=== PATIENT | female | born 1980 | race Caucasian/White ===

== ENCOUNTER 2020-11-12 08:07 | Outpatient (REF) | payer OTHER, SELFPAY | END 2020-11-12 08:08 | disposition home or self-care (01) | LOC: HO.LAB 08:07 | PROVIDERS: Visit Provider Internal Medicine | DX: Z20.822 Contact with and (suspected) exposure to COVID-19 (principal) | CPT/HCPCS: 36415; C9803; U0003; U0005 ==

== ENCOUNTER 2021-03-28 16:58 | Emergency (ER) | payer OTHER, SELFPAY ==
[2021-03-28 17:39] VITALS: BP 103/64; PULSE 74; RESP 18; TEMP 36.6; O2SAT 96; BMI 36.0
[2021-03-28 18:22] LABS: MANUAL DIFF FLAG NO
[2021-03-28 18:25] LABS: Eosinophils Percent Auto 0.5 % (0-4); Hematocrit 32.4 % (37-47); Hemoglobin 10.8 g/dl (12.0-16.0); Imm Gran Abs Auto 0.01 X10*3/uL (0.00-0.03); Imm Gran Pct Auto 0.2 % (0.0-0.4); Lymphocytes Absolute Auto 1.5 X10*3/uL (1.2-4.9); Lymphocytes Percent Auto 35.9 % (20-40); Mean Corpuscular HGB Conc 33.3 g/dl (31.0-35.0); Mean Corpuscular Hemoglobin 29.5 pg (27.0-33.0); Mean Corpuscular Volume 88.5 fL (80-98); Mean Platelet Volume 9.1 fL (9.4-12.3); Monocytes Absolute Auto 0.2 X10*3/uL (0.1-1.2); Monocytes Percent Auto 4.6 % (2-11); Neutrophils Absolute Auto 2.4 X10*3/uL (2.0-8.3); Neutrophils Percent Auto 58.8 % (45-73); Platelet Count 267 X10*3/uL (160-400); Red Blood Count 3.66 X10*6/uL (4.20-5.50); Red Cell Distribution Width 11.9 % (11.0-16.0); White Blood Count 4.1 X10*3/uL (4.8-10.8)
[2021-03-28 18:47] LABS: Alanine Aminotransferase 14 U/L (0-31); Albumin Level 3.6 g/dL (3.5-5.0); Alkaline Phosphatase 68 U/L (39-117); Anion Gap 13 (12-20); Aspartate Amino Transferase 16 U/L (5-31); Bilirubin Total < 0.2 mg/dL (0.0-1.0); Blood Urea Nitrogen 6 mg/dL (9-16); Calcium 8.6 mg/dL (8.4-10.2); Carbon Dioxide 26 mmol/L (22-29); Chloride 111 mmol/L (96-108); Creatinine Clr Calc Pharmacy 98.3; Estimated Glomerular Filt Rate > 60; Glucose Random 77 mg/dL (60-115); Potassium 3.7 mmol/L (3.3-5.1); Sodium 146 mmol/L (135-145); Total Protein 7.2 g/dL (6.5-8.0)
== END 2021-03-28 21:17 | disposition left against medical advice (07) ==
LOC: HO.ED 21:14
PROVIDERS: Emergency Provider Emergency Medicine; PCP Internal Medicine
DX: L02.419 Cutaneous abscess of limb, unspecified (principal); L02.512 Cutaneous abscess of left hand; L02.511 Cutaneous abscess of right hand
CPT/HCPCS: 36415; 80053; 85025; 99282; 99283

== ENCOUNTER 2021-04-03 06:27 | Emergency (ER) | payer OTHER, SELFPAY ==
[2021-04-03 06:29] VITALS: BP 128/79; PULSE 93; RESP 16; TEMP 36.6; O2SAT 94; BMI 5905.2
[2021-04-03 06:48] LABS: Glucose Urine UA NEG (NEG); Leukocyte Esterase Urine NEG (NEG); Nitrite Urine NEG (NEG); Specific Gravity - Urine >= 1.030 (1.005-1.025); Urine Blood NEG (NEG); Urine Ketones NEG (NEG); Urine Protein TRACE MG/DL (NEG-TRACE)
[2021-04-03 06:51] LABS: Appearance Urine CLEAR; Color Urine DARK YELLOW; UPreg QC Valid YES; Urine Pregnancy NEGATIVE (NEGATIVE)
--- NOTE | 2021-04-03 07:03 | ED_ITS ---
HPI - Abdominal Pain General Chief Complaint: Abdominal Pain Stated Complaint: abd pain Time Seen by Provider: 04/03/21 06:51 Source: patient History of Present Illness HPI narrative: 41-year-old female presents emergency department with left lower quadrant pain. Patient was recently in detox came out with draining cellulitis and abscess to left hand she is on Bactrim and Keflex. Patient states that she has been on detox for approximately 1 week she denies fevers chills cough nausea vomiting or diarrhea her appetite has been normal. She denies any previous surgeries. MD elicited complaint: abdominal pain Pertinent past history: none Migration to: no migration Related Data Home Medications Medication Instructions Recorded Confirmed ferrous sulfate 325 mg (65 mg 325 mg PO DAILY 03/29/21 iron) tablet (Feosol) methadone 40 mg soluble tablet 10 mg PO Q4H 03/29/21 Previous Rx's Medication Instructions Recorded cephalexin 500 mg capsule 500 mg PO QID 7 Days #28 cap 03/29/21 metronidazole 0.75 % vaginal gel 1 appful VAGINAL DAILY 5 Days #70 g 03/29/21 sulfamethoxazole 800 1 tab PO BID 10 Days #20 tab 03/29/21 mg-trimethoprim 160 mg tablet Allergies Allergy/AdvReac Type Severity Reaction Status Date / Time Fish Containing Products Allergy Severe ANAPHYLAXIS Verified 04/03/21 06:29 Review of Systems Review of Systems Review of systems: General: Patient denies any fever chills recent illness or falls Musculoskeletal: Denies back pain or body aches or other injuries HEENT: denies headache, runny nose, ear pain Respiratory: denies shortness of breath, cough Cardiovascular: no chest pain or palpitations : denies dysuria, frequency Abdomen: no nausea vomiting or diarrhea she does have llq abdominal pain Extremities: no swelling, no pain Skin: no diaphoresis Yes all other systems are reviewed and are negative Physical Exam Vital Signs: Vital Signs: Last Vital Signs Temp 98.4 F 04/03/21 07:53 Pulse 75 04/03/21 07:53 Resp 18 04/03/21 07:53 BP 111/60 04/03/21 07:53 Pulse Ox 100 04/03/21 07:53 Body Mass Index 5905.2 General: Well-appearing well-nourished in no signs of distress HEENT: Normocephalic atraumatic Neck: No signs of JVD, no masses no tenderness or lymphadenopathy Cardiovascular: Regular rate and rhythm Respiratory: Clear to auscultation bilaterally Abdomen: Soft patient tender to left lower quadrant no masses Extremities: Normal pedal pulses no signs of edema Skin: Dry warm no rashes Back: No tenderness full ROM MDM - Abdominal Pain MDM Narrative Medical decision making narrative: Patient concerns for diverticulitis versus abscess versus ovarian torsion versus talk present seen. The patient for CT scan and check CBC BMP serum test. Nursing attempted to get an IV patient has scars and healing wounds to both arms due to heavy drug use. They were unable to get the IV they tried with ultrasound or unsuccessful then attempted to draw labs and the patient still refused would not sit still and abscond from the ER. Differential Diagnosis Differential diagnosis: Likely abdominal pain, calculus of kidney and gastroenteritis Lab Data Labs: Lab Results 04/03/21 04/03/21 Range/Units 06:39 06:39 Urine Color DARK YELLOW Urine Appearance CLEAR Urine pH 6.0 (5.0-8.0) Ur Specific [place] >= 1.030 H (1.005-1.025) Urine Protein TRACE (NEG-TRACE) MG/DL Urine Glucose (UA) NEG (NEG) MG/DL Urine Ketones NEG (NEG) MG/DL Urine Blood NEG (NEG) Urine Nitrite NEG (NEG) Ur Leukocyte Esterase NEG (NEG) Urine Test NEGATIVE (NEGATIVE) Discharge Plan Discharge Clinical Impression: Abdominal pain Patient Disposition: Elopement Prescriptions: No Action ferrous sulfate [Feosol] 325 mg (65 mg iron) tablet 325 mg PO DAILY RF: 0 methadone 40 mg tablet,soluble 10 mg PO Q4H RF: 0 cephalexin 500 mg capsule 500 mg PO QID 7 Days Qty: 28 RF: 0 sulfamethoxazole-trimethoprim 800-160 mg tablet 1 tab PO BID 10 Days Qty: 20 RF: 0 metronidazole 0.75 % gel 1 appful vaginal DAILY 5 Days Qty: 70 RF: 0 PMFSH Past Medical History Surgical History (Updated 06/18/20 @ 11:43 by NATE Draper) History of section Family History Family History (Updated 06/21/20 @ 13:02 by NATE Howe) Father No problems noted. Mother HTN (hypertension) Social History Social History Advance Directives: No Advance Directives Information Provided: No
[2021-04-03 07:53] VITALS: BP 111/60; PULSE 75; RESP 18; TEMP 36.9; O2SAT 100
--- NOTE | 2021-04-03 07:53 | PC.NURSE ---
Pt alert and oriented x3, pt states she has been having localized L quadrant pain over the past 2 days. no n/v, no diarrhea, no fever/chills. no c/o sob/difficulty breathing. LMP 2 years ago. Pt is a difficult stick. multiple attempts made to establish IV. Pt declines to have IV established.She states it is too painful. She declines Iv pain med and fluids. Dr. Burger made aware by the specifications writer. no apparent distress noted. pt resting quietly.
--- NOTE | 2021-04-03 08:20 | PC.NURSE ---
Pt got upset stating the tourniquet was too tight when staff attempted to establish iv and labs. Pt eloped. Dr. Burger made aware by this specification writer.
== END 2021-04-03 08:25 | disposition left against medical advice (07) ==
PROVIDERS: Emergency Provider Student in an Organized Health Care Education/Training Program; PCP Internal Medicine
DX: R10.32 Left lower quadrant pain (principal); Z79.899 Other long term (current) drug therapy
CPT/HCPCS: 81003; 81025; 96374; 99283

== ENCOUNTER 2021-04-18 11:32 | Emergency (ER) | payer OTHER, SELFPAY | END 2021-04-18 13:22 | disposition left against medical advice (07) | PROVIDERS: Emergency Provider Internal Medicine; PCP Internal Medicine | DX: L02.91 Cutaneous abscess, unspecified (principal) ==

== ENCOUNTER 2021-04-21 13:03 | Emergency (ER) | payer OTHER, SELFPAY ==
--- NOTE | 2021-04-21 13:24 | PC.NURSE ---
2nd call to [facility] [place] 1321 no response in wr
--- NOTE | 2021-04-21 13:30 | PC.NURSE ---
3rd call to c at 1328 no response
== END 2021-04-21 13:28 | disposition left against medical advice (07) ==
PROVIDERS: Emergency Provider Internal Medicine; PCP Internal Medicine
DX: R21 Rash and other nonspecific skin eruption (principal)

== ENCOUNTER 2021-06-02 05:25 | Emergency (ER) | payer OTHER, SELFPAY ==
--- NOTE | 2021-06-02 05:33 | ED.AMS ---
HPI - Altered Mental Status General Chief Complaint: General Medical Stated Complaint: 3 BAGS OF HEROIN TONIGHT PER EMS Time Seen by Provider: 06/02/21 05:33 Source: patient Mode of arrival: EMS Limitations: no limitations History of Present Illness HPI narrative: patient found on the side of the road after using heroine. Patient did not receive kacie WYATT complaint: altered mental status Onset (ago): hour(s) Severity: mild Context: drug abuse Related Data Home Medications Medication Instructions Recorded Confirmed ferrous sulfate 325 mg (65 mg 325 mg PO DAILY 03/29/21 iron) tablet (Feosol) methadone 40 mg soluble tablet 10 mg PO Q4H 03/29/21 Previous Rx's Medication Instructions Recorded cephalexin 500 mg capsule 500 mg PO QID 7 Days #28 cap 03/29/21 metronidazole 0.75 % vaginal gel 1 appful VAGINAL DAILY 5 Days #70 g 03/29/21 sulfamethoxazole 800 1 tab PO BID 10 Days #20 tab 03/29/21 mg-trimethoprim 160 mg tablet Allergies Allergy/AdvReac Type Severity Reaction Status Date / Time Fish Containing Products Allergy Severe ANAPHYLAXIS Verified 06/02/21 05:37 Review of Systems Constitutional: Constitutional: Reports no additional constitutional complaints Eyes: Eyes: Reports no additional eye complaints ENT: Denies dizziness Cardiovascular: Cardiovascular: Reports no additional cardiovascular complaints Respiratory: Respiratory: Reports as per HPI Gastrointestinal: Gastrointestinal: Reports no additional gastrointestinal complaints Genitourinary: Genitourinary: Reports no additional female genitourinary complaints Musculoskeletal: Musculoskeletal: Reports no additional musculoskeletal complaints Integumentary/Breasts: Skin/Breast: Denies rash Neurologic: Reports system reviewed and no additional complaints, except as documented, Denies dizziness and Denies Sensory deficit (Neuro) Psychiatric: Psychiatric: Denies anxiety PMF Past Medical History Surgical History History of section Family History Family History Father No problems noted. Mother HTN (hypertension) Social History Social History Advance Directives: No Advance Directives Information Provided: Yes Physical Exam Vital Signs: Vital Signs: Last Vital Signs Temp 98.1 F 06/02/21 05:40 Pulse 87 06/02/21 05:40 Resp 14 06/02/21 05:40 BP 105/48 L 06/02/21 05:40 Pulse Ox 94 06/02/21 05:40 Body Mass Index 28.3 Const: Other: Pat[place] looking older than stated age Nutritional Appearance: average body habitus Orientation/consciousness: oriented to person Limitations: no limitations HENMT: Head: Yes normal to inspection Ears: external ears normal General nose exam: Normal external nose present Mouth: Normal oral and palatal mucosa present and oropharynx normal Throat: Yes posterior oropharynx normal Eyes: General: appearance normal, both eyes and all related structures Neck: Other: supple Neck: Yes normal visual inspection Chest: Chest palpation & inspection: normal inspection of the chest Resp: Auscultation: clear to auscultation bilaterally Cardio: Jugular venous distension: no JVD Rate: regular rate Rhythm: regular rhythm Heart sounds: S1 normal heart sound present and S2 normal heart sound present GI: Inspection: Yes normal to inspection Palpation (GI): Soft to palpation, nontender and No hepatosplenomegaly present Auscultation: normal bowel sounds : General: Yes no CVA tenderness Back/Spine/Pelvis: Back: no CVA tenderness Skin: Other: old track maxwell and healing wounds, no acute infection Neuro: General: oriented to person Cranial nerves: Yes CN's II-XII intact bilaterally Motor exam (neuro): 5/5 motor strength present throughout Sensory Exam: No Sensory deficit (Neuro) Extrem: General: Yes normal to inspection Psych: Appearance: grossly normal Course Reevaluation(s) Reevaluation #1: patient ate and is alert will dc home Time: 05:52 Discharge Plan Discharge Clinical Impression: Opiate addiction Qualifiers: Substance use status: with unspecified opioid-induced disorder Qualified Code(s): F11.29 - Opioid dependence with unspecified opioid-induced disorder Patient Disposition: Home, Self-Care Instructions: Opioid Use Disorder (ED) Prescriptions: No Action ferrous sulfate [Feosol] 325 mg (65 mg iron) tablet 325 mg PO DAILY RF: 0 methadone 40 mg tablet,soluble 10 mg PO Q4H RF: 0 cephalexin 500 mg capsule 500 mg PO QID 7 Days Qty: 28 RF: 0 sulfamethoxazole-trimethoprim 800-160 mg tablet 1 tab PO BID 10 Days Qty: 20 RF: 0 metronidazole 0.75 % gel 1 appful vaginal DAILY 5 Days Qty: 70 RF: 0 Referrals: Po,Favian Chapman MD [Primary Care Provider] - 3 days
[2021-06-02 05:40] VITALS: BP 105/48; PULSE 87; RESP 14; TEMP 36.7; O2SAT 94; BMI 28.3
== END 2021-06-02 07:16 | disposition home or self-care (01) ==
PROVIDERS: Emergency Provider Emergency Medicine Emergency Medical Services; PCP Internal Medicine
DX: F11.29 Opioid dependence with unspecified opioid-induced disorder (principal); Z79.899 Other long term (current) drug therapy; Z71.51 Drug abuse counseling and surveillance of drug abuser
CPT/HCPCS: 99283

== ENCOUNTER 2021-07-14 08:09 | Emergency (ER) | payer OTHER, SELFPAY ==
[2021-07-14 08:15] VITALS: BP 110/79; BP 146/89; PULSE 63; PULSE 74; RESP 16; TEMP 36.6; O2SAT 97; BMI 27.4
--- NOTE | 2021-07-14 08:35 | PC.NURSE ---
pt found passed out in hallway of an apartment building, pt homeless she admits to using 2 bags of heroin around 3-4 a.m. this morning. pt sleeping since arriving to ed, she does wake up and responds easily when spoken to. pt alert and oriented x3. vss. no apparent distress noted.
--- NOTE | 2021-07-14 09:43 | ED.OVERDOSE ---
HPI - Overdose General Chief Complaint: Overdose Stated Complaint: EVAL D/T USING DRUGS TODAY Time Seen by Provider: 07/14/21 09:38 Source: patient and EMS Mode of arrival: EMS Limitations: no limitations History of Present Illness HPI Narrative: Patient is brought to emergency room by EMS. Patient was found by bystanders in a hallway, sleeping. Patient did not receive any Narcan, woke up, states that she is homeless, admits to using 2 bags of heroin. Patient is somnolent but easily arousable. It was noted that patient has cellulitis and open wounds in both hands on the dorsum from needle injections. Patient states that her hands look much better, she was in [facility] 1 week ago, she is currently on antibiotics, states she does not know the name. Patient denies any pain. Patient states that she does not want any intervention for her hands at this time. Patient denies fever chills. Patient denies suicidal or homicidal ideation, this was an accidental overdose. Related Data Home Medications Medication Instructions Recorded Confirmed ferrous sulfate 325 mg (65 mg 325 mg PO DAILY 03/29/21 iron) tablet (Feosol) methadone 40 mg soluble tablet 10 mg PO Q4H 03/29/21 Previous Rx's Medication Instructions Recorded cephalexin 500 mg capsule 500 mg PO QID 7 Days #28 cap 03/29/21 metronidazole 0.75 % vaginal gel 1 appful VAGINAL DAILY 5 Days #70 g 03/29/21 sulfamethoxazole 800 1 tab PO BID 10 Days #20 tab 03/29/21 mg-trimethoprim 160 mg tablet amoxicillin 875 mg-potassium 1 tab PO Q12H 7 Days #14 tab 06/02/21 clavulanate 125 mg tablet (Augmentin) doxycycline hyclate 100 mg tablet 100 mg PO Q12H 7 Days #14 tab 06/02/21 Allergies Allergy/AdvReac Type Severity Reaction Status Date / Time Fish Containing Products Allergy Severe ANAPHYLAXIS Verified 06/02/21 05:37 Review of Systems Review of Systems: Constitutional : No Weight loss, No Fever, No Chills, No Night Sweats, No Fatigue, No Malaise ENT/Mouth : No Hearing loss, No Ear Pain, No Nasal Congestion, No Sinus Pain, No Hoarseness, No sore throat, No Rhinorrhea, No Swallowing Difficulty Eyes: No Eye Pain, No Swelling, No Redness, No Foreign Body, No Discharge, No Vision Changes Cardiovascular : No Chest Pain, No SOB, No Dyspnea on Exertion, No Orthopnea, No Edema, No Palpitations Respiratory : No Cough, No Sputum, No Wheezing, No Smoke Exposure, No Dyspnea Gastrointestinal : No Nausea, No Vomiting, No Diarrhea, No Constipation, No abdominal Pain, No Hematochezia, No Melena Genitourinary : no irregular bleeding, No Dysuria, No Urinary Frequency, No Hematuria, No Urinary Incontinence, No Urgency, No Flank Pain, No Urinary Flow Changes, No Hesitancy Musculoskeletal : No joint pain, No Myalgias, No Joint Swelling Skin : For patient lesions in her aunt/cellulitis much improved Neuro : No Weakness, No Numbness, No Paresthesias, No Loss of Consciousness, No Dizziness, No Headache Psych : No Anxiety/Panic, No Depression, No SI/HI/AH/VH, admits to drug use Heme/Lymph: No Bruising, No Bleeding,No Lymphadenopathy Endocrine : No Polyuria, No Polydipsia, No Temperature Intolerance [facility] Past Medical History Medical History (Updated 07/14/21 @ 09:48 by Preethi Milan MD) Substance abuse Surgical History History of section Family History Family History Father No problems noted. Mother HTN (hypertension) Social History Social History Advance Directives: No Advance Directives Information Provided: No Physical Exam Vital Signs: Vital Signs: Last Vital Signs Temp 97.0 F 07/14/21 15:50 Pulse 90 07/14/21 15:50 Resp 16 07/14/21 15:50 BP 151/77 H 07/14/21 15:50 Pulse Ox 99 07/14/21 15:50 Body Mass Index 27.4 Const: Other: Appearance: Alert. Oriented X3. No acute distress. Somnolent but easily arousable Eyes: Pupils equal, round and reactive to light. ENT: Pharynx normal. Neck: Normal inspection. Neck supple. No lymph nodes noted. No crepitus CVS: Normal heart rate and rhythm. Pulses normal. Normal S1 and S2 Respiratory: No respiratory distress. Breath sounds normal. No Wheezing. No rales Abdomen: Soft and nontender. No rigidity. No distention. Skin: Skin warm and dry. See below Extremities: No lower extremity edema. Cellulitis and open wounds in the dorsum of both hands, not tender to touch Neuro: Oriented X 3. No motor deficit. No sensory deficit. Moving all extermities. No slurred speech. Cranial nerves 2-12 grossly intact Course Course Course Narrative: At this time, patient declined any blood work or any intubation for the cellulitis in her hand, states she is on antibiotics. Patient is calm, cooperative, very somnolent but easily arousable. Has no complaints. Not suicidal or homicidal. At this time, patient will stay in the ED until she is more awake. Respiratory rate and oxygen saturation within normal limits. Physician of sedation started at 09:45 Patient is awake and alert, denies suicidal homicidal ideation, once again declined treatment for cellulitis. Patient will eat dinner and initially discharged. MDM - Overdose Lab Data Labs: Lab Results 07/14/21 07/14/21 07/14/21 Range/Units 10:04 10:22 10:22 POC Glucose 77 (60-115) mg/dL Urine Color YELLOW Urine Appearance HAZY Urine pH 6.0 (5.0-8.0) Ur Specific [place] >= 1.030 H (1.005-1.025) Urine Protein NEG (NEG-TRACE) MG/DL Urine Glucose (UA) NEG (NEG) MG/DL Urine Ketones NEG (NEG) MG/DL Urine Blood NEG (NEG) Urine Nitrite NEG (NEG) Ur Leukocyte Esterase NEG (NEG) Urine Test NEGATIVE (NEGATIVE) Urine Opiates Screen (Not Detect) Urine Fentanyl Screen (Not Detect) Ur Barbiturates Screen (Not Detect) Ur Phencyclidine Scrn (Not Detect) Ur Amphetamines Screen (Not Detect) U Benzodiazepines Scrn (Not Detect) Urine Cocaine Screen (Not Detect) U Marijuana (THC) Screen (Not Detect) 07/14/21 Range/Units 10:22 POC Glucose (60-115) mg/dL Urine Color Urine Appearance Urine pH (5.0-8.0) Ur Specific [place] (1.005-1.025) Urine Protein (NEG-TRACE) MG/DL Urine Glucose (UA) (NEG) MG/DL Urine Ketones (NEG) MG/DL Urine Blood (NEG) Urine Nitrite (NEG) Ur Leukocyte Esterase (NEG) Urine Test (NEGATIVE) Urine Opiates Screen POSITIVE H (Not Detect) Urine Fentanyl Screen POSITIVE H (Not Detect) Ur Barbiturates Screen Not Detected (Not Detect) Ur Phencyclidine Scrn Not Detected (Not Detect) Ur Amphetamines Screen Not Detected (Not Detect) U Benzodiazepines Scrn Not Detected (Not Detect) Urine Cocaine Screen POSITIVE H (Not Detect) U Marijuana (THC) Screen Not Detected (Not Detect) Discharge Plan Discharge Clinical Impression: Drug overdose Patient Disposition: Home, Self-Care Instructions: Adult Overdose (ED) Additional Instructions: Please follow-up with your primary care physician tomorrow. If you have any worsening or new symptoms, please return to the emergency room or call 911 Prescriptions: No Action amoxicillin-pot clavulanate [Augmentin] 875-125 mg tablet 1 tab PO Q12H 7 Days Qty: 14 RF: 0 doxycycline hyclate 100 mg tablet 100 mg PO Q12H 7 Days Qty: 14 RF: 0 ferrous sulfate [Feosol] 325 mg (65 mg iron) tablet 325 mg PO DAILY RF: 0 methadone 40 mg tablet,soluble 10 mg PO Q4H RF: 0 cephalexin 500 mg capsule 500 mg PO QID 7 Days Qty: 28 RF: 0 sulfamethoxazole-trimethoprim 800-160 mg tablet 1 tab PO BID 10 Days Qty: 20 RF: 0 metronidazole 0.75 % gel 1 appful vaginal DAILY 5 Days Qty: 70 RF: 0
[2021-07-14 10:07] LABS: Glucose, Whole Blood 77 mg/dL (60-115)
[2021-07-14 10:32] LABS: Appearance Urine HAZY; Color Urine YELLOW; Glucose Urine UA NEG (NEG); Leukocyte Esterase Urine NEG (NEG); Nitrite Urine NEG (NEG); Specific Gravity - Urine >= 1.030 (1.005-1.025); Urine Blood NEG (NEG); Urine Ketones NEG (NEG); Urine Protein NEG (NEG-TRACE)
[2021-07-14 10:34] LABS: UPreg QC Valid YES; Urine Pregnancy NEGATIVE (NEGATIVE)
[2021-07-14 11:03] LABS: Amphetamine Screen Urine Not Detected (Not Detect); Barbiturates, Urine Not Detected (Not Detect); Benzodiazepines Screen Urine Not Detected (Not Detect); Cannabinoid Screen Urine Not Detected (Not Detect); Cocaine Screen Urine POSITIVE (Not Detect); Fentanyl, urine POSITIVE (Not Detect); Opiate Screen Urine POSITIVE (Not Detect); Phencyclidine Screen Urine Not Detected (Not Detect)
--- NOTE | 2021-07-14 13:07 | MHC.RECOVRN ---
Attempted to meet with pt x2 to assess and complete SUDE, pt unable to engage in conversation due to somnolence. T/w did leave recovery resources with pt. Discussed with pts RN, RN will notify t/w when pt is able to complete assessment.
[2021-07-14 15:50] VITALS: BP 151/77; PULSE 90; RESP 16; TEMP 36.1; O2SAT 99
--- NOTE | 2021-07-14 15:50 | HO.SUDE ---
Addendum entered by Alisson Sanders [facility] 07/14/21 16:40: CARE Team met with pt and offered her a SUDE. Pt declined. Original Note: CARE Team attempted to meet with pt to offer SUDE, pt was not arousable at this time. Please consult the CARE Team when pt is more awake.
--- NOTE | 2021-07-14 17:12 | MHC.RECOVSUP ---
? Reason for consult Recovery support o Current location: ED6H o Identified substance use concern: Heroin - Overdose - Seeking ATS (detox) - Support ? Intervention: o ATS bed search started/completed/in process o MAT started or to be started o Community resources provided o Harm reduction discussion ? Plan: o Referral to [facility] o Bed search in progress to [facility] o Follow up tomorrow o Patient to follow up with [facility] after discharge ? Additional information: Patient is pending an intake at [facility] at 7PM. and a bed in the morning.
[2021-07-14 18:59] VITALS: BP 125/70; PULSE 92; RESP 16; TEMP 37; O2SAT 96
[2021-07-14 22:58] VITALS: BP 125/70; PULSE 73; RESP 16; TEMP 36.8; O2SAT 92
[2021-07-15] VITALS (7 sets, daily range): BP systolic 115–130; BP diastolic 63–93; PULSE 77–83; RESP 16–18; TEMP 36.9; O2SAT 96–99
--- NOTE | 2021-07-15 07:30 | PC.NURSE ---
pt called her sister for a ride home, the sister requested to speak with this rn, i got verbal permission from the pt to speak with the sister. according to the pt is very unsafe to go home, the sister states that she is 100% that the pt will attempt to kill herself and that the pt has previous attempts in the future and the whole reason the pt was sent here is to evaluated by crisis. aslo the family is supposable going to court this morning to section 35 the pt when this rn spoke to the pt what is the reason that she wants to go home pt did not really answer, was looking down and not having any eye contact, this rn asked the pt if she was suicidal, pt would not answer, yes or no, just keeps looking down on the ground.
[2021-07-15] MEDS: LORazepam 1 MG TABLET PO ×2 (07:52→19:47)
--- NOTE | 2021-07-15 10:39 | PC.NURSE ---
pt is currently asleep,respirations even and unlabored sitter in place
--- NOTE | 2021-07-15 13:46 | PC.NURSE ---
Transferred over to [facility] Bed 1. Report given to this RN by Angelica (embedded systems engineer). Pt ambulates with steady gait. Per Angelica, [facility] referral sent. Awaiting N/Crisis evaluation. Ativan given just prior to 8am today. Patient's belongings are in decontamination room. Arrived for overdose on heroin, also reports SI. Changeover completed. Clara is calm/cooperative at this time, watching TV.
--- NOTE | 2021-07-15 18:57 | PC.NURSE ---
Spoke with MD about COWS. Pt states that suboxone gives her adverse effects and does not want to take. Ativan worked well for pt earlier. MD to place PRN marshall.
--- NOTE | 2021-07-15 21:00 | MHC.CARE ---
CARE Team faxed pt's intake packet to [facility] last night (07/14) because pt was interested in going to detox and planned to follow up this morning. Today pt reported that her overdose was an intentional suicide attempt so she was referred for assessment. CARE Team meet with pt to determine appropriate treatment recommendations. Pt reports that her overdose was a suicide attempt because she has been feeling so helpless and hopeless to overcome her addiction. Pt explains that her suicidality is rooted in her inability to regain sobriety. Pt denies current SI or self harm urges. Pt denies HI/. Pt denies any prior psychiatric history/treatment/diagnoses. Pt is not currently a risk to herself or others so CARE Team recommends that pt be admitted to detox for treatment in the morning.
--- NOTE | 2021-07-16 05:56 | PC.NURSE ---
pt awake oob to bathroom. steady gait. back to bed.
[2021-07-16 08:15] VITALS: BP 131/77; PULSE 83; RESP 18; TEMP 36.9; O2SAT 98
[2021-07-16] MEDS: Buprenorphine/Naloxone 4/1 mg FILM 1 FILM SUBLINGUAL ×2 (08:46→11:27)
--- NOTE | 2021-07-16 09:30 | MHC.RECOVSUP ---
Recovery Support note: This process description writer met with patient to discuss withdrawal and treatment options. Patient continues to express interest in going to detox. Patient reports significant withdrawal symptoms. Patient states that she was previously on methadone several months ago and that she last used heroin prior to arriving at the hospital. Patient expresses interest in receiving Suboxone to treat her withdrawal. Discussed case with patient's ED provider. Plan for patient to receive Suboxone while she awaits an inpatient detox bed.
[2021-07-16 11:23] VITALS: PULSE 88
== END 2021-07-16 13:06 ==
PROVIDERS: Emergency Provider Emergency Medicine; PCP Internal Medicine
DX: T40.1X1A Poisoning by heroin, accidental (unintentional), initial encounter (principal); Y92.89 Other specified places as the place of occurrence of the external cause; L03.114 Cellulitis of left upper limb; L03.113 Cellulitis of right upper limb; Z59.02 Unsheltered homelessness
CPT/HCPCS: 80307; 81003; 81025; 82947; 99285

== ENCOUNTER 2021-07-16 13:52 | Emergency (ER) | payer OTHER, SELFPAY ==
[2021-07-16 14:34] VITALS: BP 125/67; PULSE 102; RESP 20; TEMP 36.9; O2SAT 98; BMI 29.9
--- NOTE | 2021-07-16 15:06 | MHC.RECOVSUP ---
Recovery Support note: Patient was initially accepted to [facility] for ATS. Per [facility] staff, patient became frustrated with staff not immediately admitting her and patient returned to [facility] [place]. Staff would not admit her without [facility] discharge summary. This senior underwriter sent discharge summary for review. Per Nahomi at [facility], patient is accepted and can come in for treatment. Discussed case with lost charge card clerk and ED provider. This senior underwriter contacted patient's sister to coordinate transportation.
--- NOTE | 2021-07-16 15:14 | ED.GENADULT ---
HPI - General Adult General Chief complaint: General Medical Stated complaint: ANTIBO FOR DETOX Time Seen by Provider: 07/16/21 14:22 Source: patient Mode of arrival: ambulatory History of Present Illness HPI narrative: 41-year-old female with a past medical history of substance abuse discharged from our facility this morning to [facility] presenting back to our facility for medical clearance/miscommunication. [facility] believed patient needed labs/antibiotics for cellulitis to hands and sent her back to ED as she refused blood work. Patient was admitted to [facility] on 06/21 and discharged on 06/27 for bilateral hand cellulitis/ulceration treated with IV Vancomycin and Rocephin, does not currently have active cellulitis. Reports using heroin & cocaine, last used prior to previous [facility] arrival on 07/14. Reports feeling nauseous now. Denies fever, chills, abdominal pain, V/D, SI/HI Onset (ago): hour(s) Related Data Previous Rx's Medication Instructions Recorded bacitracin 500 unit/gram topical 1 appl TOPICAL BID #30 g 07/16/21 ointment Allergies Allergy/AdvReac Type Severity Reaction Status Date / Time Fish Containing Products Allergy Severe ANAPHYLAXIS Verified 06/02/21 05:37 Review of Systems Review of Systems: Constitutional: No Fever, No Chills,No Fatigue, No Malaise ENT/Mouth: No Ear Pain, No Nasal Congestion,No Hoarseness, No sore throat Eyes: No Eye Pain, No Swelling, No Redness Cardiovascular: No Chest Pain, No SOB, No Edema, No Palpitations Respiratory: No Cough, No Sputum, No Wheezing, No Smoke Exposure, No Dyspnea Gastrointestinal: + Nausea, No Vomiting, No Diarrhea, No Constipation, No Abdominal pain Genitourinary: No Dysuria, No Urinary Frequency, No Hematuria Musculoskeletal: No joint pain, No Myalgias, No Joint Swelling Skin: No Skin Lesions, No rash Neuro: No Weakness, No Headache Psych: No Anxiety/Panic, No Depression, No SI/HI/AH/VH, No Social Issues Yes all other systems are reviewed and are negative [facility] Past Medical History Attestation statement: The following information was validated with the patient. Medical History (Updated 07/16/21 @ 15:17 by MORRIS Day) Substance abuse Surgical History History of section Family History Family History Father No problems noted. Mother HTN (hypertension) Social History Social History Patient Tobacco Use Status: Current everyday Tobacco user Substance Use Type: Crack/Cocaine and Heroin Advance Directives: No Advance Directives Information Provided: No Physical Exam Vital Signs: Vital Signs: Last Vital Signs Temp 98.5 F 07/16/21 14:34 Pulse 102 H 07/16/21 14:34 Resp 20 07/16/21 14:34 BP 125/67 07/16/21 14:34 Pulse Ox 98 07/16/21 14:34 Body Mass Index 29.9 Const: General: cooperative Orientation/consciousness: patient oriented x3 Limitations: no limitations HENMT: Head: Yes normal to inspection and Yes atraumatic Ears: hearing grossly normal bilaterally General nose exam: Normal external nose present Face and sinus: Yes normal facial exam Eyes: General: appearance normal, both eyes and all related structures EOM: EOMs intact bilaterally Neck: Neck: Yes normal visual inspection and Yes no meningeal signs Resp: Effort & Inspection: normal respiratory effort and no respiratory distress Auscultation: clear to auscultation bilaterally Cardio: Rate: regular rate Heart sounds: S1 normal heart sound present and S2 normal heart sound present GI: Inspection: Yes normal to inspection Palpation (GI): Soft to palpation, nontender, no guarding and not rigid Skin: Other: Bilateral ulcerations/wounds to dorsum of hands without warmth/erythema or active cellulitis. No fluctuance/induration or streaking. Neurovascularly intact Rashes: no rashes Neuro: General: patient oriented x3, tone normal, moves all extremities and no meningeal signs Cranial nerves: Yes CN's II-XII intact bilaterally Extrem: General: Yes normal to inspection Medical Decision Making MDM Narrative Medical decision making narrative: 41-year-old female with a past medical history of substance abuse discharged from our facility this morning to [facility] presenting back to our facility for medical clearance/miscommunication. On exam mildly tachycardic, NAD/nontoxic, denies SI/HI. Patient was just discharged from our ED a few hours ago, plan still for patient to go to [facility], discharge paperwork from [facility] was sent to [facility], they will not accept patient. Patient's sister will be picking her up from ED for transport Discharge Plan Discharge Clinical Impression: Substance abuse Patient Disposition: Xfer Other Transfer Details: [facility] Instructions: Polysubstance Abuse (ED) Additional Instructions: Please do not use drugs or drink alcohol a can kill you Your accepted to [facility], please go as set up for you If you have any thoughts of hurting herself or hurting others please return to the ED Prescriptions: No Action bacitracin 500 unit/gram ointment 1 appl topical BID Qty: 30 RF: 1 Referrals: [facility] [Physician] - 2 days
[2021-07-16] MEDS: LORazepam 1 MG TABLET PO (15:29)
== END 2021-07-16 16:18 | disposition other institution (70) ==
PROVIDERS: Emergency Provider Emergency Medicine Emergency Medical Services; PCP Internal Medicine
DX: F11.10 Opioid abuse, uncomplicated (principal); F14.10 Cocaine abuse, uncomplicated; Z79.899 Other long term (current) drug therapy
CPT/HCPCS: 99282; 99283

== ENCOUNTER 2022-03-11 15:52 | Emergency (ER) | payer OTHER, SELFPAY ==
[2022-03-11 15:57] VITALS: BP 151/96; PULSE 90; RESP 18; TEMP 36.6; O2SAT 97; BMI 29.1
[2022-03-11 16:30] LABS: Appearance Urine HAZY; Color Urine YELLOW; Glucose Urine UA NEG (NEG); Leukocyte Esterase Urine NEG (NEG); Nitrite Urine NEG (NEG); Specific Gravity - Urine >= 1.030 (1.005-1.025); Urine Blood NEG (NEG); Urine Ketones NEG (NEG); Urine Protein NEG (NEG-TRACE)
== END 2022-03-11 18:29 | disposition left against medical advice (07) ==
PROVIDERS: Emergency Provider Emergency Medicine
DX: N89.8 Other specified noninflammatory disorders of vagina (principal); F17.200 Nicotine dependence, unspecified, uncomplicated; F19.10 Other psychoactive substance abuse, uncomplicated
CPT/HCPCS: 81003; 99282

== ENCOUNTER 2022-09-12 12:02 | Inpatient (IN) | payer OTHER, SELFPAY ==
--- NOTE | ~2022-09-12 | XR_ITS ---
EXAMINATION: XR HAND, LEFT CLINICAL INFORMATION: Swelling, pain left hand. COMPARISON: None TECHNIQUE: PA, lateral, and oblique views of the left hand. FINDINGS: There is diffuse soft tissue swelling dorsum hand. There is a bony structures appear intact. There is normal bony mineralization. No destructive process, fracture, dislocation, or periostitis. No focal joint narrowing or erosive change. XR/XR hand LT 2V IMPRESSION: -Dorsal soft tissue swelling. -No fracture, dislocation, destructive process, or arthropathy.
--- NOTE | ~2022-09-12 | CT_ITS ---
EXAMINATION: CT SCAN OF THE LEFT HAND WITH CONTRAST. CLINICAL INFORMATION: Abscess pain swelling. IVDU COMPARISON: X-ray the left hand performed earlier same day. TECHNIQUE: CT scan of the left hand is performed with contrast. 85 cc of Omnipaque 350 given intravenously. Reconstruction imaging performed at the acquisition workstation. FINDINGS: There is increased density noted throughout the dorsal aspect of the wrist and hand from the radiocarpal joint to the level of the metatarsophalangeal joints. No localized fluid collection. Muscles and tendons are unremarkable. The bone and joints are unremarkable. CT/CT hand LT w IV con IMPRESSION: Increased density noted throughout the dorsal aspect of the wrist and hand. This could reflect edema or cellulitis. No localized fluid collection.
[2022-09-12 12:35] VITALS: BP 122/69; PULSE 95; RESP 19; TEMP 36.6; O2SAT 99; BMI 29.9
--- NOTE | 2022-09-12 12:36 | ED_ITS ---
HPI - Skin/Abscess/Foreign Bdy General Chief complaint: Wound/Laceration <MORRIS Perez - Last Filed: 09/12/22 12:39> Stated complaint: L hand redness/swelling/medical clearance <MORRIS Perez - Last Filed: 09/12/22 12:39> Time Seen by Provider: 09/12/22 13:34 <MORRIS Perez - Last Filed: 09/12/22 12:39> Source: patient <MORRIS Barkley Last Filed: 09/12/22 16:46> Mode of arrival: ambulatory <MORRIS Barkley Last Filed: 09/12/22 16:46> Limitations: no limitations <MORRIS Barkley Last Filed: 09/12/22 16:46> History of Present Illness HPI narrative: Patient is a 42 year old assigned female at with a history of IV drug use presenting to the emergency department today with left hand swelling and pain. Patient states that 2 days ago she injected heroin and cocaine into her left hand and ever since she has had swelling, redness, and warmth. Patient states that this has happened before in her right arm and she had to be admitted to have it opened. Patient denies any dizziness, lightheadedness, abdominal ada n, nausea, vomiting, fever, chills, blurry vision, double vision, loss of vision, chest pain, difficulty breathing, shortness of breath, back pain, night sweats, pain with urination, increased urinary frequency, increased urinary urgency, blood in her urine or stool, syncope or a near syncopal episode, bowel incontinence, bladder incontinence, bowel retention, bladder retention, or any other complaints at this time. <MORRIS Barkley - Last Filed: 09/12/22 16:46> Onset (ago): day(s) (2) <MORRIS Barkley Last Filed: 09/12/22 16:46> Location: R hand <MORRIS Barkley Last Filed: 09/12/22 16:46> Severity: moderate <MORRIS Barkley Last Filed: 09/12/22 16:46> Severity scale (1-10): 5 <MORRIS Barkley Last Filed: 09/12/22 16:46> Quality: aching and constant <MORRIS Barkley - Last Filed: 09/12/22 16:46> Pain Consistency: constant <MORRIS Barkley Last Filed: 09/12/22 16:46> Relieving factors: none <MORRIS Barkley Last Filed: 09/12/22 16:46> Exacerbating factors: none <MORRIS Barkley Last Filed: 09/12/22 16:46> Context: IVDA <MORRIS Barkley - Last Filed: 09/12/22 16:46> Associated symptoms: denies other symptoms <MORRIS Barkley Last Filed: 09/12/22 16:46> Treatments prior to arrival: none <MORRIS Barkley Last Filed: 09/12/22 16:46> Related Data Home medications: Previous Rx's Medication Instructions Recorded bacitracin 500 unit/gram topical 1 appl topical BID #30 grams 07/16/21 ointment <MORRIS Perez - Last Filed: 09/12/22 12:39> Allergies/Adverse reactions: Allergies Allergy/AdvReac Type Severity Reaction Status Date / Time Fish Containing Products Allergy Severe ANAPHYLAXIS Verified 06/02/21 05:37 <MORRIS Perez - Last Filed: 09/12/22 12:39> Review of Systems Constitutional: Constitutional: Reports no additional constitutional complaints, Denies chills, Denies fever(s) and Denies night sweats <MORRIS Barkley Last Filed: 09/12/22 16:46> Eyes: Eyes: Reports no additional eye complaints, Denies blurry vision, Denies change in vision, Denies diplopia, Denies eye discharge, Denies loss of vision and Denies eye pain <MORRIS Barkley - Last Filed: 09/12/22 16:46> ENT: Denies dizziness <MORRIS Barkley - Last Filed: 09/12/22 16:46> Cardiovascular: Cardiovascular: Reports no additional cardiovascular complaints, Denies chest pain, Denies lightheadedness, Denies Loss of Consciousness and Denies dyspnea <MORRIS Barkley Last Filed: 09/12/22 16:46> Respiratory: Respiratory: Reports no additional respiratory complaints and Denies dyspnea <MORRIS Barkley - Last Filed: 09/12/22 16:46> Gastrointestinal: Gastrointestinal: Reports no additional gastrointestinal complaints, Denies abdominal pain, Denies melena, Denies hematochezia, Denies change in bowel habits and Denies change in stool character <MORRIS Barkley - Last Filed: 09/12/22 16:46> Genitourinary: Genitourinary: Denies hematuria, Denies urinary frequency, Denies dysuria, Denies urinary incontinence, Denies urinary hesitancy and Denies urinary urgency <MORRIS Barkley - Last Filed: 09/12/22 16:46> Musculoskeletal: Musculoskeletal: Reports no additional musculoskeletal complaints, Denies numbness and Denies tingling <MORRIS Barkley - Last Filed: 09/12/22 16:46> Comments: left hand pain, swelling, and redness <MORRIS Barkley - Last Filed: 09/12/22 16:46> Neurologic: Denies dizziness, Denies loss of vision, Denies numbness and Denies tingling <MORRIS Barkley - Last Filed: 09/12/22 16:46> Psychiatric: Psychiatric: Reports no additional psychiatric complaints <MORRIS Barkley Last Filed: 09/12/22 16:46> Endocrine: Endocrine: Reports no additional endocrine complaints <MORRIS Barkley Last Filed: 09/12/22 16:46> Hematologic/Lymphatic: Hematologic/Lymphatic: Reports no additional hematologic/lymphatic complaints <MORRIS Barkley Last Filed: 09/12/22 16:46> Allergic/Immunologic: Allergic/Immunologic: Reports no additional allergic/immunologic complaints <MORRIS Barkley - Last Filed: 09/12/22 16:46> PMFSH Past Medical History Attestation statement: The following information was validated with the patient. <MORRIS Barkley Last Filed: 09/12/22 16:46> Source: old records reviewed and nursing notes reviewed <MORRIS Barkley Last Filed: 09/12/22 16:46> Medical History: Medical History Substance abuse <MORRIS Perez Last Filed: 09/12/22 12:39> Surgical History: Surgical History History of section <MORRIS Perez - Last Filed: 09/12/22 12:39> Family History Family History: Family History Father No problems noted. Mother HTN (hypertension) <MORRIS Perez - Last Filed: 09/12/22 12:39> Social History Social History: Social History Patient Tobacco Use Status: Current everyday Tobacco user Substance Use Type: Crack/Cocaine and Heroin Advance Directives: No Advance Directives Information Provided: Yes <MORRIS Perez - Last Filed: 09/12/22 12:39> Physical Exam Vital Signs: Vital Signs: Last Vital Signs Temp 98 F 09/12/22 12:35 Pulse 91 09/12/22 13:47 Resp 16 09/12/22 13:47 BP 116/74 09/12/22 13:47 Pulse Ox 96 09/12/22 13:47 O2 Del Method 09/12/22 13:47 BMI result Body Mass Index 29.9 <MORRIS Perez - Last Filed: 09/12/22 12:39> Vital Signs: Last Vital Signs Temp 98 F 09/12/22 12:35 Pulse 91 09/12/22 13:47 Resp 16 09/12/22 13:47 BP 116/74 09/12/22 13:47 Pulse Ox 96 09/12/22 13:47 O2 Del Method 09/12/22 13:47 BMI result Body Mass Index 29.9 <MORRIS Barkley - Last Filed: 09/12/22 16:46> Const: General: cooperative, no acute distress, alert and awake <MORRIS Barkley - Last Filed: 09/12/22 16:46> Nutritional Appearance: well nourished <MORRIS Barkley - Last Filed: 09/12/22 16:46> Orientation/consciousness: patient oriented x3 <MORRIS Barkley - Last Filed: 09/12/22 16:46> Limitations: no limitations <Claudette Pickardmarielle [facility] Last Filed: 09/12/22 16:46> HEENT: Head: Yes normal to inspection and Yes atraumatic <Claudette Pickardmarielle AR - Last Filed: 09/12/22 16:46> Ears: hearing grossly normal bilaterally and external ears normal <Claudette Pickardmarielle AR - Last Filed: 09/12/22 16:46> General nose exam: Normal external nose present, no nasal discharge noted and no epistaxis <Claudette Pickardmarielle AR - Last Filed: 09/12/22 16:46> Face and sinus: Yes normal facial exam, No abrasion and No laceration <Claudettekelly Pickardmarielle AR - Last Filed: 09/12/22 16:46> Mouth: Normal oral and palatal mucosa present, no drooling and no muffled voice <Claudette Pickardmarielle AR - Last Filed: 09/12/22 16:46> Eyes: General: appearance normal, both eyes and all related structures <Claudette Durán AR - Last Filed: 09/12/22 16:46> Periorbital: periorbital findings normal <Claudette Pickardmarielle AR - Last Filed: 09/12/22 16:46> Eyelids: Yes eyelids normal <Claudettekelly Pickardmarielle AR - Last Filed: 09/12/22 16:46> Conjunctivae: conjunctivae normal <Claudette Pickardmarielle AR - Last Filed: 09/12/22 16:46> Pupils: Equal, round and reactive pupils present <Claudette Durán AR - Last Filed: 09/12/22 16:46> EOM: EOMs intact bilaterally <Claudette Pickardmarielle AR - Last Filed: 09/12/22 16:46> Neck: Neck: Yes normal visual inspection, Yes full ROM and Yes no lymphadenopathy <Claudette Durán AR - Last Filed: 09/12/22 16:46> Chest: Chest palpation & inspection: normal inspection of the chest <MORRIS Barkley - Last Filed: 09/12/22 16:46> Resp: Effort & Inspection: normal respiratory effort and able to speak in complete sentences <MORRIS Barkley - Last Filed: 09/12/22 16:46> Auscultation: clear to auscultation bilaterally <Claudette DuránMORRIS - Last Filed: 09/12/22 16:46> Cardio: Rate: regular rate <Claudette DuránMORRIS - Last Filed: 09/12/22 16:46> Rhythm: regular rhythm <Claudette Durán PA - Last Filed: 09/12/22 16:46> GI: Inspection: Yes normal to inspection <Claudette DuránMORRIS - Last Filed: 09/12/22 16:46> Neuro: General: patient oriented x3 and moves all extremities <Claudette Durán PA - Last Filed: 09/12/22 16:46> Cranial nerves: Yes Equal, round and reactive pupils present <Claudette DuránMORRIS - Last Filed: 09/12/22 16:46> Cognition (Neuro): normal cognition <Claudette Durán PA - Last Filed: 09/12/22 16:46> Motor exam (neuro): 5/5 motor strength present throughout <Claudette PickardMORRIS palomares - Last Filed: 09/12/22 16:46> Sensory Exam: Normal double simultaneous stimulation for sensation <Claudette Durán PA - Last Filed: 09/12/22 16:46> Coordination: [id number] test normal <Claudette PickardMORRIS palomares - Last Filed: 09/12/22 16:46> Extrem: Other: <Claudette DuránMORRIS - Last Filed: 09/12/22 16:46> General: Yes full ROM and Yes capillary refill normal <Claudette PickardMORRIS palomares - Last Filed: 09/12/22 16:46> Psych: Appearance: grossly normal <Claudette PickardMORRIS palomares - Last Filed: 09/12/22 16:46> Mental Status: mental status grossly normal <Claudette DuránMORRIS - Last Filed: 09/12/22 16:46> Affect: normal affect <Claudette PickardMORRIS palomares - Last Filed: 09/12/22 16:46> Attitude: cooperative <Claudette PickardMORRIS palomares - Last Filed: 09/12/22 16:46> Thought process: Normal thought process present <Claudette MORRIS Durán - Last Filed: 09/12/22 16:46> Thought content: Normal thought content present <Claudette MORRIS Durán - Last Filed: 09/12/22 16:46> Insight: Good insight present (Psych) <MORRIS Barkley - Last Filed: 09/12/22 16:46> Course Course Course Narrative: RME - 42 yo female with history of IVDA, last used heroin & cocaine last night presenting for evaluation of left hand pain, redness, swelling after injecting in this area. Needs medical clearance to go to detox, has a bed in [place]. Will get labs, lactic and cultures given the appearance of her hand <MORRIS Perez - Last Filed: 09/12/22 12:39> Medications Administered Generic Name Dose Route Start Last Admin Trade Name Freq PRN Reason Stop Dose Admin Vancomycin HCl 2,000 mg/ 540 mls @ 270 mls/hr 09/12/22 15:00 09/12/22 15:41 Sodium Chloride IV 09/12/22 16:59 270 mls/hr ONCE ONE Administration Discontinued Medications Generic Name Dose Route Start Last Admin Trade Name Freq PRN Reason Stop Dose Admin Acetaminophen 650 mg 09/12/22 15:54 09/12/22 16:36 Acetaminophen 325 Mg Tablet PO 09/12/22 15:55 650 mg ONCE ONE Administration Hydromorphone HCl 1 mg 09/12/22 15:54 09/12/22 16:36 Hydromorphone Hcl 1 Mg/Ml Syringe IVPUSH 09/12/22 15:55 1 mg ONCE ONE Administration Protocol Piperacillin Sod/Tazobactam 50 mls @ 100 mls/hr 09/12/22 13:39 09/12/22 15:41 Sod 3.375 gm/ Sodium Chloride IV 09/12/22 14:08 Infused ONCE ONE Infusion Sodium Chloride 2,449.41 mls @ 2,449.41 mls/hr 09/12/22 13:44 09/12/22 16:42 Ns 30 ml/kg infuse over 1 hr (2449.41 ml) 09/12/22 14:43 Infused IV Infusion .Q1H STA Iohexol 100 ml 09/12/22 14:58 09/12/22 14:58 Iohexol 350 Mg/Ml 100 Ml Infus..Btl IV 09/12/22 14:59 85 ml ONCE ONE Administration <MORRIS Perez - Last Filed: 09/12/22 12:39> Medications Administered Generic Name Dose Route Start Last Admin Trade Name Rico PRN Reason Stop Dose Admin Vancomycin HCl 2,000 mg/ 540 mls @ 270 mls/hr 09/12/22 15:00 09/12/22 15:41 Sodium Chloride IV 09/12/22 16:59 270 mls/hr ONCE ONE Administration Discontinued Medications Generic Name Dose Route Start Last Admin Trade Name Rico PRN Reason Stop Dose Admin Acetaminophen 650 mg 09/12/22 15:54 09/12/22 16:36 Acetaminophen 325 Mg Tablet PO 09/12/22 15:55 650 mg ONCE ONE Administration Hydromorphone HCl 1 mg 09/12/22 15:54 09/12/22 16:36 Hydromorphone Hcl 1 Mg/Ml Syringe IVPUSH 09/12/22 15:55 1 mg ONCE ONE Administration Protocol Piperacillin Sod/Tazobactam 50 mls @ 100 mls/hr 09/12/22 13:39 09/12/22 15:41 Sod 3.375 gm/ Sodium Chloride IV 09/12/22 14:08 Infused ONCE ONE Infusion Sodium Chloride 2,449.41 mls @ 2,449.41 mls/hr 09/12/22 13:44 09/12/22 16:42 Ns 30 ml/kg infuse over 1 hr (2449.41 ml) 09/12/22 14:43 Infused IV Infusion .Q1H STA Iohexol 100 ml 09/12/22 14:58 09/12/22 14:58 Iohexol 350 Mg/Ml 100 Ml Infus..Btl IV 09/12/22 14:59 85 ml ONCE ONE Administration <MORRIS Barkley - Last Filed: 09/12/22 16:46> Medical Decision Making Medical Decision Making MDM Narrative: Patient is a 42 year old assigned female at with a history of IVDU presenting to the emergency department today with left hand swelling and pain. Patient's physical exam showed an erythematous and swollen left dorsal hand involving the 2nd MCP joint. ROM of the left hand was in tact but painful. Patient's blood work showed an elevated WBC count of 11.4, elevated ESR of 39, elevated lactic acid of 2.5, and an elevated CRP of 3.02. Patient's left hand x- ray showed dorsal soft tissue swelling. Patient's left hand CT showed increased density throughout the dorsal aspect of the wrist and hand but no localized fluid collection. Patient was given IV Zosyn and Vancomyin. Patient was given IV fluids. Patient not considered septic at 1642. I spoke to the hospitalist team w valerie agreed to admission. I explained my physical exam findings as well as all test results to the patient. I answered all questions asked by the patient. Patient verbalized agreement and understanding with this treatment plan and admission. <MORRIS Barkley - Last Filed: 09/12/22 16:46> Differential Diagnosis Differential Diagnoses: The differential diagnosis associated with the presentation includes <MORRIS Barkley - Last Filed: 09/12/22 16:46> cellulitis, IVDU <MORRIS Barkley - Last Filed: 09/12/22 16:46> Consult Healthcare Provider Management of the patient was discussed with: Hospitalist (agreed to admission) <MORRIS Barkley - Last Filed: 09/12/22 16:46> Lab Data MDM Lab Attestation statement: I reviewed the patient's lab results. <MORRIS Barkley - Last Filed: 09/12/22 16:46> Result Diagrams: 09/12/22 12:53 09/12/22 12:53 <MORRIS Perez - Last Filed: 09/12/22 12:39> Labs: Lab Results 09/12/22 09/12/22 09/12/22 Range/Units 12:53 12:53 12:53 WBC 11.4 H (4.8-10.8) X10*3/uL RBC 4.40 (4.20-5.50) X10*6/uL Hgb 12.5 (12.0-16.0) g/dl Hct 37.0 (37.0-47.0) % MCV 84.1 (80.0-98.0) fL MCH 28.4 (27.0-33.0) pg MCHC 33.8 (31.0-35.0) g/dl RDW 12.8 (11.0-16.0) % Plt Count 228 (160-400) X10*3/uL MPV 10.2 (9.4-12.3) fL Immature Gran % (Auto) 0.4 (0.0-0.4) % Neut % (Auto) 89.2 H (45-73) % Lymph % (Auto) 5.9 L (20-40) % [place] % (Auto) 3.8 (2-11) % Eos % (Auto) 0.5 (0-4) % Baso % (Auto) 0.2 (0-2) % Lymph # (Auto) 0.7 L (1.2-4.9) X10*3/uL [place] # (Auto) 0.4 (0.1-1.2) X10*3/uL Eos # (Auto) 0.1 (0.0-0.4) X10*3/uL Baso # (Auto) 0.0 (0.0-0.2) X10*3/uL Abs Immat Gran (auto) 0.04 H (0.00-0.03) X10*3/uL Absolute Neuts (auto) 10.2 H (2.0-8.3) x10*3/uL Absolute Nucleated RBC 0.000 (0.0-0.012) X10*3/uL Nucleated RBC % (auto) 0.0 (0.0-0.2) /100WBC ESR (0-20) MM/HR Sodium 137 (135-145) mmol/L Potassium 3.8 (3.3-5.1) mmol/L Chloride 104 (96-108) mmol/L Carbon Dioxide 24 (22-29) mmol/L Anion Gap 13 (12-20) BUN 11 (9-16) mg/dL Creatinine 0.83 (0.5-1.4) mg/dL Estim Creat Clear Calc 95.0 Estimated GFR > 60 Random Glucose 184 H (60-115) mg/dL Lactic Acid 2.5 H* (0.5-2.0) mmol/L Calcium 8.7 (8.4-10.2) mg/dL Magnesium 1.9 (1.6-2.6) mg/dL Total Bilirubin 0.7 (0.0-1.0) mg/dL Direct Bilirubin 0.2 (0.0-0.5) mg/dL AST 17 (5-31) U/L ALT 14 (0-31) U/L Alkaline Phosphatase 86 (39-117) U/L C-Reactive Protein (< or = 0.50) mg/dL Total Protein 7.8 (6.5-8.0) g/dL Albumin 4.1 (3.5-5.0) g/dL Urine Color Urine Appearance Urine pH (5.0-9.0) Ur Specific [place] (1.005-1.025) Urine Protein (Neg-Trace) mg/dL Urine Glucose (UA) (Negative) mg/dL Urine Ketones (Negative) mg/dL Urine Blood (Negative) Urine Nitrite (Negative) Ur Leukocyte Esterase (Negative) Urine Test (NEGATIVE) Urine Opiates Screen (Not Detect) Urine Fentanyl Screen (Not Detect) Ur Barbiturates Screen (Not Detect) Ur Phencyclidine Scrn (Not Detect) Ur Amphetamines Screen (Not Detect) U Benzodiazepines Scrn (Not Detect) Urine Cocaine Screen (Not Detect) U Marijuana (THC) Screen (Not Detect) Ethyl Alcohol < 10 mg/dL COVID-19 (ROHAN) (Negative) COVID-19 Clin Com 09/12/22 09/12/22 09/12/22 Range/Units 12:53 14:34 14:34 WBC (4.8-10.8) X10*3/uL RBC (4.20-5.50) X10*6/uL Hgb (12.0-16.0) g/dl Hct (37.0-47.0) % MCV (80.0-98.0) fL MCH (27.0-33.0) pg MCHC (31.0-35.0) g/dl RDW (11.0-16.0) % Plt Count (160-400) X10*3/uL MPV (9.4-12.3) fL Immature Gran % (Auto) (0.0-0.4) % Neut % (Auto) (45-73) % Lymph % (Auto) (20-40) % [place] % (Auto) (2-11) % Eos % (Auto) (0-4) % Baso % (Auto) (0-2) % Lymph # (Auto) (1.2-4.9) X10*3/uL [place] # (Auto) (0.1-1.2) X10*3/uL Eos # (Auto) (0.0-0.4) X10*3/uL Baso # (Auto) (0.0-0.2) X10*3/uL Abs Immat Gran (auto) (0.00-0.03) X10*3/uL Absolute Neuts (auto) (2.0-8.3) x10*3/uL Absolute Nucleated RBC (0.0-0.012) X10*3/uL Nucleated RBC % (auto) (0.0-0.2) /100WBC ESR (0-20) MM/HR Sodium (135-145) mmol/L Potassium (3.3-5.1) mmol/L Chloride (96-108) mmol/L Carbon Dioxide (22-29) mmol/L Anion Gap (12-20) BUN (9-16) mg/dL Creatinine (0.5-1.4) mg/dL Estim Creat Clear Calc Estimated GFR Random Glucose (60-115) mg/dL Lactic Acid (0.5-2.0) mmol/L Calcium (8.4-10.2) mg/dL Magnesium (1.6-2.6) mg/dL Total Bilirubin (0.0-1.0) mg/dL Direct Bilirubin (0.0-0.5) mg/dL AST (5-31) U/L ALT (0-31) U/L Alkaline Phosphatase (39-117) U/L C-Reactive Protein (< or = 0.50) mg/dL Total Protein (6.5-8.0) g/dL Albumin (3.5-5.0) g/dL Urine Color Dark Yellow Urine Appearance Cloudy Urine pH 6.5 (5.0-9.0) Ur Specific [place] >= 1.030 H (1.005-1.025) Urine Protein Trace (Neg-Trace) mg/dL Urine Glucose (UA) Negative (Negative) mg/dL Urine Ketones Trace (Negative) mg/dL Urine Blood Negative (Negative) Urine Nitrite Negative (Negative) Ur Leukocyte Esterase Negative (Negative) Urine Test NEGATIVE (NEGATIVE) Urine Opiates Screen (Not Detect) Urine Fentanyl Screen (Not Detect) Ur Barbiturates Screen (Not Detect) Ur Phencyclidine Scrn (Not Detect) Ur Amphetamines Screen (Not Detect) U Benzodiazepines Scrn (Not Detect) Urine Cocaine Screen (Not Detect) U Marijuana (THC) Screen (Not Detect) Ethyl Alcohol mg/dL COVID-19 ([facility]OHAN) Negative (Negative) COVID-19 Clin Com See Note 09/12/22 09/12/22 09/12/22 Range/Units 14:34 14:49 14:49 WBC (4.8-10.8) X10*3/uL RBC (4.20-5.50) X10*6/uL Hgb (12.0-16.0) g/dl Hct (37.0-47.0) % MCV (80.0-98.0) fL MCH (27.0-33.0) pg MCHC (31.0-35.0) g/dl RDW (11.0-16.0) % Plt Count (160-400) X10*3/uL MPV (9.4-12.3) fL Immature Gran % (Auto) (0.0-0.4) % Neut % (Auto) (45-73) % Lymph % (Auto) (20-40) % [place] % (Auto) (2-11) % Eos % (Auto) (0-4) % Baso % (Auto) (0-2) % Lymph # (Auto) (1.2-4.9) X10*3/uL [place] # (Auto) (0.1-1.2) X10*3/uL Eos # (Auto) (0.0-0.4) X10*3/uL Baso # (Auto) (0.0-0.2) X10*3/uL Abs Immat Gran (auto) (0.00-0.03) X10*3/uL Absolute Neuts (auto) (2.0-8.3) x10*3/uL Absolute Nucleated RBC (0.0-0.012) X10*3/uL Nucleated RBC % (auto) (0.0-0.2) /100WBC ESR 39 H (0-20) MM/HR Sodium (135-145) mmol/L Potassium (3.3-5.1) mmol/L Chloride (96-108) mmol/L Carbon Dioxide (22-29) mmol/L Anion Gap (12-20) BUN (9-16) mg/dL Creatinine (0.5-1.4) mg/dL Estim Creat Clear Calc Estimated GFR Random Glucose (60-115) mg/dL Lactic Acid (0.5-2.0) mmol/L Calcium (8.4-10.2) mg/dL Magnesium (1.6-2.6) mg/dL Total Bilirubin (0.0-1.0) mg/dL Direct Bilirubin (0.0-0.5) mg/dL AST (5-31) U/L ALT (0-31) U/L Alkaline Phosphatase (39-117) U/L C-Reactive Protein 3.02 H (< or = 0.50) mg/dL Total Protein (6.5-8.0) g/dL Albumin (3.5-5.0) g/dL Urine Color Urine Appearance Urine pH (5.0-9.0) Ur Specific [place] (1.005-1.025) Urine Protein (Neg-Trace) mg/dL Urine Glucose (UA) (Negative) mg/dL Urine Ketones (Negative) mg/dL Urine Blood (Negative) Urine Nitrite (Negative) Ur Leukocyte Esterase (Negative) Urine Test (NEGATIVE) Urine Opiates Screen POSITIVE H (Not Detect) Urine Fentanyl Screen POSITIVE H (Not Detect) Ur Barbiturates Screen Not Detected (Not Detect) Ur Phencyclidine Scrn Not Detected (Not Detect) Ur Amphetamines Screen Not Detected (Not Detect) U Benzodiazepines Scrn Not Detected (Not Detect) Urine Cocaine Screen POSITIVE H (Not Detect) U Marijuana (THC) Screen Not Detected (Not Detect) Ethyl Alcohol mg/dL COVID-19 ([facility]OHAN) (Negative) COVID-19 Clin Com <MORRIS Perez - Last Filed: 09/12/22 12:39> Lab Results 09/12/22 09/12/22 09/12/22 Range/Units 12:53 12:53 12:53 WBC 11.4 H (4.8-10.8) X10*3/uL RBC 4.40 (4.20-5.50) X10*6/uL Hgb 12.5 (12.0-16.0) g/dl Hct 37.0 (37.0-47.0) % MCV 84.1 (80.0-98.0) fL MCH 28.4 (27.0-33.0) pg MCHC 33.8 (31.0-35.0) g/dl RDW 12.8 (11.0-16.0) % Plt Count 228 (160-400) X10*3/uL MPV 10.2 (9.4-12.3) fL Immature Gran % (Auto) 0.4 (0.0-0.4) % Neut % (Auto) 89.2 H (45-73) % Lymph % (Auto) 5.9 L (20-40) % [place] % (Auto) 3.8 (2-11) % Eos % (Auto) 0.5 (0-4) % Baso % (Auto) 0.2 (0-2) % Lymph # (Auto) 0.7 L (1.2-4.9) X10*3/uL [place] # (Auto) 0.4 (0.1-1.2) X10*3/uL Eos # (Auto) 0.1 (0.0-0.4) X10*3/uL Baso # (Auto) 0.0 (0.0-0.2) X10*3/uL Abs Immat Gran (auto) 0.04 H (0.00-0.03) X10*3/uL Absolute Neuts (auto) 10.2 H (2.0-8.3) x10*3/uL Absolute Nucleated RBC 0.000 (0.0-0.012) X10*3/uL Nucleated RBC % (auto) 0.0 (0.0-0.2) /100WBC ESR (0-20) MM/HR Sodium 137 (135-145) mmol/L Potassium 3.8 (3.3-5.1) mmol/L Chloride 104 (96-108) mmol/L Carbon Dioxide 24 (22-29) mmol/L Anion Gap 13 (12-20) BUN 11 (9-16) mg/dL Creatinine 0.83 (0.5-1.4) mg/dL Estim Creat Clear Calc 95.0 Estimated GFR > 60 Random Glucose 184 H (60-115) mg/dL Lactic Acid 2.5 H* (0.5-2.0) mmol/L Calcium 8.7 (8.4-10.2) mg/dL Magnesium 1.9 (1.6-2.6) mg/dL Total Bilirubin 0.7 (0.0-1.0) mg/dL Direct Bilirubin 0.2 (0.0-0.5) mg/dL AST 17 (5-31) U/L ALT 14 (0-31) U/L Alkaline Phosphatase 86 (39-117) U/L C-Reactive Protein (< or = 0.50) mg/dL Total Protein 7.8 (6.5-8.0) g/dL Albumin 4.1 (3.5-5.0) g/dL Urine Color Urine Appearance Urine pH (5.0-9.0) Ur Specific [place] (1.005-1.025) Urine Protein (Neg-Trace) mg/dL Urine Glucose (UA) (Negative) mg/dL Urine Ketones (Negative) mg/dL Urine Blood (Negative) Urine Nitrite (Negative) Ur Leukocyte Esterase (Negative) Urine Test (NEGATIVE) Urine Opiates Screen (Not Detect) Urine Fentanyl Screen (Not Detect) Ur Barbiturates Screen (Not Detect) Ur Phencyclidine Scrn (Not Detect) Ur Amphetamines Screen (Not Detect) U Benzodiazepines Scrn (Not Detect) Urine Cocaine Screen (Not Detect) U Marijuana (THC) Screen (Not Detect) Ethyl Alcohol < 10 mg/dL COVID-19 (ROHAN) (Negative) COVID-19 Clin Com 09/12/22 09/12/22 09/12/22 Range/Units 12:53 14:34 14:34 WBC (4.8-10.8) X10*3/uL RBC (4.20-5.50) X10*6/uL Hgb (12.0-16.0) g/dl Hct (37.0-47.0) % MCV (80.0-98.0) fL MCH (27.0-33.0) pg MCHC (31.0-35.0) g/dl RDW (11.0-16.0) % Plt Count (160-400) X10*3/uL MPV (9.4-12.3) fL Immature Gran % (Auto) (0.0-0.4) % Neut % (Auto) (45-73) % Lymph % (Auto) (20-40) % [place] % (Auto) (2-11) % Eos % (Auto) (0-4) % Baso % (Auto) (0-2) % Lymph # (Auto) (1.2-4.9) X10*3/uL [place] # (Auto) (0.1-1.2) X10*3/uL Eos # (Auto) (0.0-0.4) X10*3/uL Baso # (Auto) (0.0-0.2) X10*3/uL Abs Immat Gran (auto) (0.00-0.03) X10*3/uL Absolute Neuts (auto) (2.0-8.3) x10*3/uL Absolute Nucleated RBC (0.0-0.012) X10*3/uL Nucleated RBC % (auto) (0.0-0.2) /100WBC ESR (0-20) MM/HR Sodium (135-145) mmol/L Potassium (3.3-5.1) mmol/L Chloride (96-108) mmol/L Carbon Dioxide (22-29) mmol/L Anion Gap (12-20) BUN (9-16) mg/dL Creatinine (0.5-1.4) mg/dL Estim Creat Clear Calc Estimated GFR Random Glucose (60-115) mg/dL Lactic Acid (0.5-2.0) mmol/L Calcium (8.4-10.2) mg/dL Magnesium (1.6-2.6) mg/dL Total Bilirubin (0.0-1.0) mg/dL Direct Bilirubin (0.0-0.5) mg/dL AST (5-31) U/L ALT (0-31) U/L Alkaline Phosphatase (39-117) U/L C-Reactive Protein (< or = 0.50) mg/dL Total Protein (6.5-8.0) g/dL Albumin (3.5-5.0) g/dL Urine Color Dark Yellow Urine Appearance Cloudy Urine pH 6.5 (5.0-9.0) Ur Specific [place] >= 1.030 H (1.005-1.025) Urine Protein Trace (Neg-Trace) mg/dL Urine Glucose (UA) Negative (Negative) mg/dL Urine Ketones Trace (Negative) mg/dL Urine Blood Negative (Negative) Urine Nitrite Negative (Negative) Ur Leukocyte Esterase Negative (Negative) Urine Test NEGATIVE (NEGATIVE) Urine Opiates Screen (Not Detect) Urine Fentanyl Screen (Not Detect) Ur Barbiturates Screen (Not Detect) Ur Phencyclidine Scrn (Not Detect) Ur Amphetamines Screen (Not Detect) U Benzodiazepines Scrn (Not Detect) Urine Cocaine Screen (Not Detect) U Marijuana (THC) Screen (Not Detect) Ethyl Alcohol mg/dL COVID-19 (ROHAN) Negative (Negative) COVID-19 Clin Com See Note 09/12/22 09/12/22 09/12/22 Range/Units 14:34 14:49 14:49 WBC (4.8-10.8) X10*3/uL RBC (4.20-5.50) X10*6/uL Hgb (12.0-16.0) g/dl Hct (37.0-47.0) % MCV (80.0-98.0) fL MCH (27.0-33.0) pg MCHC (31.0-35.0) g/dl RDW (11.0-16.0) % Plt Count (160-400) X10*3/uL MPV (9.4-12.3) fL Immature Gran % (Auto) (0.0-0.4) % Neut % (Auto) (45-73) % Lymph % (Auto) (20-40) % [place] % (Auto) (2-11) % Eos % (Auto) (0-4) % Baso % (Auto) (0-2) % Lymph # (Auto) (1.2-4.9) X10*3/uL [place] # (Auto) (0.1-1.2) X10*3/uL Eos # (Auto) (0.0-0.4) X10*3/uL Baso # (Auto) (0.0-0.2) X10*3/uL Abs Immat Gran (auto) (0.00-0.03) X10*3/uL Absolute Neuts (auto) (2.0-8.3) x10*3/uL Absolute Nucleated RBC (0.0-0.012) X10*3/uL Nucleated RBC % (auto) (0.0-0.2) /100WBC ESR 39 H (0-20) MM/HR Sodium (135-145) mmol/L Potassium (3.3-5.1) mmol/L Chloride (96-108) mmol/L Carbon Dioxide (22-29) mmol/L Anion Gap (12-20) BUN (9-16) mg/dL Creatinine (0.5-1.4) mg/dL Estim Creat Clear Calc Estimated GFR Random Glucose (60-115) mg/dL Lactic Acid (0.5-2.0) mmol/L Calcium (8.4-10.2) mg/dL Magnesium (1.6-2.6) mg/dL Total Bilirubin (0.0-1.0) mg/dL Direct Bilirubin (0.0-0.5) mg/dL AST (5-31) U/L ALT (0-31) U/L Alkaline Phosphatase (39-117) U/L C-Reactive Protein 3.02 H (< or = 0.50) mg/dL Total Protein (6.5-8.0) g/dL Albumin (3.5-5.0) g/dL Urine Color Urine Appearance Urine pH (5.0-9.0) Ur Specific [place] (1.005-1.025) Urine Protein (Neg-Trace) mg/dL Urine Glucose (UA) (Negative) mg/dL Urine Ketones (Negative) mg/dL Urine Blood (Negative) Urine Nitrite (Negative) Ur Leukocyte Esterase (Negative) Urine Test (NEGATIVE) Urine Opiates Screen POSITIVE H (Not Detect) Urine Fentanyl Screen POSITIVE H (Not Detect) Ur Barbiturates Screen Not Detected (Not Detect) Ur Phencyclidine Scrn Not Detected (Not Detect) Ur Amphetamines Screen Not Detected (Not Detect) U Benzodiazepines Scrn Not Detected (Not Detect) Urine Cocaine Screen POSITIVE H (Not Detect) U Marijuana (THC) Screen Not Detected (Not Detect) Ethyl Alcohol mg/dL COVID-19 (ROHAN) (Negative) COVID-19 Clin Com <MORRIS Barkley - Last Filed: 09/12/22 16:46> Radiology Impression Discussion of test interpretation with radiology: I have reviewed the radiologist's reading. <MORRIS Barkley - Last Filed: 09/12/22 16:46> Radiologist Impression: My interpretation is in agreement with the radiologist's impression of these imaging studies. EXAMINATION: CT SCAN OF THE LEFT HAND WITH CONTRAST. CLINICAL INFORMATION: Abscess pain swelling. IVDU COMPARISON: X-ray the left hand performed earlier same day. TECHNIQUE: CT scan of the left hand is performed with contrast. 85 cc of Omnipaque 350 given intravenously. Reconstruction imaging performed at the acquisition workstation. FINDINGS: There is increased density noted throughout the dorsal aspect of the wrist and hand from the radiocarpal joint to the level of the metatarsophalangeal joints. No localized fluid collection. Muscles and tendons are unremarkable. The bone and joints are unremarkable.? CT/CT hand LT w IV con IMPRESSION: Increased density noted throughout the dorsal aspect of the wrist and hand. This could reflect edema or cellulitis. No localized fluid collection.? Dictated By: Saqib Brody MD Signed By: Electronically signed by Saqib Brody MD 09/12/22 1540 -- EXAMINATION: XR HAND, LEFT CLINICAL INFORMATION: Swelling, pain left hand.? COMPARISON: None? TECHNIQUE: PA, lateral, and oblique views of the left hand. FINDINGS: There is diffuse soft tissue swelling dorsum hand. There is a bony structures appear intact. There is normal bony mineralization. No destructive process, fracture, dislocation, or periostitis. No focal joint narrowing or erosive change.? XR/XR hand LT 2V IMPRESSION: -Dorsal soft tissue swelling. -No fracture, dislocation, destructive process, or arthropathy. Dictated By: Gagan Cutler MD Signed By: Electronically signed by Gagan Cutler MD 09/12/22 1520 <MORRIS Barkley - Last Filed: 09/12/22 16:46> Chronic Conditions Patient?s care impacted by: Other (IVDU) <MORRIS Barkley - Last Filed: 09/12/22 16:46> Critical Care Time Critical Care Time Critical Care Time: Yes <MORRIS Barkley - Last Filed: 09/12/22 16:46> Total Critical Care Time: 30 <MORRIS Barkley - Last Filed: 09/12/22 16:46> Attestation: I spent 30 minutes of Critical Care Time with this patient. This does not include time spent on separately reported billable procedures. <MORRIS Barkley - Last Filed: 09/12/22 16:46> Discharge Plan Discharge Clinical Impression: Cellulitis <MORRIS Perez - Last Filed: 09/12/22 12:39> Patient Disposition: Admitted As Inpatient <MORRIS Perez - Last Filed: 09/12/22 12:39> Prescriptions: No Action bacitracin 500 unit/gram ointment 1 appl topical BID Qty: 30 1RF <MORRIS Perez - Last Filed: 09/12/22 12:39>
[2022-09-12 12:59] LABS: MANUAL DIFF FLAG NO
[2022-09-12 13:01] LABS: Basophils Percent Auto 0.2 % (0-2); Eosinophils Absolute Auto 0.1 X10*3/uL (0.0-0.4); Eosinophils Percent Auto 0.5 % (0-4); Hemoglobin 12.5 g/dl (12.0-16.0); Imm Gran Abs Auto 0.04 X10*3/uL (0.00-0.03); Imm Gran Pct Auto 0.4 % (0.0-0.4); Lymphocytes Absolute Auto 0.7 X10*3/uL (1.2-4.9); Lymphocytes Percent Auto 5.9 % (20-40); Mean Corpuscular HGB Conc 33.8 g/dl (31.0-35.0); Mean Corpuscular Hemoglobin 28.4 pg (27.0-33.0); Mean Corpuscular Volume 84.1 fL (80.0-98.0); Mean Platelet Volume 10.2 fL (9.4-12.3); Monocytes Absolute Auto 0.4 X10*3/uL (0.1-1.2); Monocytes Percent Auto 3.8 % (2-11); Neutrophils Absolute Auto 10.2 x10*3/uL (2.0-8.3); Neutrophils Percent Auto 89.2 % (45-73); Platelet Count 228 X10*3/uL (160-400); Red Cell Distribution Width 12.8 % (11.0-16.0); White Blood Count 11.4 X10*3/uL (4.8-10.8)
[2022-09-12 13:14] LABS: IDNOW Serial# 55D5AD1C
[2022-09-12 13:15] LABS: COVID-19 Test Negative (Negative)
[2022-09-12 13:23] LABS: Alanine Aminotransferase 14 U/L (0-31); Albumin Level 4.1 g/dL (3.5-5.0); Aspartate Amino Transferase 17 U/L (5-31); Blood Urea Nitrogen 11 mg/dL (9-16); Calcium 8.7 mg/dL (8.4-10.2); Carbon Dioxide 24 mmol/L (22-29); Chloride 104 mmol/L (96-108); Ethanol < 10 mg/dL; Glucose Random 184 mg/dL (60-115); Potassium 3.8 mmol/L (3.3-5.1); Sodium 137 mmol/L (135-145); Total Protein 7.8 g/dL (6.5-8.0)
[2022-09-12 13:24] LABS: Lactic Acid 2.5 mmol/L (0.5-2.0)
[2022-09-12 13:33] LABS: Alkaline Phosphatase 86 U/L (39-117); Anion Gap 13 (12-20); Bilirubin Direct 0.2 mg/dL (0.0-0.5); Bilirubin Total 0.7 mg/dL (0.0-1.0); Estimated Glomerular Filt Rate > 60; Magnesium 1.9 mg/dL (1.6-2.6)
[2022-09-12 13:47] VITALS: BP 116/74; PULSE 91; RESP 16; O2SAT 96
[2022-09-12 14:42] LABS: Appearance Urine Cloudy; Color Urine Dark Yellow; Glucose Urine UA Negative (Negative); Leukocyte Esterase Urine Negative (Negative); Nitrite Urine Negative (Negative); PH 6.5 (5.0-9.0); Specific Gravity - Urine >= 1.030 (1.005-1.025); Urine Blood Negative (Negative); Urine Ketones Trace mg/dL (Negative); Urine Protein Trace mg/dL (Neg-Trace)
[2022-09-12 14:46] LABS: UPreg QC Valid YES; Urine Pregnancy NEGATIVE (NEGATIVE)
[2022-09-12 14:51] LABS: Amphetamine Screen Urine Not Detected (Not Detect); Barbiturates, Urine Not Detected (Not Detect); Benzodiazepines Screen Urine Not Detected (Not Detect); Cannabinoid Screen Urine Not Detected (Not Detect); Cocaine Screen Urine POSITIVE (Not Detect); Fentanyl, urine POSITIVE (Not Detect); Opiate Screen Urine POSITIVE (Not Detect); Phencyclidine Screen Urine Not Detected (Not Detect)
[2022-09-12 14:56] LABS: Reflex Lactate? Lactic Acid Added
[2022-09-12] MEDS: iohexoL 350 MG/ML 100 ML INFUS..BTL IV (14:58)
[2022-09-12] MEDS: 0.9 % Sodium Chloride 2,449.41 ML 2449.41 ML IV (14:59)
[2022-09-12] MEDS: Piperacillin Sodium/Tazobactam 3.375 GM in 0.9 % Sodium Chloride 50 ML IV (15:00)
--- NOTE | 2022-09-12 15:00 | PC.NURSE ---
patient a/ox4 . ameliarla . heart rate regular at 95 beats per minuet . breathing even and unlabored . lungs clear throughout . bilaterally hands red , swollen and warm to touch . patient reports IV drug use of heroin/crack /cocaine .abdomen soft , positive bowel sounds in all four quadrants . Iv placed in left foot . patient aware of plan of care .
[2022-09-12 15:22] LABS: C Reactive Protein 3.02 mg/dL (< or = 0.50)
[2022-09-12 15:43] LABS: Erythrocyte Sedimentation Rate 39 MM/HR (0-20)
[2022-09-12] MEDS: Acetaminophen 325 MG TABLET 650 MG PO (16:36)
[2022-09-12] MEDS: HYDROmorphone HCl 1 MG/ML SYRINGE IVPUSH (16:36)
--- NOTE | 2022-09-12 17:05 | PM.IMHP ---
History of Present Illness Date of Service: 09/12/22 Attending physician on admission: Hilario Gimenez Chief Complaint: pain, swelling left hand 42-year-old female with history of polysubstance abuse, opiate dependence on methadone, 5 cigarette per day smoker, and depression/anxiety presents to ED for evaluation of pain, swelling, and redness in the left hand. She states she injected heroin into the left hand yesterday prior to onset of symptoms. She denies any fevers though is endorsing chills and sweats. On arrival, vital signs stable. Mild leukocytosis 11.4. Renal function and electrolyte levels normal. Glucose 184, no history of type 2 diabetes. Initial lactic acid 2.5, repeat pending. CRP 3.02, ESR 39. U tox positive for opiates and cocaine. X-ray of the hand unremarkable except for dorsal soft tissue swelling. CT of the hand showing increased density along the dorsal aspect of the wrist and hand reflecting edema or cellulitis. No localized fluid collection. Treated empirically with IV Zosyn and vancomycin. Given 1 mg hydromorphone for pain management. Patient to be admitted for IV antibiotics for acute cellulitis of the left hand in IV drug abuser. Review of Systems Review of Systems: General: No fevers, malaise, unintentional weight loss HEENT: No blurred vision, diplopia. No sore throat, nasal congestion, rhinorrhea, sinus pain, ear pain Cardiovascular: No chest pain, palpitations, or leg edema Respiratory: No shortness of breath, wheezing, cough GI: No abdominal pain, nausea, vomiting, diarrhea, constipation, melena, hematochezia : No dysuria, hematuria, increased urinary frequency, decreased urinary output MSK: No myalgia, back pain Neuro: No headaches, weakness, paresthesias Skin: No rashes or lesions. +pain, swelling, erythema left hand PMFSH Medical History (Updated 09/12/22 @ 17:13 by MORRIS Norman) Abscess Bacterial vaginosis Screening for cervical cancer Screening for diabetes mellitus (DM) Screening for hypercholesterolemia Substance abuse Family History Father No problems noted. Mother HTN (hypertension) Surgical History History of section Social History (Updated 09/12/22 @ 17:13 by MORRIS Norman) Household Members: Family Household Members Other:: 1 Housing: Apartment Do you presently have visiting nurse or other home services: No Alcohol intake: former Patient Tobacco Use Status: Current everyday Tobacco user Tobacco use type: Cigarette Cigarettes Per Day: 5 Smoked in Last 30 Days: Yes Patient Interested in Nicotine Replacement: Yes Use of substances other than those prescribed or required for medical reasons: Yes Substance Use Type: Crack/Cocaine, Heroin and IV Drugs Substance Use Frequency: Daily Last Used Substance: Days (ago) Last Used Substance Other:: heroin and Cocaine Currently Displaying Signs/Symptoms of Drug Intoxication Withdrawal: No Any prior treatment program specific to substance use: Yes Have you been hit, kicked, punched, or otherwise hurt by someone within the past year? If so, by whom?: No Do you feel safe in your current relationship?: Yes Is there a partner from a previous relationship who is making you feel unsafe now?: No Are you made to feel afraid or neglected: No Advance Directives: No Advance Directives Information Provided: Yes Do you have thoughts of harming others: None Do you have a plan to hurt others: No Plan Recently lost weight without trying: No How much weight loss: Not applicable Eating poorly because of decreased appetite: No Nutrition screen score: 0 Nutrition Risks: No Nutritional Risk Patient : No : No Poor oral hygiene: No Meds Allergies Allergy/AdvReac Type Severity Reaction Status Date / Time Fish Containing Products Allergy Severe ANAPHYLAXIS Verified 06/02/21 05:37 Active Medications: Current Medications Acetaminophen (Acetaminophen 325 Mg Tablet) 650 mg PO Q6H PRN PRN Reason: Pain, Mild (Pain Scale 1-3) Enoxaparin Sodium (Enoxaparin Sodium 40 Mg/0.4 Ml Syringe) 40 mg SUBCUT Q24H ABIMAEL Morphine Sulfate (Morphine Sulfate 4 Mg/Ml Cartridge) 4 mg IVPUSH Q4H PRN; Protocol PRN Reason: Pain, Severe (Pain Scale 7-10) Ondansetron HCl (Ondansetron Hcl 4 Mg/2 Ml Vial) 4 mg IVPUSH Q8H PRN PRN Reason: Nausea and Vomiting Oxycodone HCl (Oxycodone Hcl Immed Release 5 Mg Tablet) 5 mg PO Q6H PRN PRN Reason: Pain, Moderate (Pain Scale 4-6 Pharmacy Consult (Consult Rx Perform Med Rec) 1 each MISCELLANE ONCE PRN PRN Reason: Consult order Pharmacy Consult (Consult Rx Vancomycin Dosing) 1 each MISCELLANE DAILY PRN PRN Reason: Consult order Sodium Chloride (0.9 % Sodium Chloride Flush 3 Ml Syringe) 3 ml IVFLUSH [facility] Medications Medication Instructions Recorded Confirmed Last Taken Type buspirone 10 mg tablet 10 mg PO BID 09/12/22 09/12/22 09/11/22 History docusate sodium 100 mg tablet 100 mg PO BID PRN Constipation 09/12/22 09/12/22 09/11/22 History duloxetine 20 mg capsule,delayed 20 mg PO DAILY 09/12/22 09/12/22 09/11/22 History release ferrous sulfate 325 mg (65 mg 325 mg PO DAILY 09/12/22 09/12/22 09/11/22 History iron) tablet fluoxetine 40 mg capsule 40 mg PO DAILY 09/12/22 09/12/22 09/11/22 History gabapentin 300 mg capsule 300 mg PO DAILY@1200 09/12/22 09/12/22 09/11/22 History gabapentin 600 mg tablet 600 mg PO BID 09/12/22 09/12/22 09/11/22 History hydroxyzine HCl 25 mg tablet 25 - 50 mg PO Q6H PRN Anxiety 09/12/22 09/12/22 09/11/22 History ibuprofen 600 mg tablet 600 mg PO TID PRN Pain 09/12/22 09/12/22 09/11/22 History methadone 10 mg/mL oral 65 mg PO DAILY 09/12/22 09/12/22 History concentrate (Methadose) nicotine (polacrilex) 4 mg buccal 4 mg buccal Q2-4H PRN Nicotine 09/12/22 09/12/22 09/11/22 History lozenge Cravings nicotine 21 mg/24 hr daily 1 patch transdermal DAILY PRN 09/12/22 09/12/22 09/11/22 History transdermal patch Nicotine Cravings polyethylene glycol 3350 17 gram 17 g PO BID PRN Constipation 09/12/22 09/12/22 09/11/22 History oral powder packet trazodone 100 mg tablet 100 mg PO BEDTIME 09/12/22 09/12/22 09/11/22 History Physical Exam Vital Signs and Narrative: Vital Signs: Last Vital Signs Temp 98 F 09/12/22 12:35 Pulse 91 09/12/22 13:47 Resp 16 09/12/22 13:47 BP 116/74 09/12/22 13:47 Pulse Ox 96 09/12/22 13:47 O2 Del Method 09/12/22 13:47 BMI result Body Mass Index 29.9 Constitutional - Awake and Alert, No apparent distress Eyes - PERRLA, EOMI Cardiovascular - S1S2, RRR, No edema Respiratory - Normal lung expansion, Normal respiratory effort, No respiratory distress, CTA bilaterally Gastrointestinal - NT / ND; +BS; No rebound or guarding Extremities - no calf tenderness bilaterally, no calf swelling. No track maxwell BLE. Left hand: significant swelling, wamrth, erythema dorsal aspect hand/wrist with inability to clench fist. Right hand also warm with mild erythema and 3cm x 2cm scabbed abrasion overlying 1st metacarpal with significant scarring of the right forearm Skin - Warm/Dry Neurological - Alert & oriented x3, CN II-XII in tact Psychological - Appropriate affect Results Labs 09/12/22 12:53 09/12/22 12:53 Labs: Laboratory Results - last 24 hr 09/12/22 09/12/22 09/12/22 12:53 12:53 12:53 MCV 84.1 MCH 28.4 MCHC 33.8 RDW 12.8 Plt Count 228 MPV 10.2 Immature Gran % (Auto) 0.4 Neut % (Auto) 89.2 H Lymph % (Auto) 5.9 L [place] % (Auto) 3.8 Eos % (Auto) 0.5 Baso % (Auto) 0.2 Lymph # (Auto) 0.7 L [place] # (Auto) 0.4 Eos # (Auto) 0.1 Baso # (Auto) 0.0 Abs Immat Gran (auto) 0.04 H Absolute Neuts (auto) 10.2 H Absolute Nucleated RBC 0.000 Nucleated RBC % (auto) 0.0 ESR Anion Gap 13 Estim Creat Clear Calc 95.0 Estimated GFR > 60 Random Glucose 184 H Lactic Acid 2.5 H* Calcium 8.7 Magnesium 1.9 Total Bilirubin 0.7 Direct Bilirubin 0.2 AST 17 ALT 14 Alkaline Phosphatase 86 C-Reactive Protein Total Protein 7.8 Albumin 4.1 Urine Color Urine Appearance Urine pH Ur Specific [place] Urine Protein Urine Glucose (UA) Urine Ketones Urine Blood Urine Nitrite Ur Leukocyte Esterase Urine Test Urine Opiates Screen Urine Fentanyl Screen Ur Barbiturates Screen Ur Phencyclidine Scrn Ur Amphetamines Screen U Benzodiazepines Scrn Urine Cocaine Screen U Marijuana (THC) Screen Ethyl Alcohol < 10 COVID-19 (ROHAN) COVID-19 Clin Com 09/12/22 09/12/22 09/12/22 12:53 14:34 14:34 MCV MCH MCHC RDW Plt Count MPV Immature Gran % (Auto) Neut % (Auto) Lymph % (Auto) [place] % (Auto) Eos % (Auto) Baso % (Auto) Lymph # (Auto) [place] # (Auto) Eos # (Auto) Baso # (Auto) Abs Immat Gran (auto) Absolute Neuts (auto) Absolute Nucleated RBC Nucleated RBC % (auto) ESR Anion Gap Estim Creat Clear Calc Estimated GFR Random Glucose Lactic Acid Calcium Magnesium Total Bilirubin Direct Bilirubin AST ALT Alkaline Phosphatase C-Reactive Protein Total Protein Albumin Urine Color Dark Yellow Urine Appearance Cloudy Urine pH 6.5 Ur Specific [place] >= 1.030 H Urine Protein Trace Urine Glucose (UA) Negative Urine Ketones Trace Urine Blood Negative Urine Nitrite Negative Ur Leukocyte Esterase Negative Urine Test NEGATIVE Urine Opiates Screen Urine Fentanyl Screen Ur Barbiturates Screen Ur Phencyclidine Scrn Ur Amphetamines Screen U Benzodiazepines Scrn Urine Cocaine Screen U Marijuana (THC) Screen Ethyl Alcohol COVID-19 (ROHAN) Negative COVID-19 Clin Com See Note 09/12/22 09/12/22 09/12/22 14:34 14:49 14:49 MCV MCH MCHC RDW Plt Count MPV Immature Gran % (Auto) Neut % (Auto) Lymph % (Auto) [place] % (Auto) Eos % (Auto) Baso % (Auto) Lymph # (Auto) [place] # (Auto) Eos # (Auto) Baso # (Auto) Abs Immat Gran (auto) Absolute Neuts (auto) Absolute Nucleated RBC Nucleated RBC % (auto) ESR 39 H Anion Gap Estim Creat Clear Calc Estimated GFR Random Glucose Lactic Acid Calcium Magnesium Total Bilirubin Direct Bilirubin AST ALT Alkaline Phosphatase C-Reactive Protein 3.02 H Total Protein Albumin Urine Color Urine Appearance Urine pH Ur Specific [place] Urine Protein Urine Glucose (UA) Urine Ketones Urine Blood Urine Nitrite Ur Leukocyte Esterase Urine Test Urine Opiates Screen POSITIVE H Urine Fentanyl Screen POSITIVE H Ur Barbiturates Screen Not Detected Ur Phencyclidine Scrn Not Detected Ur Amphetamines Screen Not Detected U Benzodiazepines Scrn Not Detected Urine Cocaine Screen POSITIVE H U Marijuana (THC) Screen Not Detected Ethyl Alcohol COVID-19 (ROHAN) COVID-19 Clin Com Imaging Radiologist's Impressions: Impressions Hand X-Ray 09/12/22 14:01 IMPRESSION: -Dorsal soft tissue swelling. -No fracture, dislocation, destructive process, or arthropathy. Hand CT 09/12/22 14:56 IMPRESSION: Increased density noted throughout the dorsal aspect of the wrist and hand. This could reflect edema or cellulitis. No localized fluid collection. Assessment and Plan (1) Substance abuse: Status: Acute (2) Cellulitis: Status: Acute Plan 42-year-old female with history of polysubstance abuse, opiate dependence on methadone, 5 cigarette per day smoker, and depression/anxiety admitted for cellulitis left hand in IVDA. # acute cellulitis left hand/wrist -at risk for MRSA given IV drug abuse -significant swelling of the left hand/wrist significantly impairing use of the left hand -CT hand negative for abscess, confirms cellulitis -IV vanco -Mild leukocytosis 11.4. No sepsis -Follow CBC #IVDA -Relapsed 2 weeks ago on heroin and cocaine -Desires detox -Addiction Med consult #Chronic pain syndrome/opiate use disorder -Continue methadone and gabapentin #Depression/anxiety -Continue home meds DVT prophylaxis-Lovenox Full code Patient requires inpatient stay of at least 2 midnights for management of significant cellulitis of the left hand/wrist impairing use of the left hand requiring IV antibiotics and patient at high risk for MRSA due to IVDA. Time Spent With Patient Time: Total time managing care of this patient today ____ minutes. Quality Stroke Does the patient have a stroke diagnosis?: No VTE Prior VTE?: No VTE Risk Level:: Medical - moderate - high VTE Device Contraindication: Treatment Not Indicated VTE Drug Contraindication: N/A - Med Ordered
--- NOTE | 2022-09-12 17:07 | PM.EVENT ---
Event Note Date of Service: 09/13/22 Event Note: This patient is seen and examined with APC. drug use with cellulitus-swelling of hand in setting of ivdu. Lab imaging reviewed . mild elevate desr and crp, hand ct: Increased density noted throughout the dorsal aspect of the wrist and hand. This could reflect edema or cellulitis. No localized fluid collection.? Physical exam and assessment and plan coordinated in APCs note, Agree with the plan in addition: cellulitus-continue iv antibiotics, blood cultures pendin addiction consult for drug use Time Spent With Patient Time: Total time managing care of this patient today ____ minutes.
[2022-09-12 17:21] LABS: ~Lactic Acid-LAB USE ONLY 1.1 mmol/L (0.5-2.0)
[2022-09-12 17:32] LABS: Estimated Average Glucose 108 mg/dL; Hemoglobin A1C 210.5125 umol/L; Hemoglobin A1c % 5.4 %
[2022-09-12] MEDS: Enoxaparin Sodium 40 MG/0.4 ML SYRINGE SUBCUT (17:38)
--- NOTE | 2022-09-12 17:49 | PHA.MEDREC ---
Pharmacy Consult ? Medication Reconciliation Pharmacy has completed the medication reconciliation. Patient confirmed medications based on list of active medications at [facility]. Patient reported methadone 65 mg last given today. RN must call to confirm dose in the morning. Socorro Watts, GaudencioD
[2022-09-12 17:52] VITALS: BP 117/70; PULSE 92; RESP 17; TEMP 38.2; O2SAT 97
--- NOTE | 2022-09-12 18:59 | PHA.PROG ---
Admission Date/Time: September 12, 2022 16:57 Indication: Cellulitis, IVDU Weight in k.647 kg Adjusted body weight in K.8 kg [place] body weight in K kg Obesity Dosing Indication % IBW: 142% Serum Creatinine - Last 168 Hours 09/12/22 12:53 Creatinine 0.83 Estimated CrCl and GFR - Last 168 Hours 09/12/22 12:53 Estim Creat Clear Calc 95.0 Estimated GFR > 60 Vancomycin Loading Dose: 2000 mg Current Vancomycin Dosing Regimen: 1000 mg Q12H Date and Time for next Vancomycin Level to be drawn: 09/13 @ 1400 Pharmacist Comments on Vancomycin Plan: Patient is consider obese with %IBW > 130%, therefore careful monitor is required due to high volume of distribution Patient received an adequate loading dose in the ER on 09/12 @ 1541 Maintenance dose vanco 1000 mg Q12H is scheduled to start 09/13 @ 0400. Expected AUC 557 with a trough of 16.7 Level to be drawn prior to 3rd dose to access for efficacy and safety while pharmacy is in house Pharmacy will monitor renal function daily. Socorro Watts PharmD Vancomycin dosing will take advantage of [employer] as a clinical decision support tool that uses Bayesian modeling to calculate individual patient's pharmacokinetic parameters and forecast the patient's drug concentration time course with the target goal AUC 24 range of 400 - 600 mg/L/hr.
--- NOTE | 2022-09-12 19:34 | PC.NURSE ---
PT sleeping, easily awakens with verbal stimuli. Denies any pain. Nurse to nurse report given. PT being transported to room 384. PT aware of plan.
[2022-09-12 20:00] VITALS: BP 118/71; PULSE 80; RESP 17; TEMP 37.5; O2SAT 96
[2022-09-12] MEDS: 0.9 % Sodium Chloride Flush 3 ML SYRINGE IVFLUSH (20:48)
[2022-09-13 03:13] VITALS: BP 125/69; PULSE 83; RESP 17; TEMP 37.2; O2SAT 96
[2022-09-13] MEDS: vancomycin HCL 1,000 MG in 0.9 % Sodium Chloride 250 ML 270 MG IV (03:48)
[2022-09-13] MEDS: oxyCODONE HCl Immed Release 5 MG TABLET PO (03:59)
[2022-09-13 06:12] LABS: MANUAL DIFF FLAG NO
[2022-09-13 06:27] LABS: Basophils Percent Auto 0.1 % (0-2); Eosinophils Percent Auto 0.4 % (0-4); Hematocrit 29.6 % (37.0-47.0); Hemoglobin 10.1 g/dl (12.0-16.0); Imm Gran Abs Auto 0.07 X10*3/uL (0.00-0.03); Imm Gran Pct Auto 0.9 % (0.0-0.4); Lymphocytes Absolute Auto 1.5 X10*3/uL (1.2-4.9); Lymphocytes Percent Auto 18.6 % (20-40); Mean Corpuscular HGB Conc 34.1 g/dl (31.0-35.0); Mean Corpuscular Hemoglobin 28.6 pg (27.0-33.0); Mean Corpuscular Volume 83.9 fL (80.0-98.0); Mean Platelet Volume 10.9 fL (9.4-12.3); Monocytes Absolute Auto 0.5 X10*3/uL (0.1-1.2); Monocytes Percent Auto 5.5 % (2-11); Neutrophils Percent Auto 74.5 % (45-73); Platelet Count 183 X10*3/uL (160-400); Red Blood Count 3.53 X10*6/uL (4.20-5.50); Red Cell Distribution Width 13.1 % (11.0-16.0); White Blood Count 8.1 X10*3/uL (4.8-10.8)
[2022-09-13 06:32] LABS: Creatinine Clr Calc Pharmacy 121.4; Estimated Glomerular Filt Rate > 60
[2022-09-13 07:40] VITALS: BP 111/60; PULSE 74; RESP 17; TEMP 37.4; O2SAT 98
--- NOTE | 2022-09-13 09:45 | MHC.CM.PN ---
Addendum entered by Clara Mckeon RN 09/13/22 10:23: PATIENT'S METHADONE IS THROUGH [facility]. SHE ALSO SEES A HEALTHCARE PROVIDER NAMED MAMIE AT [facility] PATIENT IS UNABLE TO RECALL PROVIDER LAST NAME Original Note: PATIENT PLANS TO DC TO A [facility] IN [place] AT DISCHARGE PLANS WERE REPORTEFLY MADE WITH THE HELP OF HER SISTER. NO HCP ON FILE. PATIENT AGREES TO CONSIDER PRIOR TO DC. CASE MANAGEMENT AVAILABLE
[2022-09-13] MEDS: 0.9 % Sodium Chloride Flush 3 ML SYRINGE IVFLUSH ×3 (09:55→20:53)
--- NOTE | 2022-09-13 11:32 | MHC.RECOVRN ---
This marine underwriter met w/ patient, after addiction consult placed. Patient was awake, alert, laying in bed. Patient reports sweats, chills, bodyaches, as patient is waiting on receiving methadone dose. Patient reports using 1 bundle of heroin daily with [facility]Y. Patient reports had been injecting in left hand. Patient reports history of cellulitis and injection related infections in arms/hands. Harm reduction reviewed. Patient reports has access to safe supplies via [facility] access program. Patient reports history of all levels of treatment, ATS, CSS, TSS. Patient reports no history of overdose. Patient states has pitching coach and sister supportive of recovery. Patient reports has a bed at [facility] in [place] and will be going there upon discharge.
[2022-09-13] MEDS: Morphine Sulfate 4 MG/ML CARTRIDGE IVPUSH ×2 (11:47→16:19)
[2022-09-13] MEDS: Gabapentin 300 MG CAPSULE PO (11:47)
--- NOTE | 2022-09-13 12:02 | HE.PHANOTE ---
Methadone verification form received, clemente RN spoke to Will tsai at [facility], dose is 65mg last given 09/12/22 @1417
[2022-09-13] MEDS: methADONE HCl 20 MG/2 ML ORAL.CONC 65 MG PO (12:31)
--- NOTE | 2022-09-13 13:55 | P.PNIM_ITS ---
Subjective Subjective Date of Service: 09/13/22 Interval History: pain, swelling left hand Review of Systems Patient still has significant hand pain also can move fingers but with pain, no visible drainage. No fevers overnight No chest pain or shortness of breath. Physical Exam Vital Signs: Vital Signs: Last Vital Signs Temp 99.3 F 09/13/22 07:40 Pulse 74 09/13/22 07:40 Resp 17 09/13/22 07:40 BP 111/60 09/13/22 07:40 Pulse Ox 98 09/13/22 07:40 O2 Del Method 09/13/22 07:40 BMI result Body Mass Index 29.9 Appearance: Alert.? Oriented X3.? not in distress. cvs: rrr, [id number] . res: clear to auscultation ,no rhonchii or wheezing abd: no rebound or guarding ,nt, bs present. ext pulses present , no cyanosis . ?Left hand: significant swelling, wamrth, erythema dorsal aspect hand/wrist with inability to clench fist. Right hand also warm with mild erythema and 3cm x 2cm scabbed abrasion overlying 1st metacarpal with significant scarring of the right forearm-similar to yesterday neuro: axo3 , nonfocal. Objective Data Active Medications Acetaminophen (Acetaminophen 325 Mg Tablet) 650 mg PO Q6H PRN PRN Reason: Pain, Mild (Pain Scale 1-3) Buspirone HCl (Buspirone Hcl 10 Mg Tablet) 10 mg PO BID [facility] Docusate Sodium (Docusate Sodium 100 Mg Capsule) 100 mg PO BID PRN PRN Reason: Constipation Duloxetine HCl (Duloxetine Hcl 20 Mg Capsule.) 20 mg PO DAILY [facility] Enoxaparin Sodium (Enoxaparin Sodium 40 Mg/0.4 Ml Syringe) 40 mg SUBCUT Q24H [facility] Last Admin: 09/12/22 17:38 Dose: 40 mg Documented By: LEONEL Ferrous Sulfate (Ferrous Sulfate 324 Mg Tablet.) 324 mg PO DAILY [facility] Fluoxetine HCl (Fluoxetine Hcl 20 Mg Capsule) 40 mg PO DAILY [facility] Gabapentin (Gabapentin 300 Mg Capsule) 300 mg PO DAILY@1200 [facility] Last Admin: 09/13/22 11:47 Dose: 300 mg Documented By: ABIMBOLA Gabapentin (Gabapentin 600 Mg Tablet) 600 mg PO BID [facility] Hydroxyzine HCl (Hydroxyzine Hcl 25 Mg Tablet) 25 - 50 mg PO Q6H PRN PRN Reason: Anxiety Vancomycin HCl 1,000 mg/ (Sodium Chloride) 270 mls @ 270 mls/hr IV Q12H [facility] Last Infusion: 09/13/22 04:58 Dose: 0 mls/hr Documented By: YURIDIA Methadone HCl (Methadone Hcl 20 Mg/2 Ml Oral.Conc) 65 mg PO DAILY [facility] Morphine Sulfate (Morphine Sulfate 4 Mg/Ml Cartridge) 4 mg IVPUSH Q4H PRN; Protocol PRN Reason: Pain, Severe (Pain Scale 7-10) Last Admin: 09/13/22 11:47 Dose: 4 mg Documented By: ABIMBOLA Nicotine (Nicotine 21 Mg Patch.Td24) 21 mg TRANSDERMA DAILY PRN PRN Reason: Nicotine Cravings Nicotine Polacrilex (Nicotine Polacrilex 2 Mg Gum) 2 mg BUCCAL Q2H PRN PRN Reason: Nicotine Cravings Nicotine Polacrilex (Nicotine Polacrilex Lozenge 4 Mg Lozenge) 4 mg BUCCAL Q2H PRN PRN Reason: Nicotine Cravings Ondansetron HCl (Ondansetron Hcl 4 Mg/2 Ml Vial) 4 mg IVPUSH Q8H PRN PRN Reason: Nausea and Vomiting Oxycodone HCl (Oxycodone Hcl Immed Release 5 Mg Tablet) 5 mg PO Q6H PRN PRN Reason: Pain, Moderate (Pain Scale 4-6 Last Admin: 09/13/22 03:59 Dose: 5 mg Documented By: YURIDIA Pharmacy Consult (Consult Rx Perform Med Rec) 1 each MISCELLANE ONCE PRN PRN Reason: Consult order Pharmacy Consult (Consult Rx Vancomycin Dosing) 1 each MISCELLANE DAILY PRN PRN Reason: Consult order Polyethylene Glycol (Polyethylene Glycol 3350 17 Gm Powd.Pack) 17 gm PO BID PRN PRN Reason: Constipation Sodium Chloride (0.9 % Sodium Chloride Flush 3 Ml Syringe) 3 ml IVFLUSH QSHIFT [facility] Last Admin: 09/13/22 09:55 Dose: 3 ml Documented By: ABIMBOLA Trazodone HCl (Trazodone Hcl 100 Mg Tablet) 100 mg PO BEDTIME [facility] Labs 09/13/22 05:18 09/13/22 05:18 Labs: Laboratory Results - last 24 hr 01/06/2509/12/22 09/12/22 12:53 14:34 14:34 MCV MCH MCHC RDW Plt Count MPV Immature Gran % (Auto) Neut % (Auto) Lymph % (Auto) Lane % (Auto) Eos % (Auto) Baso % (Auto) Lymph # (Auto) Lane # (Auto) Eos # (Auto) Baso # (Auto) Abs Immat Gran (auto) Absolute Neuts (auto) Absolute Nucleated RBC Nucleated RBC % (auto) ESR Estim Creat Clear Calc Estimated GFR Estimat Average Glucose 108 Hemoglobin A1c % 5.4 Lactic Acid F/U @ 2Hr C-Reactive Protein Urine Color Dark Yellow Urine Appearance Cloudy Urine pH 6.5 Ur Specific [place] >= 1.030 H Urine Protein Trace Urine Glucose (UA) Negative Urine Ketones Trace Urine Blood Negative Urine Nitrite Negative Ur Leukocyte Esterase Negative Urine Test NEGATIVE Urine Opiates Screen Urine Fentanyl Screen Ur Barbiturates Screen Ur Phencyclidine Scrn Ur Amphetamines Screen U Benzodiazepines Scrn Urine Cocaine Screen U Marijuana (THC) Screen 09/12/22 09/12/22 09/12/22 14:34 14:49 14:49 MCV MCH MCHC RDW Plt Count MPV Immature Gran % (Auto) Neut % (Auto) Lymph % (Auto) Lane % (Auto) Eos % (Auto) Baso % (Auto) Lymph # (Auto) Lane # (Auto) Eos # (Auto) Baso # (Auto) Abs Immat Gran (auto) Absolute Neuts (auto) Absolute Nucleated RBC Nucleated RBC % (auto) ESR 39 H Estim Creat Clear Calc Estimated GFR Estimat Average Glucose Hemoglobin A1c % Lactic Acid F/U @ 2Hr C-Reactive Protein 3.02 H Urine Color Urine Appearance Urine pH Ur Specific [place] Urine Protein Urine Glucose (UA) Urine Ketones Urine Blood Urine Nitrite Ur Leukocyte Esterase Urine Test Urine Opiates Screen POSITIVE H Urine Fentanyl Screen POSITIVE H Ur Barbiturates Screen Not Detected Ur Phencyclidine Scrn Not Detected Ur Amphetamines Screen Not Detected U Benzodiazepines Scrn Not Detected Urine Cocaine Screen POSITIVE H U Marijuana (THC) Screen Not Detected 09/12/22 09/13/22 09/13/22 16:44 05:18 05:18 MCV 83.9 MCH 28.6 MCHC 34.1 RDW 13.1 Plt Count 183 MPV 10.9 Immature Gran % (Auto) 0.9 H Neut % (Auto) 74.5 H Lymph % (Auto) 18.[address] % (Auto) 5.5 Eos % (Auto) 0.4 Baso % (Auto) 0.1 Lymph # (Auto) 1.5 Lane # (Auto) 0.5 Eos # (Auto) 0.0 Baso # (Auto) 0.0 Abs Immat Gran (auto) 0.07 H Absolute Neuts (auto) 6.0 Absolute Nucleated RBC 0.000 Nucleated RBC % (auto) 0.0 ESR Estim Creat Clear Calc 121.4 Estimated GFR > 60 Estimat Average Glucose Hemoglobin A1c % Lactic Acid F/U @ 2Hr 1.1 C-Reactive Protein Urine Color Urine Appearance Urine pH Ur Specific [place] Urine Protein Urine Glucose (UA) Urine Ketones Urine Blood Urine Nitrite Ur Leukocyte Esterase Urine Test Urine Opiates Screen Urine Fentanyl Screen Ur Barbiturates Screen Ur Phencyclidine Scrn Ur Amphetamines Screen U Benzodiazepines Scrn Urine Cocaine Screen U Marijuana (THC) Screen Assessment and Plan (1) Cellulitis: Status: Acute (2) Substance abuse: Status: Acute Plan 42-year-old female with history of polysubstance abuse, opiate dependence on me thadone, 5 cigarette per day smoker, and depression/anxiety admitted for cellulitis left hand in [facility]. # acute cellulitis left hand/wrist -at risk for MRSA given IV drug abuse -significant swelling of the left hand/wrist significantly impairing use of the left hand -CT hand negative for abscess, confirms cellulitis -IV vanco Leukocytosis resolved, low grade temp. hand surgery eval. #IVDA -Relapsed 2 weeks ago on heroin and cocaine -Desires detox -Addiction Med consult #Chronic pain syndrome/opiate use disorder -Continue methadone and gabapentin #Depression/anxiety -Continue home meds overweight: encouraged to lose weight. DVT prophylaxis-Lovenox Ongoing inpatient need:acute cellulitis left hand/wrist-need iv antibiotics ,blood culture pending, also need vanco ,renal function . Electrolytic monitoring, ortho eval. Time Spent With Patient Time: Total time managing care of this patient today ____ minutes. Quality Stroke Does the patient have a stroke diagnosis?: No VTE Prior VTE?: No VTE Risk Level:: Medical - moderate - high VTE Device Contraindication: Treatment Not Indicated VTE Drug Contraindication: N/A - Med Ordered
[2022-09-13 15:03] LABS: Vancomycin Trough 5.9 mcg/mL (10.0-20.0)
--- NOTE | 2022-09-13 15:10 | HE.PHANOTE ---
RE: vanco Trough on 09/13/22 came back at 5.9; increased dose to 1250mg Q8H with predicted AUC 544mg/L. Next level to be drawn 09/14/22 @1400
[2022-09-13 15:40] VITALS: BP 113/67; PULSE 62; RESP 18; TEMP 36.9; O2SAT 98
[2022-09-13] MEDS: Enoxaparin Sodium 40 MG/0.4 ML SYRINGE SUBCUT (16:18)
[2022-09-13] MEDS: vancomycin HCL 1,250 MG in 0.9 % Sodium Chloride 250 ML 166.67 MG IV ×2 (16:19→23:36)
[2022-09-13 20:00] VITALS: BP 120/62; PULSE 71; RESP 20; TEMP 37; O2SAT 97
[2022-09-13] MEDS: busPIRone HCl 10 MG TABLET PO (20:52)
[2022-09-13] MEDS: traZODone HCL 100 MG TABLET PO (20:52)
[2022-09-13] MEDS: Gabapentin 600 MG TABLET PO (20:52)
[2022-09-14 04:00] VITALS: BP 99/53; PULSE 79; RESP 20; TEMP 37.1; O2SAT 95
[2022-09-14 07:00] LABS: Creatinine Clr Calc Pharmacy 117.7; Estimated Glomerular Filt Rate > 60
[2022-09-14 07:54] VITALS: BP 104/56; PULSE 71; RESP 18; TEMP 37.3; O2SAT 96
[2022-09-14] MEDS: methADONE HCl 20 MG/2 ML ORAL.CONC 65 MG PO (08:09)
[2022-09-14] MEDS: 0.9 % Sodium Chloride Flush 3 ML SYRINGE IVFLUSH ×3 (08:09→23:47)
[2022-09-14] MEDS: Ferrous Sulfate 324 MG TABLET.DR PO (08:10)
[2022-09-14] MEDS: FLUoxetine HCl 20 MG CAPSULE 40 MG PO (08:10)
[2022-09-14] MEDS: busPIRone HCl 10 MG TABLET PO ×2 (08:10→20:41)
[2022-09-14] MEDS: DULoxetine HCl 20 MG CAPSULE.DR PO (08:10)
[2022-09-14] MEDS: Gabapentin 600 MG TABLET PO ×2 (08:10→20:41)
[2022-09-14] MEDS: vancomycin HCL 1,250 MG in 0.9 % Sodium Chloride 250 ML 166.67 MG IV (08:20)
--- NOTE | 2022-09-14 09:16 | PM.EVENT ---
Event Note Date of Service: 09/14/22 Event Note: Left hand cellulitis s/p IVDU injection with heroin on 09/11-c/o increased pain and redness started on IV vanco she states there has been improved pain and redness still has difficulty with making a fist rec continue iv abx, rom, warm soaks NPO after midnight if symptoms worsen Time Spent With Patient Time: Total time managing care of this patient today ____ minutes.
--- NOTE | 2022-09-14 11:28 | MHC.RECOVRN ---
This commercial lines underwriter met w/ patient, patient was alert, awake, comfortable in bed on phone. Patient reports feeling good. Patient states had been at the [facility] in [place] a sober home, prior to 2 week relapse. Patient currently in touch with powerhouse attendant in the attempts to go back to [facility]. Patient discussed that repair manager may want patient to go to [facility] or Detox prior to returning to [facility]. Patient states inquiring about bed at [facility] and if not interested in detox bedsearch. Patient will notify addiction team with bedsearch updates.
[2022-09-14] MEDS: Gabapentin 300 MG CAPSULE PO (11:40)
[2022-09-14 14:35] LABS: Vancomycin Trough 19.2 mcg/mL (10.0-20.0)
--- NOTE | 2022-09-14 15:03 | HE.PHANOTE ---
VANCO DOSING ADJUSTMENT BASED ON SCR OF 0.67 AND TROUGH OF 19.2 DOSE DECREASED TO 1000 Q 8 HOURS WITH NEXT DOSE SKIPPED AND RESTARTING AT 0000
--- NOTE | 2022-09-14 15:15 | P.PNIM_ITS ---
Subjective Subjective Date of Service: 09/14/22 Interval History: follow up for Left hand cellulitis s/p IVDU injection? Review of Systems Arm cellulitis area erythema and swelling is slightly better than yesterday. Denies any fever still has some pain and soreness in the hand area but able to move fingers more better than yesterday. Physical Exam Vital Signs: Vital Signs: Last Vital Signs Temp 99.1 F 09/14/22 07:54 Pulse 71 09/14/22 07:54 Resp 18 09/14/22 07:54 BP 104/56 L 09/14/22 07:54 Pulse Ox 96 09/14/22 07:54 O2 Del Method 09/14/22 07:54 BMI result Body Mass Index 29.9 Appearance: Alert.? Oriented X3.? not in distress. cvs: rrr, [id number] . res: clear to auscultation ,no rhonchii or wheezing abd: no rebound or guarding ,nt, bs present. ext pulses present , no cyanosis . ?Left hand: significant swelling, wamrth, erythema ,range of motion slightly improving. Right hand also warm with mild erythema and 3cm x 2cm scabbed abrasion overlying 1st metacarpal with significant scarring of the right forearm neuro: axo3 , nonfocal Objective Data Active Medications Acetaminophen (Acetaminophen 325 Mg Tablet) 650 mg PO Q6H PRN PRN Reason: Pain, Mild (Pain Scale 1-3) Buspirone HCl (Buspirone Hcl 10 Mg Tablet) 10 mg PO BID [facility] Last Admin: 09/14/22 08:10 Dose: 10 mg Documented By: RENE Docusate Sodium (Docusate Sodium 100 Mg Capsule) 100 mg PO BID PRN PRN Reason: Constipation Duloxetine HCl (Duloxetine Hcl 20 Mg Capsule.) 20 mg PO DAILY [facility] Last Admin: 09/14/22 08:10 Dose: 20 mg Documented By: RENE Enoxaparin Sodium (Enoxaparin Sodium 40 Mg/0.4 Ml Syringe) 40 mg SUBCUT Q24H [facility] Last Admin: 09/13/22 16:18 Dose: 40 mg Documented By: ABIMBOLA Ferrous Sulfate (Ferrous Sulfate 324 Mg Tablet.) 324 mg PO DAILY [facility] Last Admin: 09/14/22 08:10 Dose: 324 mg Documented By: RENE Fluoxetine HCl (Fluoxetine Hcl 20 Mg Capsule) 40 mg PO DAILY [facility] Last Admin: 09/14/22 08:10 Dose: 40 mg Documented By: RENE Gabapentin (Gabapentin 300 Mg Capsule) 300 mg PO DAILY@1200 [facility] Last Admin: 09/14/22 11:40 Dose: 300 mg Documented By: RENE Gabapentin (Gabapentin 600 Mg Tablet) 600 mg PO BID [facility] Last Admin: 09/14/22 08:10 Dose: 600 mg Documented By: RENE Hydroxyzine HCl (Hydroxyzine Hcl 25 Mg Tablet) 25 - 50 mg PO Q6H PRN PRN Reason: Anxiety Vancomycin HCl 1,000 mg/ (Sodium Chloride) 270 mls @ 270 mls/hr IV Q8H [facility] Methadone HCl (Methadone Hcl 20 Mg/2 Ml Oral.Conc) 65 mg PO DAILY [facility] Last Admin: 09/14/22 08:09 Dose: 65 mg Documented By: RENE Morphine Sulfate (Morphine Sulfate 4 Mg/Ml Cartridge) 4 mg IVPUSH Q4H PRN; Protocol PRN Reason: Pain, Severe (Pain Scale 7-10) Last Admin: 09/13/22 16:19 Dose: 4 mg Documented By: ABIMBOLA Nicotine (Nicotine 21 Mg Patch.Td24) 21 mg TRANSDERMA DAILY PRN PRN Reason: Nicotine Cravings Nicotine Polacrilex (Nicotine Polacrilex 2 Mg Gum) 2 mg BUCCAL Q2H PRN PRN Reason: Nicotine Cravings Nicotine Polacrilex (Nicotine Polacrilex Lozenge 4 Mg Lozenge) 4 mg BUCCAL Q2H PRN PRN Reason: Nicotine Cravings Ondansetron HCl (Ondansetron Hcl 4 Mg/2 Ml Vial) 4 mg IVPUSH Q8H PRN PRN Reason: Nausea and Vomiting Oxycodone HCl (Oxycodone Hcl Immed Release 5 Mg Tablet) 5 mg PO Q6H PRN PRN Reason: Pain, Moderate (Pain Scale 4-6 Last Admin: 09/13/22 03:59 Dose: 5 mg Documented By: YURIDIA Pharmacy Consult (Consult Rx Perform Med Rec) 1 each MISCELLANE ONCE PRN PRN Reason: Consult order Pharmacy Consult (Consult Rx Vancomycin Dosing) 1 each MISCELLANE DAILY PRN PRN Reason: Consult order Polyethylene Glycol (Polyethylene Glycol 3350 17 Gm Powd.Pack) 17 gm PO BID PRN PRN Reason: Constipation Sodium Chloride (0.9 % Sodium Chloride Flush 3 Ml Syringe) 3 ml IVFLUSH QSHIFT [facility] Last Admin: 09/14/22 08:09 Dose: 3 ml Documented By: RENE Trazodone HCl (Trazodone Hcl 100 Mg Tablet) 100 mg PO BEDTIME [facility] Last Admin: 09/13/22 20:52 Dose: 100 mg Documented By: YURIDIA Labs 09/13/22 05:18 09/14/22 06:03 Labs: Laboratory Results - last 24 hr 09/14/22 09/14/22 06:03 14:01 Estim Creat Clear Calc 117.7 Estimated GFR > 60 Vancomycin Trough 19.2 Microbiology Microbiology Results: Microbiology 09/12/22 12:53 Blood Culture - Preliminary Blood - Venous No growth after 48 hours. 09/12/22 14:34 Blood Culture - Preliminary Blood - Venous No growth after 24 hours. Assessment and Plan (1) Cellulitis: Status: Acute (2) Substance abuse: Status: Acute (3) Obese: Status: Acute Plan 42-year-old female with history of polysubstance abuse, opiate dependence on methadone, 5 cigarette per day smoker, and depression/anxiety admitted for cellulitis left hand in [facility]. # acute cellulitis left hand/wrist -at risk for MRSA given IV drug abuse -significant swelling of the left hand/wrist significantly impairing use of the left hand -CT hand negative for abscess, confirms cellulitis -IV vanco vanco trough is form 6-19.2,[facility] Leukocytosis resolved, low grade temp. surgery eval-continue vanco ,warm soaks. #IVDA -Relapsed 2 weeks ago on heroin and cocaine -Desires detox -Addiction Med consult #Chronic pain syndrome/opiate use disorder -Continue methadone and gabapentin #Depression/anxiety -Continue home meds overweight: encouraged to lose weight. DVT prophylaxis-Lovenox Ongoing inpatient need:acute cellulitis left hand/wrist-need iv antibiotics ,blood culture pending, also need vanco? ,renal function .? Electrolytic? monitoring. Time Spent With Patient Time: Total time managing care of this patient today ____ minutes. Quality Stroke Does the patient have a stroke diagnosis?: No VTE Prior VTE?: No VTE Risk Level:: Medical - moderate - high VTE Device Contraindication: Treatment Not Indicated VTE Drug Contraindication: N/A - Med Ordered
[2022-09-14 16:00] VITALS: BP 105/57; PULSE 77; RESP 18; TEMP 36.5; O2SAT 97
[2022-09-14] MEDS: Enoxaparin Sodium 40 MG/0.4 ML SYRINGE SUBCUT (16:21)
--- NOTE | 2022-09-14 16:52 | MHC.RECOVRN ---
This editorial writer met with patient, patient was laying in bed, watching t.v, on phone. Patient reports spoke w/ Rx Specialist at [facility], patient is able to return there after completing 30 days of treatment. Patient reports sister is looking for TSS bed. Patient states is willing to go to detox/CSS level of care to be able to return to [facility]. Patient request follow up tomorrow related to TSS placement.
[2022-09-14 19:53] VITALS: BP 106/59; PULSE 78; RESP 18; TEMP 37.2; O2SAT 95
[2022-09-14] MEDS: traZODone HCL 100 MG TABLET PO (20:41)
[2022-09-14] MEDS: Acetaminophen 325 MG TABLET 650 MG PO (20:43)
[2022-09-14] MEDS: vancomycin HCL 1,000 MG in 0.9 % Sodium Chloride 250 ML 270 MG IV (23:43)
[2022-09-14] MEDS: oxyCODONE HCl Immed Release 5 MG TABLET PO (23:51)
[2022-09-15 03:25] VITALS: BP 99/61; PULSE 60; RESP 16; TEMP 36.5; O2SAT 96
[2022-09-15 06:41] LABS: Creatinine Clr Calc Pharmacy 123.3; Estimated Glomerular Filt Rate > 60
[2022-09-15] MEDS: 0.9 % Sodium Chloride Flush 3 ML SYRINGE IVFLUSH ×3 (07:44→21:06)
[2022-09-15] MEDS: FLUoxetine HCl 20 MG CAPSULE 40 MG PO (07:45)
[2022-09-15] MEDS: DULoxetine HCl 20 MG CAPSULE.DR PO (07:46)
[2022-09-15] MEDS: Ferrous Sulfate 324 MG TABLET.DR PO (07:46)
[2022-09-15] MEDS: methADONE HCl 20 MG/2 ML ORAL.CONC 65 MG PO (07:47)
[2022-09-15] MEDS: Gabapentin 600 MG TABLET PO ×2 (07:47→21:06)
[2022-09-15] MEDS: vancomycin HCL 1,000 MG in 0.9 % Sodium Chloride 250 ML 270 MG IV ×3 (07:47→23:56)
[2022-09-15] MEDS: busPIRone HCl 10 MG TABLET PO ×2 (07:47→21:06)
[2022-09-15] MEDS: diphenhydrAMINE HCL 25 MG CAPSULE PO ×2 (07:56→17:58)
[2022-09-15 08:00] VITALS: BP 103/63; PULSE 61; RESP 16; TEMP 36.3; O2SAT 99
--- NOTE | 2022-09-15 08:13 | PM.PNORT ---
Subjective Subjective Date of Service: 09/15/22 Interval history: F.u left hand cellulitis continues IV abx patient has less pain and more movment Physical Exam Vital Signs: Vital Signs: Last Vital Signs Temp 97.3 F 09/15/22 08:00 Pulse 61 09/15/22 08:00 Resp 16 09/15/22 08:00 BP 103/63 09/15/22 08:00 Pulse Ox 99 09/15/22 08:00 O2 Del Method 09/15/22 08:00 BMI result Body Mass Index 29.9 Extrem: Other: Left hand resolving cellulitis along the dorsum of the hand without abscess or purulance Procedures Date of Service Date of Service: 09/15/22 Progress Note: A&P Assessment and plan (1) Cellulitis: Status: Acute Assessment and Plan: Continue iv abx-po once discharged continue to work on ROM no need for surgical intervention Time Spent With Patient Time: Total time managing care of this patient today ____ minutes. Quality Stroke Does the patient have a stroke diagnosis?: No VTE Prior VTE?: No VTE Risk Level:: Medical - moderate - high VTE Device Contraindication: Treatment Not Indicated VTE Drug Contraindication: N/A - Med Ordered
--- NOTE | 2022-09-15 08:15 | P.CONOP_ITS ---
History of Present Illness HPI Consult date: 09/14/22 Chief complaint: Cellulitis Narrative: 42-year-old female with history of polysubstance abuse, opiate dependence on methadone, 5 cigarette per day smoker, and depression/anxiety presented to ED for evaluation of pain, swelling, and redness in the left hand.? She states she injected heroin into the left hand yesterday prior to onset of symptoms.? U tox positive for opiates and cocaine.? X-ray of the hand unremarkable except for d orsal soft tissue swelling.? CT of the hand showing increased density along the dorsal aspect of the wrist and hand reflecting edema or cellulitis.? No localized fluid collection.? Treated empirically with IV Zosyn and vancomycin.? Patient to be admitted for IV antibiotics for acute cellulitis of the left hand in IV drug abuser. Ortho was consulted for further recommendations. [facility] Past Medical History Medical History (Updated 09/17/22 @ 12:32 by Hilario Gimenez MD) Abscess Bacterial vaginosis Screening for cervical cancer Screening for diabetes mellitus (DM) Screening for hypercholesterolemia Substance abuse Family History Family History Father No problems noted. Mother HTN (hypertension) Surgical History Surgical History History of section Social History Social History (Updated 09/12/22 @ 17:13 by MORRIS Norman) Household Members: Family Household Members Other:: 1 Housing: Apartment Do you presently have visiting nurse or other home services: No Alcohol intake: former Patient Tobacco Use Status: Current everyday Tobacco user Tobacco use type: Cigarette Cigarettes Per Day: 5 Smoked in Last 30 Days: Yes Patient Interested in Nicotine Replacement: Yes Use of substances other than those prescribed or required for medical reasons: Yes Substance Use Type: Crack/Cocaine, Heroin and IV Drugs Substance Use Frequency: Daily Last Used Substance: Days (ago) Last Used Substance Other:: heroin and Cocaine Currently Displaying Signs/Symptoms of Drug Intoxication Withdrawal: No Any prior treatment program specific to substance use: Yes Have you been hit, kicked, punched, or otherwise hurt by someone within the past year? If so, by whom?: No Do you feel safe in your current relationship?: Yes Is there a partner from a previous relationship who is making you feel unsafe now?: No Are you made to feel afraid or neglected: No Advance Directives: No Advance Directives Information Provided: Yes Do you have thoughts of harming others: None Do you have a plan to hurt others: No Plan Recently lost weight without trying: No How much weight loss: Not applicable Eating poorly because of decreased appetite: No Nutrition screen score: 0 Nutrition Risks: No Nutritional Risk Patient : No : No Poor oral hygiene: No service: No Current occupational status: unemployed Meds Allergies Allergy/AdvReac Type Severity Reaction Status Date / Time Fish Containing Products Allergy Severe ANAPHYLAXIS Verified 06/02/21 05:37 Active Medications: Current Medications Acetaminophen (Acetaminophen 325 Mg Tablet) 650 mg PO Q6H PRN PRN Reason: Pain, Mild (Pain Scale 1-3) Last Admin: 09/14/22 20:43 Dose: 650 mg Buspirone HCl (Buspirone Hcl 10 Mg Tablet) 10 mg PO BID [facility] Last Admin: 09/15/22 07:47 Dose: 10 mg Docusate Sodium (Docusate Sodium 100 Mg Capsule) 100 mg PO BID PRN PRN Reason: Constipation Duloxetine HCl (Duloxetine Hcl 20 Mg Capsule.) 20 mg PO DAILY [facility] Last Admin: 09/15/22 07:46 Dose: 20 mg Enoxaparin Sodium (Enoxaparin Sodium 40 Mg/0.4 Ml Syringe) 40 mg SUBCUT Q24H [facility] Last Admin: 09/14/22 16:21 Dose: 40 mg Ferrous Sulfate (Ferrous Sulfate 324 Mg Tablet.) 324 mg PO DAILY [facility] Last Admin: 09/15/22 07:46 Dose: 324 mg Fluoxetine HCl (Fluoxetine Hcl 20 Mg Capsule) 40 mg PO DAILY [facility] Last Admin: 09/15/22 07:45 Dose: 40 mg Gabapentin (Gabapentin 300 Mg Capsule) 300 mg PO DAILY@1200 [facility] Last Admin: 09/14/22 11:40 Dose: 300 mg Gabapentin (Gabapentin 600 Mg Tablet) 600 mg PO BID [facility] Last Admin: 09/15/22 07:47 Dose: 600 mg Hydroxyzine HCl (Hydroxyzine Hcl 25 Mg Tablet) 25 - 50 mg PO Q6H PRN PRN Reason: Anxiety Vancomycin HCl 1,000 mg/ (Sodium Chloride) 270 mls @ 270 mls/hr IV Q8H [facility] Last Admin: 09/15/22 07:47 Dose: 270 mls/hr Methadone HCl (Methadone Hcl 20 Mg/2 Ml Oral.Conc) 65 mg PO DAILY [facility] Last Admin: 09/15/22 07:47 Dose: 65 mg Morphine Sulfate (Morphine Sulfate 4 Mg/Ml Cartridge) 4 mg IVPUSH Q4H PRN; Protocol PRN Reason: Pain, Severe (Pain Scale 7-10) Last Admin: 09/13/22 16:19 Dose: 4 mg Nicotine (Nicotine 21 Mg Patch.Td24) 21 mg TRANSDERMA DAILY PRN PRN Reason: Nicotine Cravings Nicotine Polacrilex (Nicotine Polacrilex 2 Mg Gum) 2 mg BUCCAL Q2H PRN PRN Reason: Nicotine Cravings Nicotine Polacrilex (Nicotine Polacrilex Lozenge 4 Mg Lozenge) 4 mg BUCCAL Q2H PRN PRN Reason: Nicotine Cravings Ondansetron HCl (Ondansetron Hcl 4 Mg/2 Ml Vial) 4 mg IVPUSH Q8H PRN PRN Reason: Nausea and Vomiting Oxycodone HCl (Oxycodone Hcl Immed Release 5 Mg Tablet) 5 mg PO Q6H PRN PRN Reason: Pain, Moderate (Pain Scale 4-6 Last Admin: 09/14/22 23:51 Dose: 5 mg Pharmacy Consult (Consult Rx Perform Med Rec) 1 each MISCELLANE ONCE PRN PRN Reason: Consult order Pharmacy Consult (Consult Rx Vancomycin Dosing) 1 each MISCELLANE DAILY PRN PRN Reason: Consult order Polyethylene Glycol (Polyethylene Glycol 3350 17 Gm Powd.Pack) 17 gm PO BID PRN PRN Reason: Constipation Sodium Chloride (0.9 % Sodium Chloride Flush 3 Ml Syringe) 3 ml IVFLUSH QSHIFT [facility] Last Admin: 09/15/22 07:44 Dose: 3 ml Trazodone HCl (Trazodone Hcl 100 Mg Tablet) 100 mg PO BEDTIME [facility] Last Admin: 09/14/22 20:41 Dose: 100 mg Home Medications Medication Instructions Recorded Confirmed Last Taken Type buspirone 10 mg tablet 10 mg PO BID 09/12/22 09/12/22 09/11/22 History docusate sodium 100 mg tablet 100 mg PO BID PRN Constipation 09/12/22 09/12/22 09/11/22 History duloxetine 20 mg capsule,delayed 20 mg PO DAILY 09/12/22 09/12/22 09/11/22 Hist ory release ferrous sulfate 325 mg (65 mg 325 mg PO DAILY 09/12/22 09/12/22 09/11/22 History iron) tablet fluoxetine 40 mg capsule 40 mg PO DAILY 09/12/22 09/12/22 09/11/22 History gabapentin 300 mg capsule 300 mg PO DAILY@1200 09/12/22 09/12/22 09/11/22 History gabapentin 600 mg tablet 600 mg PO BID 09/12/22 09/12/22 09/11/22 History hydroxyzine HCl 25 mg tablet 25 - 50 mg PO Q6H PRN Anxiety 09/12/22 09/12/22 09/11/22 History ibuprofen 600 mg tablet 600 mg PO TID PRN Pain 09/12/22 09/12/22 09/11/22 History methadone 10 mg/mL oral 65 mg PO DAILY 09/12/22 09/13/22 09/12/22 History concentrate (Methadose) nicotine (polacrilex) 4 mg buccal 4 mg buccal Q2-4H PRN Nicotine 09/12/22 09/12/22 09/11/22 History lozenge Cravings nicotine 21 mg/24 hr daily 1 patch transdermal DAILY PRN 09/12/22 09/12/22 09/11/22 History transdermal patch Nicotine Cravings polyethylene glycol 3350 17 gram 17 g PO BID PRN Constipation 09/12/22 09/12/22 09/11/22 History oral powder packet trazodone 100 mg tablet 100 mg PO BEDTIME 09/12/22 09/12/22 09/11/22 History Physical Exam Vital Signs: Vital Signs: Last Vital Signs Temp 97.3 F 09/15/22 08:00 Pulse 61 09/15/22 08:00 Resp 16 09/15/22 08:00 BP 103/63 09/15/22 08:00 Pulse Ox 99 09/15/22 08:00 O2 Del Method 09/15/22 08:00 BMI result Body Mass Index 29.9 Extrem: Other: she states there has been improved pain and redness still has difficulty with making a fist no fluctulance or abscess formation mild erythema on the dorsum no pain along the palmar or flexor tendons. Results Labs 09/13/22 05:18 09/15/22 05:31 Labs: H & H 09/12/22 09/13/22 Range/Units 12:53 05:18 Hgb 12.5 10.1 L (12.0-16.0) g/dl Hct 37.0 29.6 L (37.0-47.0) % All other labs normal. Assessment and Plan (1) Cellulitis: Status: Acute Plan rec continue iv abx, rom, warm soaks NPO after midnight if symptoms worsen Time Spent With Patient Time: Total time managing care of this patient today ____ minutes. Procedures Date of Service Date of Service: 09/14/22
--- NOTE | 2022-09-15 09:25 | MHC.CM.PN ---
Addendum entered by Clara Mckeon RN 09/15/22 11:17: ACCORDING TO MEDICAL ROUNDS, PATIENT MAY STAY UNTIL SUNDAY FOR IV ABX CELLOPHANER MADE AWARE Original Note: PATIENT INFORMED THIS PHERESIS SPECIALIST THAT SHE WAS TOLD SHE WILL REMAIN HERE ON MORE DAY. CELLOPHANER IS IN ROOM WITH PATIENT NOW IN ATTEMPTS TO SECURE A [facility] BED FOR TOMORROW PAITENT REPORTS THAT SHE NEEDS TO BE IN CSS FOR AT LEAST 30 DAYS IN ORDER TO RETURN TO HER LIVING ARRANGEMENTS
--- NOTE | 2022-09-15 11:44 | MHC.RECOVRN ---
Met with pt in 384 to follow up regarding discharge planning. Pt reports her sister works for [employer] and may be able to secure her a bed at [facility] in [place]. Pt educated regarding process and informed that it is difficult to be placed at CSS, nevermind [facility], from the hospital. Pt educated that it is more likely to be placed in [facility] for a day or two and then transition to [facility]. However, the longer the patient is in the hospital, the more difficult this becomes. Pt open to any and all pathways to placement. T/w informed pt will most likely be here until Sunday, [facility]S/[facility] should be contacted to determine availability on that day.
--- NOTE | 2022-09-15 11:54 | HO.PM.IMPN ---
Subjective Subjective Date of Service: 09/15/22 Interval History: follow up for Left hand cellulitis s/p IVDU injection? Review of Systems Arm cellulitis area erythema and swelling is slightly better than yesterday.? Denies any fever still has some pain and soreness in the hand area but able to move fingers more better than yesterday. Physical Exam Vital Signs: Vital Signs: Last Vital Signs Temp 97.3 F 09/15/22 08:00 Pulse 61 09/15/22 08:00 Resp 16 09/15/22 08:00 BP 103/63 09/15/22 08:00 Pulse Ox 99 09/15/22 08:00 O2 Del Method 09/15/22 08:00 BMI result Body Mass Index 29.9 Appearance: Alert.? Oriented X3.? not in distress. cvs: rrr, [id number] . res: clear to auscultation ,no rhonchii or wheezing abd: no rebound or guarding ,nt, bs present. ext pulses present , no cyanosis . left hand -erythema ,swellin neuro: axo3 , nonfocal Objective Data Active Medications Acetaminophen (Acetaminophen 325 Mg Tablet) 650 mg PO Q6H PRN PRN Reason: Pain, Mild (Pain Scale 1-3) Last Admin: 09/14/22 20:43 Dose: 650 mg Documented By: YURIDIA Buspirone HCl (Buspirone Hcl 10 Mg Tablet) 10 mg PO BID [facility] Last Admin: 09/15/22 07:47 Dose: 10 mg Documented By: ABIMBOLA Docusate Sodium (Docusate Sodium 100 Mg Capsule) 100 mg PO BID PRN PRN Reason: Constipation Duloxetine HCl (Duloxetine Hcl 20 Mg Capsule.) 20 mg PO DAILY [facility] Last Admin: 09/15/22 07:46 Dose: 20 mg Documented By: ABIMBOLA Enoxaparin Sodium (Enoxaparin Sodium 40 Mg/0.4 Ml Syringe) 40 mg SUBCUT Q24H [facility] Last Admin: 09/14/22 16:21 Dose: 40 mg Documented By: RENE Ferrous Sulfate (Ferrous Sulfate 324 Mg Tablet.) 324 mg PO DAILY [facility] Last Admin: 09/15/22 07:46 Dose: 324 mg Documented By: ABIMBOLA Fluoxetine HCl (Fluoxetine Hcl 20 Mg Capsule) 40 mg PO DAILY [facility] Last Admin: 09/15/22 07:45 Dose: 40 mg Documented By: ABIMBOLA Gabapentin (Gabapentin 300 Mg Capsule) 300 mg PO DAILY@1200 [facility] Last Admin: 09/14/22 11:40 Dose: 300 mg Documented By: RENE Gabapentin (Gabapentin 600 Mg Tablet) 600 mg PO BID [facility] Last Admin: 09/15/22 07:47 Dose: 600 mg Documented By: ABIMBOLA Hydroxyzine HCl (Hydroxyzine Hcl 25 Mg Tablet) 25 - 50 mg PO Q6H PRN PRN Reason: Anxiety Vancomycin HCl 1,000 mg/ (Sodium Chloride) 270 mls @ 270 mls/hr IV Q8H [facility] Last Infusion: 09/15/22 09:00 Dose: 0 mls/hr Documented By: ABIMBOLA Methadone HCl (Methadone Hcl 20 Mg/2 Ml Oral.Conc) 65 mg PO DAILY [facility] Last Admin: 09/15/22 07:47 Dose: 65 mg Documented By: ABIMBOLA Morphine Sulfate (Morphine Sulfate 4 Mg/Ml Cartridge) 4 mg IVPUSH Q4H PRN; Protocol PRN Reason: Pain, Severe (Pain Scale 7-10) Last Admin: 09/13/22 16:19 Dose: 4 mg Documented By: ABIMBOLA Nicotine (Nicotine 21 Mg Patch.Td24) 21 mg TRANSDERMA DAILY PRN PRN Reason: Nicotine Cravings Nicotine Polacrilex (Nicotine Polacrilex 2 Mg Gum) 2 mg BUCCAL Q2H PRN PRN Reason: Nicotine Cravings Nicotine Polacrilex (Nicotine Polacrilex Lozenge 4 Mg Lozenge) 4 mg BUCCAL Q2H PRN PRN Reason: Nicotine Cravings Ondansetron HCl (Ondansetron Hcl 4 Mg/2 Ml Vial) 4 mg IVPUSH Q8H PRN PRN Reason: Nausea and Vomiting Oxycodone HCl (Oxycodone Hcl Immed Release 5 Mg Tablet) 5 mg PO Q6H PRN PRN Reason: Pain, Moderate (Pain Scale 4-6 Last Admin: 09/14/22 23:51 Dose: 5 mg Documented By: YURIDIA Pharmacy Consult (Consult Rx Perform Med Rec) 1 each MISCELLANE ONCE PRN PRN Reason: Consult order Pharmacy Consult (Consult Rx Vancomycin Dosing) 1 each MISCELLANE DAILY PRN PRN Reason: Consult order Polyethylene Glycol (Polyethylene Glycol 3350 17 Gm Powd.Pack) 17 gm PO BID PRN PRN Reason: Constipation Sodium Chloride (0.9 % Sodium Chloride Flush 3 Ml Syringe) 3 ml IVFLUSH QSHIFT [facility] Last Admin: 09/15/22 07:44 Dose: 3 ml Documented By: ABIMBOLA Trazodone HCl (Trazodone Hcl 100 Mg Tablet) 100 mg PO BEDTIME [facility] Last Admin: 09/14/22 20:41 Dose: 100 mg Documented By: YURIDIA Labs 09/13/22 05:18 09/15/22 05:31 Labs: Laboratory Results - last 24 hr 09/14/22 09/15/22 14:01 05:31 Estim Creat Clear Calc 123.3 Estimated GFR > 60 Vancomycin Trough 19.2 Microbiology Microbiology Results: Microbiology 09/12/22 14:34 Blood Culture - Preliminary Blood - Venous No growth after 48 hours. 09/12/22 12:53 Blood Culture - Preliminary Blood - Venous No growth after 48 hours. Assessment and Plan (1) Cellulitis: Status: Acute (2) Substance abuse: Status: Acute (3) Obese: Status: Acute Plan 42-year-old female with history of polysubstance abuse, opiate dependence on methadone, 5 cigarette per day smoker, and depression/anxiety admitted for cellulitis left hand in [facility]. # acute cellulitis left hand/wrist -at risk for MRSA given IV drug abuse -significant swelling of the left hand/wrist significantly impairing use of the left hand -CT hand negative for abscess, confirms cellulitis -IV vanco vanco trough is form 6-19.2,pharmacy is [facility] adjustment Leukocytosis resolved, low grade temp. surgery eval-continue vanco ,warm soaks. #IVDA -Relapsed 2 weeks ago on heroin and cocaine -Desires detox -Addiction Med consult #Chronic pain syndrome/opiate use disorder -Continue methadone and gabapentin #Depression/anxiety -Continue home meds overweight: encouraged to lose weight. DVT prophylaxis-Lovenox Ongoing inpatient need:acute cellulitis left hand/wrist-need iv antibiotics ,blood culture pending, also need vanco? ,renal function .? Electrolytic? monitoring. Time Spent With Patient Time: Total time managing care of this patient today ____ minutes. Quality Stroke Does the patient have a stroke diagnosis?: No VTE Prior VTE?: No VTE Risk Level:: Medical - moderate - high VTE Device Contraindication: Treatment Not Indicated VTE Drug Contraindication: N/A - Med Ordered
[2022-09-15] MEDS: Gabapentin 300 MG CAPSULE PO (12:07)
[2022-09-15] MEDS: oxyCODONE HCl Immed Release 5 MG TABLET PO (12:56)
[2022-09-15] MEDS: Acetaminophen 325 MG TABLET 650 MG PO (12:56)
[2022-09-15 13:33] LABS: Vancomycin Trough 15.7 mcg/mL (10.0-20.0)
[2022-09-15 15:46] VITALS: BP 104/52; PULSE 63; RESP 16; TEMP 36.2; O2SAT 95
[2022-09-15] MEDS: Enoxaparin Sodium 40 MG/0.4 ML SYRINGE SUBCUT (16:01)
[2022-09-15 19:37] VITALS: BP 100/71; PULSE 62; RESP 15; TEMP 36.2; O2SAT 96
[2022-09-15] MEDS: traZODone HCL 100 MG TABLET PO (21:06)
[2022-09-16 03:47] VITALS: BP 115/66; PULSE 64; RESP 18; TEMP 36.8; O2SAT 96
[2022-09-16 06:13] LABS: Vancomycin Random 18.3 mcg/mL (15-20)
[2022-09-16 06:16] LABS: Creatinine Clr Calc Pharmacy 125.2; Estimated Glomerular Filt Rate > 60
--- NOTE | 2022-09-16 07:55 | HE.PHANOTE ---
Vancomycin Dosing Addendum Decreased dose to 750 mg q8h due to trough of 18.3. Patient received 2 doses and trough went from 15.7 to 18.3. will recheck level again on 09/17 @0600 and adjust accrodingly. Creatinine stable.
[2022-09-16 08:00] VITALS: BP 108/68; PULSE 73; RESP 18; TEMP 36.7; O2SAT 95
[2022-09-16] MEDS: vancomycin HCL 750 MG in 0.9 % Sodium Chloride 250 ML 265 MG IV ×2 (08:50→18:40)
[2022-09-16] MEDS: 0.9 % Sodium Chloride Flush 3 ML SYRINGE IVFLUSH ×3 (08:50→19:43)
[2022-09-16] MEDS: methADONE HCl 20 MG/2 ML ORAL.CONC 65 MG PO (08:51)
[2022-09-16] MEDS: Acetaminophen 325 MG TABLET 650 MG PO (08:51)
[2022-09-16] MEDS: FLUoxetine HCl 20 MG CAPSULE 40 MG PO (08:51)
[2022-09-16] MEDS: Ferrous Sulfate 324 MG TABLET.DR PO (08:51)
[2022-09-16] MEDS: Gabapentin 600 MG TABLET PO ×2 (08:51→19:43)
[2022-09-16] MEDS: oxyCODONE HCl Immed Release 5 MG TABLET PO (08:51)
[2022-09-16] MEDS: busPIRone HCl 10 MG TABLET PO ×2 (08:51→19:43)
[2022-09-16] MEDS: DULoxetine HCl 20 MG CAPSULE.DR PO (08:51)
[2022-09-16] MEDS: diphenhydrAMINE HCL 25 MG CAPSULE PO (10:40)
[2022-09-16] MEDS: valACYclovir HCL 1,000 MG TABLET 1000 MG PO ×2 (10:40→22:30)
[2022-09-16] MEDS: Gabapentin 300 MG CAPSULE PO (11:59)
--- NOTE | 2022-09-16 14:06 | MHC.RECOVRN ---
This conventional underwriter met w/ patient, patient alert, sitting in bed, lights dim. Patient reports is on the waitlist for [facility], no available beds currently. Patient requesting referral to [facility]. Referral placed, under review currently. Patient reminded that patient could d/c prior to CSS placement and patient would then f/u from the community with CSS referral. Patient verbalized understanding. Patient and conventional underwriter reviewed importance of stable supportive housing to prevent recurrence prior to CSS entry. Patient states going to inquire about housing. T/W and patient to follow up in regard to CSS status.
[2022-09-16 15:15] VITALS: BP 94/52; PULSE 69; RESP 17; TEMP 36.3; O2SAT 94
--- NOTE | 2022-09-16 15:21 | P.PNIM_ITS ---
Subjective Subjective Date of Service: 09/16/22 Interval History: follow up for Left hand cellulitis s/p IVDU injection? Review of Systems Arm cellulitis area erythema and swelling is similar to yesterday.? Denies any fever still has some pain and soreness in the hand area but able to move fingers more better than yesterday. Physical Exam Vital Signs: Vital Signs: Last Vital Signs Temp 97.3 F 09/16/22 15:15 Pulse 69 09/16/22 15:15 Resp 17 09/16/22 15:15 BP 94/52 L 09/16/22 15:15 Pulse Ox 94 09/16/22 15:15 O2 Del Method 09/16/22 15:15 BMI result Body Mass Index 29.9 ?Appearance: Alert.? Oriented X3.? not in distress. cvs: rrr, [id number] . res: clear to auscultation ,no rhonchii or wheezing abd: no rebound or guarding ,nt, bs present. ext pulses present , no cyanosis . left hand -erythema ,swellin neuro: axo3 , nonfocal Objective Data Active Medications Acetaminophen (Acetaminophen 325 Mg Tablet) 650 mg PO Q6H PRN PRN Reason: Pain, Mild (Pain Scale 1-3) Last Admin: 09/16/22 08:51 Dose: 650 mg Documented By: RAYMONDEMA Buspirone HCl (Buspirone Hcl 10 Mg Tablet) 10 mg PO BID REPLACED BY [facility] Last Admin: 09/16/22 08:51 Dose: 10 mg Documented By: COTEMA Docusate Sodium (Docusate Sodium 100 Mg Capsule) 100 mg PO BID PRN PRN Reason: Constipation Duloxetine HCl (Duloxetine Hcl 20 Mg Capsule.) 20 mg PO DAILY REPLACED BY [facility] Last Admin: 09/16/22 08:51 Dose: 20 mg Documented By: COTEMA Enoxaparin Sodium (Enoxaparin Sodium 40 Mg/0.4 Ml Syringe) 40 mg SUBCUT Q24H REPLACED BY [facility] Last Admin: 09/15/22 16:01 Dose: 40 mg Documented By: ABIMBOLA Ferrous Sulfate (Ferrous Sulfate 324 Mg Tablet.) 324 mg PO DAILY REPLACED BY [facility] Last Admin: 09/16/22 08:51 Dose: 324 mg Documented By: ALVARO Fluoxetine HCl (Fluoxetine Hcl 20 Mg Capsule) 40 mg PO DAILY [facility]PLACED BY [facility] Last Admin: 09/16/22 08:51 Dose: 40 mg Documented By: COTEMA Gabapentin (Gabapentin 300 Mg Capsule) 300 mg PO DAILY@1200 REPLACED BY [facility] Last Admin: 09/16/22 11:59 Dose: 300 mg Documented By: COTEMA Gabapentin (Gabapentin 600 Mg Tablet) 600 mg PO BID REPLACED BY [facility] Last Admin: 09/16/22 08:51 Dose: 600 mg Documented By: COTEMA Hydroxyzine HCl (Hydroxyzine Hcl 25 Mg Tablet) 25 - 50 mg PO Q6H PRN PRN Reason: Anxiety Vancomycin HCl 750 mg/ Sodium (Chloride) 265 mls @ 265 mls/hr IV Q8H REPLACED BY [facility] Methadone HCl (Methadone Hcl 20 Mg/2 Ml Oral.Conc) 65 mg PO DAILY REPLACED BY [facility] Last Admin: 09/16/22 08:51 Dose: 65 mg Documented By: ALVARO Morphine Sulfate (Morphine Sulfate 4 Mg/Ml Cartridge) 4 mg IVPUSH Q4H PRN; Protocol PRN Reason: Pain, Severe (Pain Scale 7-10) Last Admin: 09/13/22 16:19 Dose: 4 mg Documented By: PARDONALDA Nicotine (Nicotine 21 Mg Patch.Td24) 21 mg TRANSDERMA DAILY PRN PRN Reason: Nicotine Cravings Nicotine Polacrilex (Nicotine Polacrilex 2 Mg Gum) 2 mg BUCCAL Q2H PRN PRN Reason: Nicotine Cravings Nicotine Polacrilex (Nicotine Polacrilex Lozenge 4 Mg Lozenge) 4 mg BUCCAL Q2H PRN PRN Reason: Nicotine Cravings Ondansetron HCl (Ondansetron Hcl 4 Mg/2 Ml Vial) 4 mg IVPUSH Q8H PRN PRN Reason: Nausea and Vomiting Oxycodone HCl (Oxycodone Hcl Immed Release 5 Mg Tablet) 5 mg PO Q6H PRN PRN Reason: Pain, Moderate (Pain Scale 4-6 Last Admin: 09/16/22 08:51 Dose: 5 mg Documented By: COTEMA Pharmacy Consult (Consult Rx Perform Med Rec) 1 each MISCELLANE ONCE PRN PRN Reason: Consult order Pharmacy Consult (Consult Rx Vancomycin Dosing) 1 each MISCELLANE DAILY PRN PRN Reason: Consult order Polyethylene Glycol (Polyethylene Glycol 3350 17 Gm Powd.Pack) 17 gm PO BID PRN PRN Reason: Constipation Sodium Chloride (0.9 % Sodium Chloride Flush 3 Ml Syringe) 3 ml IVFLUSH QSHIFT REPLACED BY [facility] Last Admin: 09/16/22 08:50 Dose: 3 ml Documented By: ALVARO Trazodone HCl (Trazodone Hcl 100 Mg Tablet) 100 mg PO BEDTIME REPLACED BY [facility] Last Admin: 09/15/22 21:06 Dose: 100 mg Documented By: YURIDIA Valacyclovir HCl (Valacyclovir Hcl 1,000 Mg Tablet) 1,000 mg PO Q12H REPLACED BY [facility] Last Admin: 09/16/22 10:40 Dose: 1,000 mg Documented By: ALVARO Labs 09/13/22 05:18 09/16/22 05:14 Labs: Laboratory Results - last 24 hr 09/16/22 09/16/22 05:12 05:14 Estim Creat Clear Calc 125.2 Estimated GFR > 60 Random Vancomycin 18.3 Assessment and Plan (1) Cellulitis: Status: Acute (2) Substance abuse: Status: Acute (3) Obese: Status: Acute Plan 42-year-old female with history of polysubstance abuse, opiate dependence on methadone, 5 cigarette per day smoker, and depression/anxiety admitted for cellulitis left hand in [facility]. # acute cellulitis left hand/wrist -at risk for MRSA given IV drug abuse -CT hand negative for abscess, confirms cellulitis,Leukocytosis resolved, no fevers . still has significant swelling of the left hand/wrist significantly impairing use of the left hand -continue IV vanco,vanco trough is 18.3. surgery eval-continue vanco ,warm soaks. #IVDA -Relapsed 2 weeks ago on heroin and cocaine -Desires detox -Addiction Med consult #Chronic pain syndrome/opiate use disorder -Continue methadone and gabapentin #Depression/anxiety -Continue home meds overweight: encouraged to lose weight. DVT prophylaxis-Lovenox Ongoing inpatient need:acute cellulitis left hand/wrist-need iv antibiotics ,blood culture pending, also need vanco? ,renal function .? Electrolytic? monitoring. Time Spent With Patient Time: Total time managing care of this patient today ____ minutes. Quality Stroke Does the patient have a stroke diagnosis?: No VTE Prior VTE?: No VTE Risk Level:: Medical - moderate - high VTE Device Contraindication: Treatment Not Indicated VTE Drug Contraindication: N/A - Med Ordered
[2022-09-16] MEDS: Enoxaparin Sodium 40 MG/0.4 ML SYRINGE SUBCUT (17:13)
[2022-09-16 19:24] VITALS: BP 108/60; PULSE 70; RESP 17; TEMP 36.6; O2SAT 95
[2022-09-16] MEDS: traZODone HCL 100 MG TABLET PO (19:43)
[2022-09-16] MEDS: Docusate Sodium 100 MG CAPSULE PO (19:47)
[2022-09-17] MEDS: vancomycin HCL 750 MG in 0.9 % Sodium Chloride 250 ML 265 MG IV (02:32)
[2022-09-17 03:40] VITALS: BP 91/51; PULSE 86; RESP 16; TEMP 36; O2SAT 96
[2022-09-17 07:57] VITALS: BP 115/67; PULSE 68; RESP 16; TEMP 36.9; O2SAT 97
[2022-09-17] MEDS: methADONE HCl 20 MG/2 ML ORAL.CONC 65 MG PO (08:46)
[2022-09-17] MEDS: busPIRone HCl 10 MG TABLET PO ×2 (08:47→21:05)
[2022-09-17] MEDS: valACYclovir HCL 1,000 MG TABLET 1000 MG PO ×2 (08:47→21:06)
[2022-09-17] MEDS: FLUoxetine HCl 20 MG CAPSULE 40 MG PO (08:47)
[2022-09-17] MEDS: Gabapentin 600 MG TABLET PO ×2 (08:47→21:05)
[2022-09-17] MEDS: DULoxetine HCl 20 MG CAPSULE.DR PO (08:47)
[2022-09-17] MEDS: Ferrous Sulfate 324 MG TABLET.DR PO (08:47)
[2022-09-17] MEDS: oxyCODONE HCl Immed Release 5 MG TABLET PO (08:47)
[2022-09-17] MEDS: Acetaminophen 325 MG TABLET 650 MG PO (08:47)
[2022-09-17] MEDS: 0.9 % Sodium Chloride Flush 3 ML SYRINGE IVFLUSH ×3 (08:49→21:06)
[2022-09-17 09:10] LABS: Creatinine Clr Calc Pharmacy 117.7; Estimated Glomerular Filt Rate > 60
[2022-09-17 09:15] LABS: Vancomycin Trough 13.2 mcg/mL (10.0-20.0)
--- NOTE | 2022-09-17 09:29 | HE.PHANOTE ---
Vancomycin Dosing Addendum Vancomycin trough 13.1, increased dose back up to 1000 mg q8h for predicted auc of 486. trough was up to 18 previously with 1250 mg qq8h dosing. next level 09/18/22 @0900
[2022-09-17 11:47] VITALS: RESP 19
[2022-09-17] MEDS: Morphine Sulfate 4 MG/ML CARTRIDGE IVPUSH (11:47)
[2022-09-17] MEDS: Gabapentin 300 MG CAPSULE PO (11:47)
[2022-09-17] MEDS: vancomycin HCL 1,000 MG in 0.9 % Sodium Chloride 250 ML 270 MG IV ×2 (11:48→18:35)
--- NOTE | 2022-09-17 12:26 | P.PNIM_ITS ---
Subjective Subjective Date of Service: 09/17/22 Interval History: hand cellulitis /abcess ,lip/nasal herpez. Review of Systems still has hand swellin increasing/has fluctuation No fever or chills or nausea or vomiting or ear pain or headaches or vision changes. Physical Exam Vital Signs: Vital Signs: Last Vital Signs Temp 98.5 F 09/17/22 07:57 Pulse 68 09/17/22 07:57 Resp 19 09/17/22 11:47 BP 115/67 09/17/22 07:57 Pulse Ox 97 09/17/22 07:57 O2 Del Method 09/17/22 07:57 O2 Flow Rate 94 09/17/22 03:40 BMI result Body Mass Index 29.9 Appearance: Alert.? Oriented X3.? not in distress. HEENT: lip /nose area -small vesicular lesion dring up cvs: [id number], [id number] . res: clear to auscultation ,no rhonchii or wheezing abd: no rebound or guarding ,nt, bs present. ext pulses present , no cyanosis . left hand -erythema ,swellin neuro: axo3 , nonfocal Objective Data Active Medications Acetaminophen (Acetaminophen 325 Mg Tablet) 650 mg PO Q6H PRN PRN Reason: Pain, Mild (Pain Scale 1-3) Last Admin: 09/17/22 08:47 Dose: 650 mg Documented By: COTEMA Buspirone HCl (Buspirone Hcl 10 Mg Tablet) 10 mg PO BID [facility] Last Admin: 09/17/22 08:47 Dose: 10 mg Documented By: COTEMA Docusate Sodium (Docusate Sodium 100 Mg Capsule) 100 mg PO BID PRN PRN Reason: Constipation Last Admin: 09/16/22 19:47 Dose: 100 mg Documented By: CASTILM Duloxetine HCl (Duloxetine Hcl 20 Mg Capsule.) 20 mg PO DAILY [facility] Last Admin: 09/17/22 08:47 Dose: 20 mg Documented By: RAYMON.COTEMA Enoxaparin Sodium (Enoxaparin Sodium 40 Mg/0.4 Ml Syringe) 40 mg SUBCUT Q24H [facility] Last Admin: 09/16/22 17:13 Dose: 40 mg Documented By: COTEMA Ferrous Sulfate (Ferrous Sulfate 324 Mg Tablet.) 324 mg PO DAILY [facility] Last Admin: 09/17/22 08:47 Dose: 324 mg Documented By: COTEMA Fluoxetine HCl (Fluoxetine Hcl 20 Mg Capsule) 40 mg PO DAILY [facility] Last Admin: 09/17/22 08:47 Dose: 40 mg Documented By: COTEMA Gabapentin (Gabapentin 300 Mg Capsule) 300 mg PO DAILY@1200 [facility] Last Admin: 09/17/22 11:47 Dose: 300 mg Documented By: COTEMA Gabapentin (Gabapentin 600 Mg Tablet) 600 mg PO BID [facility] Last Admin: 09/17/22 08:47 Dose: 600 mg Documented By: COTEMA Hydroxyzine HCl (Hydroxyzine Hcl 25 Mg Tablet) 25 - 50 mg PO Q6H PRN PRN Reason: Anxiety Vancomycin HCl 1,000 mg/ (Sodium Chloride) 270 mls @ 270 mls/hr IV Q8H [facility] Last Admin: 09/17/22 11:48 Dose: 270 mls/hr Documented By: COTEMA Methadone HCl (Methadone Hcl 20 Mg/2 Ml Oral.Conc) 65 mg PO DAILY [facility] Last Admin: 09/17/22 08:46 Dose: 65 mg Documented By: ALVARO Morphine Sulfate (Morphine Sulfate 4 Mg/Ml Cartridge) 4 mg IVPUSH Q4H PRN; Protocol PRN Reason: Pain, Severe (Pain Scale 7-10) Last Admin: 09/17/22 11:47 Dose: 4 mg Documented By: ALVARO Nicotine (Nicotine 21 Mg Patch.Td24) 21 mg TRANSDERMA DAILY PRN PRN Reason: Nicotine Cravings Nicotine Polacrilex (Nicotine Polacrilex 2 Mg Gum) 2 mg BUCCAL Q2H PRN PRN Reason: Nicotine Cravings Nicotine Polacrilex (Nicotine Polacrilex Lozenge 4 Mg Lozenge) 4 mg BUCCAL Q2H PRN PRN Reason: Nicotine Cravings Ondansetron HCl (Ondansetron Hcl 4 Mg/2 Ml Vial) 4 mg IVPUSH Q8H PRN PRN Reason: Nausea and Vomiting Oxycodone HCl (Oxycodone Hcl Immed Release 5 Mg Tablet) 5 mg PO Q6H PRN PRN Reason: Pain, Moderate (Pain Scale 4-6 Last Admin: 09/17/22 08:47 Dose: 5 mg Documented By: ALVARO Pharmacy Consult (Consult Rx Perform Med Rec) 1 each MISCELLANE ONCE PRN PRN Reason: Consult order Pharmacy Consult (Consult Rx Vancomycin Dosing) 1 each MISCELLANE DAILY PRN PRN Reason: Consult order Polyethylene Glycol (Polyethylene Glycol 3350 17 Gm Powd.Pack) 17 gm PO BID PRN PRN Reason: Constipation Sodium Chloride (0.9 % Sodium Chloride Flush 3 Ml Syringe) 3 ml IVFLUSH QSHIFT [facility] Last Admin: 09/17/22 08:49 Dose: 3 ml Documented By: COTEMA Trazodone HCl (Trazodone Hcl 100 Mg Tablet) 100 mg PO BEDTIME [facility] Last Admin: 09/16/22 19:43 Dose: 100 mg Documented By: CASTILM Valacyclovir HCl (Valacyclovir Hcl 1,000 Mg Tablet) 1,000 mg PO Q12H [facility] Last Admin: 09/17/22 08:47 Dose: 1,000 mg Documented By: COTEMA Labs 09/13/22 05:18 09/17/22 08:45 Labs: Laboratory Results - last 24 hr 09/17/22 09/17/22 08:45 08:45 Estim Creat Clear Calc 117.7 Estimated GFR > 60 Vancomycin Trough 13.2 Assessment and Plan (1) Herpes: Status: Acute (2) Cellulitis: Status: Acute (3) Substance abuse: Status: Acute (4) Obese: Status: Acute (5) Abscess: Status: Acute Plan 42-year-old female with history of polysubstance abuse, opiate dependence on met hadone, 5 cigarette per day smoker, and depression/anxiety admitted for cellulitis left hand in [facility]. # acute cellulitis left hand/wrist -at risk for MRSA given IV drug abuse -CT hand negative for abscess, confirms cellulitis,Leukocytosis resolved, no fevers . today has swellingincreased/abcess possible s/p drainage by surgery-cultures pending still has significant swelling of the left hand/wrist significantly impairing use of the left hand -continue IV vanco,vanco trough is 13.2. surgery eval-abcess s/p drainage by surgery,continue vanco ,warm soaks. #IVDA -Relapsed 2 weeks ago on heroin and cocaine -Desires detox -Addiction Med consult #Chronic pain syndrome/opiate use disorder -Continue methadone and gabapentin #Depression/anxiety -Continue home meds overweight: encouraged to lose weight. DVT prophylaxis-Lovenox Ongoing inpatient need:acute cellulitis left hand/wrist, abcess (s/p drainage today)-need iv antibiotics ,blood culture pending, also need vanco? ,renal function .? Electrolytic? monitoring. Time Spent With Patient Time: Total time managing care of this patient today ____ minutes. Quality Stroke Does the patient have a stroke diagnosis?: No VTE Prior VTE?: No VTE Risk Level:: Medical - moderate - high VTE Device Contraindication: Treatment Not Indicated VTE Drug Contraindication: N/A - Med Ordered
[2022-09-17 15:46] VITALS: BP 116/69; PULSE 62; RESP 18; TEMP 36.4; O2SAT 96
[2022-09-17] MEDS: Enoxaparin Sodium 40 MG/0.4 ML SYRINGE SUBCUT (17:14)
[2022-09-17 18:57] VITALS: BP 123/71; PULSE 66; RESP 17; TEMP 36.4; O2SAT 96
[2022-09-17] MEDS: traZODone HCL 100 MG TABLET PO (21:05)
[2022-09-18] VITALS (15 sets, daily range): BP systolic 96–120; BP diastolic 55–71; PULSE 58–83; RESP 14–20; TEMP 36.2–36.9; O2SAT 94–99
[2022-09-18] MEDS: vancomycin HCL 1,000 MG in 0.9 % Sodium Chloride 250 ML 270 MG IV ×3 (03:06→20:24)
[2022-09-18 06:47] LABS: Creatinine Clr Calc Pharmacy 127.2; Estimated Glomerular Filt Rate > 60
[2022-09-18] MEDS: Docusate Sodium 100 MG CAPSULE PO ×2 (08:00→20:32)
[2022-09-18] MEDS: Ferrous Sulfate 324 MG TABLET.DR PO (08:00)
[2022-09-18] MEDS: FLUoxetine HCl 20 MG CAPSULE 40 MG PO (08:00)
[2022-09-18] MEDS: busPIRone HCl 10 MG TABLET PO ×2 (08:00→20:23)
[2022-09-18] MEDS: Gabapentin 600 MG TABLET PO ×2 (08:00→20:23)
[2022-09-18] MEDS: DULoxetine HCl 20 MG CAPSULE.DR PO (08:00)
[2022-09-18] MEDS: methADONE HCl 20 MG/2 ML ORAL.CONC 65 MG PO (08:01)
[2022-09-18] MEDS: 0.9 % Sodium Chloride Flush 3 ML SYRINGE IVFLUSH ×3 (08:01→20:24)
--- NOTE | 2022-09-18 08:08 | P.PNOP_ITS ---
Subjective Subjective Date of Service: 09/18/22 Interval history: Followup left hand cellulitis Dorsal aspect of the hand appears to have an area where an abscess has developed Patient reports that a provider placed a needle into the area yesterday and puss began to drain Continues IV abx patient has less pain and is able to make a closed fist without pain Physical Exam Vital Signs: Vital Signs: Last Vital Signs Temp 97.7 F 09/18/22 07:45 Pulse 58 09/18/22 07:45 Resp 19 09/18/22 07:45 BP 109/58 L 09/18/22 07:45 Pulse Ox 99 09/18/22 07:45 O2 Del Method 09/18/22 07:45 O2 Flow Rate 94 09/17/22 03:40 BMI result Body Mass Index 29.9 Extrem: Other: Left hand able to make a closded fist. No tenderness to palpation of the flexor tendon sheath. Sensation intact. Capillar refill brisk. Dorsal aspect of the hand has an area of flucuance about the size of a quarter over the 3/4th MCPs. No active drainage. Procedures Date of Service Date of Service: 09/18/22 Progress Note: A&P Assessment and plan (1) Abscess: Status: Acute Assessment and Plan: I discussed the case with Dr. Ulrich and explained the extent of the injury to the patient and options available which include surgical intervention. I explained the procedure in detail along with the length of recovery and rehab course. I explained the risk, benefits and alternatives. Risk including, but not limited to infection, blood clots, bleeding, non union or malunion and ne rve/tissue damage to surrounding areas. I answered all their questions and with their understanding they have consented to move forward with Irrigation and debridement of the left hand. The patient will remain NPO and plan to bring to the OR later today. (2) Substance abuse: Status: Acute (3) Cellulitis: Status: Acute Time Spent With Patient Time: Total time managing care of this patient today ____ minutes. Quality Stroke Does the patient have a stroke diagnosis?: No VTE Prior VTE?: No VTE Risk Level:: Medical - moderate - high VTE Device Contraindication: Treatment Not Indicated VTE Drug Contraindication: N/A - Med Ordered
[2022-09-18] MEDS: ceFAZolin Sodium/Dextrose,Iso 2 GM/50 ML PIGGYBACK IV (08:29)
--- NOTE | 2022-09-18 08:39 | P.PNIM_ITS ---
Subjective Subjective Date of Service: 09/18/22 Interval History: Followup left hand cellulitis Review of Systems Has left hand pain and swelling Denies any chest pain or fever or shortness of breath or abdominal pain or nausea vomiting. Physical Exam Vital Signs: Vital Signs: Last Vital Signs Temp 97.7 F 09/18/22 07:45 Pulse 58 09/18/22 07:45 Resp 19 09/18/22 07:45 BP 109/58 L 09/18/22 07:45 Pulse Ox 99 09/18/22 07:45 O2 Del Method 09/18/22 07:45 O2 Flow Rate 94 09/17/22 03:40 BMI result Body Mass Index 29.9 Appearance: Alert.? Oriented X3.? not in distress. HEENT: lip /nose area -small vesicular lesions dring up cvs: [id number], [id number] . res: clear to auscultation ,no rhonchii or wheezing abd: no rebound or guarding ,nt, bs present. ext pulses present , no cyanosis . left hand -erythema ,swellin worsenin neuro: axo3 , nonfocal Objective Data Active Medications Acetaminophen (Acetaminophen 325 Mg Tablet) 650 mg PO Q6H PRN PRN Reason: Pain, Mild (Pain Scale 1-3) Last Admin: 09/17/22 08:47 Dose: 650 mg Documented By: ALVARO Buspirone HCl (Buspirone Hcl 10 Mg Tablet) 10 mg PO BID [facility] Last Admin: 09/18/22 08:00 Dose: 10 mg Documented By: CHASITY Docusate Sodium (Docusate Sodium 100 Mg Capsule) 100 mg PO BID PRN PRN Reason: Constipation Last Admin: 09/18/22 08:00 Dose: 100 mg Documented By: CHASITY Duloxetine HCl (Duloxetine Hcl 20 Mg Capsule.) 20 mg PO DAILY [facility] Last Admin: 09/18/22 08:00 Dose: 20 mg Documented By: CHASITY Enoxaparin Sodium (Enoxaparin Sodium 40 Mg/0.4 Ml Syringe) 40 mg SUBCUT Q24H [facility] Last Admin: 09/17/22 17:14 Dose: 40 mg Documented By: ALVARO Ferrous Sulfate (Ferrous Sulfate 324 Mg Tablet.) 324 mg PO DAILY [facility] Last Admin: 09/18/22 08:00 Dose: 324 mg Documented By: CHASITY Fluoxetine HCl (Fluoxetine Hcl 20 Mg Capsule) 40 mg PO DAILY [facility] Last Admin: 09/18/22 08:00 Dose: 40 mg Documented By: CHASITY Gabapentin (Gabapentin 300 Mg Capsule) 300 mg PO DAILY@1200 [facility] Last Admin: 09/17/22 11:47 Dose: 300 mg Documented By: COTEMA Gabapentin (Gabapentin 600 Mg Tablet) 600 mg PO BID [facility] Last Admin: 09/18/22 08:00 Dose: 600 mg Documented By: CHASITY Hydroxyzine HCl (Hydroxyzine Hcl 25 Mg Tablet) 25 - 50 mg PO Q6H PRN PRN Reason: Anxiety Vancomycin HCl 1,000 mg/ (Sodium Chloride) 270 mls @ 270 mls/hr IV Q8H [facility] Last Infusion: 09/18/22 04:37 Dose: 0 mls/hr Documented By: MARIO Methadone HCl (Methadone Hcl 20 Mg/2 Ml Oral.Conc) 65 mg PO DAILY [facility] Last Admin: 09/18/22 08:01 Dose: 65 mg Documented By: CHASITY Nicotine (Nicotine 21 Mg Patch.Td24) 21 mg TRANSDERMA DAILY PRN PRN Reason: Nicotine Cravings Nicotine Polacrilex (Nicotine Polacrilex 2 Mg Gum) 2 mg BUCCAL Q2H PRN PRN Reason: Nicotine Cravings Nicotine Polacrilex (Nicotine Polacrilex Lozenge 4 Mg Lozenge) 4 mg BUCCAL Q2H PRN PRN Reason: Nicotine Cravings Ondansetron HCl (Ondansetron Hcl 4 Mg/2 Ml Vial) 4 mg IVPUSH Q8H PRN PRN Reason: Nausea and Vomiting Pharmacy Consult (Consult Rx Perform Med Rec) 1 each MISCELLANE ONCE PRN PRN Reason: Consult order Pharmacy Consult (Consult Rx Vancomycin Dosing) 1 each MISCELLANE DAILY PRN PRN Reason: Consult order Polyethylene Glycol (Polyethylene Glycol 3350 17 Gm Powd.Pack) 17 gm PO BID PRN PRN Reason: Constipation Sodium Chloride (0.9 % Sodium Chloride Flush 3 Ml Syringe) 3 ml IVFLUSH QSHIFT [facility] Last Admin: 09/18/22 08:01 Dose: 3 ml Documented By: HO.N-NYANM Trazodone HCl (Trazodone Hcl 100 Mg Tablet) 100 mg PO BEDTIME [facility] Last Admin: 09/17/22 21:05 Dose: 100 mg Documented By: GLORIAZEMeet Valacyclovir HCl (Valacyclovir Hcl 1,000 Mg Tablet) 1,000 mg PO Q12H [facility] Last Admin: 09/17/22 21:06 Dose: 1,000 mg Documented By: MARIO Labs 09/13/22 05:18 09/18/22 05:24 Labs: Laboratory Results - last 24 hr 09/17/22 09/17/22 09/18/22 08:45 08:45 05:24 Estim Creat Clear Calc 117.7 127.2 Estimated GFR > 60 > 60 Vancomycin Trough 13.2 Microbiology Microbiology Results: Microbiology 09/17/22 11:47 Gram Stain - Final Hand Left Routine Culture - Preliminary Staphylococcus species 09/12/22 14:34 Blood Culture - Final Blood - Venous No growth after 5 days. 09/12/22 12:53 Blood Culture - Final Blood - Venous No growth after 5 days. Assessment and Plan (1) Herpes: Status: Acute (2) Cellulitis: Status: Acute (3) Substance abuse: Status: Acute (4) Obese: Status: Acute (5) Abscess: Status: Acute Plan 42-year-old female with history of polysubstance abuse, opiate dependence on methadone, 5 cigarette per day smoker, and depression/anxiety admitted for cellulitis left hand in [facility]. # acute cellulitis left hand/wrist -at risk for MRSA given IV drug abuse swellingincreased/abcess possible s/p drainage by surgery yesterday-cultures(growing staph species ) patient still has swelling and fluctuation so going for OR today-possible I&D. -CT hand negative for abscess, confirms cellulitis,Leukocytosis resolved, no fevers . still has significant swelling of the left hand/wrist significantly impairing use of the left hand -continue IV vanco,vanco trough is 17.8. surgery eval-abcess s/p drainage by surgery-patient still has swelling and f luctuation so going for OR today-possible I&D.continue vanco ,warm soaks. #IVDA -Relapsed 2 weeks ago on heroin and cocaine -Desires detox -Addiction Med consult #Chronic pain syndrome/opiate use disorder -Continue methadone and gabapentin #Depression/anxiety -Continue home meds overweight: encouraged to lose weight. DVT prophylaxis-Lovenox Ongoing inpatient need:acute cellulitis left hand/wrist, abcess (s/p drainage yesterday,need possible I&D today)-need iv antibiotics ,blood culture pending, also need vanco trough moniterin? ,renal function,iv pain meds .? Electrolytic? monitoring. Time Spent With Patient Time: Total time managing care of this patient today ____ minutes. Quality Stroke Does the patient have a stroke diagnosis?: No VTE Prior VTE?: No VTE Risk Level:: Medical - moderate - high VTE Device Contraindication: Treatment Not Indicated VTE Drug Contraindication: N/A - Med Ordered
[2022-09-18] MEDS: valACYclovir HCL 1,000 MG TABLET 1000 MG PO ×2 (09:08→20:23)
[2022-09-18 09:28] LABS: Vancomycin Trough 17.8 mcg/mL (10.0-20.0)
--- NOTE | 2022-09-18 09:36 | HE.PHANOTE ---
Vancomycin Dosing Level is therapeutic today at 17.8. Continue current regimen. Next level 09/19 @ 0900. If level continued to rise tomorrow, dose may need to be decreased. Socorro Watts, GaudencioD
--- NOTE | 2022-09-18 10:04 | MHC.SHP ---
Pre-Procedural Eval Section A Date of Service: 09/18/22 The patient is an INPATIENT: Yes The History & Physical has been completed within 30 days and I have reviewed it.: Yes Section B Chief Complaint: Left hand shooters abscess Allergies: Allergies Allergy/AdvReac Type Severity Reaction Status Date / Time Fish Containing Products Allergy Severe ANAPHYLAXIS Verified 06/02/21 05:37 Exam Exam Comment: The patient was seen and evaluated by me in preop hold. She has an abscess over the dorsal aspect of her left hand with no current drainage. She is able to weakly bring her fingers close to a fist and back into extension. Sensation intact to the tips of the digits. The abscess does not appear to involve the palmar side of the hand or the wrist. Smooth wrist range of motion without pain. Plan I have reviewed the history and physical and performed a pertinent physical examination on my patient. No changes have occurred unless specified. The risks and benefits of operative treatment were discussed with the patient and the patient wishes to proceed with surgery. These risks include, but are not limited to risk of damage to blood vessels, nerves, tendons, infection, recurrence, incomplete relief of preoperative symptoms, persistent pain, possible need for further surgery and the risks associated with regional blocks and anesthesia. The plan is to take the patient to the operating room today for the following procedures: 1. Left hand abscess I&D 2. [ ] All of the preoperative paperwork including the consent was filled out today. All the patient's questions were answered. The patient understands that they will be contacted by our special education teachers soon to schedule this procedure Time Spent With Patient Time: Total time managing care of this patient today ____ minutes.
--- NOTE | 2022-09-18 10:07 | W.PM.OPN ---
Operative Note Operative Note Date of Service: 09/18/22 Narrative: Operative Note Narrative: Preop diagnosis: Left dorsal hand abscess status post IV drug use Postop diagnosis: Same Procedure: Left dorsal hand abscess I and D Surgeon: Ayde Ulrich MD Anesthesia: General Anesthesia Findings: Creamy yellow purulence and fibrinous exudate from the abscess cavity. Implants: None Tourniquet time: 0 minutes EBL: 5.0 ml Specimen: Cultures sent from dorsal hand abscess Drains: 1 strip of iodoform gauze Complications: None Disposition: Brought to the recovery room in stable condition Plan: Admit back to floor for IV antibiotics Check cultures Removed drain tomorrow and start 1-2 times daily dressing changes based on drainage Indications: The patient is a 42 year old woman with IV drug use and a left dorsal hand abscess . The risks and benefits of operative treatment, including but not limited to risk of damage to blood vessels, nerves, tendons, infection, recurrence, persistent pain or numbness, incomplete resolution of preoperative symptoms, or need for further surgery were discussed with the patient and they wished to proceed with surgery. Procedure: Once consent was obtained patient was brought back to the operating suite and placed in the operating table in a supine position. . Perioperative antibiotics and anesthesia was administered by the anesthesia team. A tourniquet was applied to the proximal aspect of the left upper extremity and the limb was prepped and draped in a standard surgical fashion. The tourniquet was not inflated during this case. A 2.0 cm longitudinal incision was made over the dorsal aspect of the patient's left hand centered over the apex of the abscess. Incision was made through the skin the subcutaneous tissues using a 15. Blade. Creamy yellow purulence and fibrinous exudate more evacuated from the abscess cavity. Cultures were taken of the purulent fluid. The wound was copiously irrigated with normal saline and debrided of devitalized tissue. Hemostasis was obtained with a brief period of local pressure. No sutures were placed. A strip of iodoform gauze was placed into the wound to facilitate drainage. The wound was infiltrated with some 0.5% plain ropivacaine for postop pain control and a sterile dressing was applied. The patient appears to have tolerated the procedure well and with no complications. All digits were well vascularized conclusion of the case.
--- NOTE | 2022-09-18 11:20 | HO.ANESPROP2 ---
[facility] Active Problems Active Problems: All Active Problems (Updated 09/17/22 @ 12:32 by Hilario Gimenez MD) Abscess (Acute) Herpes (Acute) Cellulitis (Acute) Substance abuse (Acute) Obese (Acute) Past Medical History Medical History (Updated 09/17/22 @ 12:32 by Hilario Gimenez MD) Abscess Bacterial vaginosis Screening for cervical cancer Screening for diabetes mellitus (DM) Screening for hypercholesterolemia Substance abuse Functional capacity: independent ambulation Patient : No Family History Family History Father No problems noted. Mother HTN (hypertension) Family history of problems with anesthesia: No Surgical History Surgical History History of section History of Problems with Anesthesia: No Social History Social History (Updated 09/12/22 @ 17:13 by MORRIS Norman) Household Members: Family Household Members Other:: 1 Housing: Apartment Do you presently have visiting nurse or other home services: No Alcohol intake: former Patient Tobacco Use Status: Never used Tobacco Tobacco use type: Cigarette Cigarettes Per Day: 5 Smoked in Last 30 Days: Yes Patient Interested in Nicotine Replacement: Yes Use of substances other than those prescribed or required for medical reasons: Yes Substance Use Type: Crack/Cocaine, Heroin and IV Drugs Substance Use Type Other:: methadone 65mg Substance Use Frequency: Daily Last Used Substance: Days (ago) Last Used Substance Other:: heroin and Cocaine Currently Displaying Signs/Symptoms of Drug Intoxication Withdrawal: No Any prior treatment program specific to substance use: Yes Have you been hit, kicked, punched, or otherwise hurt by someone within the past year? If so, by whom?: No Do you feel safe in your current relationship?: Yes Is there a partner from a previous relationship who is making you feel unsafe now?: No Are you made to feel afraid or neglected: No Are you DNR?: No Advance Directives: No Advance Directives Information Provided: Yes Do you have thoughts of harming others: None Do you have a plan to hurt others: No Plan Recently lost weight without trying: No How much weight loss: Not applicable Eating poorly because of decreased appetite: No Nutrition screen score: 0 Nutrition Risks: No Nutritional Risk Patient : No : No Poor oral hygiene: No service: No Current occupational status: unemployed Meds Allergies Allergy/AdvReac Type Severity Reaction Status Date / Time Fish Containing Products Allergy Severe ANAPHYLAXIS Verified 06/02/21 05:37 Active Medications: Current Medications Acetaminophen (Acetaminophen 325 Mg Tablet) 650 mg PO Q6H PRN PRN Reason: Pain, Mild (Pain Scale 1-3) Last Admin: 09/17/22 08:47 Dose: 650 mg Buspirone HCl (Buspirone Hcl 10 Mg Tablet) 10 mg PO BID [facility] Last Admin: 09/18/22 08:00 Dose: 10 mg Docusate Sodium (Docusate Sodium 100 Mg Capsule) 100 mg PO BID PRN PRN Reason: Constipation Last Admin: 09/18/22 08:00 Dose: 100 mg Duloxetine HCl (Duloxetine Hcl 20 Mg Capsule.Dr) 20 mg PO DAILY [facility] Last Admin: 09/18/22 08:00 Dose: 20 mg Enoxaparin Sodium (Enoxaparin Sodium 40 Mg/0.4 Ml Syringe) 40 mg SUBCUT Q24H [facility] Last Admin: 09/17/22 17:14 Dose: 40 mg Ferrous Sulfate (Ferrous Sulfate 324 Mg Tablet.) 324 mg PO DAILY [facility] Last Admin: 09/18/22 08:00 Dose: 324 mg Fluoxetine HCl (Fluoxetine Hcl 20 Mg Capsule) 40 mg PO DAILY [facility] Last Admin: 09/18/22 08:00 Dose: 40 mg Gabapentin (Gabapentin 300 Mg Capsule) 300 mg PO DAILY@1200 [facility] Last Admin: 09/17/22 11:47 Dose: 300 mg Gabapentin (Gabapentin 600 Mg Tablet) 600 mg PO BID [facility] Last Admin: 09/18/22 08:00 Dose: 600 mg Hydroxyzine HCl (Hydroxyzine Hcl 25 Mg Tablet) 25 - 50 mg PO Q6H PRN PRN Reason: Anxiety Vancomycin HCl 1,000 mg/ (Sodium Chloride) 270 mls @ 270 mls/hr IV Q8H [facility] Last Infusion: 09/18/22 04:37 Dose: Infused Methadone HCl (Methadone Hcl 20 Mg/2 Ml Oral.Conc) 65 mg PO DAILY [facility] Last Admin: 09/18/22 08:01 Dose: 65 mg Nicotine (Nicotine 21 Mg Patch.Td24) 21 mg TRANSDERMA DAILY PRN PRN Reason: Nicotine Cravings Nicotine Polacrilex (Nicotine Polacrilex 2 Mg Gum) 2 mg BUCCAL Q2H PRN PRN Reason: Nicotine Cravings Nicotine Polacrilex (Nicotine Polacrilex Lozenge 4 Mg Lozenge) 4 mg BUCCAL Q2H PRN PRN Reason: Nicotine Cravings Ondansetron HCl (Ondansetron Hcl 4 Mg/2 Ml Vial) 4 mg IVPUSH Q8H PRN PRN Reason: Nausea and Vomiting Pharmacy Consult (Consult Rx Perform Med Rec) 1 each MISCELLANE ONCE PRN PRN Reason: Consult order Pharmacy Consult (Consult Rx Vancomycin Dosing) 1 each MISCELLANE DAILY PRN PRN Reason: Consult order Polyethylene Glycol (Polyethylene Glycol 3350 17 Gm Powd.Pack) 17 gm PO BID PRN PRN Reason: Constipation Sodium Chloride (0.9 % Sodium Chloride Flush 3 Ml Syringe) 3 ml IVFLUSH QSHIFT [facility] Last Admin: 09/18/22 08:01 Dose: 3 ml Trazodone HCl (Trazodone Hcl 100 Mg Tablet) 100 mg PO BEDTIME [facility] Last Admin: 09/17/22 21:05 Dose: 100 mg Valacyclovir HCl (Valacyclovir Hcl 1,000 Mg Tablet) 1,000 mg PO Q12H [facility] Last Admin: 09/18/22 09:08 Dose: 1,000 mg Home Medications Medication Instructions Recorded Confirmed Last Taken Type buspirone 10 mg tablet 10 mg PO BID 09/12/22 09/12/22 09/11/22 History docusate sodium 100 mg tablet 100 mg PO BID PRN Constipation 09/12/22 09/12/22 09/11/22 History duloxetine 20 mg capsule,delayed 20 mg PO DAILY 09/12/22 09/12/22 09/11/22 History release ferrous sulfate 325 mg (65 mg 325 mg PO DAILY 09/12/22 09/12/22 09/11/22 History iron) tablet fluoxetine 40 mg capsule 40 mg PO DAILY 09/12/22 09/12/22 09/11/22 History gabapentin 300 mg capsule 300 mg PO DAILY@1200 09/12/22 09/12/22 09/11/22 History gabapentin 600 mg tablet 600 mg PO BID 09/12/22 09/12/22 09/11/22 History hydroxyzine HCl 25 mg tablet 25 - 50 mg PO Q6H PRN Anxiety 09/12/22 09/12/22 09/11/22 History ibuprofen 600 mg tablet 600 mg PO TID PRN Pain 09/12/22 09/12/22 09/11/22 History methadone 10 mg/mL oral 65 mg PO DAILY 09/12/22 09/13/22 09/12/22 History concentrate (Methadose) nicotine (polacrilex) 4 mg buccal 4 mg buccal Q2-4H PRN Nicotine 09/12/22 09/12/22 09/11/22 History lozenge Cravings nicotine 21 mg/24 hr daily 1 patch transdermal DAILY PRN 09/12/22 09/12/22 09/11/22 History transdermal patch Nicotine Cravings polyethylene glycol 3350 17 gram 17 g PO BID PRN Constipation 09/12/22 09/12/22 09/11/22 History oral powder packet trazodone 100 mg tablet 100 mg PO BEDTIME 09/12/22 09/12/22 09/11/22 History Exam Exam Date and Time: September 18, 2022 1120 Height,Weight and Vital Signs: Height 5 ft 5 in Weight 81.647 kg Last Vital Signs Temp 97.7 F 09/18/22 10:54 Pulse 64 09/18/22 10:54 Resp 16 09/18/22 10:54 BP 120/71 09/18/22 10:54 Pulse Ox 97 09/18/22 10:54 O2 Del Method 09/18/22 10:54 O2 Flow Rate 94 09/17/22 03:40 Pertinent Lab Results Pertinent Lab Results: Laboratory Tests 09/12/22 09/12/22 09/12/22 12:53 12:53 12:53 WBC 11.4 H RBC 4.40 Hgb 12.5 Hct 37.0 MCV 84.1 MCH 28.4 MCHC 33.8 RDW 12.8 Plt Count 228 MPV 10.2 Immature Gran % (Auto) 0.4 Neut % (Auto) 89.2 H Lymph % (Auto) 5.9 L [place] % (Auto) 3.8 Eos % (Auto) 0.5 Baso % (Auto) 0.2 Lymph # (Auto) 0.7 L [place] # (Auto) 0.4 Eos # (Auto) 0.1 Baso # (Auto) 0.0 Abs Immat Gran (auto) 0.04 H Absolute Neuts (auto) 10.2 H Absolute Nucleated RBC 0.000 Nucleated RBC % (auto) 0.0 ESR Sodium 137 Potassium 3.8 Chloride 104 Carbon Dioxide 24 Anion Gap 13 BUN 11 Creatinine 0.83 Estim Creat Clear Calc 95.0 Estimated GFR > 60 Random Glucose 184 H Estimat Average Glucose Hemoglobin A1c % Lactic Acid 2.5 H* Lactic Acid F/U @ 2Hr Calcium 8.7 Magnesium 1.9 Total Bilirubin 0.7 Direct Bilirubin 0.2 AST 17 ALT 14 Alkaline Phosphatase 86 C-Reactive Protein Total Protein 7.8 Albumin 4.1 Urine Color Urine Appearance Urine pH Ur Specific [place] Urine Protein Urine Glucose (UA) Urine Ketones Urine Blood Urine Nitrite Ur Leukocyte Esterase Urine Test Vancomycin Trough Random Vancomycin Urine Opiates Screen Urine Fentanyl Screen Ur Barbiturates Screen Ur Phencyclidine Scrn Ur Amphetamines Screen U Benzodiazepines Scrn Urine Cocaine Screen U Marijuana (THC) Screen Ethyl Alcohol < 10 COVID-19 (ROHAN) COVID-tripJane 09/12/22 09/12/22 09/12/22 12:53 12:53 14:34 WBC RBC Hgb Hct MCV MCH MCHC RDW Plt Count MPV Immature Gran % (Auto) Neut % (Auto) Lymph % (Auto) [place] % (Auto) Eos % (Auto) Baso % (Auto) Lymph # (Auto) [place] # (Auto) Eos # (Auto) Baso # (Auto) Abs Immat Gran (auto) Absolute Neuts (auto) Absolute Nucleated RBC Nucleated RBC % (auto) ESR Sodium Potassium Chloride Carbon Dioxide Anion Gap BUN Creatinine Estim Creat Clear Calc Estimated GFR Random Glucose Estimat Average Glucose 108 Hemoglobin A1c % 5.4 Lactic Acid Lactic Acid F/U @ 2Hr Calcium Magnesium Total Bilirubin Direct Bilirubin AST ALT Alkaline Phosphatase C-Reactive Protein Total Protein Albumin Urine Color Dark Yellow Urine Appearance Cloudy Urine pH 6.5 Ur Specific [place] >= 1.030 H Urine Protein Trace Urine Glucose (UA) Negative Urine Ketones Trace Urine Blood Negative Urine Nitrite Negative Ur Leukocyte Esterase Negative Urine Test Vancomycin Trough Random Vancomycin Urine Opiates Screen Urine Fentanyl Screen Ur Barbiturates Screen Ur Phencyclidine Scrn Ur Amphetamines Screen U Benzodiazepines Scrn Urine Cocaine Screen U Marijuana (THC) Screen Ethyl Alcohol COVID-19 (ROHAN) Negative COVID-tripJane See Note 09/12/22 09/12/22 09/12/22 14:34 14:34 14:49 WBC RBC Hgb Hct MCV MCH MCHC RDW Plt Count MPV Immature Gran % (Auto) Neut % (Auto) Lymph % (Auto) [place] % (Auto) Eos % (Auto) Baso % (Auto) Lymph # (Auto) [place] # (Auto) Eos # (Auto) Baso # (Auto) Abs Immat Gran (auto) Absolute Neuts (auto) Absolute Nucleated RBC Nucleated RBC % (auto) ESR 39 H Sodium Potassium Chloride Carbon Dioxide Anion Gap BUN Creatinine Estim Creat Clear Calc Estimated GFR Random Glucose Estimat Average Glucose Hemoglobin A1c % Lactic Acid Lactic Acid F/U @ 2Hr Calcium Magnesium Total Bilirubin Direct Bilirubin AST ALT Alkaline Phosphatase C-Reactive Protein Total Protein Albumin Urine Color Urine Appearance Urine pH Ur Specific [place] Urine Protein Urine Glucose (UA) Urine Ketones Urine Blood Urine Nitrite Ur Leukocyte Esterase Urine Test NEGATIVE Vancomycin Trough Random Vancomycin Urine Opiates Screen POSITIVE H Urine Fentanyl Screen POSITIVE H Ur Barbiturates Screen Not Detected Ur Phencyclidine Scrn Not Detected Ur Amphetamines Screen Not Detected U Benzodiazepines Scrn Not Detected Urine Cocaine Screen POSITIVE H U Marijuana (THC) Screen Not Detected Ethyl Alcohol COVID-19 (ROHAN) COVID-tripJane 09/12/22 09/12/22 09/13/22 14:49 16:44 05:18 WBC RBC Hgb Hct MCV MCH MCHC RDW Plt Count MPV Immature Gran % (Auto) Neut % (Auto) Lymph % (Auto) [place] % (Auto) Eos % (Auto) Baso % (Auto) Lymph # (Auto) [place] # (Auto) Eos # (Auto) Baso # (Auto) Abs Immat Gran (auto) Absolute Neuts (auto) Absolute Nucleated RBC Nucleated RBC % (auto) ESR Sodium Potassium Chloride Carbon Dioxide Anion Gap BUN Creatinine 0.65 Estim Creat Clear Calc 121.4 Estimated GFR > 60 Random Glucose Estimat Average Glucose Hemoglobin A1c % Lactic Acid Lactic Acid F/U @ 2Hr 1.1 Calcium Magnesium Total Bilirubin Direct Bilirubin AST ALT Alkaline Phosphatase C-Reactive Protein 3.02 H Total Protein Albumin Urine Color Urine Appearance Urine pH Ur Specific [place] Urine Protein Urine Glucose (UA) Urine Ketones Urine Blood Urine Nitrite Ur Leukocyte Esterase Urine Test Vancomycin Trough Random Vancomycin Urine Opiates Screen Urine Fentanyl Screen Ur Barbiturates Screen Ur Phencyclidine Scrn Ur Amphetamines Screen U Benzodiazepines Scrn Urine Cocaine Screen U Marijuana (THC) Screen Ethyl Alcohol COVID-19 (ROHAN) COVID-tripJane 09/13/22 09/13/22 09/14/22 05:18 13:51 06:03 WBC 8.1 RBC 3.53 L Hgb 10.1 L Hct 29.6 L MCV 83.9 MCH 28.6 MCHC 34.1 RDW 13.1 Plt Count 183 MPV 10.9 Immature Gran % (Auto) 0.9 H Neut % (Auto) 74.5 H Lymph % (Auto) 18.6 L [place] % (Auto) 5.5 Eos % (Auto) 0.4 Baso % (Auto) 0.1 Lymph # (Auto) 1.5 [place] # (Auto) 0.5 Eos # (Auto) 0.0 Baso # (Auto) 0.0 Abs Immat Gran (auto) 0.07 H Absolute Neuts (auto) 6.0 Absolute Nucleated RBC 0.000 Nucleated RBC % (auto) 0.0 ESR Sodium Potassium Chloride Carbon Dioxide Anion Gap BUN Creatinine 0.67 Estim Creat Clear Calc 117.7 Estimated GFR > 60 Random Glucose Estimat Average Glucose Hemoglobin A1c % Lactic Acid Lactic Acid F/U @ 2Hr Calcium Magnesium Total Bilirubin Direct Bilirubin AST ALT Alkaline Phosphatase C-Reactive Protein Total Protein Albumin Urine Color Urine Appearance Urine pH Ur Specific [place] Urine Protein Urine Glucose (UA) Urine Ketones Urine Blood Urine Nitrite Ur Leukocyte Esterase Urine Test Vancomycin Trough 5.9 L Random Vancomycin Urine Opiates Screen Urine Fentanyl Screen Ur Barbiturates Screen Ur Phencyclidine Scrn Ur Amphetamines Screen U Benzodiazepines Scrn Urine Cocaine Screen U Marijuana (THC) Screen Ethyl Alcohol COVID-19 (ROHAN) COVID-19 Clin Com 09/14/22 09/15/22 09/15/22 14:01 05:31 12:55 WBC RBC Hgb Hct MCV MCH MCHC RDW Plt Count MPV Immature Gran % (Auto) Neut % (Auto) Lymph % (Auto) [place] % (Auto) Eos % (Auto) Baso % (Auto) Lymph # (Auto) [place] # (Auto) Eos # (Auto) Baso # (Auto) Abs Immat Gran (auto) Absolute Neuts (auto) Absolute Nucleated RBC Nucleated RBC % (auto) ESR Sodium Potassium Chloride Carbon Dioxide Anion Gap BUN Creatinine 0.64 Estim Creat Clear Calc 123.3 Estimated GFR > 60 Random Glucose Estimat Average Glucose Hemoglobin A1c % Lactic Acid Lactic Acid F/U @ 2Hr Calcium Magnesium Total Bilirubin Direct Bilirubin AST ALT Alkaline Phosphatase C-Reactive Protein Total Protein Albumin Urine Color Urine Appearance Urine pH Ur Specific [place] Urine Protein Urine Glucose (UA) Urine Ketones Urine Blood Urine Nitrite Ur Leukocyte Esterase Urine Test Vancomycin Trough 19.2 15.7 Random Vancomycin Urine Opiates Screen Urine Fentanyl Screen Ur Barbiturates Screen Ur Phencyclidine Scrn Ur Amphetamines Screen U Benzodiazepines Scrn Urine Cocaine Screen U Marijuana (THC) Screen Ethyl Alcohol COVID-19 (ROHAN) COVID-19 [employer] 09/16/22 09/16/22 09/17/22 05:12 05:14 08:45 WBC RBC Hgb Hct MCV MCH MCHC RDW Plt Count MPV Immature Gran % (Auto) Neut % (Auto) Lymph % (Auto) [place] % (Auto) Eos % (Auto) Baso % (Auto) Lymph # (Auto) [place] # (Auto) Eos # (Auto) Baso # (Auto) Abs Immat Gran (auto) Absolute Neuts (auto) Absolute Nucleated RBC Nucleated RBC % (auto) ESR Sodium Potassium Chloride Carbon Dioxide Anion Gap BUN Creatinine 0.63 0.67 Estim Creat Clear Calc 125.2 117.7 Estimated GFR > 60 > 60 Random Glucose Estimat Average Glucose Hemoglobin A1c % Lactic Acid Lactic Acid F/U @ 2Hr Calcium Magnesium Total Bilirubin Direct Bilirubin AST ALT Alkaline Phosphatase C-Reactive Protein Total Protein Albumin Urine Color Urine Appearance Urine pH Ur Specific [place] Urine Protein Urine Glucose (UA) Urine Ketones Urine Blood Urine Nitrite Ur Leukocyte Esterase Urine Test Vancomycin Trough Random Vancomycin 18.3 Urine Opiates Screen Urine Fentanyl Screen Ur Barbiturates Screen Ur Phencyclidine Scrn Ur Amphetamines Screen U Benzodiazepines Scrn Urine Cocaine Screen U Marijuana (THC) Screen Ethyl Alcohol COVID-19 (ROHAN) COVID-tripJane 09/17/22 09/18/22 09/18/22 08:45 05:24 08:50 WBC RBC Hgb Hct MCV MCH MCHC RDW Plt Count MPV Immature Gran % (Auto) Neut % (Auto) Lymph % (Auto) [place] % (Auto) Eos % (Auto) Baso % (Auto) Lymph # (Auto) [place] # (Auto) Eos # (Auto) Baso # (Auto) Abs Immat Gran (auto) Absolute Neuts (auto) Absolute Nucleated RBC Nucleated RBC % (auto) ESR Sodium Potassium Chloride Carbon Dioxide Anion Gap BUN Creatinine 0.62 Estim Creat Clear Calc 127.2 Estimated GFR > 60 Random Glucose Estimat Average Glucose Hemoglobin A1c % Lactic Acid Lactic Acid F/U @ 2Hr Calcium Magnesium Total Bilirubin Direct Bilirubin AST ALT Alkaline Phosphatase C-Reactive Protein Total Protein Albumin Urine Color Urine Appearance Urine pH Ur Specific [place] Urine Protein Urine Glucose (UA) Urine Ketones Urine Blood Urine Nitrite Ur Leukocyte Esterase Urine Test Vancomycin Trough 13.2 17.8 Random Vancomycin Urine Opiates Screen Urine Fentanyl Screen Ur Barbiturates Screen Ur Phencyclidine Scrn Ur Amphetamines Screen U Benzodiazepines Scrn Urine Cocaine Screen U Marijuana (THC) Screen Ethyl Alcohol COVID-19 (ROHAN) COVID-19 Clin Com Airway Mallampati Class: II TM Dist: >3cm Neck ROM: Limited Denture: Upper and Lower Loose/Missing/Broken Teeth: No Heart: rrr Lungs: cta Assessment and Plan Assessment Anesthesia Assessment: Anesthesia Plan Discussed Final Anesthetic Review Family History of Problems with Anesthesia: No History of Problems with Anesthesia: No NPO: Yes ASA Class: III Final Preanesthetic Review: No Changes in Pt Med Stat, Meds/Allgs Chart Reviewed, Consent Obtained/Reviewed and Anes Risks/Benef Reviewed Patient Risk: Intermediate Procedure Risk: Low Anesthetic Plan Anesthetic Plan: GA Disposition: Standard PACU
[2022-09-18] MEDS: Gabapentin 300 MG CAPSULE PO (13:50)
--- NOTE | 2022-09-18 14:44 | MHC.RECOVRN ---
Met with pt in 384 for follow up regarding dc planning. Pt sitting in bed, awake, alert, easily engages in conversation, s/p I&D, reports feeling good. Pt continues to express interest in [facility], would like to stay in the area but is willing to go anywhere if accepted due to stipulation from [facility] that pt must have 30 days prior to readmission. Will continue to follow.
[2022-09-18] MEDS: Morphine Sulfate 2 MG/ML CARTRIDGE IVPUSH (15:01)
[2022-09-18] MEDS: polyethylene glycoL 3350 17 GM POWD.PACK PO (15:03)
[2022-09-18] MEDS: Enoxaparin Sodium 40 MG/0.4 ML SYRINGE SUBCUT (16:31)
[2022-09-18] MEDS: traZODone HCL 100 MG TABLET PO (20:23)
[2022-09-18] MEDS: Acetaminophen 325 MG TABLET 650 MG PO (20:23)
[2022-09-18] MEDS: hydrOXYzine HCL 25 MG TABLET PO (20:23)
[2022-09-19] MEDS: Morphine Sulfate 2 MG/ML CARTRIDGE IVPUSH (00:01)
[2022-09-19 03:41] VITALS: BP 118/65; PULSE 73; RESP 16; TEMP 36.1; O2SAT 96
[2022-09-19] MEDS: vancomycin HCL 1,000 MG in 0.9 % Sodium Chloride 250 ML 270 MG IV ×3 (05:20→21:26)
[2022-09-19 07:20] LABS: Creatinine Clr Calc Pharmacy 121.4; Estimated Glomerular Filt Rate > 60
[2022-09-19] MEDS: methADONE HCl 20 MG/2 ML ORAL.CONC 65 MG PO (07:49)
[2022-09-19] MEDS: Ferrous Sulfate 324 MG TABLET.DR PO (07:50)
[2022-09-19] MEDS: busPIRone HCl 10 MG TABLET PO ×2 (07:50→21:28)
[2022-09-19] MEDS: FLUoxetine HCl 20 MG CAPSULE 40 MG PO (07:50)
[2022-09-19] MEDS: Gabapentin 600 MG TABLET PO ×2 (07:51→21:27)
[2022-09-19] MEDS: DULoxetine HCl 20 MG CAPSULE.DR PO (07:51)
[2022-09-19] MEDS: 0.9 % Sodium Chloride Flush 3 ML SYRINGE IVFLUSH ×2 (07:51→17:50)
[2022-09-19 08:00] VITALS: BP 124/74; PULSE 66; RESP 18; TEMP 36.6; O2SAT 99
[2022-09-19] MEDS: valACYclovir HCL 1,000 MG TABLET 1000 MG PO ×2 (08:30→21:27)
[2022-09-19] MEDS: oxyCODONE HCl Immed Release 5 MG TABLET PO ×2 (08:30→21:27)
--- NOTE | 2022-09-19 10:54 | MHC.CM.PN ---
PER MD ROUNDS, ONE MORE DAY OF IV ABX. PARKER MADE AWARE
[2022-09-19] MEDS: Gabapentin 300 MG CAPSULE PO (11:23)
[2022-09-19] MEDS: polyethylene glycoL 3350 17 GM POWD.PACK PO (11:23)
[2022-09-19 11:27] LABS: Vancomycin Trough 17.1 mcg/mL (10.0-20.0)
--- NOTE | 2022-09-19 11:27 | MHC.RECOVRN ---
Met with pt in 384 to follow up. Pt continues to be interested in [facility]. Awaiting return calls from [facility] and Jazmine Murphy.
--- NOTE | 2022-09-19 11:40 | PM.PNORT ---
Subjective Subjective Date of Service: 09/19/22 Interval history: POD 1 s/p I&D left and no overnight events resting in bed no concerns Physical Exam Vital Signs: Vital Signs: Last Vital Signs Temp 97.9 F 09/19/22 08:00 Pulse 66 09/19/22 08:00 Resp 18 09/19/22 08:00 BP 124/74 09/19/22 08:00 Pulse Ox 99 09/19/22 08:00 O2 Del Method 09/19/22 08:00 O2 Flow Rate 2 09/18/22 12:40 BMI result Body Mass Index 29.9 Extrem: Other: left hand packing in place mild erythema around the incision no purulance no active drainage she is able to extend all digits she can make a fist but has diff with bringing the index finger down to the palm Procedures Date of Service Date of Service: 09/19/22 Progress Note: A&P Assessment and plan (1) Abscess: Status: Acute Assessment and Plan: left hand cont iv abx follow cultures packing pulled-perform dry dressing changes 1-2x a day prn Time Spent With Patient Time: Total time managing care of this patient today ____ minutes. Quality Stroke Does the patient have a stroke diagnosis?: No VTE Prior VTE?: No VTE Risk Level:: Medical - moderate - high VTE Device Contraindication: Treatment Not Indicated VTE Drug Contraindication: N/A - Med Ordered
--- NOTE | 2022-09-19 14:15 | HO.POSTANES ---
Post Anesthesia Evaluation Post Anesthesia Evaluation Vital Signs: Vital Signs Temp Pulse Resp BP Pulse Ox O2 Del Method 09/19/22 08:00 97.9 F 66 18 124/74 99 Room Air 09/19/22 03:41 96.9 F 73 16 118/65 96 Room Air Anesthesia: General Mental Status: Awake Pain Control: Satisfactory Nausea/Vomiting: None Hydration: Adequate Anesthesia-Related Issues: No Anes. Related Issues
[2022-09-19 15:33] VITALS: BP 114/73; PULSE 70; RESP 16; TEMP 36.6; O2SAT 98
--- NOTE | 2022-09-19 15:36 | W.PM.IDCN ---
History of Present Illness Data of Consult Service Date: 09/19/22 Requesting physician: Maxwell Almanzar Primary Care Provider: Roel Allen MD HPI Reason for consult: left hand abscess,MRSA,IVDU She presents with left dorsal hand swelling, redness and pain two days after shooting drugs into left hand. She has had chills. She has MRSA hand. She feels better. Review of Systems Review of Systems: Yes all other systems are reviewed and are negative PMFSH Past Medical History Medical History Abscess Bacterial vaginosis Screening for cervical cancer Screening for diabetes mellitus (DM) Screening for hypercholesterolemia Substance abuse Functional capacity: independent ambulation Family History Family History Father No problems noted. Mother HTN (hypertension) Family history: reviewed and not pertinent Surgical History Surgical History History of section Social History Social History Household Members: Family Household Members Other:: 1 Housing: Apartment Do you presently have visiting nurse or other home services: No Alcohol intake: former Patient Tobacco Use Status: Never used Tobacco Tobacco use type: Cigarette Cigarettes Per Day: 5 Smoked in Last 30 Days: Yes Patient Interested in Nicotine Replacement: Yes Use of substances other than those prescribed or required for medical reasons: Yes Substance Use Type: Crack/Cocaine, Heroin and IV Drugs Substance Use Type Other:: methadone 65mg Substance Use Frequency: Daily Last Used Substance: Days (ago) Last Used Substance Other:: heroin and Cocaine Currently Displaying Signs/Symptoms of Drug Intoxication Withdrawal: No Any prior treatment program specific to substance use: Yes Have you been hit, kicked, punched, or otherwise hurt by someone within the past year? If so, by whom?: No Do you feel safe in your current relationship?: Yes Is there a partner from a previous relationship who is making you feel unsafe now?: No Are you made to feel afraid or neglected: No Are you DNR?: No Advance Directives: No Advance Directives Information Provided: Yes Do you have thoughts of harming others: None Do you have a plan to hurt others: No Plan Recently lost weight without trying: No How much weight loss: Not applicable Eating poorly because of decreased appetite: No Nutrition screen score: 0 Nutrition Risks: No Nutritional Risk Patient : No : No Poor oral hygiene: No service: No Current occupational status: unemployed Meds Allergies Allergy/AdvReac Type Severity Reaction Status Date / Time Fish Containing Products Allergy Severe ANAPHYLAXIS Verified 06/02/21 05:37 Active Medications: Current Medications Acetaminophen (Acetaminophen 325 Mg Tablet) 650 mg PO Q6H PRN PRN Reason: Pain, Mild (Pain Scale 1-3) Last Admin: 09/18/22 20:23 Dose: 650 mg Buspirone HCl (Buspirone Hcl 10 Mg Tablet) 10 mg PO BID [facility] Last Admin: 09/19/22 07:50 Dose: 10 mg Docusate Sodium (Docusate Sodium 100 Mg Capsule) 100 mg PO BID PRN PRN Reason: Constipation Last Admin: 09/18/22 20:32 Dose: 100 mg Duloxetine HCl (Duloxetine Hcl 20 Mg Capsule.) 20 mg PO DAILY [facility] Last Admin: 09/19/22 07:51 Dose: 20 mg Enoxaparin Sodium (Enoxaparin Sodium 40 Mg/0.4 Ml Syringe) 40 mg SUBCUT Q24H [facility] Last Admin: 09/18/22 16:31 Dose: 40 mg Fentanyl (Fentanyl Citrate/Pf 100 Mcg/2 Ml Vial) 50 mcg IVPUSH Q5M PRN; Protocol PRN Reason: Pain, Severe (Pain Scale 7-10) Ferrous Sulfate (Ferrous Sulfate 324 Mg Tablet.) 324 mg PO DAILY [facility] Last Admin: 09/19/22 07:50 Dose: 324 mg Fluoxetine HCl (Fluoxetine Hcl 20 Mg Capsule) 40 mg PO DAILY [facility] Last Admin: 09/19/22 07:50 Dose: 40 mg Gabapentin (Gabapentin 300 Mg Capsule) 300 mg PO DAILY@1200 [facility] Last Admin: 09/19/22 11:23 Dose: 300 mg Gabapentin (Gabapentin 600 Mg Tablet) 600 mg PO BID [facility] Last Admin: 09/19/22 07:51 Dose: 600 mg Hydroxyzine HCl (Hydroxyzine Hcl 25 Mg Tablet) 25 - 50 mg PO Q6H PRN PRN Reason: Anxiety Last Admin: 09/18/22 20:23 Dose: 50 mg Vancomycin HCl 1,000 mg/ (Sodium Chloride) 270 mls @ 270 mls/hr IV Q8H [facility] Last Infusion: 09/19/22 14:28 Dose: Infused Methadone HCl (Methadone Hcl 20 Mg/2 Ml Oral.Conc) 65 mg PO DAILY [facility] Last Admin: 09/19/22 07:49 Dose: 65 mg Morphine Sulfate (Morphine Sulfate 2 Mg/Ml Cartridge) 2 mg IVPUSH Q5M PRN; Protocol PRN Reason: Moderate pain Last Admin: 09/19/22 00:01 Dose: 2 mg Nicotine (Nicotine 21 Mg Patch.Td24) 21 mg TRANSDERMA DAILY PRN PRN Reason: Nicotine Cravings Nicotine Polacrilex (Nicotine Polacrilex 2 Mg Gum) 2 mg BUCCAL Q2H PRN PRN Reason: Nicotine Cravings Nicotine Polacrilex (Nicotine Polacrilex Lozenge 4 Mg Lozenge) 4 mg BUCCAL Q2H PRN PRN Reason: Nicotine Cravings Ondansetron HCl (Ondansetron Hcl 4 Mg/2 Ml Vial) 4 mg IVPUSH Q8H PRN PRN Reason: Nausea and Vomiting Oxycodone HCl (Oxycodone Hcl Immed Release 5 Mg Tablet) 5 mg PO Q4H PRN PRN Reason: Pain, Moderate (Pain Scale 4-6 Last Admin: 09/19/22 08:30 Dose: 5 mg Pharmacy Consult (Consult Rx Perform Med Rec) 1 each MISCELLANE ONCE PRN PRN Reason: Consult order Pharmacy Consult (Consult Rx Vancomycin Dosing) 1 each MISCELLANE DAILY PRN PRN Reason: Consult order Polyethylene Glycol (Polyethylene Glycol 3350 17 Gm Powd.Pack) 17 gm PO BID PRN PRN Reason: Constipation Last Admin: 09/19/22 11:23 Dose: 17 gm Sodium Chloride (0.9 % Sodium Chloride Flush 3 Ml Syringe) 3 ml IVFLUSH QSHIFT [facility] Last Admin: 09/19/22 07:51 Dose: 3 ml Trazodone HCl (Trazodone Hcl 100 Mg Tablet) 100 mg PO BEDTIME [facility] Last Admin: 09/18/22 20:23 Dose: 100 mg Valacyclovir HCl (Valacyclovir Hcl 1,000 Mg Tablet) 1,000 mg PO Q12H [facility] Last Admin: 09/19/22 08:30 Dose: 1,000 mg Home Medications Medication Instructions Recorded Confirmed Last Taken Type buspirone 10 mg tablet 10 mg PO BID 09/12/22 09/12/22 09/11/22 History docusate sodium 100 mg tablet 100 mg PO BID PRN Constipation 09/12/22 09/12/22 09/11/22 History duloxetine 20 mg capsule,delayed 20 mg PO DAILY 09/12/22 09/12/22 09/11/22 History release ferrous sulfate 325 mg (65 mg 325 mg PO DAILY 09/12/22 09/12/22 09/11/22 History iron) tablet fluoxetine 40 mg capsule 40 mg PO DAILY 09/12/22 09/12/22 09/11/22 History gabapentin 300 mg capsule 300 mg PO DAILY@1200 09/12/22 09/12/22 09/11/22 History gabapentin 600 mg tablet 600 mg PO BID 09/12/22 09/12/22 09/11/22 History hydroxyzine HCl 25 mg tablet 25 - 50 mg PO Q6H PRN Anxiety 09/12/22 09/12/22 09/11/22 History ibuprofen 600 mg tablet 600 mg PO TID PRN Pain 09/12/22 09/12/22 09/11/22 History methadone 10 mg/mL oral 65 mg PO DAILY 09/12/22 09/13/22 09/12/22 History concentrate (Methadose) nicotine (polacrilex) 4 mg buccal 4 mg buccal Q2-4H PRN Nicotine 09/12/22 09/12/22 09/11/22 History lozenge Cravings nicotine 21 mg/24 hr daily 1 patch transdermal DAILY PRN 09/12/22 09/12/22 09/11/22 History transdermal patch Nicotine Cravings polyethylene glycol 3350 17 gram 17 g PO BID PRN Constipation 09/12/22 09/12/22 09/11/22 History oral powder packet trazodone 100 mg tablet 100 mg PO BEDTIME 09/12/22 09/12/22 09/11/22 History Physical Exam Vital Signs: Vital Signs: Last Vital Signs Temp 98 F 09/19/22 15:33 Pulse 70 09/19/22 15:33 Resp 16 09/19/22 15:33 BP 114/73 09/19/22 15:33 Pulse Ox 98 09/19/22 15:33 O2 Del Method 09/19/22 15:33 O2 Flow Rate 2 09/18/22 12:40 BMI result Body Mass Index 29.9 Const: General: cooperative HEENT: Head: Yes normal to inspection Face and sinus: Yes normal facial exam Mouth: Normal oral and palatal mucosa present Teeth and gingiva: dentition normal Eyes: General: appearance normal, both eyes and all related structures Pupils: Equal, round and reactive pupils present Resp: Effort & Inspection: normal respiratory effort Cardio: Rate: regular rate Rhythm: regular rhythm GI: Palpation (GI): Soft to palpation and nontender : General: Yes no CVA tenderness Back/Spine/Pelvis: Back: no CVA tenderness Skin: General skin exam: no rashes or lesions noted Neuro: General: moves all extremities Cranial nerves: Yes Equal, round and reactive pupils present Extrem: Other: hand swelling,wrapped,no spreading cellulitis Psych: Appearance: grossly normal Results Labs 09/13/22 05:18 09/19/22 05:23 Labs: BMP 09/19/22 05:23 Creatinine 0.65 Microbiology Microbiology Results: Microbiology 09/18/22 11:56 Hand - Abscess Gram Stain - Final 09/18/22 11:56 Hand - Abscess Routine Culture - Final Methicillin Res Staph Aureus 09/17/22 11:47 Hand Left Gram Stain - Final 09/17/22 11:47 Hand Left Routine Culture - Final Methicillin Res Staph Aureus 09/12/22 14:34 Blood - Venous Blood Culture - Final No growth after 5 days. 09/12/22 12:53 Blood - Venous Blood Culture - Final No growth after 5 days. Assessment and Plan (1) Cellulitis: Status: Acute She has left hand cellulitis MRSA related to IVDU. It is sensitive to Bactrim. Plan Would switch to po Bactrim DS bid for seven days on discharge ,tomorrow if doing well. Check HIV and Hepatitis C. Time Spent With Patient Time: Total time managing care of this patient today ____ minutes.
--- NOTE | 2022-09-19 15:45 | P.PNIM_ITS ---
Subjective Subjective Date of Service: 09/19/22 Interval History: f/u on hand abscess d/t MRSA Physical Exam Vital Signs: Vital Signs: Last Vital Signs Temp 98 F 09/19/22 15:33 Pulse 70 09/19/22 15:33 Resp 16 09/19/22 15:33 BP 114/73 09/19/22 15:33 Pulse Ox 98 09/19/22 15:33 O2 Del Method 09/19/22 15:33 O2 Flow Rate 2 09/18/22 12:40 BMI result Body Mass Index 29.9 Const: Other: General: AO X 3, no acute distress Resp: CTA bilateral CVS: S1,S2,RRR GI: +BS, NT, no distention Skin: No rash Neuro: motor grossly intact Psych: appropriate affect Objective Data Active Medications Acetaminophen (Acetaminophen 325 Mg Tablet) 650 mg PO Q6H PRN PRN Reason: Pain, Mild (Pain Scale 1-3) Last Admin: 09/18/22 20:23 Dose: 650 mg Documented By: MIREILLE Buspirone HCl (Buspirone Hcl 10 Mg Tablet) 10 mg PO BID [facility] Last Admin: 09/19/22 07:50 Dose: 10 mg Documented By: LUPE Docusate Sodium (Docusate Sodium 100 Mg Capsule) 100 mg PO BID PRN PRN Reason: Constipation Last Admin: 09/18/22 20:32 Dose: 100 mg Documented By: MIREILLE Duloxetine HCl (Duloxetine Hcl 20 Mg Capsule.) 20 mg PO DAILY [facility] Last Admin: 09/19/22 07:51 Dose: 20 mg Documented By: LUPE Enoxaparin Sodium (Enoxaparin Sodium 40 Mg/0.4 Ml Syringe) 40 mg SUBCUT Q24H [facility] Last Admin: 09/18/22 16:31 Dose: 40 mg Documented By: CHASITY Fentanyl (Fentanyl Citrate/Pf 100 Mcg/2 Ml Vial) 50 mcg IVPUSH Q5M PRN; Protocol PRN Reason: Pain, Severe (Pain Scale 7-10) Ferrous Sulfate (Ferrous Sulfate 324 Mg Tablet.) 324 mg PO DAILY [facility] Last Admin: 09/19/22 07:50 Dose: 324 mg Documented By: LUPE Fluoxetine HCl (Fluoxetine Hcl 20 Mg Capsule) 40 mg PO DAILY [facility] Last Admin: 09/19/22 07:50 Dose: 40 mg Documented By: LUPE Gabapentin (Gabapentin 300 Mg Capsule) 300 mg PO DAILY@1200 [facility] Last Admin: 09/19/22 11:23 Dose: 300 mg Documented By: LUPE Gabapentin (Gabapentin 600 Mg Tablet) 600 mg PO BID [facility] Last Admin: 09/19/22 07:51 Dose: 600 mg Documented By: LUPE Hydroxyzine HCl (Hydroxyzine Hcl 25 Mg Tablet) 25 - 50 mg PO Q6H PRN PRN Reason: Anxiety Last Admin: 09/18/22 20:23 Dose: 50 mg Documented By: MIREILLE Vancomycin HCl 1,000 mg/ (Sodium Chloride) 270 mls @ 270 mls/hr IV Q8H [facility] Last Infusion: 09/19/22 14:28 Dose: 0 mls/hr Documented By: LUPE Methadone HCl (Methadone Hcl 20 Mg/2 Ml Oral.Conc) 65 mg PO DAILY [facility] Last Admin: 09/19/22 07:49 Dose: 65 mg Documented By: LUPE Morphine Sulfate (Morphine Sulfate 2 Mg/Ml Cartridge) 2 mg IVPUSH Q5M PRN; Protocol PRN Reason: Moderate pain Last Admin: 09/19/22 00:01 Dose: 2 mg Documented By: JOSI Nicotine (Nicotine 21 Mg Patch.Td24) 21 mg TRANSDERMA DAILY PRN PRN Reason: Nicotine Cravings Nicotine Polacrilex (Nicotine Polacrilex 2 Mg Gum) 2 mg BUCCAL Q2H PRN PRN Reason: Nicotine Cravings Nicotine Polacrilex (Nicotine Polacrilex Lozenge 4 Mg Lozenge) 4 mg BUCCAL Q2H PRN PRN Reason: Nicotine Cravings Ondansetron HCl (Ondansetron Hcl 4 Mg/2 Ml Vial) 4 mg IVPUSH Q8H PRN PRN Reason: Nausea and Vomiting Oxycodone HCl (Oxycodone Hcl Immed Release 5 Mg Tablet) 5 mg PO Q4H PRN PRN Reason: Pain, Moderate (Pain Scale 4-6 Last Admin: 09/19/22 08:30 Dose: 5 mg Documented By: LUPE Pharmacy Consult (Consult Rx Perform Med Rec) 1 each MISCELLANE ONCE PRN PRN Reason: Consult order Pharmacy Consult (Consult Rx Vancomycin Dosing) 1 each MISCELLANE DAILY PRN PRN Reason: Consult order Polyethylene Glycol (Polyethylene Glycol 3350 17 Gm Powd.Pack) 17 gm PO BID PRN PRN Reason: Constipation Last Admin: 09/19/22 11:23 Dose: 17 gm Documented By: LUPE Sodium Chloride (0.9 % Sodium Chloride Flush 3 Ml Syringe) 3 ml IVFLUSH QSHIFT [facility] Last Admin: 09/19/22 07:51 Dose: 3 ml Documented By: LUPE Trazodone HCl (Trazodone Hcl 100 Mg Tablet) 100 mg PO BEDTIME [facility] Last Admin: 09/18/22 20:23 Dose: 100 mg Documented By: MIREILLE Valacyclovir HCl (Valacyclovir Hcl 1,000 Mg Tablet) 1,000 mg PO Q12H [facility] Last Admin: 09/19/22 08:30 Dose: 1,000 mg Documented By: LUPE Labs 09/13/22 05:18 09/19/22 05:23 Labs: Laboratory Results - last 24 hr 09/19/22 09/19/22 05:23 10:41 Estim Creat Clear Calc 121.4 Estimated GFR > 60 Vancomycin Trough 17.1 Microbiology Microbiology Results: Microbiology 09/18/22 11:56 Gram Stain - Final Hand - Abscess Routine Culture - Final Methicillin Res Staph Aureus 09/17/22 11:47 Gram Stain - Final Hand Left Routine Culture - Final Methicillin Res Staph Aureus Assessment and Plan (1) Herpes: Status: Acute (2) Cellulitis: Status: Acute (3) Substance abuse: Status: Acute (4) Obese: Status: Acute (5) Abscess: Status: Acute Plan 42-year-old female with history of polysubstance abuse, opiate dependence on methadone, 5 cigarette per day smoker, and depression/anxiety admitted for cellulitis left hand in IVDA. #MRSA Left hand abscess d/t drug ingestion s/p I and D, continue IV vanco for 1 more day then oral Bactrim or Doxy for discharge #IVDA -Relapsed 2 weeks ago on heroin and cocaine -Desires detox -Addiction Med consult #Chronic pain syndrome/opiate use disorder -Continue methadone and gabapentin #Depression/anxiety -Continue home meds overweight: encouraged to lose weight. DVT prophylaxis-Lovenox Ongoing inpatient need: MRSA hand abscess needing IV antibiotics at this time Time Spent With Patient Time: Total time managing care of this patient today ____ minutes. Quality Stroke Does the patient have a stroke diagnosis?: No VTE Prior VTE?: No VTE Risk Level:: Medical - moderate - high VTE Device Contraindication: Treatment Not Indicated VTE Drug Contraindication: N/A - Med Ordered
[2022-09-19] MEDS: Enoxaparin Sodium 40 MG/0.4 ML SYRINGE SUBCUT (17:50)
[2022-09-19 19:29] VITALS: BP 120/67; PULSE 65; RESP 18; TEMP 36.6; O2SAT 95
[2022-09-19] MEDS: traZODone HCL 100 MG TABLET PO (21:28)
[2022-09-19 23:42] VITALS: BP 110/57; PULSE 67; RESP 20; TEMP 36.2; O2SAT 94
[2022-09-20] MEDS: 0.9 % Sodium Chloride Flush 3 ML SYRINGE IVFLUSH ×2 (01:12→08:59)
[2022-09-20 04:00] VITALS: BP 101/66; PULSE 62; RESP 20; TEMP 36.1; O2SAT 94
[2022-09-20 05:06] LABS: HIV AB/AG Nonreactive (Nonreactive); HIV Num 1 0.08 S/CO (0.00-0.99); ~HepC Num1 15.18 S/CO (0.00-0.79); ~Hepatitis C Antibody Reactive (Nonreactive)
[2022-09-20] MEDS: vancomycin HCL 1,000 MG in 0.9 % Sodium Chloride 250 ML 270 MG IV (05:34)
[2022-09-20 07:13] LABS: Estimated Glomerular Filt Rate > 60
--- NOTE | 2022-09-20 07:32 | PM.PNORT ---
Subjective Subjective Date of Service: 09/20/22 Interval history: POD 2 s/p I&D left and no overnight events resting in bed no concerns Physical Exam Vital Signs: Vital Signs: Last Vital Signs Temp 96.9 F 09/20/22 04:00 Pulse 62 09/20/22 04:00 Resp 20 09/20/22 04:00 BP 101/66 09/20/22 04:00 Pulse Ox 94 09/20/22 04:00 O2 Del Method 09/20/22 04:00 O2 Flow Rate 2 09/18/22 12:40 BMI result Body Mass Index 29.9 Extrem: Other: improved erythema around the incision no purulance no active drainage she is able to extend all digits she can make a fist which has improved since yesterday Procedures Date of Service Date of Service: 09/20/22 Progress Note: A&P Assessment and plan (1) Abscess: Status: Acute Assessment and Plan: ID saw patient who recommended po Bactrim when discharged No further intervention warranted from an orthopedic standpoint Follow up in office if symptoms return or return to ED. Time Spent With Patient Time: Total time managing care of this patient today ____ minutes. Quality Stroke Does the patient have a stroke diagnosis?: No VTE Prior VTE?: No VTE Risk Level:: Medical - moderate - high VTE Device Contraindication: Treatment Not Indicated VTE Drug Contraindication: N/A - Med Ordered
[2022-09-20 08:00] VITALS: BP 116/73; PULSE 61; RESP 18; TEMP 36.5; O2SAT 95
[2022-09-20] MEDS: Ferrous Sulfate 324 MG TABLET.DR PO (08:57)
[2022-09-20] MEDS: methADONE HCl 20 MG/2 ML ORAL.CONC 65 MG PO (08:58)
[2022-09-20] MEDS: Sulfamethox/Trimeth 800/160 TABLET 1 TAB PO (08:58)
[2022-09-20] MEDS: DULoxetine HCl 20 MG CAPSULE.DR PO (08:58)
[2022-09-20] MEDS: Gabapentin 600 MG TABLET PO (08:58)
[2022-09-20] MEDS: FLUoxetine HCl 20 MG CAPSULE 40 MG PO (08:58)
[2022-09-20] MEDS: busPIRone HCl 10 MG TABLET PO (08:58)
[2022-09-20] MEDS: oxyCODONE HCl Immed Release 5 MG TABLET PO (09:10)
[2022-09-20] MEDS: polyethylene glycoL 3350 17 GM POWD.PACK PO (09:11)
--- NOTE | 2022-09-20 09:29 | P.DS_ITS ---
DS: Providers Provider Date of Service: 09/20/22 Date of admission: 09/12/22 16:57 Primary care physician: Roel Allen MD Consults: 09/12/22 17:08 Addiction Medicine Routine Consulting Provider: Addiction Covering Reason for consultation: IVDA 09/13/22 10:46 Consult to Orthopedics Routine Consulting Provider: Ayde Ulrich Reason for consultation: hand cellulitis (ivdu) Has provider been notified: No 09/19/22 08:17 Consult to Infectious Diseases Routine Consulting Provider: Martha Valderrama Reason for consultation: MrSA cellulitis of the hand Has provider been notified: No DS: Diagnosis Discharge Diagnosis (1) Abscess: Status: Acute DS: Summary Hospital Course Hospital Course: Chief Complaint: pain, swelling left hand 42-year-old female with history of polysubstance abuse, opiate dependence on methadone, 5 cigarette per day smoker, and depression/anxiety presents to ED for evaluation of pain, swelling, and redness in the left hand.? She states she injected heroin into the left hand yesterday prior to onset of symptoms.? She denies any fevers though is endorsing chills and sweats.? On arrival, vital signs stable.? Mild leukocytosis 11.4.? Renal function and electrolyte levels normal.? Glucose 184, no history of type 2 diabetes.? Initial lactic acid 2.5, repeat pending.? CRP 3.02, ESR 39.? U tox positive for opiates and cocaine.? X- ray of the hand unremarkable except for dorsal soft tissue swelling.? CT of the hand showing increased density along the dorsal aspect of the wrist and hand reflecting edema or cellulitis.? No localized fluid collection.? Treated empirically with IV Zosyn and vancomycin.? Given 1 mg hydromorphone for pain management.? Patient to be admitted for IV antibiotics for acute cellulitis of the left hand in IV drug abuser. Hospital course: #Cellulitis and abscess Patient was admitted for treatment of left hand abscess and cellulitis as result of drug ingestion. She was treated with IV Vancomycin and underwent I&D by Dr. Umanzor, culture grew MRSA. ID recommends additional treatment with Bactrim for 7 days. #Chronic pain syndrome/opiate use disorder -Continue methadone and gabapentin -She has been advised to avoid ilicit substances including opioids #Depression/anxiety -Continue home meds #Hepatitis C--should seek treatment on outpatient bassis #Herpes of lips, Valtrex, HIV is negative overweight: encouraged to lose weight. Time Spent with Patient Time attestation: Total time managing care of this patient today ____ minutes. Discharge coordination time: Greater than 30 minutes Quality: Safe Use of Opioids Does Pt have an Active Cancer Diagnosis on the Problem List?: No Quality: Stroke Does the patient have a stroke diagnosis?: No Physical Exam Vital Signs: Vital Signs: Last Vital Signs Temp 97.7 F 09/20/22 08:00 Pulse 61 09/20/22 08:00 Resp 18 09/20/22 08:00 BP 116/73 09/20/22 08:00 Pulse Ox 95 09/20/22 08:00 O2 Del Method 09/20/22 08:00 O2 Flow Rate 2 09/18/22 12:40 BMI result Body Mass Index 29.9 Const: Other: General: AO X 3, no acute distress Resp: CTA bilateral CVS: S1,S2,RRR GI: +BS, NT, no distention Skin: No rash, left hand dressing in place Neuro: motor grossly intact Psych: appropriate affect DS: Data Data Completed and Pending Labs on day of discharge: Laboratory Results - last 24 hr 09/19/22 09/19/22 09/20/22 10:41 19:16 06:00 Creatinine 0.68 Estim Creat Clear Calc 116.0 Estimated GFR > 60 Vancomycin Trough 17.1 Hepatitis C Ab (EIA) Reactive H HIV 1&2 Ab/P24 Ag 4thGn Nonreactive Discharge Plan Discharge Anticipated Discharge Date/Time: 09/20/22 09:25 Patient Disposition: Home, Self-Care Discharge Diagnosis: Cellulitis and abscess of the hand Referrals: Roel Allen MD [Primary Care Provider] - 1 Week Discharge Medications: Continued fluoxetine 40 mg Capsule 40 mg PO DAILY gabapentin 600 mg Tablet 600 mg PO BID polyethylene glycol 3350 17 gram Powder In Packet 17 g PO BID PRN (Reason: Constipation) trazodone 100 mg Tablet 100 mg PO BEDTIME ferrous sulfate 325 mg (65 mg iron) Tablet 325 mg PO DAILY buspirone 10 mg Tablet 10 mg PO BID nicotine 21 mg/24 hr Patch 24 Hour 1 patch TRANSDERMAL DAILY PRN (Reason: Nicotine Cravings) gabapentin 300 mg Capsule 300 mg PO DAILY@1200 hydroxyzine HCl 25 mg Tablet 25 - 50 mg PO Q6H PRN (Reason: Anxiety) ibuprofen 600 mg Tablet 600 mg PO TID PRN (Reason: Pain) docusate sodium 100 mg Tablet 100 mg PO BID PRN (Reason: Constipation) nicotine (polacrilex) 4 mg Lozenge 4 mg BUCCAL Q2-4H PRN (Reason: Nicotine Cravings) duloxetine 20 mg Capsule,Delayed Release(Dr/Ec) 20 mg PO DAILY methadone [Methadose] 10 mg/mL Concentrate 65 mg PO DAILY Diet: Advance to usual diet Activity on Discharge: As tolerated Stand Alone Forms: Patient Portal Discharge page Care Plan Goals: recovery from abscess and cellulitis Health Concerns: MRSA skin infection Plan of Treatment: Take Bactrim as recommended and follow u with your Doctor in a week, Stay away from ilicit substances Assessment: as above
[2022-09-20] MEDS: Gabapentin 300 MG CAPSULE PO (11:39)
[2022-09-20 11:52] LABS: Vancomycin Trough 18.5 mcg/mL (10.0-20.0)
--- NOTE | 2022-09-20 12:23 | HE.PHANOTE ---
VANCO DOSE ADJUSTMENT BASED ON SCR AND TROUGH OF 18.5 DOSE DECREASED TO 750 Q 8H.
--- NOTE | 2022-09-20 14:51 | MHC.RECOVRN ---
[facility] has a female bed available, updates have been sent. Awaiting return call.
--- NOTE | 2022-09-20 14:59 | MHC.CM.PN ---
PATIENT IS DC TODAY POSSIBLE [facility] RN AWARE OF PLAN
[2022-09-20 16:00] VITALS: BP 103/59; PULSE 72; RESP 17; TEMP 36.9; O2SAT 95
[2022-09-20] MEDS: Enoxaparin Sodium 40 MG/0.4 ML SYRINGE SUBCUT (16:21)
--- NOTE | 2022-09-20 18:11 | PC.NURSE ---
discharge instructions were given to patient ,patient was instruced to call for assistance when her ride will be here,but than left the room without notifying the nurse.
== END 2022-09-20 18:11 | disposition home or self-care (01) | DRG 364 ==
LOC: HO.ED 16:46 → HO.EDOVER 17:15 → HO.S3 18:21
PROVIDERS: Internal Medicine; Orthopaedic Surgery; Physician Assistant; Physician Assistant Medical; Admitting Provider Physician Assistant; Emergency Provider Student in an Organized Health Care Education/Training Program; PCP Psychiatry & Neurology Child & Adolescent Psychiatry; Visit Provider Internal Medicine
PROC: 0JBK0ZZ Excision of Left Hand Subcutaneous Tissue and Fascia, Open Approach (ICD-10-PCS; principal; 2022-09-18 13:20)
DX: L03.114 Cellulitis of left upper limb (principal); B00.1 Herpesviral vesicular dermatitis; E66.9 Obesity, unspecified; L02.512 Cutaneous abscess of left hand; F11.20 Opioid dependence, uncomplicated; F19.10 Other psychoactive substance abuse, uncomplicated; G89.4 Chronic pain syndrome; F17.210 Nicotine dependence, cigarettes, uncomplicated; B19.20 Unspecified viral hepatitis C without hepatic coma; B95.62 Methicillin resistant Staphylococcus aureus infection as the cause of diseases classified elsewhere; Z71.6 Tobacco abuse counseling; F32.A Depression, unspecified; F41.9 Anxiety disorder, unspecified; Z68.30 Body mass index [BMI] 30.0-30.9, adult; Z79.899 Other long term (current) drug therapy
CPT/HCPCS: 36415; 73120; 73201; 80048; 80076; 80202; 80307; 81003; 81025; 82077; 82565; 83036; 83605; 83735; 85025; 85652; 86140; 86803; 87040; 87070; 87077; 87147; 87186; 87205; 87389; 87635; 99285; J0690; J1170; J1650; J1885; J2270; J2543; J3010; J3370; J3371; Q9967

== ENCOUNTER 2022-09-25 21:34 | Emergency (ER) | payer OTHER, SELFPAY ==
[2022-09-25 21:38] VITALS: BP 116/77; BP 154/90; PULSE 80; RESP 16; TEMP 36.6; O2SAT 93; O2SAT 98; BMI 29.1
--- NOTE | 2022-09-25 21:54 | PC.NURSE ---
pt presents to dept very agitated, moaning, whaling, once in exam room pt removed all clothing where this nurse was able to visualize hive like rash on pt arms and trunk, large red welts, warm to the touch. pt denies itching in throat. sts that she has not used anything different. but she did sleep with some different blankets at her boyfriends house last night.
--- NOTE | 2022-09-25 22:09 | ED.GENADULT ---
HPI - General Adult General Chief complaint: Skin/Abscess/Foreign Body Stated complaint: hives Time Seen by Provider: 09/25/22 22:03 Source: patient Limitations: no limitations History of Present Illness HPI narrative: This is a 42-year-old female who complains of hives and pruritus since this morning. The patient cannot think of any new exposures. She denies any change in medications, is on multiple medications. She denies any new soaps or detergents or shampoos. She denies any unusual foods. She denies any shortness of breath, tongue or lip swelling, throat tightness. Medications include hydroxyzine, gabapentin, fluoxetine, duloxetine, buspirone. Patient denies any suicidal or homicidal ideation Related Data Home Medications Medication Instructions Recorded Confirmed buspirone 10 mg tablet 10 mg PO BID 09/12/22 09/12/22 docusate sodium 100 mg tablet 100 mg PO BID PRN Constipation 09/12/22 09/12/22 duloxetine 20 mg capsule,delayed 20 mg PO DAILY 09/12/22 09/12/22 release ferrous sulfate 325 mg (65 mg 325 mg PO DAILY 09/12/22 09/12/22 iron) tablet fluoxetine 40 mg capsule 40 mg PO DAILY 09/12/22 09/12/22 gabapentin 300 mg capsule 300 mg PO DAILY@1200 09/12/22 09/12/22 gabapentin 600 mg tablet 600 mg PO BID 09/12/22 09/12/22 hydroxyzine HCl 25 mg tablet 25 - 50 mg PO Q6H PRN Anxiety 09/12/22 09/12/22 ibuprofen 600 mg tablet 600 mg PO TID PRN Pain 09/12/22 09/12/22 methadone 10 mg/mL oral 65 mg PO DAILY 09/12/22 09/13/22 concentrate (Methadose) nicotine (polacrilex) 4 mg buccal 4 mg buccal Q2-4H PRN Nicotine 09/12/22 09/12/22 lozenge Cravings nicotine 21 mg/24 hr daily 1 patch transdermal DAILY PRN 09/12/22 09/12/22 transdermal patch Nicotine Cravings polyethylene glycol 3350 17 gram 17 g PO BID PRN Constipation 09/12/22 09/12/22 oral powder packet trazodone 100 mg tablet 100 mg PO BEDTIME 09/12/22 09/12/22 Previous Rx's Medication Instructions Recorded sulfamethoxazole 800 1 tab PO Q12H #13 tabs 09/20/22 mg-trimethoprim 160 mg tablet valacyclovir 1 gram tablet 1,000 mg PO Q12H #10 tabs 09/20/22 (Valtrex) diphenhydramine HCl 25 mg capsule 25 - 50 mg PO TID PRN allergy 09/26/22 symptoms 4 days #20 caps prednisone 20 mg tablet 40 mg PO DAILY #8 tabs 09/26/22 Allergies Allergy/AdvReac Type Severity Reaction Status Date / Time Fish Containing Products Allergy Severe ANAPHYLAXIS Verified 06/02/21 05:37 Review of Systems Review of Systems: As per HPI [facility] Past Medical History Medical History Abscess Bacterial vaginosis Screening for cervical cancer Screening for diabetes mellitus (DM) Screening for hypercholesterolemia Substance abuse Surgical History History of section Family History Family History Father No problems noted. Mother HTN (hypertension) Social History Social History Household Members: Family Household Members Other:: 1 Housing: Apartment Do you presently have visiting nurse or other home services: No Alcohol intake: former Patient Tobacco Use Status: Never used Tobacco Tobacco use type: Cigarette Cigarettes Per Day: 5 Substance Use Type: Crack/Cocaine, Heroin and IV Drugs Advance Directives: No Advance Directives Information Provided: No service: No Current occupational status: unemployed Physical Exam ED Vital Signs: Vital Signs - 24 hr 09/25/22 21:38 Temperature 98 F Pulse Rate 80 Respiratory Rate 16 Blood Pressure 116/77 Pulse Oximetry 93 Oxygen Delivery Method Room Air BMI result Body Mass Index 29.1 Const Other: Patient is very restless, has her down half on, is somewhat hyperkinetic moving about the room. General: no acute distress Orientation/consciousness: patient oriented x3 HENMT Head: Yes normal to inspection General nose exam: Normal external nose present Mouth: moist mucous membranes Throat: Yes posterior oropharynx normal, Yes tonsils normal and Yes uvula midline Eyes Eyelids: Yes eyelids normal Conjunctivae: conjunctivae normal Pupils: Equal, round and reactive pupils present Neck Neck: Yes supple Resp Effort & Inspection: normal respiratory effort Auscultation: clear to auscultation bilaterally Cardio Rate: regular rate Rhythm: regular rhythm Heart sounds: S1 normal heart sound present, S2 normal heart sound present, no gallops, no murmurs and no rubs GI Inspection: No distended Palpation (GI): Soft to palpation and nontender Auscultation: normal bowel sounds Skin Other: Diffuse urticaria especially on the trunk General skin exam: other (Warm and dry) Neuro General: patient oriented x3 and CN's II-XI intact bilaterally Cranial nerves: Yes Equal, round and reactive pupils present Extrem General: Yes no pedal edema Psych Affect: normal affect Attitude: cooperative Medications Administered Discontinued Medications Generic Name Dose Route Start Last Admin Trade Name Freq PRN Reason Stop Dose Admin Dexamethasone Sodium Phosphate 10 mg 09/25/22 22:08 09/25/22 22:25 Dexamethasone Sod Phosphate 10 Mg/Ml Vial IM 09/25/22 22:09 10 mg ONCE ONE Administration Diphenhydramine HCl 50 mg 09/25/22 22:08 09/25/22 22:25 Diphenhydramine Hcl 50 Mg/Ml Vial IM 09/25/22 22:09 50 mg ONCE ONE Administration Lorazepam 2 mg 09/25/22 22:08 09/25/22 22:24 Lorazepam 1 Mg Tablet PO 09/25/22 22:09 2 mg ONCE ONE Administration Medical Decision Making Medical Decision Making [facility] Narrative: Holly patient, with history of substance abuse, appeared hyperkinetic, comp possibly due to substance abuse, also did have urticaria. Patient was treated with Benadryl 50 mg IM, Decadron 10 mg IM, lorazepam 2 mg p.o.. She had improvement in her symptoms. Patient will be treated with diphenhydramine and prednisone. Discharge Plan Discharge Clinical Impression: Substance abuse, Urticaria Patient Disposition: Home, Self-Care Instructions: Urticaria (ED) Additional Instructions: Use diphenhydramine and prednisone as prescribed. Do not take your hydroxyzine while on diphenhydramine. Return for any new or worsened symptoms. Prescriptions: New diphenhydramine HCl 25 mg capsule 25 - 50 mg PO TID PRN (Reason: allergy symptoms) 4 Days Qty: 20 0RF prednisone 20 mg tablet 40 mg PO DAILY Qty: 8 0RF No Action fluoxetine 40 mg Capsule 40 mg PO DAILY gabapentin 600 mg Tablet 600 mg PO BID polyethylene glycol 3350 17 gram Powder In Packet 17 g PO BID PRN (Reason: Constipation) trazodone 100 mg Tablet 100 mg PO BEDTIME ferrous sulfate 325 mg (65 mg iron) Tablet 325 mg PO DAILY buspirone 10 mg Tablet 10 mg PO BID nicotine 21 mg/24 hr Patch 24 Hour 1 patch TRANSDERMAL DAILY PRN (Reason: Nicotine Cravings) gabapentin 300 mg Capsule 300 mg PO DAILY@1200 hydroxyzine HCl 25 mg Tablet 25 - 50 mg PO Q6H PRN (Reason: Anxiety) ibuprofen 600 mg Tablet 600 mg PO TID PRN (Reason: Pain) docusate sodium 100 mg Tablet 100 mg PO BID PRN (Reason: Constipation) nicotine (polacrilex) 4 mg Lozenge 4 mg BUCCAL Q2-4H PRN (Reason: Nicotine Cravings) duloxetine 20 mg Capsule,Delayed Release(Dr/Ec) 20 mg PO DAILY methadone [Methadose] 10 mg/mL Concentrate 65 mg PO DAILY sulfamethoxazole-trimethoprim 800-160 mg Tablet 1 tab PO Q12H Qty: 13 0RF valacyclovir [Valtrex] 1 gram tablet 1,000 mg PO Q12H Qty: 10 0RF
[2022-09-25] MEDS: LORazepam 1 MG TABLET 2 MG PO (22:24)
[2022-09-25] MEDS: dexAMETHasone sod phosphate 10 MG/ML VIAL IM (22:25)
[2022-09-25] MEDS: diphenhydrAMINE HCL 50 MG/ML VIAL IM (22:25)
--- NOTE | 2022-09-25 22:30 | PC.NURSE ---
pt continues to move around room with erratic movements, moaning and yelling, pt has been medicated per MAR and has been able to contain herself to bed
== END 2022-09-26 00:49 | disposition home or self-care (01) ==
PROVIDERS: Emergency Provider Emergency Medicine
DX: F19.10 Other psychoactive substance abuse, uncomplicated (principal); L50.9 Urticaria, unspecified; F11.20 Opioid dependence, uncomplicated; F17.210 Nicotine dependence, cigarettes, uncomplicated; Z79.899 Other long term (current) drug therapy
CPT/HCPCS: 96372; 99282; 99284; J1100; J1200

== ENCOUNTER 2022-09-27 21:04 | Emergency (ER) | payer OTHER, SELFPAY ==
[2022-09-27 21:16] VITALS: BP 133/109; PULSE 121; RESP 22; TEMP 36.9; O2SAT 96; BMI 29.1
[2022-09-27] MEDS: diphenhydrAMINE HCL 50 MG/ML VIAL IM (21:29)
--- NOTE | 2022-09-27 21:38 | PC.NURSE ---
Pt BARROS x4 ambulatory continues to be restless in bed and scratching hives to body. Pt medicated per NOV.
--- NOTE | 2022-09-27 21:54 | ED.ALLEREA ---
HPI - Allergic Reaction General Chief complaint: Allergic Reaction Stated complaint: hives Time Seen by Provider: 09/27/22 21:39 Source: patient Mode of arrival: ambulatory History of Present Illness HPI narrative: All patient complains of hives which started earlier today. She has been on Bactrim for an abscess and cellulitis of her left hand for which she was hospitalized for operative incision and drainage last week. She states she has never had a issue with Bactrim before. She states she is itching from head to toe. Diffuse hives. No dyspnea or wheezing She states she is very anxious as she has not slept in several days she is homeless and does not trust those around her if she falls asleep. She denies any fevers or chills. Hand is improving Related Data Home Medications Medication Instructions Recorded Confirmed buspirone 10 mg tablet 10 mg PO BID 09/12/22 09/12/22 docusate sodium 100 mg tablet 100 mg PO BID PRN Constipation 09/12/22 09/12/22 duloxetine 20 mg capsule,delayed 20 mg PO DAILY 09/12/22 09/12/22 release ferrous sulfate 325 mg (65 mg 325 mg PO DAILY 09/12/22 09/12/22 iron) tablet fluoxetine 40 mg capsule 40 mg PO DAILY 09/12/22 09/12/22 gabapentin 300 mg capsule 300 mg PO DAILY@1200 09/12/22 09/12/22 gabapentin 600 mg tablet 600 mg PO BID 09/12/22 09/12/22 hydroxyzine HCl 25 mg tablet 25 - 50 mg PO Q6H PRN Anxiety 09/12/22 09/12/22 ibuprofen 600 mg tablet 600 mg PO TID PRN Pain 09/12/22 09/12/22 methadone 10 mg/mL oral 65 mg PO DAILY 09/12/22 09/13/22 concentrate (Methadose) nicotine (polacrilex) 4 mg buccal 4 mg buccal Q2-4H PRN Nicotine 09/12/22 09/12/22 lozenge Cravings nicotine 21 mg/24 hr daily 1 patch transdermal DAILY PRN 09/12/22 09/12/22 transdermal patch Nicotine Cravings polyethylene glycol 3350 17 gram 17 g PO BID PRN Constipation 09/12/22 09/12/22 oral powder packet trazodone 100 mg tablet 100 mg PO BEDTIME 09/12/22 09/12/22 Previous Rx's Medication Instructions Recorded sulfamethoxazole 800 1 tab PO Q12H #13 tabs 09/20/22 mg-trimethoprim 160 mg tablet valacyclovir 1 gram tablet 1,000 mg PO Q12H #10 tabs 09/20/22 (Valtrex) diphenhydramine HCl 25 mg capsule 25 - 50 mg PO TID PRN allergy 09/26/22 symptoms 4 days #20 caps prednisone 20 mg tablet 40 mg PO DAILY #8 tabs 09/26/22 minocycline 100 mg capsule 100 mg PO BID #14 caps 09/27/22 Allergies Allergy/AdvReac Type Severity Reaction Status Date / Time Fish Containing Products Allergy Severe ANAPHYLAXIS Verified 06/02/21 05:37 Review of Systems Constitutional: Comments: No fevers or chills. She she complains of restlessness and sleeplessness ENT: Comments: Sore throat Cardiovascular: Comments: No chest pain Respiratory: Comments: No cough or dyspnea Integumentary/Breasts: Comments: Recent abscess with cellulitis PMFSH Past Medical History Medical History Abscess Bacterial vaginosis Screening for cervical cancer Screening for diabetes mellitus (DM) Screening for hypercholesterolemia Substance abuse Surgical History History of section Family History Family History Father No problems noted. Mother HTN (hypertension) Social History Social History Household Members: Family Household Members Other:: 1 Housing: Apartment Do you presently have visiting nurse or other home services: No Alcohol intake: former Patient Tobacco Use Status: Never used Tobacco Tobacco use type: Cigarette Cigarettes Per Day: 5 Substance Use Type: Crack/Cocaine, Heroin and IV Drugs Advance Directives: No service: No Current occupational status: unemployed Physical Exam ED Vital Signs: Vital Signs - 24 hr 09/27/22 21:16 Temperature 98.5 F Pulse Rate 121 H Respiratory Rate 22 H Blood Pressure 133/109 H Pulse Oximetry 96 Oxygen Delivery Method Room Air BMI result Body Mass Index 29.1 Const Other: Patient is extremely restless. She is standing and sitting and moving all over during the exam She does not appear to be in pain however. HENMT Other: No stridor or evidence of oropharyngeal swelling. Resp Other: No respiratory distress. No wheezes Skin Other: Warm pink and dry. Diffuse urticarial rash over her entire body most pronounced over trunk. Left dorsum of hand with diffuse mild induration and erythema. There is a small incision from her recent incision and drainage procedure. There is no purulent drainage at this time. There is no fluctuance. Neuro Other: Nonfocal but restless Medications Administered Discontinued Medications Generic Name Dose Route Start Last Admin Trade Name Freq PRN Reason Stop Dose Admin Diphenhydramine HCl 50 mg 09/27/22 21:24 09/27/22 21:29 Diphenhydramine Hcl 50 Mg/Ml Vial IM 09/27/22 21:25 50 mg ONCE ONE Administration Lorazepam 2 mg 09/27/22 22:00 09/27/22 22:06 Lorazepam 2 Mg/Ml Vial IM 09/27/22 22:01 2 mg STAT STA Administration Prednisone 60 mg 09/27/22 21:53 09/27/22 22:05 Prednisone 20 Mg Tablet PO 09/27/22 21:54 60 mg ONCE ONE Administration Medical Decision Making Medical Decision Making MDM Narrative: Patient with an allergic reaction, presumably to Bactrim. She is still very anxious and restless in the emergency department, pacing throughout the room. She reports recent IV drug use consisting of cocaine and heroin. Looking through the records, this appears to be her baseline. There does not appear to be any evidence of anaphylaxis or systemic respiratory involvement. She she has been treated with prednisone as well as IM Benadryl and IM Ativan. Stable for discharge home. She is requesting food before she goes. She will need to stop Bactrim. I will give her a prescription for 7 days of minocycline to continue to treat her cellulitis Discharge Plan Discharge Clinical Impression: Substance abuse, Cellulitis, Urticaria Patient Disposition: Home, Self-Care Instructions: Urticaria (ED), Cellulitis (ED), Polysubstance Abuse (ED), Warm Compress or Soak (ED) Additional Instructions: The rash is likely secondary to Bactrim use. Urine now allergic to Bactrim. Do not take this in the future. Do not finish her current prescription. I am prescribing minocycline which also covers the infection in your hand and is not related to Bactrim. Prescriptions: New minocycline 100 mg capsule 100 mg PO BID Qty: 14 0RF No Action fluoxetine 40 mg Capsule 40 mg PO DAILY gabapentin 600 mg Tablet 600 mg PO BID polyethylene glycol 3350 17 gram Powder In Packet 17 g PO BID PRN (Reason: Constipation) trazodone 100 mg Tablet 100 mg PO BEDTIME ferrous sulfate 325 mg (65 mg iron) Tablet 325 mg PO DAILY buspirone 10 mg Tablet 10 mg PO BID nicotine 21 mg/24 hr Patch 24 Hour 1 patch TRANSDERMAL DAILY PRN (Reason: Nicotine Cravings) gabapentin 300 mg Capsule 300 mg PO DAILY@1200 hydroxyzine HCl 25 mg Tablet 25 - 50 mg PO Q6H PRN (Reason: Anxiety) ibuprofen 600 mg Tablet 600 mg PO TID PRN (Reason: Pain) docusate sodium 100 mg Tablet 100 mg PO BID PRN (Reason: Constipation) nicotine (polacrilex) 4 mg Lozenge 4 mg BUCCAL Q2-4H PRN (Reason: Nicotine Cravings) duloxetine 20 mg Capsule,Delayed Release(Dr/Ec) 20 mg PO DAILY methadone [Methadose] 10 mg/mL Concentrate 65 mg PO DAILY sulfamethoxazole-trimethoprim 800-160 mg Tablet 1 tab PO Q12H Qty: 13 0RF valacyclovir [Valtrex] 1 gram tablet 1,000 mg PO Q12H Qty: 10 0RF diphenhydramine HCl 25 mg capsule 25 - 50 mg PO TID PRN (Reason: allergy symptoms) 4 Days Qty: 20 0RF prednisone 20 mg tablet 40 mg PO DAILY Qty: 8 0RF
[2022-09-27] MEDS: predniSONE 20 MG TABLET 60 MG PO (22:05)
[2022-09-27] MEDS: LORazepam 2 MG/ML VIAL IM (22:06)
--- NOTE | 2022-09-27 22:14 | PC.NURSE ---
Pt continues to be restless, tearful and scratching body. Pt medicated per MAR.
--- NOTE | 2022-09-27 22:18 | PC.NURSE ---
Pt in bed with both side rails up. RN instructed for pt to stay in bed.
== END 2022-09-27 23:39 | disposition home or self-care (01) ==
PROVIDERS: Emergency Provider Emergency Medicine
DX: L50.9 Urticaria, unspecified (principal); F19.10 Other psychoactive substance abuse, uncomplicated; L03.114 Cellulitis of left upper limb; F11.20 Opioid dependence, uncomplicated; F17.210 Nicotine dependence, cigarettes, uncomplicated; Z79.899 Other long term (current) drug therapy
CPT/HCPCS: 96372; 99282; 99284; J1200; J2060

== ENCOUNTER 2022-11-13 15:41 | Emergency (ER) | payer OTHER, SELFPAY ==
--- NOTE | ~2022-11-13 | US_ITS ---
EXAMINATION: US VENOUS WITH DOPPLER UPPER EXTREMITY, BILATERAL CLINICAL INFORMATION: Bilateral upper arm swelling with history of IV drug abuse with question of DVT versus abscess COMPARISON: None TECHNIQUE: Ultrasound of the upper extremity is performed using compression sonography and color and pulse Doppler flow with assessment of augmentation of flow. There is also imaging and Doppler assessment of the jugular and subclavian veins. Spectral analysis with color-flow imaging is performed. FINDINGS: Respiratory variation, normal compression, and augmented flow are noted throughout the upper extremity including the axillary, brachial, cubital, and radial and ulnar veins. There is normal flow in the internal jugular and subclavian veins. There is no visible deep or superficial thrombophlebitis. In the left upper arm medially, 2 prominent lymph nodes are seen one measuring 1.5 cm the other 0.9 cm. No abscesses or fluid collections are seen in either arm. If the patient's symptoms progress, a followup ultrasound in 5 -7 days might be of value to exclude proximal propagation from a nonvisualized distal arm vein. US/US venous duplex UE BI IMPRESSION: No DVT demonstrated in either upper extremity.
[2022-11-13 15:59] VITALS: BP 124/79; PULSE 100; RESP 18; TEMP 37.3; O2SAT 95; BMI 26.6
--- NOTE | 2022-11-13 16:03 | ED_ITS ---
HPI - Skin/Abscess/Foreign Bdy General Chief complaint: General Medical Stated complaint: left arm reddend and swollen Time Seen by Provider: 11/13/22 18:44 Related Data Home Medications Medication Instructions Recorded Confirmed buspirone 10 mg tablet 10 mg PO BID 09/12/22 09/12/22 docusate sodium 100 mg tablet 100 mg PO BID PRN Constipation 09/12/22 09/12/22 duloxetine 20 mg capsule,delayed 20 mg PO DAILY 09/12/22 09/12/22 release ferrous sulfate 325 mg (65 mg 325 mg PO DAILY 09/12/22 09/12/22 iron) tablet fluoxetine 40 mg capsule 40 mg PO DAILY 09/12/22 09/12/22 gabapentin 300 mg capsule 300 mg PO DAILY@1200 09/12/22 09/12/22 gabapentin 600 mg tablet 600 mg PO BID 09/12/22 09/12/22 hydroxyzine HCl 25 mg tablet 25 - 50 mg PO Q6H PRN Anxiety 09/12/22 09/12/22 ibuprofen 600 mg tablet 600 mg PO TID PRN Pain 09/12/22 09/12/22 methadone 10 mg/mL oral 65 mg PO DAILY 09/12/22 09/13/22 concentrate (Methadose) nicotine (polacrilex) 4 mg buccal 4 mg buccal Q2-4H PRN Nicotine 09/12/22 09/12/22 lozenge Cravings nicotine 21 mg/24 hr daily 1 patch transdermal DAILY PRN 09/12/22 09/12/22 transdermal patch Nicotine Cravings polyethylene glycol 3350 17 gram 17 g PO BID PRN Constipation 09/12/22 09/12/22 oral powder packet trazodone 100 mg tablet 100 mg PO BEDTIME 09/12/22 09/12/22 Previous Rx's Medication Instructions Recorded sulfamethoxazole 800 1 tab PO Q12H #13 tabs 09/20/22 mg-trimethoprim 160 mg tablet valacyclovir 1 gram tablet 1,000 mg PO Q12H #10 tabs 09/20/22 (Valtrex) diphenhydramine HCl 25 mg capsule 25 - 50 mg PO TID PRN allergy 09/26/22 symptoms 4 days #20 caps prednisone 20 mg tablet 40 mg PO DAILY #8 tabs 09/26/22 minocycline 100 mg capsule 100 mg PO BID #14 caps 01/25/23 doxycycline hyclate 100 mg capsule 100 mg PO BID cough 7 days #14 caps 11/13/22 Allergies Allergy/AdvReac Type Severity Reaction Status Date / Time Fish Containing Products Allergy Severe ANAPHYLAXIS Verified 11/13/22 15:57 [facility] Past Medical History Medical History Abscess Bacterial vaginosis Screening for cervical cancer Screening for diabetes mellitus (DM) Screening for hypercholesterolemia Substance abuse Surgical History History of section Family History Family History Father No problems noted. Mother HTN (hypertension) Social History Social History Household Members: Family Household Members Other:: 1 Housing: Apartment Do you presently have visiting nurse or other home services: No Alcohol intake: former Patient Tobacco Use Status: Never used Tobacco Tobacco use type: Cigarette Cigarettes Per Day: 5 Substance Use Type: Crack/Cocaine, Heroin and IV Drugs Advance Directives: No Advance Directives Information Provided: Yes service: No Current occupational status: unemployed Physical Exam Vital Signs: Vital Signs: Last Vital Signs Temp 99.1 F 11/13/22 15:59 Pulse 100 11/13/22 15:59 Resp 18 11/13/22 15:59 BP 124/79 11/13/22 15:59 Pulse Ox 95 11/13/22 15:59 O2 Del Method Room Air 11/13/22 15:59 BMI result Body Mass Index 26.6 Course Course Course Narrative: RME-16:10PM - 42yoF with a PMHx of poly substance abuse, 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 Reports that she is interested in detox. Her sister is the retail tire sales manager at [employer] and possibly once dissection her she reports. She denies any fevers. She denies any SI or HI. On exam patient has moderate erythema and edema to bilateral hand/wrist and forearms with soft tissue swelling. Pulses are present. She is noted to have multiple wounds/ulcerative lesions to hand/wrist/forearms. She is noted to be tachycardic. Plan: Will obtain labs, blood cultures, lactic acid, ultrasounds of bilateral upper extremities to evaluate for possible DVTs versus abscess. Patient will be sent back to the waiting room to be evaluated the ED. Medications Administered Discontinued Medications Generic Name Dose Route Start Last Admin Trade Name Aamirq PRN Reason Stop Dose Admin Doxycycline Monohydrate 100 mg 11/13/22 19:29 11/13/22 19:45 Doxycycline Monohydrate 100 Mg Capsule PO 11/13/22 19:30 100 mg ONCE ONE Administration Ibuprofen 800 mg 11/13/22 19:50 11/13/22 19:55 Ibuprofen 800 Mg Tablet PO 11/13/22 19:51 800 mg ONCE ONE Administration Medical Decision Making Lab Data Labs: Lab Results 11/13/22 11/13/22 Range/Units 16:37 16:37 Urine Color Dark Yellow Urine Appearance Cloudy Urine pH 6.0 (5.0-9.0) Ur Specific Huggins >= 1.030 H (1.005-1.025) Urine Protein 30 (1+) H (Neg-Trace) mg/dL Urine Glucose (UA) Negative (Negative) mg/dL Urine Ketones Trace (Negative) mg/dL Urine Blood Negative (Negative) Urine Nitrite Negative (Negative) Ur Leukocyte Esterase Small (1+) H (Negative) Urine RBC 3-5 H (0-2) /HPF Urine WBC 21-50 H (0-5) /HPF Ur Squamous Epith Cells 3-5 (0-2) /HPF Calcium Oxalate Crystal Present Urine Bacteria None Seen (None Seen) Hyaline Casts 3-5 (0-2) /LPF Influenza Type A (PCR) NEGATIVE (Negative) Influenza Type B (PCR) NEGATIVE (Negative) RSV RNA Qual (PCR) NEGATIVE (Negative) SARS-CoV-2 RNA (RT-PCR) NEGATIVE (Negative) Discharge Plan Discharge Clinical Impression: Substance abuse, Cellulitis Patient Disposition: Left Against Medical Advice Instructions: Cellulitis (ED), Polysubstance Abuse (ED) Prescriptions: New doxycycline hyclate 100 mg capsule 100 mg PO BID 7 Days Qty: 14 0RF No Action fluoxetine 40 mg Capsule 40 mg PO DAILY gabapentin 600 mg Tablet 600 mg PO BID polyethylene glycol 3350 17 gram Powder In Packet 17 g PO BID PRN (Reason: Constipation) trazodone 100 mg Tablet 100 mg PO BEDTIME ferrous sulfate 325 mg (65 mg iron) Tablet 325 mg PO DAILY buspirone 10 mg Tablet 10 mg PO BID nicotine 21 mg/24 hr Patch 24 Hour 1 patch TRANSDERMAL DAILY PRN (Reason: Nicotine Cravings) gabapentin 300 mg Capsule 300 mg PO DAILY@1200 hydroxyzine HCl 25 mg Tablet 25 - 50 mg PO Q6H PRN (Reason: Anxiety) ibuprofen 600 mg Tablet 600 mg PO TID PRN (Reason: Pain) docusate sodium 100 mg Tablet 100 mg PO BID PRN (Reason: Constipation) nicotine (polacrilex) 4 mg Lozenge 4 mg BUCCAL Q2-4H PRN (Reason: Nicotine Cravings) duloxetine 20 mg Capsule,Delayed Release(Dr/Ec) 20 mg PO DAILY methadone [Methadose] 10 mg/mL Concentrate 65 mg PO DAILY sulfamethoxazole-trimethoprim 800-160 mg Tablet 1 tab PO Q12H Qty: 13 0RF valacyclovir [Valtrex] 1 gram tablet 1,000 mg PO Q12H Qty: 10 0RF diphenhydramine HCl 25 mg capsule 25 - 50 mg PO TID PRN (Reason: allergy symptoms) 4 Days Qty: 20 0RF prednisone 20 mg tablet 40 mg PO DAILY Qty: 8 0RF minocycline 100 mg capsule 100 mg PO BID Qty: 14 0RF Referrals: Physician,Unknown J [Primary Care Provider] - 1 day (If you change of mind come back to the emergency department) Stand Alone Forms: Against Medical Advice Interventions: ED Discharge Assessment Last Done: 11/13/22 20:00 Discharge Date/Time: 11/13/22 20:00
[2022-11-13 16:51] LABS: Appearance Urine Cloudy; Color Urine Dark Yellow; Glucose Urine UA Negative (Negative); Leukocyte Esterase Urine Small (1+) (Negative); Nitrite Urine Negative (Negative); Specific Gravity - Urine >= 1.030 (1.005-1.025); UMIC TRIGGER UACC YES; Urine Blood Negative (Negative); Urine Ketones Trace mg/dL (Negative); Urine Protein 30 (1+) mg/dL (Neg-Trace)
[2022-11-13 17:01] LABS: Bacteria Urine None Seen (None Seen); Calcium Oxalate Crystals Urine Present; UACC Culture Trigger YES; WBC Urine 21-50 /HPF (0-5)
[2022-11-13 17:28] LABS: Influenza A PCR NEGATIVE (Negative); Influenza B PCR NEGATIVE (Negative); Resp Syncy Virus RNA Qual PCR NEGATIVE (Negative); SARS COV2 PCR INHOUSE NEGATIVE (Negative)
--- NOTE | 2022-11-13 19:29 | ED_ITS ---
HPI - General Adult General Chief complaint: General Medical Stated complaint: left arm reddend and swollen Time Seen by Provider: 11/13/22 18:44 History of Present Illness HPI narrative: Patient is a 42-year-old female with a history of polysubstance abuse. History of IV/IM cocaine and heroin abuse. Patient complaining of swelling and redness to the left upper extremity today. Presented to the emergency department. No fever no chills. Patient does not want an IV in her neck in her arms . Patient got very agitated because she waited for a few hours. Related Data Home Medications Medication Instructions Recorded Confirmed buspirone 10 mg tablet 10 mg PO BID 09/12/22 09/12/22 docusate sodium 100 mg tablet 100 mg PO BID PRN Constipation 09/12/22 09/12/22 duloxetine 20 mg capsule,delayed 20 mg PO DAILY 09/12/22 09/12/22 release ferrous sulfate 325 mg (65 mg 325 mg PO DAILY 09/12/22 09/12/22 iron) tablet fluoxetine 40 mg capsule 40 mg PO DAILY 09/12/22 09/12/22 gabapentin 300 mg capsule 300 mg PO DAILY@1200 09/12/22 09/12/22 gabapentin 600 mg tablet 600 mg PO BID 09/12/22 09/12/22 hydroxyzine HCl 25 mg tablet 25 - 50 mg PO Q6H PRN Anxiety 09/12/22 09/12/22 ibuprofen 600 mg tablet 600 mg PO TID PRN Pain 09/12/22 09/12/22 methadone 10 mg/mL oral 65 mg PO DAILY 09/12/22 09/13/22 concentrate (Methadose) nicotine (polacrilex) 4 mg buccal 4 mg buccal Q2-4H PRN Nicotine 09/12/22 09/12/22 lozenge Cravings nicotine 21 mg/24 hr daily 1 patch transdermal DAILY PRN 09/12/22 09/12/22 transdermal patch Nicotine Cravings polyethylene glycol 3350 17 gram 17 g PO BID PRN Constipation 09/12/22 09/12/22 oral powder packet trazodone 100 mg tablet 100 mg PO BEDTIME 09/12/22 09/12/22 Previous Rx's Medication Instructions Recorded sulfamethoxazole 800 1 tab PO Q12H #13 tabs 09/20/22 mg-trimethoprim 160 mg tablet valacyclovir 1 gram tablet 1,000 mg PO Q12H #10 tabs 09/20/22 (Valtrex) diphenhydramine HCl 25 mg capsule 25 - 50 mg PO TID PRN allergy 09/26/22 symptoms 4 days #20 caps prednisone 20 mg tablet 40 mg PO DAILY #8 tabs 09/26/22 minocycline 100 mg capsule 100 mg PO BID #14 caps 09/27/22 doxycycline hyclate 100 mg capsule 100 mg PO BID cough 7 days #14 caps 11/13/22 Allergies Allergy/AdvReac Type Severity Reaction Status Date / Time Fish Containing Products Allergy Severe ANAPHYLAXIS Verified 11/13/22 15:57 Review of Systems Review of Systems: Positive swelling to the left arm. No fever no chills PMFSH Past Medical History Attestation statement: The following information was validated with the patient. Medical History Abscess Bacterial vaginosis Screening for cervical cancer Screening for diabetes mellitus (DM) Screening for hypercholesterolemia Substance abuse Surgical History History of section Family History Family History Father No problems noted. Mother HTN (hypertension) Social History Social History Household Members: Family Household Members Other:: 1 Housing: Apartment Do you presently have visiting nurse or other home services: No Alcohol intake: former Patient Tobacco Use Status: Never used Tobacco Tobacco use type: Cigarette Cigarettes Per Day: 5 Substance Use Type: Crack/Cocaine, Heroin and IV Drugs Advance Directives: No Advance Directives Information Provided: Yes service: No Current occupational status: unemployed Physical Exam ED Vital Signs: Vital Signs - 24 hr 11/13/22 15:59 Temperature 99.1 F Pulse Rate 100 Respiratory Rate 18 Blood Pressure 124/79 Pulse Oximetry 95 Oxygen Delivery Method Room Air BMI result Body Mass Index 26.6 Appearance: Alert. Oriented X3. No acute distress. Eyes: Pupils equal, round and reactive to light. ENT: Pharynx normal. Neck: Normal inspection. Neck supple. No lymph nodes noted. No crepitus CVS: Normal heart rate and rhythm. Pulses normal. Normal S1 and S2 Respiratory: No respiratory distress. Breath sounds normal. No Wheezing. No rales Abdomen: Soft and nontender. No rigidity. No distention. good BS x4 Skin: Skin warm and dry. Normal skin color. Normal skin turgor. Extremities: Examination of the left upper extremity patient has increased redness extending the entire dorsum of the hand all the way down to the metacarpal pharyngeal joint patient has swelling to the palm side of the wrist. There is multiple holes in the skin suggestive of previous infection. There is no gross abscess that was palpable. Warm to touch. Blanching. Read. Patient's has pain on movement of the metacarpal pharyngeal joint of the index finger. Movement of the long ring and pinkie intact. Sensation intact capillary refill less than 2 seconds. Neuro: Oriented X 3. No motor deficit. No sensory deficit. Moving all extermities. No slurred speech Medical Decision Making Medical Decision Making [facility] Narrative: Given the extent of the cellulitis. Previous history of substance abuse risk of MRSA, explained to patient the need for laboratory evaluation along with culture. Patient offer IV antibiotic and admission. X-ray to rule out osteomyelitis. Patient refused. Doppler of the upper extremity showed no blood clots. Patient did not want any blood work at this time. Wants to leave against medical advice. Will start patient on oral antibiotic as the next best option. Will give doxycycline to cover for MRSA. Patient explained she can come back at any time. She is leaving against medical advice. Understood the risks including losing her hand losing her life horrible infections Lab Data [facility] Lab Attestation statement: I reviewed the patient's lab results. Labs: Lab Results 11/13/22 11/13/22 Range/Units 16:37 16:37 Urine Color Dark Yellow Urine Appearance Cloudy Urine pH 6.0 (5.0-9.0) Ur Specific [place] >= 1.030 H (1.005-1.025) Urine Protein 30 (1+) H (Neg-Trace) mg/dL Urine Glucose (UA) Negative (Negative) mg/dL Urine Ketones Trace (Negative) mg/dL Urine Blood Negative (Negative) Urine Nitrite Negative (Negative) Ur Leukocyte Esterase Small (1+) H (Negative) Urine RBC 3-5 H (0-2) /HPF Urine WBC 21-50 H (0-5) /HPF Ur Squamous Epith Cells 3-5 (0-2) /HPF Calcium Oxalate Crystal Present Urine Bacteria None Seen (None Seen) Hyaline Casts 3-5 (0-2) /LPF Influenza Type A (PCR) NEGATIVE (Negative) Influenza Type B (PCR) NEGATIVE (Negative) RSV RNA Qual (PCR) NEGATIVE (Negative) SARS-CoV-2 RNA (RT-PCR) NEGATIVE (Negative) Discharge Plan Discharge Clinical Impression: Substance abuse, Cellulitis Patient Disposition: Left Against Medical Advice Instructions: Cellulitis (ED), Polysubstance Abuse (ED) Prescriptions: New doxycycline hyclate 100 mg capsule 100 mg PO BID 7 Days Qty: 14 0RF No Action fluoxetine 40 mg Capsule 40 mg PO DAILY gabapentin 600 mg Tablet 600 mg PO BID polyethylene glycol 3350 17 gram Powder In Packet 17 g PO BID PRN (Reason: Constipation) trazodone 100 mg Tablet 100 mg PO BEDTIME ferrous sulfate 325 mg (65 mg iron) Tablet 325 mg PO DAILY buspirone 10 mg Tablet 10 mg PO BID nicotine 21 mg/24 hr Patch 24 Hour 1 patch TRANSDERMAL DAILY PRN (Reason: Nicotine Cravings) gabapentin 300 mg Capsule 300 mg PO DAILY@1200 hydroxyzine HCl 25 mg Tablet 25 - 50 mg PO Q6H PRN (Reason: Anxiety) ibuprofen 600 mg Tablet 600 mg PO TID PRN (Reason: Pain) docusate sodium 100 mg Tablet 100 mg PO BID PRN (Reason: Constipation) nicotine (polacrilex) 4 mg Lozenge 4 mg BUCCAL Q2-4H PRN (Reason: Nicotine Cravings) duloxetine 20 mg Capsule,Delayed Release(Dr/Ec) 20 mg PO DAILY methadone [Methadose] 10 mg/mL Concentrate 65 mg PO DAILY sulfamethoxazole-trimethoprim 800-160 mg Tablet 1 tab PO Q12H Qty: 13 0RF valacyclovir [Valtrex] 1 gram tablet 1,000 mg PO Q12H Qty: 10 0RF diphenhydramine HCl 25 mg capsule 25 - 50 mg PO TID PRN (Reason: allergy symptoms) 4 Days Qty: 20 0RF prednisone 20 mg tablet 40 mg PO DAILY Qty: 8 0RF minocycline 100 mg capsule 100 mg PO BID Qty: 14 0RF Referrals: Physician,Unknown J [Primary Care Provider] - 1 day (If you change of mind come back to the emergency department) Stand Alone Forms: Against Medical Advice
--- NOTE | 2022-11-13 19:41 | MHC.EDTECH ---
pt refused blood work doctoir aware and nurse
[2022-11-13] MEDS: Doxycycline Monohydrate 100 MG CAPSULE PO (19:45)
[2022-11-13] MEDS: Ibuprofen 800 MG TABLET PO (19:55)
--- NOTE | 2022-11-13 19:58 | PC.NURSE ---
Pt aox4. Unable to assess vitals as pt is refusing and wanting to leave against medical advice. Medicated as ordered. Tolerated well. Discharge instructions reviewed with pt. AMA info reviewed with pt. Pt verbalizes understanding and risks.
== END 2022-11-13 20:00 | disposition left against medical advice (07) ==
PROVIDERS: Physician Assistant Medical; Emergency Provider Emergency Medicine Emergency Medical Services
DX: L03.114 Cellulitis of left upper limb (principal); R60.0 Localized edema; F11.10 Opioid abuse, uncomplicated; F14.10 Cocaine abuse, uncomplicated; F17.210 Nicotine dependence, cigarettes, uncomplicated; Z20.822 Contact with and (suspected) exposure to COVID-19; Z20.828 Contact with and (suspected) exposure to other viral communicable diseases; Z79.899 Other long term (current) drug therapy; Z71.6 Tobacco abuse counseling
CPT/HCPCS: 0241U; 81001; 87086; 93970; 99284

== ENCOUNTER 2023-06-11 11:03 | Emergency (ER) | payer OTHER, SELFPAY ==
--- NOTE | 2023-06-11 11:58 | ED.GENADULT ---
HPI - General Adult General Chief complaint: Eye Problems Stated complaint: eye infection Time Seen by Provider: 06/11/23 12:01 Source: patient Mode of arrival: ambulatory Limitations: no limitations History of Present Illness HPI narrative: Patient is a 43 year old assigned female at with a history of herpes and substance abuse presenting to the emergency department today with eye irritation and drainage. Patient states that over the last 3 days she has had bilateral eye itching and discharge from the corners of her eyes, resulting in matted eyes when she wakes up. Patient denies any dizziness, lightheadedness, abdominal pain, nausea, vomiting, fever, chills, blurry vision, double vision, loss of vision, chest pain, difficulty breathing, shortness of breath, back pain, night sweats, pain with urination, increased urinary frequency, increased urinary urgency, blood in her urine or stool, syncope or a near syncopal episode, recent trauma or falls, bowel incontinence, bladder incontinence, bowel retention, bladder retention, or any other complaints at this time. Onset (ago): day(s) (3) Location: eyes, left and right Radiation: non-radiation Severity: mild Severity scale (1-10): 3 Pain Consistency: constant Associated symptoms: denies other symptoms Treatments prior to arrival: none Related Data Home Medications Medication Instructions Recorded Confirmed buspirone 10 mg tablet 10 mg PO BID 09/12/22 09/12/22 docusate sodium 100 mg tablet 100 mg PO BID PRN Constipation 09/12/22 09/12/22 duloxetine 20 mg capsule,delayed 20 mg PO DAILY 09/12/22 09/12/22 release ferrous sulfate 325 mg (65 mg 325 mg PO DAILY 09/12/22 09/12/22 iron) tablet fluoxetine 40 mg capsule 40 mg PO DAILY 09/12/22 09/12/22 gabapentin 300 mg capsule 300 mg PO DAILY@1200 09/12/22 09/12/22 gabapentin 600 mg tablet 600 mg PO BID 09/12/22 09/12/22 hydroxyzine HCl 25 mg tablet 25 - 50 mg PO Q6H PRN Anxiety 09/12/22 09/12/22 ibuprofen 600 mg tablet 600 mg PO TID PRN Pain 09/12/22 09/12/22 methadone 10 mg/mL oral 65 mg PO DAILY 09/12/22 09/13/22 concentrate (Methadose) nicotine (polacrilex) 4 mg buccal 4 mg buccal Q2-4H PRN Nicotine 09/12/22 09/12/22 lozenge Cravings nicotine 21 mg/24 hr daily 1 patch transdermal DAILY PRN 09/12/22 09/12/22 transdermal patch Nicotine Cravings polyethylene glycol 3350 17 gram 17 g PO BID PRN Constipation 09/12/22 09/12/22 oral powder packet trazodone 100 mg tablet 100 mg PO BEDTIME 09/12/22 09/12/22 Previous Rx's Medication Instructions Recorded sulfamethoxazole 800 1 tab PO Q12H #13 tabs 09/20/22 mg-trimethoprim 160 mg tablet valacyclovir 1 gram tablet 1,000 mg PO Q12H #10 tabs 09/20/22 (Valtrex) diphenhydramine HCl 25 mg capsule 25 - 50 mg (1 - 2 x 25 mg) PO TID 09/26/22 PRN allergy symptoms 4 days #20 caps prednisone 20 mg tablet 40 mg (2 x 20 mg) PO DAILY #8 tabs 09/26/22 minocycline 100 mg capsule 100 mg PO BID #14 caps 09/27/22 doxycycline hyclate 100 mg capsule 100 mg PO BID cough 7 days #14 caps 11/13/22 erythromycin 5 mg/gram (0.5 %) eye 0.5 inch ophthalmic (eye) Q4H #3.5 06/11/23 ointment grams Allergies Allergy/AdvReac Type Severity Reaction Status Date / Time Fish Containing Products Allergy Severe ANAPHYLAXIS Verified 06/11/23 11:59 Review of Systems Constitutional: Constitutional: Reports no additional constitutional complaints, Denies chills, Denies fever(s) and Denies night sweats Eyes: Eyes: Reports no additional eye complaints, Denies blurry vision, Denies change in vision, Denies diplopia, Reports eye discharge, Reports irritation, Denies loss of vision and Denies eye pain ENT: Denies dizziness Cardiovascular: Cardiovascular: Reports no additional cardiovascular complaints, Denies chest pain, Denies lightheadedness, Denies Loss of Consciousness and Denies dyspnea Respiratory: Respiratory: Reports no additional respiratory complaints and Denies dyspnea Gastrointestinal: Gastrointestinal: Reports no additional gastrointestinal complaints, Denies abdominal pain, Denies melena, Denies hematochezia, Denies change in bowel habits and Denies change in stool character Genitourinary: Genitourinary: Denies hematuria, Denies urinary frequency, Denies dysuria, Denies urinary incontinence, Denies urinary hesitancy and Denies urinary urgency Musculoskeletal: Musculoskeletal: Reports no additional musculoskeletal complaints, Denies numbness and Denies tingling Neurologic: Denies dizziness, Denies loss of vision, Denies numbness and Denies tingling Psychiatric: Psychiatric: Reports no additional psychiatric complaints Endocrine: Endocrine: Reports no additional endocrine complaints Hematologic/Lymphatic: Hematologic/Lymphatic: Reports no additional hematologic/lymphatic complaints Allergic/Immunologic: Allergic/Immunologic: Reports no additional allergic/immunologic complaints [facility] Past Medical History Attestation statement: The following information was validated with the patient. Source: old records reviewed and nursing notes reviewed Medical History Substance abuse Bacterial vaginosis Abscess Screening for cervical cancer Screening for hypercholesterolemia Screening for diabetes mellitus (DM) Surgical History History of section Family History Family History Father No problems noted. Mother HTN (hypertension) Social History Social History Household Members: Family Household Members Other:: 1 Housing: Apartment Do you presently have visiting nurse or other home services: No Alcohol intake: former Patient Tobacco Use Status: Never used Tobacco Tobacco use type: Cigarette Cigarettes Per Day: 5 Substance Use Type: Crack/Cocaine, Heroin and IV Drugs service: No Current occupational status: unemployed Physical Exam ED Vital Signs: Vital Signs - 24 hr 06/11/23 11:59 Temperature 97.6 F Pulse Rate 6 L Respiratory Rate 16 Blood Pressure 135/70 Pulse Oximetry 94 Oxygen Delivery Method Room Air BMI result Body Mass Index 31.6 Const General: cooperative, no acute distress, alert and awake Nutritional Appearance: well nourished Orientation/consciousness: patient oriented x3 Limitations: no limitations HENMT Head: Yes normal to inspection and Yes atraumatic Ears: hearing grossly normal bilaterally and external ears normal General nose exam: Normal external nose present, no nasal discharge noted and no epistaxis Face and sinus: Yes normal facial exam, No abrasion and No laceration Mouth: Normal oral and palatal mucosa present, no drooling and no muffled voice Eyes Other: bilateral irritation and small amount of discharge from the medial corner of both eyes Periorbital: periorbital findings normal Eyelids: Yes eyelids normal Pupils: Equal, round and reactive pupils present EOM: EOMs intact bilaterally Neck Neck: Yes normal visual inspection, Yes full ROM and Yes no lymphadenopathy Chest Chest palpation & inspection: normal inspection of the chest Resp Effort & Inspection: normal respiratory effort and able to speak in complete sentences GI Inspection: Yes normal to inspection Neuro General: patient oriented x3 and moves all extremities Cranial nerves: Yes Equal, round and reactive pupils present Cognition (Neuro): normal cognition Motor exam (neuro): 5/5 motor strength present throughout Sensory Exam: Normal double simultaneous stimulation for sensation Coordination: [id number] test normal Extrem General: Yes normal to inspection, Yes full ROM and Yes capillary refill normal Psych Appearance: grossly normal Mental Status: mental status grossly normal Affect: normal affect Attitude: cooperative Thought process: Normal thought process present Thought content: Normal thought content present Insight: Good insight present (Psych) Medical Decision Making Medical Decision Making MDM Narrative: Patient is a 43 year old assigned female at with a history of herpes and substance abuse presenting to the emergency department today with bilateral eye irritation and discharge. Patient's physical exam was as noted in the physical exam portion of this note. Patient's presentation is most consistent with conjunctivitis. I explained my physical exam findings to the patient. I answered all questions asked by the patient. I stressed the importance of the patient taking her medication as prescribed. I stressed the importance of the patient following up with her primary care provider. I stressed the importance of the patient returning to the emergency department immediately if her symptoms were to worsen or if she were to develop any dizziness, shortness of breath, difficulty breathing, chest pain, blurry vision, loss of vision, nausea, vomiting, abdominal pain, fever, chills, back pain, or any other complaints. Patient verbalized agreement and understanding with this treatment plan and discharge. Differential Diagnosis Differential Diagnoses: The differential diagnosis associated with the presentation includes Conjunctivitis Prescription Management I considered prescription management with: Antibiotic (patient prescribed an antibiotic for her eyes) Discharge Plan Discharge Clinical Impression: Conjunctivitis Patient Disposition: Home, Self-Care Instructions: Conjunctivitis (ED) Additional Instructions: Follow up with your primary care provider. Return to the emergency department immediately if your symptoms worsen or if you develop any dizziness, shortness of breath, difficulty breathing, chest pain, blurry vision, loss of vision, nausea, vomiting, abdominal pain, fever, chills, back pain, or any other complaints. Prescriptions: New erythromycin 5 mg/gram (0.5 %) ointment 0.5 inch ophthalmic (eye) Q4H Qty: 3.5 0RF No Action doxycycline hyclate 100 mg capsule 100 mg PO BID 7 Days Qty: 14 0RF fluoxetine 40 mg Capsule 40 mg PO DAILY gabapentin 600 mg Tablet 600 mg PO BID polyethylene glycol 3350 17 gram Powder In Packet 17 g PO BID PRN (Reason: Constipation) trazodone 100 mg Tablet 100 mg PO BEDTIME ferrous sulfate 325 mg (65 mg iron) Tablet 325 mg PO DAILY buspirone 10 mg Tablet 10 mg PO BID nicotine 21 mg/24 hr Patch 24 Hour 1 patch TRANSDERMAL DAILY PRN (Reason: Nicotine Cravings) gabapentin 300 mg Capsule 300 mg PO DAILY@1200 hydroxyzine HCl 25 mg Tablet 25 - 50 mg PO Q6H PRN (Reason: Anxiety) ibuprofen 600 mg Tablet 600 mg PO TID PRN (Reason: Pain) docusate sodium 100 mg Tablet 100 mg PO BID PRN (Reason: Constipation) nicotine (polacrilex) 4 mg Lozenge 4 mg BUCCAL Q2-4H PRN (Reason: Nicotine Cravings) duloxetine 20 mg Capsule,Delayed Release(Dr/Ec) 20 mg PO DAILY methadone [Methadose] 10 mg/mL Concentrate 65 mg PO DAILY sulfamethoxazole-trimethoprim 800-160 mg Tablet 1 tab PO Q12H Qty: 13 0RF valacyclovir [Valtrex] 1 gram tablet 1,000 mg PO Q12H Qty: 10 0RF diphenhydramine HCl 25 mg capsule 25 - 50 mg PO TID PRN (Reason: allergy symptoms) 4 Days Qty: 20 0RF prednisone 20 mg tablet 40 mg PO DAILY Qty: 8 0RF minocycline 100 mg capsule 100 mg PO BID Qty: 14 0RF Referrals: [facility] Family Medicine [Provider Group] (Call to establish and follow up with a primary care provider. If you already have a primary care provider, please follow up with them.) [facility] Primary Care, Mee [Provider Group] (Call to establish and follow up with a primary care provider. If you already have a primary care provider, please follow up with them.) [facility] Primary Care,Antonio [Provider Group] (Call to establish and follow up with a primary care provider. If you already have a primary care provider, please follow up with them.) Print Language: Mold[place]
[2023-06-11 11:59] VITALS: BP 135/70; PULSE 96; RESP 16; TEMP 36.4; O2SAT 94; BMI 31.6
== END 2023-06-11 12:09 | disposition home or self-care (01) ==
LOC: HO.ED 12:08
PROVIDERS: Emergency Provider Emergency Medicine
DX: H10.9 Unspecified conjunctivitis (principal); Z79.899 Other long term (current) drug therapy
CPT/HCPCS: 99282; 99283

== ENCOUNTER 2023-07-03 11:30 | Emergency (ER) | payer OTHER, SELFPAY ==
[2023-07-03 11:51] VITALS: BP 142/89; PULSE 70; RESP 16; TEMP 36.8; O2SAT 94; BMI 39.5
--- NOTE | 2023-07-03 11:52 | ED.NAVMDI ---
HPI - Nausea/Vomiting/Diarrhea General Chief complaint: General Medical Stated complaint: Vomiting Time Seen by Provider: 07/03/23 17:21 Source: patient, family, RN notes reviewed and old records reviewed Mode of arrival: ambulatory Limitations: no limitations History of Present Illness HPI Narrative: 43-year-old female presents for evaluation of vomiting, cough, congestion. She states that she fell while when she 1st woke up her symptoms started shortly after She reports vomiting several times. She has some mild abdominal pain. This has since resolved She complains of cough, congestion She states that her mother was recently sick with similar symptoms and tested negative for COVID and influenza The patient denies any fevers or chills Associated nausea: Yes Related Data Home Medications Medication Instructions Recorded Confirmed buspirone 10 mg tablet 10 mg PO BID 09/12/22 09/12/22 docusate sodium 100 mg tablet 100 mg PO BID PRN Constipation 09/12/22 09/12/22 duloxetine 20 mg capsule,delayed 20 mg PO DAILY 09/12/22 09/12/22 release ferrous sulfate 325 mg (65 mg 325 mg PO DAILY 09/12/22 09/12/22 iron) tablet fluoxetine 40 mg capsule 40 mg PO DAILY 09/12/22 09/12/22 gabapentin 300 mg capsule 300 mg PO DAILY@1200 09/12/22 09/12/22 gabapentin 600 mg tablet 600 mg PO BID 09/12/22 09/12/22 hydroxyzine HCl 25 mg tablet 25 - 50 mg PO Q6H PRN Anxiety 09/12/22 09/12/22 ibuprofen 600 mg tablet 600 mg PO TID PRN Pain 09/12/22 09/12/22 methadone 10 mg/mL oral 65 mg PO DAILY 09/12/22 09/13/22 concentrate (Methadose) nicotine (polacrilex) 4 mg buccal 4 mg buccal Q2-4H PRN Nicotine 09/12/22 09/12/22 lozenge Cravings nicotine 21 mg/24 hr daily 1 patch transdermal DAILY PRN 09/12/22 09/12/22 transdermal patch Nicotine Cravings polyethylene glycol 3350 17 gram 17 g PO BID PRN Constipation 09/12/22 09/12/22 oral powder packet trazodone 100 mg tablet 100 mg PO BEDTIME 09/12/22 09/12/22 Previous Rx's Medication Instructions Recorded sulfamethoxazole 800 1 tab PO Q12H #13 tabs 09/20/22 mg-trimethoprim 160 mg tablet valacyclovir 1 gram tablet 1,000 mg PO Q12H #10 tabs 09/20/22 (Valtrex) diphenhydramine HCl 25 mg capsule 25 - 50 mg (1 - 2 x 25 mg) PO TID 09/26/22 PRN allergy symptoms 4 days #20 caps prednisone 20 mg tablet 40 mg (2 x 20 mg) PO DAILY #8 tabs 09/26/22 minocycline 100 mg capsule 100 mg PO BID #14 caps 09/27/22 doxycycline hyclate 100 mg capsule 100 mg PO BID cough 7 days #14 caps 11/13/22 erythromycin 5 mg/gram (0.5 %) eye 0.5 inch ophthalmic (eye) Q4H #3.5 06/11/23 ointment grams ondansetron 4 mg disintegrating 4 mg PO Q8H PRN nausea and 07/03/23 tablet vomiting #20 tabs Allergies Allergy/AdvReac Type Severity Reaction Status Date / Time Fish Containing Products Allergy Severe ANAPHYLAXIS Verified 06/11/23 11:59 Review of Systems Constitutional: Constitutional: Denies body ache(s), Denies chills and Denies fever(s) ENT: Denies sore throat Cardiovascular: Cardiovascular: Denies chest pain and Denies dyspnea Respiratory: Respiratory: Reports chest congestion, Reports cough, Denies dyspnea and Denies wheezing Gastrointestinal: Gastrointestinal: Reports abdominal pain, Reports nausea and Reports vomiting Genitourinary: Genitourinary: Denies difficulty voiding, Denies dysuria, Denies pelvic pain and Denies urinary urgency Musculoskeletal: Musculoskeletal: Denies back pain Integumentary/Breasts: Skin/Breast: Denies rash Allergic/Immunologic: Allergic/Immunologic: Denies wheezing PMFSH Past Medical History Medical History Substance abuse Bacterial vaginosis Abscess Screening for cervical cancer Screening for hypercholesterolemia Screening for diabetes mellitus (DM) Surgical History History of section Family History Family History Father No problems noted. Mother HTN (hypertension) Social History Social History Household Members: Family Household Members Other:: 1 Housing: Apartment Do you presently have visiting nurse or other home services: No Alcohol intake: former Patient Tobacco Use Status: Never used Tobacco Tobacco use type: Cigarette Cigarettes Per Day: 5 Substance Use Type: Crack/Cocaine, Heroin and IV Drugs Advance Directives: No service: No Current occupational status: unemployed Physical Exam Vital Signs: Vital Signs: Last Vital Signs Temp 98.2 F 07/03/23 11:51 Pulse 70 07/03/23 11:51 Resp 16 07/03/23 11:51 BP 142/89 H 07/03/23 11:51 Pulse Ox 94 07/03/23 11:51 O2 Del Method Room Air 07/03/23 11:51 BMI result Body Mass Index 39.5 Const: General: healthy appearing, comfortable, no acute distress, alert and awake Nutritional Appearance: well nourished Orientation/consciousness: patient oriented x3 HEENT: Head: Yes normocephalic and Yes atraumatic Eyes: Eyelids: Yes eyelids normal Conjunctivae: conjunctivae normal Sclerae: sclerae normal Corneas: corneas normal Pupils: Equal, round and reactive pupils present EOM: EOMs intact bilaterally Neck: Neck: Yes full ROM Resp: Effort & Inspection: normal respiratory effort, able to speak in complete sentences, no audible wheezes and not labored Auscultation: clear to auscultation bilaterally GI: Inspection: No distended Palpation (GI): Soft to palpation, not firm, nontender, no guarding and not rigid Skin: General skin exam: no rashes or lesions noted and elasticity normal Neuro: General: patient oriented x3 Cranial nerves: Yes Equal, round and reactive pupils present and Yes Bilaterally intact EOM present Cognition (Neuro): normal cognition Course Course Course Narrative: RME: 43yo F w/PMHx substance use/IVDA, obesity, c/o N/V/D, abdominal pain and multiple abscess x little while . Admits to relapsing on Heroin 2 weeks ago. Also reports cocaine use. Last used 2 weeks ago. denies fever, chills, travel. Admits to taking her Mathadone this morning (75mg). Is not interested in detox Dry heaving in triage Labs, UA, [place], ethanol, IVF ordered Full HPI, ROS and PE to be performed by primary ED provider. Medications Administered Discontinued Medications Generic Name Dose Route Start Last Admin Trade Name Rico PRN Reason Stop Dose Admin Ondansetron HCl 4 mg 07/03/23 11:58 07/03/23 12:01 Ondansetron Odt 4 Mg Tab.Brent CHANG 07/03/23 11:59 4 mg ONCE ONE Administration Medical Decision Making Medical Decision Making [facility] Narrative: 43-year-old female past medical history significant for substance abuse, depression presents for evaluation of vomiting. At the time of my evaluation several hours has been tolerating p.o. in the waiting room reports that she feels better. She also complains of some upper respiratory congestion but denies shortness of breath. Her vital signs are within normal limits. She is well-appearing. Her labs are reassuring. Her urine has blood but she reports that she is on menstrual cycle. She denies any UTI symptoms. Will discharge her with Zofran for any continued symptoms. She will follow-up with her PCP Differential Diagnosis Differential Diagnoses: The differential diagnosis associated with the presentation includes Viral syndrome Substance abuse Upper respiratory infection Pneumonia Bronchitis Gastroenteritis Lab Data [facility] Lab Attestation statement: I reviewed the patient's lab results. No leukocytosis or anemia. Patient's chloride is just above normal at 109 but otherwise no electrolyte abnormalities. Patient's glucose is 161 but she reports eating and drinking just prior to labs 07/03/23 12:52 07/03/23 12:52 Labs: Lab Results 07/03/23 Range/Units 12:52 WBC 6.9 (4.8-10.8) X10*3/uL RBC 4.45 D (4.20-5.50) X10*6/uL Hgb 12.9 D (12.0-16.0) g/dl Hct 38.3 D (37.0-47.0) % MCV 86.1 (80.0-98.0) fL MCH 29.0 (27.0-33.0) pg MCHC 33.7 (31.0-35.0) g/dl RDW 12.6 (11.0-16.0) % Plt Count 229 D (160-400) X10*3/uL MPV 10.5 (9.4-12.3) fL Immature Gran % (Auto) 0.3 (0.0-0.4) % Neut % (Auto) 79.9 H (45-73) % Lymph % (Auto) 15.8 L (20-40) % [place] % (Auto) 3.5 (2-11) % Eos % (Auto) 0.4 (0-4) % Baso % (Auto) 0.1 (0-2) % Lymph # (Auto) 1.1 L (1.2-4.9) X10*3/uL [place] # (Auto) 0.2 (0.1-1.2) X10*3/uL Eos # (Auto) 0.0 (0.0-0.4) X10*3/uL Baso # (Auto) 0.0 (0.0-0.2) X10*3/uL Abs Immat Gran (auto) 0.02 (0.00-0.03) X10*3/uL Absolute Neuts (auto) 5.5 (2.0-8.3) x10*3/uL Absolute Nucleated RBC 0.000 (0.0-0.012) X10*3/uL Nucleated RBC % (auto) 0.0 (0.0-0.2) /100WBC Sodium 138 (135-145) mmol/L Potassium 4.2 (3.3-5.1) mmol/L Chloride 109 H (96-108) mmol/L Carbon Dioxide 22 (22-29) mmol/L Anion Gap 11 L (12-20) BUN 12 (9-16) mg/dL Creatinine 0.83 (0.5-1.4) mg/dL Estim Creat Clear Calc 108.8 Estimated GFR > 60 Random Glucose 161 H (60-115) mg/dL Calcium 9.2 (8.4-10.2) mg/dL Magnesium 1.8 (1.6-2.6) mg/dL Total Bilirubin 0.2 (0.0-1.0) mg/dL Direct Bilirubin < 0.2 (0.0-0.5) mg/dL AST 17 (5-31) U/L ALT 15 (0-31) U/L Alkaline Phosphatase 78 (39-117) U/L Total Protein 8.1 H (6.5-8.0) g/dL Albumin 4.0 (3.5-5.0) g/dL Lipase 18 (8-78) U/L Beta HCG, Quant < 2 mIU/mL Urine Color Yellow Urine Appearance Turbid Urine pH 8.5 (5.0-9.0) Ur Specific [place] 1.020 (1.005-1.025) Urine Protein 30 (1+) H (Neg-Trace) mg/dL Urine Glucose (UA) Negative (Negative) mg/dL Urine Ketones Negative (Negative) mg/dL Urine Blood Large (3+) H (Negative) Urine Nitrite Negative (Negative) Ur Leukocyte Esterase Trace H (Negative) Urine RBC >20 H (0-2) /HPF Urine WBC 0-5 (0-5) /HPF Ur Squamous Epith Cells 6-10 (0-2) /HPF Urine Bacteria 1+ (None Seen) Hyaline Casts 0-2 (0-2) /LPF Urine Opiates Screen POSITIVE H (Not Detect) Urine Fentanyl Screen POSITIVE H (Not Detect) Ur Barbiturates Screen Not Detected (Not Detect) Ur Phencyclidine Scrn Not Detected (Not Detect) Ur Amphetamines Screen Not Detected (Not Detect) U Benzodiazepines Scrn Not Detected (Not Detect) Urine Cocaine Screen POSITIVE H (Not Detect) U Marijuana (THC) Screen Not Detected (Not Detect) Ethyl Alcohol < 10 mg/dL Discharge Plan Discharge Clinical Impression: Vomiting, Acute viral syndrome Patient Disposition: Home, Self-Care Instructions: Acute Nausea and Vomiting (ED) Additional Instructions: Your workup in the emergency department today was reassuring. This includes your blood work and urine sample Your symptoms may be related to a virus Take all of your medications as prescribed Use Zofran as needed for nausea/vomiting Drink lots of fluids, small sips at a time Return for new or worsening symptoms Prescriptions: New ondansetron 4 mg tablet,disintegrating 4 mg PO Q8H PRN (Reason: nausea and vomiting) Qty: 20 0RF No Action doxycycline hyclate 100 mg capsule 100 mg PO BID 7 Days Qty: 14 0RF fluoxetine 40 mg Capsule 40 mg PO DAILY gabapentin 600 mg Tablet 600 mg PO BID polyethylene glycol 3350 17 gram Powder In Packet 17 g PO BID PRN (Reason: Constipation) trazodone 100 mg Tablet 100 mg PO BEDTIME ferrous sulfate 325 mg (65 mg iron) Tablet 325 mg PO DAILY buspirone 10 mg Tablet 10 mg PO BID nicotine 21 mg/24 hr Patch 24 Hour 1 patch TRANSDERMAL DAILY PRN (Reason: Nicotine Cravings) gabapentin 300 mg Capsule 300 mg PO DAILY@1200 hydroxyzine HCl 25 mg Tablet 25 - 50 mg PO Q6H PRN (Reason: Anxiety) ibuprofen 600 mg Tablet 600 mg PO TID PRN (Reason: Pain) docusate sodium 100 mg Tablet 100 mg PO BID PRN (Reason: Constipation) nicotine (polacrilex) 4 mg Lozenge 4 mg BUCCAL Q2-4H PRN (Reason: Nicotine Cravings) duloxetine 20 mg Capsule,Delayed Release(Dr/Ec) 20 mg PO DAILY methadone [Methadose] 10 mg/mL Concentrate 65 mg PO DAILY sulfamethoxazole-trimethoprim 800-160 mg Tablet 1 tab PO Q12H Qty: 13 0RF valacyclovir [Valtrex] 1 gram tablet 1,000 mg PO Q12H Qty: 10 0RF diphenhydramine HCl 25 mg capsule 25 - 50 mg PO TID PRN (Reason: allergy symptoms) 4 Days Qty: 20 0RF prednisone 20 mg tablet 40 mg PO DAILY Qty: 8 0RF minocycline 100 mg capsule 100 mg PO BID Qty: 14 0RF erythromycin 5 mg/gram (0.5 %) ointment 0.5 inch ophthalmic (eye) Q4H Qty: 3.5 0RF
[2023-07-03] MEDS: Ondansetron ODT 4 MG TAB.RAPDIS TRANSLINGU (12:01)
[2023-07-03 12:59] LABS: MANUAL DIFF FLAG NO
[2023-07-03 13:00] LABS: Basophils Percent Auto 0.1 % (0-2); Eosinophils Percent Auto 0.4 % (0-4); Hematocrit 38.3 % (37.0-47.0); Hemoglobin 12.9 g/dl (12.0-16.0); Imm Gran Abs Auto 0.02 X10*3/uL (0.00-0.03); Imm Gran Pct Auto 0.3 % (0.0-0.4); Lymphocytes Absolute Auto 1.1 X10*3/uL (1.2-4.9); Lymphocytes Percent Auto 15.8 % (20-40); Mean Corpuscular HGB Conc 33.7 g/dl (31.0-35.0); Mean Corpuscular Volume 86.1 fL (80.0-98.0); Mean Platelet Volume 10.5 fL (9.4-12.3); Monocytes Absolute Auto 0.2 X10*3/uL (0.1-1.2); Monocytes Percent Auto 3.5 % (2-11); Neutrophils Absolute Auto 5.5 x10*3/uL (2.0-8.3); Neutrophils Percent Auto 79.9 % (45-73); Platelet Count 229 X10*3/uL (160-400); Red Blood Count 4.45 X10*6/uL (4.20-5.50); Red Cell Distribution Width 12.6 % (11.0-16.0); White Blood Count 6.9 X10*3/uL (4.8-10.8)
[2023-07-03 13:01] LABS: Appearance Urine Turbid; Color Urine Yellow; Glucose Urine UA Negative (Negative); Leukocyte Esterase Urine Trace (Negative); Nitrite Urine Negative (Negative); PH 8.5 (5.0-9.0); UMIC TRIGGER UACC YES; Urine Blood Large (3+) (Negative); Urine Ketones Negative (Negative); Urine Protein 30 (1+) mg/dL (Neg-Trace)
[2023-07-03 13:03] LABS: Bacteria Urine 1+ (None Seen); Hyaline Casts Urine 0-2 /LPF (0-2); RBC Urine >20 /HPF (0-2); WBC Urine 0-5 /HPF (0-5)
[2023-07-03 13:09] LABS: Amphetamine Screen Urine Not Detected (Not Detect); Barbiturates, Urine Not Detected (Not Detect); Benzodiazepines Screen Urine Not Detected (Not Detect); Cannabinoid Screen Urine Not Detected (Not Detect); Cocaine Screen Urine POSITIVE (Not Detect); Fentanyl, urine POSITIVE (Not Detect); Opiate Screen Urine POSITIVE (Not Detect); Phencyclidine Screen Urine Not Detected (Not Detect)
[2023-07-03 13:24] LABS: Alanine Aminotransferase 15 U/L (0-31); Alkaline Phosphatase 78 U/L (39-117); Anion Gap 11 (12-20); Aspartate Amino Transferase 17 U/L (5-31); Bilirubin Direct < 0.2 mg/dL (0.0-0.5); Bilirubin Total 0.2 mg/dL (0.0-1.0); Blood Urea Nitrogen 12 mg/dL (9-16); Calcium 9.2 mg/dL (8.4-10.2); Carbon Dioxide 22 mmol/L (22-29); Chloride 109 mmol/L (96-108); Creatinine Clr Calc Pharmacy 108.8; Estimated Glomerular Filt Rate > 60; Ethanol < 10 mg/dL; Glucose Random 161 mg/dL (60-115); HCG Quantitative < 2 mIU/mL; Lipase 18 U/L (8-78); Magnesium 1.8 mg/dL (1.6-2.6); Potassium 4.2 mmol/L (3.3-5.1); Sodium 138 mmol/L (135-145); Total Protein 8.1 g/dL (6.5-8.0)
[2023-07-03 18:02] VITALS: BP 120/76; PULSE 73; RESP 16; TEMP 37.1; O2SAT 95
== END 2023-07-03 18:03 | disposition home or self-care (01) ==
PROVIDERS: Physician Assistant; Emergency Provider Student in an Organized Health Care Education/Training Program
DX: B34.9 Viral infection, unspecified (principal); R11.10 Vomiting, unspecified; F19.10 Other psychoactive substance abuse, uncomplicated; E66.9 Obesity, unspecified; Z68.39 Body mass index [BMI] 39.0-39.9, adult; Z79.899 Other long term (current) drug therapy
CPT/HCPCS: 36415; 80048; 80076; 80307; 81001; 81003; 83690; 83735; 84702; 85025; 99282; 99283

== ENCOUNTER 2023-10-11 05:15 | Emergency (ER) | payer OTHER, SELFPAY ==
[2023-10-11 05:18] VITALS: PULSE 93; RESP 18; TEMP 36.6; O2SAT 95; BMI 34.7
[2023-10-11] MEDS: diazePAM 2 MG TABLET 10 MG PO (06:28)
[2023-10-11 06:43] LABS: Basophils Percent Auto 0.2 % (0-2); Eosinophils Absolute Auto 0.1 X10*3/uL (0.0-0.4); Eosinophils Percent Auto 2.5 % (0-4); Hematocrit 33.1 % (37.0-47.0); Hemoglobin 11.1 g/dl (12.0-16.0); Imm Gran Abs Auto 0.01 X10*3/uL (0.00-0.03); Imm Gran Pct Auto 0.2 % (0.0-0.4); Lymphocytes Percent Auto 38.2 % (20-40); MANUAL DIFF FLAG NO; Mean Corpuscular HGB Conc 33.5 g/dl (31.0-35.0); Mean Corpuscular Hemoglobin 28.9 pg (27.0-33.0); Mean Corpuscular Volume 86.2 fL (80.0-98.0); Monocytes Absolute Auto 0.3 X10*3/uL (0.1-1.2); Monocytes Percent Auto 6.4 % (2-11); Neutrophils Absolute Auto 2.7 x10*3/uL (2.0-8.3); Neutrophils Percent Auto 52.5 % (45-73); Platelet Count 299 X10*3/uL (160-400); Red Blood Count 3.84 X10*6/uL (4.20-5.50); Red Cell Distribution Width 12.6 % (11.0-16.0); White Blood Count 5.2 X10*3/uL (4.8-10.8)
--- NOTE | 2023-10-11 06:44 | ED_ITS ---
HPI - Extremity Problem General Chief complaint: Extremity Injury, Upper Stated complaint: hand infection? Time Seen by Provider: 10/11/23 06:40 Source: patient Mode of arrival: ambulatory Limitations: no limitations History of Present Illness HPI Narrative: Patient is a 43 year old assigned female at with a history of IV drug use presenting to the emergency department today with inability to sleep and wounds. Patient states that she used coke and heroin before coming in and she just wants to have her wounds at and sleep. Patient denies any dizziness, lightheadedness, abdominal pain, nausea, vomiting, fever, chills, blurry vision, double vision, loss of vision, chest pain, difficulty breathing, shortness of breath, back pain, night sweats, pain with urination, increased urinary frequency, increased urinary urgency, blood in her urine or stool, syncope or a near syncopal episode, recent trauma or falls, bowel incontinence, bladder incontinence, bowel retention, bladder retention, or any other complaints at this time. Relieving factors: nothing Exacerbating factors: nothing Related Data Home Medications Medication Instructions Recorded Confirmed buspirone 10 mg tablet 10 mg PO BID 09/12/22 09/12/22 docusate sodium 100 mg tablet 100 mg PO BID PRN Constipation 09/12/22 09/12/22 duloxetine 20 mg capsule,delayed 20 mg PO DAILY 09/12/22 09/12/22 release ferrous sulfate 325 mg (65 mg 325 mg PO DAILY 09/12/22 09/12/22 iron) tablet fluoxetine 40 mg capsule 40 mg PO DAILY 09/12/22 09/12/22 gabapentin 300 mg capsule 300 mg PO DAILY@1200 09/12/22 09/12/22 gabapentin 600 mg tablet 600 mg PO BID 09/12/22 09/12/22 hydroxyzine HCl 25 mg tablet 25 - 50 mg PO Q6H PRN Anxiety 09/12/22 09/12/22 ibuprofen 600 mg tablet 600 mg PO TID PRN Pain 09/12/22 09/12/22 methadone 10 mg/mL oral 65 mg PO DAILY 09/12/22 09/13/22 concentrate (Methadose) nicotine (polacrilex) 4 mg buccal 4 mg buccal Q2-4H PRN Nicotine 09/12/22 09/12/22 lozenge Cravings nicotine 21 mg/24 hr daily 1 patch transdermal DAILY PRN 09/12/22 09/12/22 transdermal patch Nicotine Cravings polyethylene glycol 3350 17 gram 17 g PO BID PRN Constipation 09/12/22 09/12/22 oral powder packet trazodone 100 mg tablet 100 mg PO BEDTIME 09/12/22 09/12/22 Previous Rx's Medication Instructions Recorded sulfamethoxazole 800 1 tab PO Q12H #13 tabs 09/20/22 mg-trimethoprim 160 mg tablet valacyclovir 1 gram tablet 1,000 mg PO Q12H #10 tabs 09/20/22 (Valtrex) diphenhydramine HCl 25 mg capsule 25 - 50 mg (1 - 2 x 25 mg) PO TID 09/26/22 PRN allergy symptoms 4 days #20 caps prednisone 20 mg tablet 40 mg (2 x 20 mg) PO DAILY #8 tabs 09/26/22 minocycline 100 mg capsule 100 mg PO BID #14 caps 09/27/22 doxycycline hyclate 100 mg capsule 100 mg PO BID cough 7 days #14 caps 11/13/22 erythromycin 5 mg/gram (0.5 %) eye 0.5 inch ophthalmic (eye) Q4H #3.5 06/11/23 ointment grams ondansetron 4 mg disintegrating 4 mg PO Q8H PRN nausea and 07/03/23 tablet vomiting #20 tabs Allergies Allergy/AdvReac Type Severity Reaction Status Date / Time Fish Containing Products Allergy Severe ANAPHYLAXIS Verified 10/11/23 05:18 Review of Systems 2 Constitutional: Constitutional: Reports no additional constitutional complaints, Denies chills, Denies fever(s) and Denies night sweats Eyes: Eyes: Reports no additional eye complaints, Denies blurry vision, Denies change in vision, Denies diplopia, Denies eye discharge, Denies loss of vision and Denies eye pain ENT: Denies dizziness Cardiovascular: Cardiovascular: Reports no additional cardiovascular complaints, Denies chest pain, Denies lightheadedness, Denies Loss of Consciousness and Denies dyspnea Respiratory: Respiratory: Reports no additional respiratory complaints and Denies dyspnea Gastrointestinal: Gastrointestinal: Reports no additional gastrointestinal complaints, Denies abdominal pain, Denies melena, Denies hematochezia, Denies change in bowel habits and Denies change in stool character Genitourinary: Genitourinary: Denies hematuria, Denies urinary frequency, Denies dysuria, Denies urinary incontinence, Denies urinary hesitancy and Denies urinary urgency Musculoskeletal: Musculoskeletal: Reports no additional musculoskeletal complaints, Denies numbness and Denies tingling Comments: bilateral hand wounds Neurologic: Denies dizziness, Denies loss of vision, Denies numbness and Denies tingling Psychiatric: Psychiatric: Reports abnormal sleep pattern Endocrine: Endocrine: Reports no additional endocrine complaints Hematologic/Lymphatic: Hematologic/Lymphatic: Reports no additional hematologic/lymphatic complaints Allergic/Immunologic: Allergic/Immunologic: Reports no additional allergic/immunologic complaints PMFSH Past Medical History Attestation statement: The following information was validated with the patient. Source: old records reviewed and nursing notes reviewed Medical History Substance abuse Bacterial vaginosis Abscess Screening for cervical cancer Screening for hypercholesterolemia Screening for diabetes mellitus (DM) Surgical History History of section Family History Family History Father No problems noted. Mother HTN (hypertension) Social History Social History Household Members: Family Household Members Other:: 1 Housing: Apartment Do you presently have visiting nurse or other home services: No Alcohol intake: former Patient Tobacco Use Status: Never used Tobacco Tobacco use type: Cigarette Cigarettes Per Day: 5 Smoked in Last 30 Days: Yes Use of substances other than those prescribed or required for medical reasons: Yes Substance Use Type: Crack/Cocaine and Heroin Substance Use Frequency: Chronic Longstanding Last Used Substance: Hours (ago) Advance Directives: No Patient : No service: No Current occupational status: unemployed Physical Exam 2 Vital Signs: Vital Signs: Last Vital Signs Temp 98.9 F 10/11/23 07:59 Pulse 64 10/11/23 07:59 Resp 20 10/11/23 07:59 BP 125/65 10/11/23 07:59 Pulse Ox 97 10/11/23 07:59 O2 Del Method Room Air 10/11/23 07:59 BMI result Body Mass Index 34.7 Const: General: cooperative, no acute distress, alert and awake Nutritional Appearance: well nourished Orientation/consciousness: patient oriented x3 Limitations: no limitations HEENT: Head: Yes normal to inspection and Yes atraumatic Ears: hearing grossly normal bilaterally and external ears normal General nose exam: Normal external nose present, no nasal discharge noted and no epistaxis Face and sinus: Yes normal facial exam, No abrasion and No laceration Mouth: Normal oral and palatal mucosa present, no drooling and no muffled voice Eyes: General: appearance normal, both eyes and all related structures P eriorbital: periorbital findings normal Eyelids: Yes eyelids normal C onjunctivae: conjunctivae normal Pupils: Equal, round and reactive pupils present EOM: EOMs intact bilaterally Neck: Neck: Yes normal visual inspection, Yes full ROM and Yes no lymphadenopathy Chest: Chest palpation & inspection: normal inspection of the chest Resp: Effort & Inspection: normal respiratory effort and able to speak in complete sentences GI: Inspection: Yes normal to inspection Neuro: General: patient oriented x3 and moves all extremities Cranial nerves: Yes Equal, round and reactive pupils present Cognition (Neuro): n ormal cognition Motor exam (neuro): 5/5 motor strength present throughout Sensory Exam: Normal double simultaneous stimulation for sensation C oordination: [id number] test normal Extrem: Other: chronic wounds to bilateral dorsal hands in various stages of healing General: Yes full ROM and Yes capillary refill normal Psych: Other: patient restless, able to answer questions Medications Administered Discontinued Medications Generic Name Dose Route Start Last Admin Trade Name Rico PRN Reason Stop Dose Admin Diazepam 10 mg 10/11/23 06:12 10/11/23 06:28 Diazepam 2 Mg Tablet PO 10/11/23 06:13 10 mg ONCE ONE Administration Medical Decision Making Medical Decision Making [facility] Narrative: Patient is a 43 year old assigned female at with a history of IV drug use presenting to the emergency department today with hand wounds and insomnia. Patient's physical exam was as noted in the physical exam portion of this note. Patient's hands do not appear to have any evidence of cellulitis / current infection. Patient's blood work was unremarkable. I explained my physical exam findings as well as all test results to the patient. I answered all questions asked by the patient. Addiction met with the team and is attempting to find a detox facility for the patient. Patient's disposition pending addiction team. Patient will be given information to follow up with the wound center for her bilateral dorsal hand wounds. Differential Diagnosis Differential Diagnoses: The differential diagnosis associated with the presentation includes Chronic wounds secondary to IV drug use IV drug use Opiate abuse Stimulant abuse Insomnia Admission/Observation Consideration of admission/observation: Escalation of care including admission/observation considered Patient's disposition will be determined after the addiction team evaluation. Consult Healthcare Provider Management of the patient was discussed with: Behavioral Health Provider (spoke with the addiction team as noted in the MDM Rationale portion of this note. ) Lab Data [facility] Lab Attestation statement: I reviewed the patient's lab results. My interpretation of these results are in the MDM Rationale portion of this note. 10/11/23 06:38 10/11/23 06:38 Labs: Lab Results 10/11/23 Range/Units 06:38 WBC 5.2 (4.8-10.8) X10*3/uL RBC 3.84 L (4.20-5.50) X10*6/uL Hgb 11.1 L (12.0-16.0) g/dl Hct 33.1 L (37.0-47.0) % MCV 86.2 (80.0-98.0) fL MCH 28.9 (27.0-33.0) pg MCHC 33.5 (31.0-35.0) g/dl RDW 12.6 (11.0-16.0) % Plt Count 299 D (160-400) X10*3/uL MPV 10.0 (9.4-12.3) fL Immature Gran % (Auto) 0.2 (0.0-0.4) % Neut % (Auto) 52.5 (45-73) % Lymph % (Auto) 38.2 (20-40) % [place] % (Auto) 6.4 (2-11) % Eos % (Auto) 2.5 (0-4) % Baso % (Auto) 0.2 (0-2) % Lymph # (Auto) 2.0 (1.2-4.9) X10*3/uL [place] # (Auto) 0.3 (0.1-1.2) X10*3/uL Eos # (Auto) 0.1 (0.0-0.4) X10*3/uL Baso # (Auto) 0.0 (0.0-0.2) X10*3/uL Abs Immat Gran (auto) 0.01 (0.00-0.03) X10*3/uL Absolute Neuts (auto) 2.7 (2.0-8.3) x10*3/uL Absolute Nucleated RBC 0.000 (0.0-0.012) X10*3/uL Nucleated RBC % (auto) 0.0 (0.0-0.2) /100WBC Sodium 141 (135-145) mmol/L Potassium 3.8 (3.3-5.1) mmol/L Chloride 105 (96-108) mmol/L Carbon Dioxide 27 (22-29) mmol/L Anion Gap 13 (12-20) BUN 9 (9-16) mg/dL Creatinine 0.68 (0.5-1.4) mg/dL Estim Creat Clear Calc 119.5 Estimated GFR > 60 Random Glucose 120 H (60-115) mg/dL Calcium 8.8 (8.4-10.2) mg/dL Total Bilirubin 0.3 (0.0-1.0) mg/dL AST 14 (5-31) U/L ALT 10 (0-31) U/L Alkaline Phosphatase 89 (39-117) U/L Total Protein 8.4 H (6.5-8.0) g/dL Albumin 3.5 (3.5-5.0) g/dL Social Determinants Patient?s care significantly limited by Social Determinants of Health including: Other Social Determinant of Health (admitted drug addiction) Critical Care Time Critical Care Time Critical Care Time: Yes Total Critical Care Time: 35 Attestation: I spent 35 minutes of Critical Care Time with this patient. This does not include time spent on separately reported billable procedures. Discharge Plan Discharge Clinical Impression: Chronic wound, Active intravenous drug use Patient Disposition: Still a Patient Prescriptions: No Action doxycycline hyclate 100 mg capsule 100 mg PO BID 7 Days Qty: 14 0RF fluoxetine 40 mg Capsule 40 mg PO DAILY gabapentin 600 mg Tablet 600 mg PO BID polyethylene glycol 3350 17 gram Powder In Packet 17 g PO BID PRN (Reason: Constipation) trazodone 100 mg Tablet 100 mg PO BEDTIME ferrous sulfate 325 mg (65 mg iron) Tablet 325 mg PO DAILY buspirone 10 mg Tablet 10 mg PO BID nicotine 21 mg/24 hr Patch 24 Hour 1 patch TRANSDERMAL DAILY PRN (Reason: Nicotine Cravings) gabapentin 300 mg Capsule 300 mg PO DAILY@1200 hydroxyzine HCl 25 mg Tablet 25 - 50 mg PO Q6H PRN (Reason: Anxiety) ibuprofen 600 mg Tablet 600 mg PO TID PRN (Reason: Pain) docusate sodium 100 mg Tablet 100 mg PO BID PRN (Reason: Constipation) nicotine (polacrilex) 4 mg Lozenge 4 mg BUCCAL Q2-4H PRN (Reason: Nicotine Cravings) duloxetine 20 mg Capsule,Delayed Release(Dr/Ec) 20 mg PO DAILY methadone [Methadose] 10 mg/mL Concentrate 65 mg PO DAILY sulfamethoxazole-trimethoprim 800-160 mg Tablet 1 tab PO Q12H Qty: 13 0RF valacyclovir [Valtrex] 1 gram tablet 1,000 mg PO Q12H Qty: 10 0RF diphenhydramine HCl 25 mg capsule 25 - 50 mg PO TID PRN (Reason: allergy symptoms) 4 Days Qty: 20 0RF prednisone 20 mg tablet 40 mg PO DAILY Qty: 8 0RF minocycline 100 mg capsule 100 mg PO BID Qty: 14 0RF erythromycin 5 mg/gram (0.5 %) ointment 0.5 inch ophthalmic (eye) Q4H Qty: 3.5 0RF ondansetron 4 mg tablet,disintegrating 4 mg PO Q8H PRN (Reason: nausea and vomiting) Qty: 20 0RF Ref[place]: [facility] [place] [facility] [place]] (Call to establish and follow up with a primary care provider. If you already have a primary care provider, please follow up with them.) [facility] [place]Provider Group] (Call to establish and follow up with a primary care provider. If you already have a primary care provider, please follow up with them.) [facility] [Provider Group] (Call to establish and follow up with a primary care provider. If you already have a primary care provider, please follow up with them.) [facility] [Provider Group] (Call to establish and follow up with the wound center for your dorsal hand wounds. ) Print Language: Finnish
[2023-10-11 06:58] LABS: Alanine Aminotransferase 10 U/L (0-31); Albumin Level 3.5 g/dL (3.5-5.0); Alkaline Phosphatase 89 U/L (39-117); Anion Gap 13 (12-20); Aspartate Amino Transferase 14 U/L (5-31); Bilirubin Total 0.3 mg/dL (0.0-1.0); Blood Urea Nitrogen 9 mg/dL (9-16); Calcium 8.8 mg/dL (8.4-10.2); Carbon Dioxide 27 mmol/L (22-29); Chloride 105 mmol/L (96-108); Creatinine Clr Calc Pharmacy 119.5; Estimated Glomerular Filt Rate > 60; Glucose Random 120 mg/dL (60-115); Potassium 3.8 mmol/L (3.3-5.1); Sodium 141 mmol/L (135-145); Total Protein 8.4 g/dL (6.5-8.0)
--- NOTE | 2023-10-11 07:06 | PC.NURSE ---
Pt comes in from triage with reports of infected wounds from IV drug use. PT reports using just before coming into ED. PT unsteady on feet and jittery. requested to keep curtain open for safety. Pt became upset, and attempted to leave ED. Tor addressed pt at entrance doors and was able to talk pt intoreturning to room. PT medicated as per MAR to help calm her down. Plan of care ongoing.
[2023-10-11 07:59] VITALS: BP 125/65; PULSE 64; RESP 20; TEMP 37.2; O2SAT 97
--- NOTE | 2023-10-11 10:39 | MHC.RECOVRN ---
Addendum entered by Crista Perez 10/11/23 15:41: Bedsearch exhausted. Notified pt, provided pt with list of ATS facilities to follow up outpatient. Pt aware [facility] accepts walk ins beginning at 8AM. Pt denies questions or concerns. Provider aware. Original Note: Met with pt in ED12 after provider request to speak with recovery. Pt presented to ED with BUE wounds. Pt laying in bed, asleep, wakes to voice. When pt wakes is restless, eyes unable to focus/rolling. Pt reports she is currently on methadone, 85 mg through [facility]. 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 Pt is interested in ATS and is willing to go to any facility. Bedsearch will be conducted.
[2023-10-11 14:55] VITALS: BP 133/75; PULSE 72; RESP 18; TEMP 37.1; O2SAT 97
[2023-10-11 16:00] VITALS: BP 110/51; PULSE 55; RESP 16; TEMP 36.7; O2SAT 96
--- NOTE | 2023-10-11 16:42 | MHC.EDTECH ---
Brought patient martine leland, saltine crackers, abby crackers, and a warm blanket.
[2023-10-11 18:00] VITALS: BP 110/50; PULSE 61; RESP 16; TEMP 37.1; O2SAT 97
--- NOTE | 2023-10-11 18:50 | PC.NURSE ---
Verified with Emma from [facility]; last methadone dose was given on 10/10/23 @ 8:53
--- NOTE | 2023-10-11 19:33 | HE.PHANOTE ---
Methadone verification Pharmacy has received the methadone verification form from [facility]. Patient last received methadone 85 mg on 10/10/23 @0889 from [facility]. Information give by Emma at the clinic. Socorro Watts, GaudencioD
--- NOTE | 2023-10-12 02:42 | PC.NURSE ---
PT refused vitals this shift, My arms hurt too much . Appears in no apparent distress, offers no complaints.
[2023-10-12 07:38] VITALS: BP 129/65; PULSE 61; RESP 19; TEMP 37.1
[2023-10-12 07:57] LABS: Appearance Urine Cloudy; Color Urine Yellow; Glucose Urine UA Negative (Negative); Leukocyte Esterase Urine Trace (Negative); Nitrite Urine Negative (Negative); Specific Gravity - Urine 1.025 (1.005-1.025); UMIC TRIGGER UACC YES; Urine Blood Negative (Negative); Urine Ketones Trace mg/dL (Negative); Urine Protein Trace mg/dL (Neg-Trace)
[2023-10-12 08:03] LABS: Amphetamine Screen Urine Not Detected (Not Detect); Barbiturates, Urine Not Detected (Not Detect); Benzodiazepines Screen Urine Not Detected (Not Detect); Cannabinoid Screen Urine POSITIVE (Not Detect); Cocaine Screen Urine POSITIVE (Not Detect); Fentanyl, urine POSITIVE (Not Detect); Opiate Screen Urine POSITIVE (Not Detect); Phencyclidine Screen Urine Not Detected (Not Detect)
[2023-10-12 08:22] LABS: Bacteria Urine 4+ (None Seen); Calcium Oxalate Crystals Urine Present; Hyaline Casts Urine 0-2 /LPF (0-2); RBC Urine 0-2 /HPF (0-2); UACC Culture Trigger YES
[2023-10-12] MEDS: methADONE HCl 20 MG/2 ML ORAL.CONC 85 MG PO (08:57)
== END 2023-10-12 10:46 | disposition home or self-care (01) ==
PROVIDERS: Emergency Provider Emergency Medicine
DX: S61.431A Puncture wound without foreign body of right hand, initial encounter (principal); S61.432A Puncture wound without foreign body of left hand, initial encounter; F11.188 Opioid abuse with other opioid-induced disorder; F14.188 Cocaine abuse with other cocaine-induced disorder; Y28.9XXA Contact with unspecified sharp object, undetermined intent, initial encounter; Y93.9 Activity, unspecified; Y92.9 Unspecified place or not applicable; Y99.8 Other external cause status; Z71.51 Drug abuse counseling and surveillance of drug abuser; Z79.899 Other long term (current) drug therapy
CPT/HCPCS: 36415; 80053; 80307; 81001; 85025; 87086; 87088; 87186; 99284

== ENCOUNTER 2024-04-15 03:43 | Emergency (ER) | payer OTHER, SELFPAY ==
[2024-04-15 03:56] VITALS: BP 106/43; PULSE 91; PULSE 94; RESP 16; TEMP 36.9; O2SAT 97; BMI 29.1
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
--- NOTE | 2024-04-15 04:40 | PC.NURSE ---
pt requested abby narayan and martine ha.
[2024-04-15 06:00] VITALS: BP 111/57; PULSE 67; RESP 20; TEMP 36.8; O2SAT 96
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
--- NOTE | 2024-04-15 08:16 | PC.NURSE ---
[facility] services contacted and message sent by this RN. Also contacted [facility].
--- NOTE | 2024-04-15 08:25 | PC.NURSE ---
SANE nurse is Angie Herrera [phone] expected around 9:30
[2024-04-15 09:09] LABS: MANUAL DIFF FLAG NO
[2024-04-15 09:10] LABS: Basophils Percent Auto 0.2 % (0-2); Eosinophils Absolute Auto 0.1 X10*3/uL (0.0-0.4); Eosinophils Percent Auto 2.2 % (0-4); Hematocrit 35.5 % (37.0-47.0); Hemoglobin 11.7 g/dl (12.0-16.0); Imm Gran Abs Auto 0.01 X10*3/uL (0.00-0.03); Imm Gran Pct Auto 0.2 % (0.0-0.4); Lymphocytes Absolute Auto 1.8 X10*3/uL (1.2-4.9); Lymphocytes Percent Auto 36.5 % (20-40); Mean Corpuscular Hemoglobin 27.2 pg (27.0-33.0); Mean Corpuscular Volume 82.6 fL (80.0-98.0); Mean Platelet Volume 10.4 fL (9.4-12.3); Monocytes Absolute Auto 0.4 X10*3/uL (0.1-1.2); Monocytes Percent Auto 6.9 % (2-11); Neutrophils Absolute Auto 2.7 x10*3/uL (2.0-8.3); Platelet Count 234 X10*3/uL (160-400); Red Cell Distribution Width 13.7 % (11.0-16.0)
[2024-04-15 09:15] LABS: Appearance Urine Cloudy; Color Urine Dark Yellow; Glucose Urine UA Negative (Negative); Leukocyte Esterase Urine Negative (Negative); Nitrite Urine Positive (Negative); PH 5.5 (5.0-9.0); Specific Gravity - Urine >= 1.030 (1.005-1.025); UMIC TRIGGER UACC YES; UPreg QC Valid YES; Urine Blood Negative (Negative); Urine Ketones Trace mg/dL (Negative); Urine Pregnancy NEGATIVE (NEGATIVE); Urine Protein Trace mg/dL (Neg-Trace)
[2024-04-15 09:17] LABS: Bacteria Urine 4+ (None Seen); Hyaline Casts Urine 0-2 /LPF (0-2); RBC Urine 0-2 /HPF (0-2); UACC Culture Trigger YES; WBC Urine 0-5 /HPF (0-5)
[2024-04-15 09:31] LABS: Anion Gap 14 (12-20); Blood Urea Nitrogen 11 mg/dL (9-16); Calcium 8.7 mg/dL (8.4-10.2); Carbon Dioxide 19 mmol/L (22-29); Chloride 108 mmol/L (96-108); Creatinine Clr Calc Pharmacy 103.1; Estimated Glomerular Filt Rate > 60; Glucose Random 131 mg/dL (60-115); Potassium 4.2 mmol/L (3.3-5.1); Sodium 137 mmol/L (135-145)
[2024-04-15 09:48] VITALS: BP 98/49; PULSE 70; RESP 14; O2SAT 95
--- NOTE | 2024-04-15 10:01 | MHC.RECOVRN ---
Briefly met with pt in ED7 after consult placed to Addiction Medicine for substance use. Pt laying in bed, awake and engages in conversation. Pt reports heroin/fentanyl use, 1 bundle daily, IV, as well as cocaine, $100 daily, IV. Pt also reports 1/2 pint liquor daily. Pt reports receiving methadone through [facility], 70 mg daily. Pt is not currently experiencing withdrawal. Pt is interested in ATS once medically cleared. Will continue to follow.
[2024-04-15 10:50] LABS: Syphilis Screen Nonreactive (Nonreactive)
[2024-04-15 11:23] LABS: Amphetamine Screen Urine Not Detected (Not Detect); Barbiturates, Urine Not Detected (Not Detect); Benzodiazepines Screen Urine Not Detected (Not Detect); Buprenorphine Scr Not Detected (Not Detect); Cannabinoid Screen Urine Not Detected (Not Detect); Cocaine Screen Urine POSITIVE (Not Detect); Fentanyl, urine POSITIVE (Not Detect); Methadone Screen, Urine Positive (Not Detect); Opiate Screen Urine POSITIVE (Not Detect); Oxycodone Screen Urine Not Detected (Not Detect); Phencyclidine Screen Urine Not Detected (Not Detect)
[2024-04-15 11:46] LABS: CT PCR NOT DETECTED (Not Detect.); NG PCR NOT DETECTED (Not Detect.)
--- NOTE | 2024-04-15 12:56 | MHC.RECOVRN ---
Met with pt to follow up after being medically cleared. Pt reports she would just like to have her methadone dose and discharge. Pt plans to walk in to [facility] tomorrow morning if she would like ATS. Denies questions or concerns for t/w. Discussed with pts RN.
[2024-04-15] MEDS: methADONE HCl 20 MG/2 ML ORAL.CONC 70 MG PO (13:18)
== END 2024-04-15 13:26 | disposition home or self-care (01) ==
PROVIDERS: Nurse Practitioner Psychiatric/Mental Health; Emergency Provider Emergency Medicine
DX: F19.20 Other psychoactive substance dependence, uncomplicated (principal); F11.20 Opioid dependence, uncomplicated; Z59.00 Homelessness unspecified; Z79.899 Other long term (current) drug therapy
CPT/HCPCS: 36415; 80048; 80307; 81001; 81025; 85025; 86704; 86706; 86709; 86780; 86803; 87086; 87088; 87186; 87340; 87389; 87491; 87591; 99283; 99284

== ENCOUNTER 2025-02-06 11:20 | Emergency (ER) | payer OTHER, SELFPAY ==
[2025-02-06 11:22] VITALS: BP 138/89; PULSE 85; RESP 18; TEMP 36.2; O2SAT 98; BMI 38.2
--- NOTE | 2025-02-06 11:25 | ED.GENADULT ---
HPI - General Adult General Chief complaint: Medical Clearance Stated complaint: Medical Clearance Time Seen by Provider: 02/06/25 11:32 Source: patient Mode of arrival: ambulatory Limitations: no limitations History of Present Illness ED Provider: SARAH JUARES PA-C HPI narrative: 44 year old female presents to the ED today requesting medical clearance for Justyna Cardona. Patient states she was recently kicked out of a assisted house in [facility]. She currently has a bed at [facility]. She was sent here for medical clearance including labs, EKG and urine drug screen. Denies any recent EtOH consumption or illicit substance use. She is currently on methadone. She was dosed this morning at [facility]. Denies any physical complaints. Does not feel like she is withdrawing. Related Data Home Medications ?Medication ?Instructions ?Recorded ?Confirmed buspirone 10 mg tablet 10 mg PO BID 09/12/22 09/12/22 docusate sodium 100 mg tablet 100 mg PO BID PRN Constipation 09/12/22 09/12/22 duloxetine 20 mg capsule,delayed 20 mg PO DAILY 09/12/22 09/12/22 release ferrous sulfate 325 mg (65 mg 325 mg PO DAILY 09/12/22 09/12/22 iron) tablet fluoxetine 40 mg capsule 40 mg PO DAILY 09/12/22 09/12/22 gabapentin 300 mg capsule 300 mg PO DAILY@1200 09/12/22 09/12/22 gabapentin 600 mg tablet 600 mg PO BID 09/12/22 09/12/22 hydroxyzine HCl 25 mg tablet 25 - 50 mg PO Q6H PRN Anxiety 09/12/22 09/12/22 ibuprofen 600 mg tablet 600 mg PO TID PRN Pain 09/12/22 09/12/22 methadone 10 mg/mL oral 85 mg PO DAILY 09/12/22 10/11/23 concentrate (Methadose) nicotine (polacrilex) 4 mg buccal 4 mg buccal Q2-4H PRN Nicotine 09/12/22 09/12/22 lozenge Cravings nicotine 21 mg/24 hr daily 1 patch transdermal DAILY PRN 09/12/22 09/12/22 transdermal patch Nicotine Cravings polyethylene glycol 3350 17 gram 17 g PO BID PRN Constipation 09/12/22 09/12/22 oral powder packet trazodone 100 mg tablet 100 mg PO BEDTIME 09/12/22 09/12/22 Previous Rx's ?Medication ?Instructions ?Recorded sulfamethoxazole 800 1 tab PO Q12H #13 tabs 09/20/22 mg-trimethoprim 160 mg tablet valacyclovir 1 gram tablet 1,000 mg PO Q12H #10 tabs 09/20/22 (Valtrex) diphenhydramine HCl 25 mg capsule 25 - 50 mg (1 - 2 x 25 mg) PO TID 09/26/22 PRN allergy symptoms 4 days #20 caps prednisone 20 mg tablet 40 mg (2 x 20 mg) PO DAILY #8 tabs 09/26/22 minocycline 100 mg capsule 100 mg PO BID #14 caps 09/27/22 doxycycline hyclate 100 mg capsule 100 mg PO BID cough 7 days #14 caps 11/13/22 erythromycin 5 mg/gram (0.5 %) eye 0.5 inch ophthalmic (eye) Q4H #3.5 06/11/23 ointment grams ondansetron 4 mg disintegrating 4 mg PO Q8H PRN nausea and 07/03/23 tablet vomiting #20 tabs mupirocin 2 % topical ointment 1 appl topical BID 7 days #15 grams 10/12/23 Allergies Allergy/AdvReac Type Severity Reaction Status Date / Time Fish Containing Products Allergy Severe ANAPHYLAXIS Verified 02/06/25 11:24 Review of Systems Review of Systems: Constitutional: No fever, chills, fatigue, night sweats, weight changes ENT/Mouth: No ear pain, hearing loss, nasal congestion, sinus pain, rhinorrhea, sore throat Eyes: No eye pain, swelling, redness, vision changes, discharge Cardio: No chest pain, palpitations, PRIETO, orthopnea, peripheral edema Pulm: No SOB, cough, sputum, wheezing, dyspnea, hemoptysis GI: No nausea, vomiting, hematemesis, abdominal pain, diarrhea, constipation, hematochezia, melena : No irregular bleeding, dysuria, frequency, urgency, hesitancy, hematuria, flank pain, urinary flow changes, urinary incontinence or retention MSK: No back pain, neck pain, joint pain, myalgias Skin: No lesions, rashes Neuro: No weakness, numbness, paresthesias, LOC, dizziness, headache Psych: No anxiety/panic, depression, SI/HI, AH/VH All other systems reviewed and are negative. PMFSH Past Medical History Attestation statement: The following information was validated with the patient. Source: old records reviewed and nursing notes reviewed Medical History Substance abuse Bacterial vaginosis Abscess Screening for cervical cancer Screening for hypercholesterolemia Screening for diabetes mellitus (DM) Surgical History History of section Family History Family History Father No problems noted. Mother HTN (hypertension) Social History Social History Household Members: Family Household Members Other:: 1 Housing: Apartment Do you presently have visiting nurse or other home services: No Alcohol intake: former Patient Tobacco Use Status: Never used Tobacco Tobacco use type: Cigarette Cigarettes Per Day: 5 Substance Use Type: Crack/Cocaine and Heroin Advance Directives: No Advance Directives Information Provided: Yes Do you have a plan to hurt others: No Plan service: No Current occupational status: unemployed Physical Exam ED Vital Signs: Vital Signs - 24 hr 02/06/25 11:22 02/06/25 13:29 Temperature 97.1 F 96.9 F Pulse Rate 85 67 Respiratory Rate 18 20 Blood Pressure 138/89 123/72 Pulse Oximetry 98 96 Oxygen Delivery Method Room Air Room Air BMI result Body Mass Index 38.2 vital signs stable General: Well appearing, in no acute distress. Skin: Warm, dry, intact. No rashes or lesions. Head: Normocephalic, atraumatic. EENT: Hearing is intact b/l. Conjunctiva clear. PERRLA. EOM intact. Moist mucous membranes.? Cardiac: Chest wall symmetric. RRR Lungs: Normal respiratory effort without accessory muscle use Abdomen: Soft, non-tender, non-distended. No rebound tenderness or guarding Back: No midline spinous or paraspinal tenderness. No step off deformity. Ext: Upper and lower extremities atraumatic, without tenderness, deformity, swelling or erythema Neuro: AOx3. Normal speech. CN 2-12 grossly intact. Strength 5/5 intact throughout. Sensation intact to light touch. NV intact distally. Ambulating with steady gait. Psych: Appropriate mood and affect. Responds appropriately to questions. Course Course Course Narrative: 1330 -- cbc without leukocytosis or left shift. no anemia, h&h stable. chemistry without acute electrolyte abnormality requiring intervention. BUN 17, normal creatinine. liver function wnl. EKG showing normal sinus rhythm, rate of 73 beats per minute, QT 404, no acute ischemic changes or ST elevations. Urine without infection. UDS positive for methadone, otherwise negative. results discussed with patient. informed patient that her urine collection was not monitored in the ED today and her facility may require her to go to an official drug testing facility. she verbalizes understanding. Patient has remained stable throughout ED visit today. Discussed worrisome signs and symptoms and when to return to the ED. All questions answered at this time. Patient is agreeable with disposition and stable for discharge. Medical Decision Making Medical Decision Making [facility] Narrative: 44 year old female presents to the ED today requesting medical clearance for Justyna Cardona. Vital signs are stable. She is well-appearing and in no acute distress. Exam benign. No signs of withdrawal. Plan for screening labs, UA, UDS, and EKG. Differential Diagnosis Differential Diagnoses: The differential diagnosis associated with the presentation includes as above. Admission/Observation not indicated Lab Data [facility] Lab Attestation statement: I reviewed the patient's lab results. as above. 02/06/25 12:52 02/06/25 11:43 Labs: Lab Results 02/06/25 02/06/25 02/06/25 Range/Units 11:43 12:52 12:56 WBC 5.4 (4.8-10.8) X10*3/uL RBC 4.32 (4.20-5.50) X10*6/uL Hgb 12.5 (12.0-16.0) g/dl Hct 36.6 L (37.0-47.0) % MCV 84.7 (80.0-98.0) fL MCH 28.9 (27.0-33.0) pg MCHC 34.2 (31.0-35.0) g/dl RDW 12.1 (11.0-16.0) % Plt Count 227 (160-400) X10*3/uL MPV 10.7 (9.4-12.3) fL Immature Gran % (Auto) 0.4 (0.0-0.4) % Neut % (Auto) 66.7 (45-73) % Lymph % (Auto) 28.4 (20-40) % [place] % (Auto) 3.7 (2-11) % Eos % (Auto) 0.4 (0-4) % Baso % (Auto) 0.4 (0-2) % Lymph # (Auto) 1.5 (1.2-4.9) X10*3/uL [place] # (Auto) 0.2 (0.1-1.2) X10*3/uL Eos # (Auto) 0.0 (0.0-0.4) X10*3/uL Baso # (Auto) 0.0 (0.0-0.2) X10*3/uL Abs Immat Gran (auto) 0.02 (0.00-0.03) X10*3/uL Absolute Neuts (auto) 3.6 (2.0-8.3) x10*3/uL Absolute Nucleated RBC 0.000 (0.0-0.012) X10*3/uL Nucleated RBC % (auto) 0.0 (0.0-0.2) /100WBC Sodium 139 (135-145) mmol/L Potassium 4.1 (3.3-5.1) mmol/L Chloride 114 H (96-108) mmol/L Carbon Dioxide 18 L (22-29) mmol/L Anion Gap 11 L (12-20) BUN 17 H (9-16) mg/dL Creatinine 0.75 (0.5-1.4) mg/dL Estim Creat Clear Calc 117.0 Estimated GFR > 60 Random Glucose 124 H (60-115) mg/dL Calcium 9.2 (8.4-10.2) mg/dL Magnesium 1.9 (1.6-2.6) mg/dL Total Bilirubin 0.4 (0.0-1.0) mg/dL AST 26 (5-31) U/L ALT 19 (0-31) U/L Alkaline Phosphatase 84 (39-117) U/L Total Protein 8.1 H (6.5-8.0) g/dL Albumin 4.2 (3.5-5.0) g/dL Urine Color Yellow Urine Appearance Turbid Urine pH 8.0 (5.0-9.0) Ur Specific [place] 1.025 (1.005-1.025) Urine Protein Trace (Neg-Trace) mg/dL Urine Glucose (UA) Negative (Negative) mg/dL Urine Ketones Trace (Negative) mg/dL Urine Blood Negative (Negative) Urine Nitrite Negative (Negative) Ur Leukocyte Esterase Negative (Negative) Urine Opiates Screen Not Detected (Not Detect) Ur Buprenorphine Scrn Not Detected (Not Detect) ng/mL Ur Oxycodone Screen Not Detected (Not Detect) ng/mL Urine Methadone Screen Positive H (Not Detect) ng/mL Urine Fentanyl Screen Not Detected (Not Detect) Ur Barbiturates Screen Not Detected (Not Detect) Ur Phencyclidine Scrn Not Detected (Not Detect) Ur Amphetamines Screen Not Detected (Not Detect) U Benzodiazepines Scrn Not Detected (Not Detect) Urine Cocaine Screen Not Detected (Not Detect) U Marijuana (THC) Screen Not Detected (Not Detect) Independent Interpretation I performed an independent interpretation of an: EKG Interpretation: EKG showing normal sinus rhythm, rate of 73 beats per minute, QT 404, no acute ischemic changes or ST elevation Radiology Impression Discussion of test interpretation with radiology: I have reviewed the radiologist's reading. Radiologist Impression: Test Reason : med clearance Blood Pressure : */* mmHG Vent. Rate : 73 BPM Atrial Rate : 73 BPM P-R Int : 172 ms QRS Dur : 80 ms QT Int : 404 ms P-R-T Axes : 38 63 53 degrees QTcB Int : 445 ms Normal sinus rhythm Nonspecific T wave abnormality Abnormal ECG No previous ECGs available Social Determinants Patient?s care significantly limited by Social Determinants of Health including: Other Social Determinant of Health Critical Care Time Critical Care Time Critical Care Time: No Discharge Plan Discharge Clinical Impression: Encounter for medical clearance for patient hold Patient Disposition: Home, Self-Care Instructions: Methadone (By mouth) Additional Instructions: You presented to the ED today requesting medical clearance. Blood work is reassuring. Urine is negative for infection. Your EKG is normal. Your urine drug screen is positive for methadone, otherwise negative. As discussed, your urine collection was not monitored today. Your facility may require you to present to an established drug testing facility for further testing. Return with any new or worsening symptoms. In the case of an emergency call 911. Prescriptions: No Action doxycycline hyclate 100 mg capsule 100 mg PO BID 7 Days Qty: 14 0RF fluoxetine 40 mg Capsule 40 mg PO DAILY gabapentin 600 mg Tablet 600 mg PO BID polyethylene glycol 3350 17 gram Powder In Packet 17 g PO BID PRN (Reason: Constipation) trazodone 100 mg Tablet 100 mg PO BEDTIME ferrous sulfate 325 mg (65 mg iron) Tablet 325 mg PO DAILY buspirone 10 mg Tablet 10 mg PO BID nicotine 21 mg/24 hr Patch 24 Hour 1 patch TRANSDERMAL DAILY PRN (Reason: Nicotine Cravings) gabapentin 300 mg Capsule 300 mg PO DAILY@1200 hydroxyzine HCl 25 mg Tablet 25 - 50 mg PO Q6H PRN (Reason: Anxiety) ibuprofen 600 mg Tablet 600 mg PO TID PRN (Reason: Pain) docusate sodium 100 mg Tablet 100 mg PO BID PRN (Reason: Constipation) nicotine (polacrilex) 4 mg Lozenge 4 mg BUCCAL Q2-4H PRN (Reason: Nicotine Cravings) duloxetine 20 mg Capsule,Delayed Release(Dr/Ec) 20 mg PO DAILY methadone [Methadose] 10 mg/mL Concentrate 85 mg PO DAILY sulfamethoxazole-trimethoprim 800-160 mg Tablet 1 tab PO Q12H Qty: 13 0RF valacyclovir [Valtrex] 1 gram tablet 1,000 mg PO Q12H Qty: 10 0RF diphenhydramine HCl 25 mg capsule 25 - 50 mg PO TID PRN (Reason: allergy symptoms) 4 Days Qty: 20 0RF prednisone 20 mg tablet 40 mg PO DAILY Qty: 8 0RF minocycline 100 mg capsule 100 mg PO BID Qty: 14 0RF erythromycin 5 mg/gram (0.5 %) ointment 0.5 inch ophthalmic (eye) Q4H Qty: 3.5 0RF ondansetron 4 mg tablet,disintegrating 4 mg PO Q8H PRN (Reason: nausea and vomiting) Qty: 20 0RF mupirocin 2 % ointment 1 appl topical BID 7 Days Qty: 15 0RF Referrals: Physician,None [Primary Care Provider] - Interventions: ED Discharge Assessment Last Done: 02/06/25 13:29 Discharge Date/Time: 02/06/25 13:50 Print Language: Monegasque
[2025-02-06 12:06] LABS: Alanine Aminotransferase 19 U/L (0-31); Albumin Level 4.2 g/dL (3.5-5.0); Alkaline Phosphatase 84 U/L (39-117); Anion Gap 11 (12-20); Aspartate Amino Transferase 26 U/L (5-31); Bilirubin Total 0.4 mg/dL (0.0-1.0); Blood Urea Nitrogen 17 mg/dL (9-16); Calcium 9.2 mg/dL (8.4-10.2); Carbon Dioxide 18 mmol/L (22-29); Chloride 114 mmol/L (96-108); Estimated Glomerular Filt Rate > 60; Glucose Random 124 mg/dL (60-115); Magnesium 1.9 mg/dL (1.6-2.6); Potassium 4.1 mmol/L (3.3-5.1); Sodium 139 mmol/L (135-145); Total Protein 8.1 g/dL (6.5-8.0)
[2025-02-06 13:01] LABS: Basophils Percent Auto 0.4 % (0-2); Eosinophils Percent Auto 0.4 % (0-4); Hematocrit 36.6 % (37.0-47.0); Hemoglobin 12.5 g/dl (12.0-16.0); Imm Gran Abs Auto 0.02 X10*3/uL (0.00-0.03); Imm Gran Pct Auto 0.4 % (0.0-0.4); Lymphocytes Absolute Auto 1.5 X10*3/uL (1.2-4.9); Lymphocytes Percent Auto 28.4 % (20-40); Mean Corpuscular HGB Conc 34.2 g/dl (31.0-35.0); Mean Corpuscular Hemoglobin 28.9 pg (27.0-33.0); Mean Corpuscular Volume 84.7 fL (80.0-98.0); Mean Platelet Volume 10.7 fL (9.4-12.3); Monocytes Absolute Auto 0.2 X10*3/uL (0.1-1.2); Monocytes Percent Auto 3.7 % (2-11); Neutrophils Absolute Auto 3.6 x10*3/uL (2.0-8.3); Neutrophils Percent Auto 66.7 % (45-73); Platelet Count 227 X10*3/uL (160-400); Red Blood Count 4.32 X10*6/uL (4.20-5.50); Red Cell Distribution Width 12.1 % (11.0-16.0); White Blood Count 5.4 X10*3/uL (4.8-10.8)
[2025-02-06 13:12] LABS: Appearance Urine Turbid; Color Urine Yellow; Glucose Urine UA Negative (Negative); Leukocyte Esterase Urine Negative (Negative); Nitrite Urine Negative (Negative); Specific Gravity - Urine 1.025 (1.005-1.025); Urine Blood Negative (Negative); Urine Ketones Trace mg/dL (Negative); Urine Protein Trace mg/dL (Neg-Trace)
[2025-02-06 13:19] LABS: Amphetamine Screen Urine Not Detected (Not Detect); Barbiturates, Urine Not Detected (Not Detect); Benzodiazepines Screen Urine Not Detected (Not Detect); Buprenorphine Scr Not Detected (Not Detect); Cannabinoid Screen Urine Not Detected (Not Detect); Cocaine Screen Urine Not Detected (Not Detect); Fentanyl, urine Not Detected (Not Detect); Methadone Screen, Urine Positive (Not Detect); Opiate Screen Urine Not Detected (Not Detect); Oxycodone Screen Urine Not Detected (Not Detect); Phencyclidine Screen Urine Not Detected (Not Detect)
[2025-02-06 13:29] VITALS: BP 123/72; PULSE 67; RESP 20; TEMP 36.1; O2SAT 96
--- NOTE | 2025-02-06 13:44 | PC.NURSE ---
pt was seen and discharged by triage provider
== END 2025-02-06 13:50 | disposition home or self-care (01) ==
LOC: HO.ED 13:39
PROVIDERS: Physician Assistant Medical; Emergency Provider Emergency Medicine
DX: R94.31 Abnormal electrocardiogram [ECG] [EKG] (principal); Z04.9 Encounter for examination and observation for unspecified reason; Z51.81 Encounter for therapeutic drug level monitoring; Z79.899 Other long term (current) drug therapy
CPT/HCPCS: 36415; 80053; 80307; 81003; 83735; 85025; 93005; 99283

== ENCOUNTER → 2025-02-06 11:24 | Outpatient (BNV) | payer OTHER, SELFPAY | PROVIDERS: Emergency Provider Emergency Medicine; Visit Provider Internal Medicine | DX: Z13.6 Encounter for screening for cardiovascular disorders (principal) | CPT/HCPCS: 93010 ==

== ENCOUNTER 2025-04-04 11:06 | Emergency (ER) | payer OTHER, SELFPAY ==
--- NOTE | ~2025-04-04 | CT_ITS ---
CLINICAL HISTORY: right abd pain CT abdomen and pelvis with IV contrast. COMPARISON: US right upper quadrant dated 04/04/25 at 11:34 EDT FINDINGS: Partially visualized lung bases are unremarkable. Liver is enlarged with right lobe measuring 20.0 cm. No focal hepatic lesion. Normal gallbladder. Spleen is enlarged measuring 14.2 cm in length. Normal pancreas. Normal adrenal glands. Symmetric renal enhancement. No left-sided hydronephrosis. No left hydroureter. No left renal or ureteral calculus. Moderate right hydronephrosis. Nonobstructing 3 mm right renal calculus. Moderate right hydroureter. At the right UVJ there is a subtle 3 mm ureteral calculus (best seen on coronal and sagittal reformats series 6, image 54 and series 7, image 56). Normal appendix. Mild colonic stool burden. No bowel obstruction. No mesenteric or retroperitoneal lymphadenopathy. Normal abdominal aorta. Small fat containing umbilical hernia. Moderate spondylosis at L5-S1. No acute fracture or suspicious bone lesion. IMPRESSION: 1. Right UVJ 3 mm calculus causes moderate right hydronephrosis and hydroureter. 2. Additional nonobstructing 3 mm right renal calculus. 3. Hepatosplenomegaly. This document has been electronically signed by: Paul Gregory MD on 04/04/2025 14:23:20
--- NOTE | ~2025-04-04 | US_ITS ---
CLINICAL HISTORY: ruq pain, r o cholecystitis US abdomen limited Comparison: None provided Findings: The visualized pancreas is normal. The aorta and inferior vena cava are normal caliber. The liver is normal in size and increased in echotexture. There is no intrahepatic bile duct dilatation. The common duct is 7 mm in diameter. The gallbladder is normal. There is no sonographic Magana sign. The main portal vein is antegrade. The right kidney is 10.7 cm in length. There is moderate hydroureteronephrosis. No ascites. IMPRESSION: Limited study based on habitus. Hepatic steatosis. Moderate right hydroureteronephrosis. This document has been electronically signed by: Hudson Hicks MD on 04/04/2025 12:55:45
--- NOTE | 2025-04-04 11:12 | ECG_ITS ---
Test Reason : ABDOMINAL PAIN Blood Pressure : */* mmHG Vent. Rate : 57 BPM Atrial Rate : 57 BPM P-R Int : 186 ms QRS Dur : 82 ms QT Int : 452 ms P-R-T Axes : 40 68 55 degrees QTcB Int : 439 ms Sinus bradycardia Otherwise normal ECG When compared with ECG of 06-Feb-2025 11:33, No significant change was found Referred By: Dalton Novak Electronically Signed By: REMA BAUTISTA MD
[2025-04-04 11:19] VITALS: BP 105/63; BP 125/73; PULSE 57; PULSE 82; RESP 18; TEMP 36.5; O2SAT 93; O2SAT 98; BMI 38.3
--- NOTE | 2025-04-04 11:20 | ED.ABDPAIN ---
HPI - Abdominal Pain General Chief Complaint: Abdominal Pain Stated Complaint: RT UPPER ABD PAIN Time Seen by Provider: 04/04/25 11:12 Source: patient and EMS Mode of arrival: EMS Limitations: no limitations History of Present Illness ED Provider: DR. Novak HPI narrative: 45-year-old female history of polysubstance abuse, opiate dependent has been in detox for the last 10 months on methadone, presented today with sudden onset of right upper quadrant abdominal pain associated with nausea vomiting, pain started hour ago has been constant comes in waves wax and wane, patient had bowel movement described as normal bowel movement with normal color and normal consistency of the stool with no blood did not relieve the pain, patient has been passing flatus, only past medical history significant for and tubal ligation, no dysuria, no frequency urination, no hematuria, no urethral discharge, patient declined chance of being . Abdominal trauma or injury. Related Data Home Medications ?Medication ?Instructions ?Recorded ?Confirmed buspirone 10 mg tablet 10 mg PO BID 09/12/22 09/12/22 docusate sodium 100 mg tablet 100 mg PO BID PRN Constipation 09/12/22 09/12/22 duloxetine 20 mg capsule,delayed 20 mg PO DAILY 09/12/22 09/12/22 release ferrous sulfate 325 mg (65 mg 325 mg PO DAILY 09/12/22 09/12/22 iron) tablet fluoxetine 40 mg capsule 40 mg PO DAILY 09/12/22 09/12/22 gabapentin 300 mg capsule 300 mg PO DAILY@1200 09/12/22 09/12/22 gabapentin 600 mg tablet 600 mg PO BID 09/12/22 09/12/22 hydroxyzine HCl 25 mg tablet 25 - 50 mg PO Q6H PRN Anxiety 09/12/22 09/12/22 ibuprofen 600 mg tablet 600 mg PO TID PRN Pain 09/12/22 09/12/22 methadone 10 mg/mL oral 85 mg PO DAILY 09/12/22 10/11/23 concentrate (Methadose) nicotine (polacrilex) 4 mg buccal 4 mg buccal Q2-4H PRN Nicotine 09/12/22 09/12/22 lozenge Cravings nicotine 21 mg/24 hr daily 1 patch transdermal DAILY PRN 09/12/22 09/12/22 transdermal patch Nicotine Cravings polyethylene glycol 3350 17 gram 17 g PO BID PRN Constipation 09/12/22 09/12/22 oral powder packet trazodone 100 mg tablet 100 mg PO BEDTIME 09/12/22 09/12/22 Previous Rx's ?Medication ?Instructions ?Recorded sulfamethoxazole 800 1 tab PO Q12H #13 tabs 09/20/22 mg-trimethoprim 160 mg tablet valacyclovir 1 gram tablet 1,000 mg PO Q12H #10 tabs 09/20/22 (Valtrex) diphenhydramine HCl 25 mg capsule 25 - 50 mg (1 - 2 x 25 mg) PO TID 09/26/22 PRN allergy symptoms 4 days #20 caps prednisone 20 mg tablet 40 mg (2 x 20 mg) PO DAILY #8 tabs 09/26/22 minocycline 100 mg capsule 100 mg PO BID #14 caps 09/27/22 doxycycline hyclate 100 mg capsule 100 mg PO BID cough 7 days #14 caps 11/13/22 erythromycin 5 mg/gram (0.5 %) eye 0.5 inch ophthalmic (eye) Q4H #3.5 06/11/23 ointment grams ondansetron 4 mg disintegrating 4 mg PO Q8H PRN nausea and 07/03/23 tablet vomiting #20 tabs mupirocin 2 % topical ointment 1 appl topical BID 7 days #15 grams 10/12/23 naproxen 500 mg tablet (Naprosyn) 500 mg PO BID PRN pain #14 tabs 04/04/25 ondansetron 4 mg disintegrating 4 mg PO Q8H PRN nausea and 04/04/25 tablet vomiting #4 tabs tamsulosin 0.4 mg capsule (Flomax) 0.4 mg PO DAILY #7 caps 04/04/25 Allergies Allergy/AdvReac Type Severity Reaction Status Date / Time Fish Containing Products Allergy Severe ANAPHYLAXIS Verified 04/04/25 11:21 Review of Systems Review of Systems All other systems are reviewed and are negative Constitutional: Reports as per HPI and Reports no additional constitutional complaints Eyes: Reports as per HPI and Reports no additional eye complaints Reports system reviewed and no additional complaints, except as documented Cardiovascular: Reports as per HPI and Reports no additional cardiovascular complaints Respiratory: Reports as per HPI and Reports no additional respiratory complaints Gastrointestinal: Reports as per HPI and Reports no additional gastrointestinal complaints Genitourinary: Reports no additional female genitourinary complaints Musculoskeletal: Reports no additional musculoskeletal complaints Skin/Breast: Reports system reviewed and no additional complaints, except as docu Psychiatric: Reports no additional psychiatric complaints Endocrine: Reports no additional endocrine complaints Hematologic/Lymphatic: Reports no additional hematologic/lymphatic complaints Allergic/Immunologic: Reports no additional allergic/immunologic complaints Reports system reviewed and no additional complaints, except as documented and Reports Abnormal speech present [facility] Past Medical History Medical History Substance abuse Bacterial vaginosis Abscess Screening for cervical cancer Screening for hypercholesterolemia Screening for diabetes mellitus (DM) Surgical History History of section Family History Family History Father No problems noted. Mother HTN (hypertension) Social History Social History Household Members: Family Household Members Other:: 1 Housing: Apartment Do you presently have visiting nurse or other home services: No Alcohol intake: former Patient Tobacco Use Status: Never used Tobacco Tobacco use type: Cigarette Cigarettes Per Day: 5 Smoked in Last 30 Days: Yes Use of substances other than those prescribed or required for medical reasons: Yes Substance Use Type: Opiates Any prior treatment program specific to substance use: Yes (pt in treatment at this time) Advance Directives: No Advance Directives Information Provided: Yes Patient : No service: No Current occupational status: unemployed Physical Exam ED Vital Signs: Vital Signs - 24 hr 04/04/25 11:19 04/04/25 12:17 04/04/25 14:06 Temperature 97.7 F 97.8 F 97.3 F Pulse Rate 57 53 58 Respiratory Rate 18 16 16 Blood Pressure 105/63 105/67 104/54 L Pulse Oximetry 93 95 99 Oxygen Delivery Method Room Air Room Air Room Air BMI result Body Mass Index 38.3 Vital signs have been reviewed and appear to be correct. Blood pressure elevated. Heart rate normal. Respiratory rate normal. Temperature normal. Oxygen saturation normal. Appearance: Alert. Oriented X3. No acute distress. Head: Normal external exam. Normocephalic. Atraumatic. No Chavez signs noted. No raccoon eyes noted Eyes: PERRLA. EOMI. Conjunctiva and sclera normal. Eyelids normal. ENT: TM's Normal. Pharynx normal. Uvula midline. Moist mucous membranes. No trismus noted. No drooling noted. No muffled voice noted. Neck: Normal inspection. Neck supple. FROM. No adenopathy. Thyroid Normal. No meningeal signs. No neck mass noted. CVS: Normal heart rate and rhythm. Heart sound normal. No murmurs noted. Pulses normal throughout. Respiratory: No respiratory distress. Painless inspiration. Breath sounds normal. No wheezes/rales/rhonchi noted. Chest nontender. No accessory muscle usage noted or decreased air movement noted. Abdomen: Soft and nontender. Bowel sounds normal in all 4 quadrants. No distention noted. No organomegaly noted. No visible injury noted. Back: Right CVA tenderness. Full range of motion noted. Skin: Skin warm and dry. Normal skin color. Normal skin turgor. No rashes/lesions/lacerations noted. Extremities: No lower extremity edema. Extremities exhibit normal range of motion. Extremities nontender. Neuro: Oriented X 3. Cranial nerve exam: II-XII are grossly intact No motor deficit. No sensory deficit. Reflexes normal. Course Reevaluation(s) Reevaluation #1: 45-year-old female came in with sudden onset of right-sided abdominal pain. 1. Unremarkable gallbladder on ultrasound/ CT. 2. CT abdomen pelvis is showing 3 mm UVJ with hydronephrosis controlled with Tylenol/ Toradol IV in the emergency department patient is on methadone for opiate detoxification has been sober for 9 month patient will be discharged home on naproxen /Flomax /Zofran if needed and follow-up with urologist, will avoid prescribing narcotic for this patient , patient agreed on the plan. Time: 15:00 Medical Decision Making Differential Diagnosis Differential Diagnoses: The differential diagnosis associated with the presentation includes ( ureteric stone, cholecystitis, cholelithiasis , colitis, acute diverticulitis, , pyelonephritis, electrolyte derangement, severe anemia.) Admission/Observation Consideration of admission/observation: Escalation of care including admission/observation considered Lab Data MDM Lab Attestation statement: I reviewed the patient's lab results. 04/04/25 11:36 04/04/25 11:36 Labs: Lab Results 04/04/25 Range/Units 11:36 WBC 4.2 L (4.8-10.8) X10*3/uL RBC 3.82 L (4.20-5.50) X10*6/uL Hgb 11.3 L (12.0-16.0) g/dl Hct 32.4 L (37.0-47.0) % MCV 84.8 (80.0-98.0) fL MCH 29.6 (27.0-33.0) pg MCHC 34.9 (31.0-35.0) g/dl RDW 11.9 (11.0-16.0) % Plt Count 187 (160-400) X10*3/uL MPV 10.0 (9.4-12.3) fL Immature Gran % (Auto) 0.2 (0.0-0.4) % Neut % (Auto) 54.8 (45-73) % Lymph % (Auto) 37.8 (20-40) % Stewart % (Auto) 4.8 (2-11) % Eos % (Auto) 2.2 (0-4) % Baso % (Auto) 0.2 (0-2) % Lymph # (Auto) 1.6 (1.2-4.9) X10*3/uL Stewart # (Auto) 0.2 (0.1-1.2) X10*3/uL Eos # (Auto) 0.1 (0.0-0.4) X10*3/uL Baso # (Auto) 0.0 (0.0-0.2) X10*3/uL Abs Immat Gran (auto) 0.01 (0.00-0.03) X10*3/uL Absolute Neuts (auto) 2.3 (2.0-8.3) x10*3/uL Absolute Nucleated RBC 0.000 (0.0-0.012) X10*3/uL Nucleated RBC % (auto) 0.0 (0.0-0.2) /100WBC Sodium 140 (135-145) mmol/L Potassium 3.9 (3.3-5.1) mmol/L Chloride 110 H (96-108) mmol/L Carbon Dioxide 25 (22-29) mmol/L Anion Gap 9 L (12-20) BUN 11 (9-16) mg/dL Creatinine 0.78 (0.5-1.4) mg/dL Estim Creat Clear Calc 111.4 Estimated GFR > 60 Random Glucose 123 H (60-115) mg/dL Calcium 8.7 (8.4-10.2) mg/dL Total Bilirubin 0.1 (0.0-1.0) mg/dL Direct Bilirubin < 0.2 (0.0-0.5) mg/dL AST 22 (5-31) U/L ALT 21 (0-31) U/L Alkaline Phosphatase 84 (39-117) U/L Total Protein 7.6 (6.5-8.0) g/dL Albumin 4.1 (3.5-5.0) g/dL Lipase 21 (8-78) U/L Urine Color Yellow Urine Appearance Clear Urine pH 6.0 (5.0-9.0) Ur Specific [place] 1.020 (1.005-1.025) Urine Protein Negative (Neg-Trace) mg/dL Urine Glucose (UA) Negative (Negative) mg/dL Urine Ketones Negative (Negative) mg/dL Urine Blood Small (1+) H (Negative) Urine Nitrite Negative (Negative) Ur Leukocyte Esterase Negative (Negative) Urine RBC 11-20 H (0-2) /HPF Urine WBC 0-5 (0-5) /HPF Ur Squamous Epith Cells 3-5 (0-2) /HPF Urine Bacteria 1+ (None Seen) Hyaline Casts 0-2 (0-2) /LPF Urine Test NEGATIVE (NEGATIVE) Independent Interpretation I performed an independent interpretation of an: Ultrasound ( Abdominal ultrasound:Limited study based on habitus. Hepatic steatosis. Moderate right hydroureteronephrosis.) and CT Scan ( Abdomen pelvis:1. Right UVJ 3 mm calculus causes moderate right hydronephrosis and hydroureter. 2. Additional nonobstructing 3 mm right renal calculus. 3. Hepatosplenomegaly.) Radiology Impression Discussion of test interpretation with radiology: I have reviewed the radiologist's reading. Medications Administered Discontinued Medications Generic Name Dose Route Start Last Admin Trade Name Freq PRN Reason Stop Dose Admin Acetaminophen 1,000 mg in 100 mls @ 400 mls/hr 04/04/25 14:22 04/04/25 14:25 Ofirmev IV 04/04/25 14:36 400 mls/hr ONCE ONE Administration Iohexol 100 ml 04/04/25 13:31 04/04/25 13:31 Iohexol 350 Mg/Ml 100 Ml Infus..Btl IV 04/04/25 13:32 85 ml ONCE ONE Administration Ketorolac Tromethamine 15 mg 04/04/25 11:16 04/04/25 12:47 Ketorolac Tromethamine 15 Mg/Ml Vial IVPUSH 04/04/25 11:17 15 mg ONCE ONE Administration Ondansetron HCl 4 mg 04/04/25 11:16 04/04/25 12:48 Ondansetron Hcl 4 Mg/2 Ml Vial IVPUSH 04/04/25 11:17 4 mg ONCE ONE Administration Discharge Plan Discharge Clinical Impression: Renal colic on right side, Calculus of distal right ureter Patient Disposition: Home, Self-Care Instructions: Ureteral Stones (ED) Additional Instructions: drink plenty of fluids. Prescriptions: New ondansetron 4 mg tablet,disintegrating 4 mg PO Q8H PRN (Reason: nausea and vomiting) Qty: 4 0RF naproxen [Naprosyn] 500 mg tablet 500 mg PO BID PRN (Reason: pain) Qty: 14 0RF tamsulosin [Flomax] 0.4 mg capsule 0.4 mg PO DAILY Qty: 7 0RF No Action doxycycline hyclate 100 mg capsule 100 mg PO BID 7 Days Qty: 14 0RF fluoxetine 40 mg Capsule 40 mg PO DAILY gabapentin 600 mg Tablet 600 mg PO BID polyethylene glycol 3350 17 gram Powder In Packet 17 g PO BID PRN (Reason: Constipation) trazodone 100 mg Tablet 100 mg PO BEDTIME ferrous sulfate 325 mg (65 mg iron) Tablet 325 mg PO DAILY buspirone 10 mg Tablet 10 mg PO BID nicotine 21 mg/24 hr Patch 24 Hour 1 patch TRANSDERMAL DAILY PRN (Reason: Nicotine Cravings) gabapentin 300 mg Capsule 300 mg PO DAILY@1200 hydroxyzine HCl 25 mg Tablet 25 - 50 mg PO Q6H PRN (Reason: Anxiety) ibuprofen 600 mg Tablet 600 mg PO TID PRN (Reason: Pain) docusate sodium 100 mg Tablet 100 mg PO BID PRN (Reason: Constipation) nicotine (polacrilex) 4 mg Lozenge 4 mg BUCCAL Q2-4H PRN (Reason: Nicotine Cravings) duloxetine 20 mg Capsule,Delayed Release(Dr/Ec) 20 mg PO DAILY methadone [Methadose] 10 mg/mL Concentrate 85 mg PO DAILY sulfamethoxazole-trimethoprim 800-160 mg Tablet 1 tab PO Q12H Qty: 13 0RF valacyclovir [Valtrex] 1 gram tablet 1,000 mg PO Q12H Qty: 10 0RF diphenhydramine HCl 25 mg capsule 25 - 50 mg PO TID PRN (Reason: allergy symptoms) 4 Days Qty: 20 0RF prednisone 20 mg tablet 40 mg PO DAILY Qty: 8 0RF minocycline 100 mg capsule 100 mg PO BID Qty: 14 0RF erythromycin 5 mg/gram (0.5 %) ointment 0.5 inch ophthalmic (eye) Q4H Qty: 3.5 0RF ondansetron 4 mg tablet,disintegrating 4 mg PO Q8H PRN (Reason: nausea and vomiting) Qty: 20 0RF mupirocin 2 % ointment 1 appl topical BID 7 Days Qty: 15 0RF Referrals: Alex Jackson MD [Physician, Urology] Print Language: Turkish
[2025-04-04 11:43] LABS: MANUAL DIFF FLAG NO
[2025-04-04 11:44] LABS: Hematocrit 32.4 % (37.0-47.0); Hemoglobin 11.3 g/dl (12.0-16.0); Imm Gran Abs Auto 0.01 X10*3/uL (0.00-0.03); Imm Gran Pct Auto 0.2 % (0.0-0.4); Lymphocytes Absolute Auto 1.6 X10*3/uL (1.2-4.9); Mean Corpuscular HGB Conc 34.9 g/dl (31.0-35.0); Mean Corpuscular Hemoglobin 29.6 pg (27.0-33.0); Mean Corpuscular Volume 84.8 fL (80.0-98.0); NRBC Abs Auto 0.000 X10*3/uL (0.0-0.012); NRBC Pct Auto 0.0 /100WBC (0.0-0.2); Platelet Count 187 X10*3/uL (160-400); Red Blood Count 3.82 X10*6/uL (4.20-5.50); White Blood Count 4.2 X10*3/uL (4.8-10.8)
[2025-04-04 11:45] LABS: Appearance Urine Clear; Glucose Urine UA Negative (Negative); PH 6.0 (5.0-9.0); Specific Gravity - Urine 1.020 (1.005-1.025); UMIC TRIGGER UACC YES; UPreg QC Valid YES
[2025-04-04 12:05] LABS: Alanine Aminotransferase 21 U/L (0-31); Albumin Level 4.1 g/dL (3.5-5.0); Alkaline Phosphatase 84 U/L (39-117); Anion Gap 9 (12-20); Aspartate Amino Transferase 22 U/L (5-31); Blood Urea Nitrogen 11 mg/dL (9-16); Calcium 8.7 mg/dL (8.4-10.2); Carbon Dioxide 25 mmol/L (22-29); Chloride 110 mmol/L (96-108); Creatinine Clr Calc Pharmacy 111.4; Estimated Glomerular Filt Rate > 60; Lipase 21 U/L (8-78); Potassium 3.9 mmol/L (3.3-5.1); Sodium 140 mmol/L (135-145); Total Protein 7.6 g/dL (6.5-8.0)
[2025-04-04 12:17] VITALS: BP 105/67; PULSE 53; RESP 16; TEMP 36.6; O2SAT 95
[2025-04-04] MEDS: iohexoL 350 MG/ML 100 ML INFUS..BTL IV (13:31)
[2025-04-04 14:06] VITALS: BP 104/54; PULSE 58; RESP 16; TEMP 36.3; O2SAT 99
[2025-04-04 15:50] VITALS: BP 116/62; PULSE 64; RESP 16; TEMP 36.3; O2SAT 99
== END 2025-04-04 15:52 | disposition home or self-care (01) ==
PROVIDERS: Emergency Provider Emergency Medicine
DX: N20.1 Calculus of ureter (principal); N20.0 Calculus of kidney; F11.20 Opioid dependence, uncomplicated; R11.2 Nausea with vomiting, unspecified
CPT/HCPCS: 36415; 74177; 76705; 80048; 80076; 81001; 81025; 83690; 85025; 93005; 96365; 96375; 99284; 99285; J0131; J1885; J2405; J2919; Q9967

== ENCOUNTER → 2025-04-04 11:12 | Outpatient (BNV) | payer OTHER, SELFPAY | PROVIDERS: Emergency Provider Emergency Medicine; Visit Provider Internal Medicine Cardiovascular Disease | DX: R00.1 Bradycardia, unspecified (principal) | CPT/HCPCS: 93010 ==

== ENCOUNTER → 2025-04-04 11:16 | Outpatient (BNV) | payer OTHER, SELFPAY | PROVIDERS: Emergency Provider Emergency Medicine; Visit Provider Radiology Vascular & Interventional Radiology | DX: N13.2 Hydronephrosis with renal and ureteral calculous obstruction (principal) | CPT/HCPCS: 74177; 76705 ==

== ENCOUNTER 2025-06-01 12:47 | Outpatient (AMB) | payer MEDICAID, SELFPAY ==
--- NOTE | 2025-06-01 12:53 | MHC.OFFVIS ---
Intake Visit Reasons: stones Intake Note: Patient is present for [facility] Medication:TAMSULOSIN Antibiotic Allergy:NONE Blood Thinner:NONE TODAY'S PVR:42ML'S Ham Trimmer Required: No Allergies Fish Containing Products Allergy (Severe, Verified 06/01/25 13:20) ANAPHYLAXIS Medication List - Last Reconciled 06/01/25 by JACQUELINE Bacon buspirone 10 mg PO BID ferrous sulfate 325 mg PO DAILY fluoxetine 40 mg PO DAILY gabapentin 600 mg PO BID hydroxyzine HCl 25 - 50 mg PO Q6H PRN ibuprofen 600 mg PO TID PRN methadone (Methadose) 85 mg PO DAILY nicotine 1 patch transdermal DAILY PRN nicotine (polacrilex) 4 mg buccal Q2-4H PRN tamsulosin (Flomax) 0.4 mg PO DAILY trazodone 100 mg PO BEDTIME HPI Comments Details: Clara is a very pleasant 45-year-old female patient. She has a previous history of substance abuse and bacterial vaginosis. She presents to the office today as a new patient for nephrolithiasis. In discussion with the patient today she reports seeking emergency room services earlier this month for right-sided abdominal pain she had been experiencing at which time a CT was ordered and performed and recommendations were made for urology referral for further assessment evaluation. These results were reviewed and communicated with the patient today. 04/27 CT abdomen and pelvis with IV contrast noted right UVJ 3 mm calculus causing moderate right hydronephrosis and hydroureter. Additional nonobstructing 3 mm right renal calculus. She reports pain she had been experiencing has since subsided shortly after her ER visit. She does report a previous history of nephrolithiasis however never requiring surgical intervention. In office urinalysis results reviewed with the patient today. We discussed obtaining renal imaging to ensure passage of stone and resolution of hydronephrosis. She is agreeable. We also discussed the importance of adequate hydration relation to nephrolithiasis as well as overall health and well-being. She currently denies any bothersome urinary issues. She denies urinary urgency, urinary frequency, incontinence, nocturia, hematuria, dysuria, foul smelling urine, changes to urinary stream, flank pain, fever, and or chills.She is happy with her current voiding parameters. All questions were answered. She otherwise offers no other issues or concerns at this time. [facility] Medical History Substance abuse Bacterial vaginosis Abscess Screening for cervical cancer Screening for hypercholesterolemia Screening for diabetes mellitus (DM) Surgical History History of section Family History Father No problems noted. Mother HTN (hypertension) Social History Household Members: Family Household Members Other:: 1 Housing: Apartment Do you presently have visiting nurse or other home services: No Alcohol intake: former Patient Tobacco Use Status: Never used Tobacco Tobacco use type: Cigarette Cigarettes Per Day: 5 Substance Use Type: Opiates service: No Current occupational status: unemployed Review of Systems Const All systems reviewed & are unremarkable except as noted in HPI and below Physical Exam Const General: cooperative, healthy appearing, comfortable, no acute distress, well developed, alert and awake Orientation/consciousness: patient oriented x3 Limitations: no limitations HEENT Head: Yes normal to inspection, Yes normocephalic and Yes atraumatic Ears: hearing grossly normal bilaterally Eyes General: appearance normal, both eyes and all related structures Neck Neck: Yes normal visual inspection and Yes trachea midline Chest Chest palpation & inspection: normal inspection of the chest Resp Effort & Inspection: normal respiratory effort and able to speak in complete sentences Cardio Rate: regular rate GI Inspection: Yes normal to inspection General: Yes no CVA tenderness Back/Spine/Pelvis Back: no CVA tenderness Skin General skin exam: no rashes or lesions noted Neuro General: patient oriented x3 Extrem General: Yes normal to inspection Psych Appearance: grossly normal and well kempt Mental Status: mental status grossly normal Speech and movement: Normal speech and movement present and Clear speech present Affect: normal affect Attitude: cooperative Thought process: Normal thought process present Thought content: Normal thought content present Insight: Fair insight present (Psych) Judgement: Fair judgement present (Psych) Office Procedures Post Void Residual Post Residual Void Post Void Residual (PVR): 42 [id number] Void Residual by ultrasound Results AMB Urinalysis, Automated UA Leukoctes 0 Elias/uL Last Edit by PATRICIO Gu on 06/01/25 13:16 UA Nitrite Negative Last Edit by Thomas Cramer [facility] on 06/01/25 13:16 UA Urobilinogen 0.2 mg/dL Last Edit by Thomas Cramer [facility] on 06/01/25 13:16 UA Protein 15 mg/dL Last Edit by Thomas Cramer [facility] on 06/01/25 13:16 UA pH 6.0 Last Edit by Thomas Cramer [facility] on 06/01/25 13:16 UA Blood 0 Willie/uL Last Edit by Thomas Cramer [facility] on 06/01/25 13:16 UA Specific [place] 1.025 Last Edit by Thomas Cramer [facility] on 06/01/25 13:16 UA Ketone Negative Last Edit by Thomas Cramer [facility] on 06/01/25 13:16 UA Bilirubin 0 mg/dL Last Edit by Thomas Cramer [facility] on 06/01/25 13:16 UA Glucose 0 mg/dL Last Edit by Thomas Cramer [facility] on 06/01/25 13:16 Results Reviewed Results Reviewed: Laboratory Last Values Urine pH (Auto) 6.0 06/01/25 13:15 Specific [place] (Auto) 1.025 06/01/25 13:15 Urine Protein (Auto) 15 mg/dL 06/01/25 13:15 Glucose (UA)(Auto) 0 mg/dL 06/01/25 13:15 Urine Ketones (Auto) Negative 06/01/25 13:15 Urine Blood (Auto) 0 Willie/uL 06/01/25 13:15 Urine Nitrite (Auto) Negative 06/01/25 13:15 Urine Bilirubin (Auto) 0 mg/dL 06/01/25 13:15 Urine Urobilinogen (Auto) 0.2 mg/dL 06/01/25 13:15 Leukocyte Esterase (Auto) 0 Elias/uL 06/01/25 13:15 Date of Service: 04/04/25 Procedure(s): CT abdomen pelvis w IV con FINDINGS: Partially visualized lung bases are unremarkable. Liver is enlarged with right lobe measuring 20.0 cm. No focal hepatic lesion. Normal gallbladder. Spleen is enlarged measuring 14.2 cm in length. Normal pancreas. Normal adrenal glands. Symmetric renal enhancement. No left-sided hydronephrosis. No left hydroureter. No left renal or ureteral calculus. Moderate right hydronephrosis. Nonobstructing 3 mm right renal calculus. Moderate right hydroureter. At the right UVJ there is a subtle 3 mm ureteral calculus (best seen on coronal and sagittal reformats series 6, image 54 and series 7, image 56). Normal appendix. Mild colonic stool burden. No bowel obstruction. No mesenteric or retroperitoneal lymphadenopathy. Normal abdominal aorta. Small fat containing umbilical hernia. Moderate spondylosis at L5-S1. No acute fracture or suspicious bone lesion. IMPRESSION: 1. Right UVJ 3 mm calculus causes moderate right hydronephrosis and hydroureter. 2. Additional nonobstructing 3 mm right renal calculus. 3. Hepatosplenomegaly. Assessment & Plan Assessment & Plan (1) Nephrolithiasis: Code(s): N20.0 - Calculus of kidney Category: Medical (2) Hydronephrosis concurrent with and due to calculi of kidney and ureter: Code(s): N13.2 - Hydronephrosis with renal and ureteral calculous obstruction Category: Medical Plan In office urinalysis results reviewed with the patient today; as noted above. PVR [address] results reviewed with the patient today; as noted above. We discussed potential causes of nephrolithiasis as well as further treatment options and risks and benefits of these treatment options. Will obtain renal ultrasound for further assessment evaluation. She currently denies any bothersome urinary issues or concerns. She reports be happy with current voiding parameters. Start vitamin B6 as discussed and prescribed. We discussed adding 1 oz of lemon juice to water daily. Follow-up in 1 month with imaging to be completed prior; or sooner with any issues, concerns, and or questions. Orders: Orders AMB Urinalysis Automated Today Z13.9 - Encounter for screening, unspecified US renal BI Today N20.0 - Calculus of kidney Medications: New pyridoxine (vitamin B6) 100 mg PO DAILY 90 tabs 1RF 90 days Patient Instructions: The patient had an opportunity to ask questions regarding the treatment plan. All questions were answered. Physical exam, labs, and imaging were discussed and reviewed in detail. As well as risks, benefits, and discussion of treatment choices. No major barriers to understanding were identified. The patient expressed understanding and agreement with the above treatment plan. The patient was made aware they should contact our office by phone for worsening of their current condition, the appearance of new symptoms, or with any questions or concerns. Compliance is encouraged with any medications and follow up testing that is ordered. It is a privilege to be allowed the opportunity to participate in? your urological care.? Again, if you have any questions or concerns If you have any questions or concerns please do not hesitate to contact me. The office is [phone]. This note is constructed using voice recognition software. While every effort has been made to ensure accuracy crossing guard errors may have been included. Yours sincerely, JACQUELINE Bacon Coding Level of Care Code New Pt Level 4 (72459) Diagnoses Nephrolithiasis N20.0 Hydronephrosis concurrent with and due to calculi of kidney and ureter N13.2 CPT Codes Post Residual Void - PVR CPT Code: 81481-Ivoc Void Residual by ultrasound ([id number])
--- OUTSIDE RECORDS SUMMARY | 2025-06-01 13:54 | XMS_ITS | Clinical Summary ---
Author Organization [facility] Address [address] [place] [address] Phone Care Team Providers Care Safety Specialist Name Role Phone Favian Tobin MD Primary Care Provider [phone] Allergies Active Allergy Reactions Criticality Noted Date Comments Fish Containing Products 05/04/2025 Encounters Date Type Department Care Team Description 05/04/2025 3:16 PM EDT - 05/04/2025 10:13 PM EDT Emergency [facility] Emergency [address] [place] [address] Yamilka Rdz MD Corrado, Adam D, MD Damri, Nima Perkins MD Flank pain (Primary Dx); Leukopenia, unspecified type Discharge Disposition: Home or Self Care from Last 3 Months Social History Tobacco Use Types Packs/Day Years Used Date Smoking Tobacco: Never Assessed Comments Unknown Sex and Gender Information Value Date Recorded Sex Assigned at Not on file Legal Sex Female 9:52 PM EST Gender Identity Not on file Sexual Orientation Not on file Last Filed Vital Signs Vital Sign Reading Time Taken Comments Blood Pressure 114/66 05/04/2025 9:16 PM EDT Pulse 65 05/04/2025 9:16 PM EDT Temperature 36.4 C (97.5 F) 05/04/2025 9:16 PM EDT Respiratory Rate 16 05/04/2025 9:16 PM EDT Oxygen Saturation 98% 05/04/2025 9:16 PM EDT Inhaled Oxygen Concentration - - Weight 113 kg (250 lb) 05/04/2025 2:13 PM EDT Height 160 cm (5' 3 ) 05/04/2025 2:13 PM EDT Body Mass Index 44.29 05/04/2025 2:13 PM EDT Plan of Treatment Health Maintenance Due Date Last Done Comments Breast Cancer Screening 1982 Hepatitis A Vaccines (1 of 2 - Risk 2-dose series) 2001 Hepatitis B Vaccines (1 of 3 - 19+ 3-dose series) 2001 Cervical Cancer Screening: Pap Smear 2003 Depression Screening 09/03/2024 COVID-19 Vaccine ( season) 2025 08/25/2022, 08/30/2021, 01/19/2021, Additional history exists HIV Screening 05/04/2025 Hepatitis C Screening 05/04/2025 Influenza Vaccine (#1) 2025 Social Influencers of Health Screening 05/04/2025 DTaP,Tdap,and Td Vaccines (4 - Td or Tdap) 02/10/2029 02/10/2019, 09/08/2014, 02/03/2014 MMR Vaccines Aged Out 04/22/2019 No longer eligi ble based on patient's age to complete this topic HIB Vaccines Aged Out No longer eligi ble based on patient's age to complete this topic HPV Vaccines Aged Out No longer eligi ble based on patient's age to complete this topic IPV Vaccines Aged Out No longer eligi ble based on patient's age to complete this topic Meningococcal ACWY Vaccine Aged Out N o longer eligible based on patient's age to complete this topic Meningococcal B Vaccine Aged Out No l onger eligible based on patient's age to complete this topic Pneumococcal Vaccine: Pediatrics (0 to 5 Years) and At-Risk Patients (6 to 49 Years) Aged Out No longer eligible based on patient's age to complete this topic RSV Immunization Patients Under 20 months Aged Out No longer eligible based on patient's age to complete this topic Varicella Vaccines Aged Out No longer eligible based on patient's age to complete this topic Procedures Procedure Name Priority Date/Time Associated Diagnosis Comments CT ABDOMEN PELVIS WO CONTRAST STAT 05/04/2025 4:18 PM EDT POC , URINE DIAGNOSTIC STAT 05/04/2025 3:58 PM EDT RAMIREZ URINE CULTURE TUBE STAT 05/04/2025 3:50 PM EDT URINALYSIS WITH REFLEX MICROSCOPIC AND CULTURE STAT 05/04/2025 3:50 PM EDT URINALYSIS WITH REFLEX MICROSCOPIC AND CULTURE STAT 05/04/2025 3:50 PM EDT CULTURE URINE STAT 05/04/2025 3:50 PM EDT CBC WITH AUTO DIFFERENTIAL STAT 05/04/2025 3:41 PM EDT BASIC METABOLIC PANEL STAT 05/04/2025 3:41 PM EDT CBC AND DIFFERENTIAL STAT 05/04/2025 3:41 PM EDT from Last 3 Months Results * CT Abdomen Pelvis wo Contrast (05/04/2025 4:18 PM EDT) Anatomical Region Laterality Modality Body Computed Tomogra phy 05/04/2025 9:13 PM EDT Impressions 05/04/2025 9:13 PM EDT Impression: No acute processes This document has been electronically signed by: Fredy Richard MD on 05/04/2025 21:13:54 Narrative 05/04/2025 9:13 PM EDT INDICATION: Flank pain, kidney stone suspected CT abdomen and pelvis without contrast Comparison: None provided Findings: Lung bases clear. No acute bony abnormality. Hepatomegaly with fatty infiltration of the liver. No focal abnormality in liver or spleen. Pancreas and adrenal glands unremarkable. Gallbladder within normal limits. Small nonobstructing right renal stone. No bilateral ureteral stone or hydronephrosis. No evidence for aortic aneurysm. No free fluid or adenopathy in the pelvis. No diverticulitis. Appendix unremarkable. Uterus normal size. No adnexal abnormality. Procedure Note Fredy Richard MD - 05/04/2025 INDICATION: Flank pain, kidney stone suspected CT abdomen and pelvis without contrast Comparison: None provided Findings: Lung bases clear. No acute bony abnormality. Hepatomegaly with fatty infiltration of the liver. No focal abnormality in liver or spleen. Pancreas and adrenal glands unremarkable. Gallbladder within normal limits. Small nonobstructing right renal stone. No bilateral ureteral stone or hydronephrosis. No evidence for aortic aneurysm. No free fluid or adenopathy in the pelvis. No diverticulitis. Appendix unremarkable. Uterus normal size. No adnexal abnormality. IMPRESSION: Impression: No acute processes This document has been electronically signed by: Fredy Richard MD on 05/04/2025 21:13:54 us Yamilka Rdz MD IMG CT PROCEDURES Final Result * POC , urine manually resulted (05/04/2025 3:58 PM EDT) [facility] HCG, Ur POC Negative Negative POC hCG Int QC Pass? Yes Yes Urine Urine specimen obtained by clean catch procedure / Unknown 05/04/2025 3:58 PM EDT us Yamilka Rdz MD POINT OF CARE TEST ENTER/EDIT ORDERABLES Final Result * (ABNORMAL) Urinalysis with reflex microscopic and culture (05/04/2025 3:50 PM EDT) [facility] Specific [place] Urine 1.019 1.003 - 1.030 LAB URINALYSIS - AUTOMATED METHOD 05/04/2025 4:16 PM [facility] pH, Urine 6.5 5.0 - 8.0 pH LAB URINALYSIS - AUTOMATED METHOD 05/04/2025 4:16 PM [facility] Leukocytes, Urine Trace(A) Negative LAB URINALYSIS - AUTOMATED METHOD 05/04/2025 4:16 PM [facility] Nitrite, Urine Negative Negative LAB URINALYSIS - AUTOMATED METHOD 05/04/2025 4:16 PM [facility] Protein, Urine Negative <=Trace mg/dL LAB URINALYSIS - AUTOMATED METHOD 05/04/2025 4:16 PM [facility] Glucose, Urine Negative Negative mg/dL LAB URINALYSIS - AUTOMATED METHOD 05/04/2025 4:16 PM [facility] Ketones, Urine Negative Negative mg/dL LAB URINALYSIS - AUTOMATED METHOD 05/04/2025 4:16 PM EDT [facility] Urobilinogen, Urine 1.0 0.2 - 1.0 mg/dL LAB URINALYSIS - AUTOMATED METHOD 05/04/2025 4:16 PM T [facility] Bilirubin, Urine Negative Negative LAB URINALYSIS - AUTOMATED METHOD 05/04/2025 4:16 PM EDT [facility] Blood, Urine Negative Negative LAB URINALYSIS - AUTOMATED METHOD 05/04/2025 4:16 PM [facility] RBC, Urine 2.2 0 - 4 /HPF LAB URINALYSIS - AUTOMATED METHOD 05/04/2025 4:16 PM [facility] WBC, Urine 1.3 0 - 4 /HPF LAB URINALYSIS - AUTOMATED METHOD 05/04/2025 4:16 PM [facility] Squamous Epithelial, Urine 49 0 - 60 /LPF LAB URINALYSIS - AUTOMATED METHOD 05/04/2025 4:16 PM [facility] Bacteria, Urine Negative Negative /HPF LAB URINALYSIS - AUTOMATED METHOD 05/04/2025 4:16 PM [facility] Hyaline Casts, Urine 0.0 0 - 3 /LPF LAB URINALYSIS - AUTOMATED METHOD 05/04/2025 4:16 PM T [facility] Urine Urine specimen obtained by clean catch procedure / Unknown Non-blood Collection / Unknown 05/04/2025 3:50 PM EDT 05/04/2025 4:06 PM EDT us Yamilka Rdz MD LAB URINE ORDERABLES Final Res ult [facility] [address] [place] [address], * Ramirez urine culture tube (05/04/2025 3:50 PM EDT) [facility] Extra Tube Hold for add-ons. 05/04/2025 6:01 PM EDT [facility] Comment:Auto resulted. Urine Urine specimen obtained by clean catch procedure / Unknown Non-blood Collection / Unknown 05/04/2025 3:50 PM EDT 05/04/2025 4:06 PM EDT us Yamilka Rdz MD LAB URINE ORDERABLES Final Res ult Performing Organization Address [facility]/ZIP Co de Phone Number [facility] [address] [place] [address], [place] [phone] * Culture urine (05/04/2025 3:50 PM EDT) [facility] Culture, Urine <10,000 CFU/mL gram positive cocci, insignificant count, no further workup 05/05/2025 11:03 AM EDT [facility] Urine Urine specimen obtained by clean catch procedure / Unknown Non-blood Collection / Unknown 05/04/2025 3:50 PM EDT 05/04/2025 4:16 PM EDT us Yamilka Rdz MD LAB MICROBIOLOGY - GENERAL ORD ERABLES Final Result Performing Organization Address [facility] Co de Phone Number [facility] [address] [place] [address], [place] [phone] * (ABNORMAL) CBC auto differential (05/04/2025 3:41 PM EDT) [facility] WBC 4.7(L) 4.8 - 10.8 K/[facility] LAB HEMETOLOGY METHOD 05/04/2025 4:01 PM EDT [facility] RBC 4.20 3.80 - 4.80 M/mcL LAB HEMETOLOGY METHOD 05/04/2025 4:01 PM EDT [facility] Hemoglobin 12.3 11.5 - 16.0 g/dL LAB HEMETOLOGY METHOD 05/04/2025 4:01 PM [facility] Hematocrit 36.3 35.0 - 47.0 % LAB HEMETOLOGY METHOD 05/04/2025 4:01 PM [facility] MCV 85.8 79.0 - 98.0 FL LAB HEMETOLOGY METHOD 05/04/2025 4:01 PM [facility] MCH 29.1 27.0 - 32.0 pcg LAB HEMETOLOGY METHOD 05/04/2025 4:01 PM [facility] MCHC 33.9 32.0 - 37.0 g/dL LAB HEMETOLOGY METHOD 05/04/2025 4:01 PM [facility] RDW 11.9 11.0 - 15.0 % LAB HEMETOLOGY METHOD 05/04/2025 4:01 PM [facility] Platelets 196 130 - 400 K/mcL LAB HEMETOLOGY METHOD 05/04/2025 4:01 PM [facility] MPV 10.7 7.0 - 11.0 FL LAB HEMETOLOGY METHOD 05/04/2025 4:01 PM [facility] NRBC 0.0 <1.0 % LAB HEMETOLOGY METHOD 05/04/2025 4:01 PM [facility] NRBC Absolute 0.00 <0.10 K/mcL LAB HEMETOLOGY METHOD 05/04/2025 4:01 PM [facility] Neutrophils Relative 36.6 % LAB HEMETOLOGY METHOD 05/04/2025 4:01 PM [facility] Lymphocytes Relative 55.4 % LAB HEMETOLOGY METHOD 05/04/2025 4:01 PM [facility] Monocytes Relative 5.3 % LAB HEMETOLOGY METHOD 05/04/2025 4:01 PM [facility] Eosinophils Relative 2.3 % LAB HEMETOLOGY METHOD 05/04/2025 4:01 PM EDT [facility] Basophils Relative 0.2 % LAB HEMETOLOGY METHOD 05/04/2025 4:01 PM [facility] Immature Granulocytes Relative 0.2 % LAB HEMETOLOGY METHOD 05/04/2025 4:01 PM EDT [facility] Neutrophils Absolute 1.72 1.50 - 7.00 K/mcL LAB HEMETOLOGY METHOD 05/04/2025 4:01 PM EDT [facility] Lymphocytes Absolute 2.61 1.00 - 5.00 K/mcL LAB HEMETOLOGY [facility] Monocytes Absolute 0.25 0.20 - 1.00 K/mcL LAB HEMETOLOGY METHOD 05/04/2025 4:01 PM EDT [facility] Eosinophils Absolute 0.11 0.00 - 0.50 K/mcL LAB HEMETOLOGY METHOD 05/04/2025 4:01 PM EDT [facility] Basophils Absolute 0.01 0.00 - 0.20 K/mcL LAB HEMETOLOGY METHOD 05/04[facility]2025 [facility] Immature Granulocytes Absolute 0.01 0.00 - 0.03 K/mcL LAB HEMETOLOGY METHOD 05/04/2025 4:[facility] Blood Venous blood specimen / Unknown Venipuncture / Unknown 05/04/2025 3:41 PM EDT 05/04/2025 3:52 PM EDT us Yamilka Rdz MD LAB BLOOD ORDERABLES Final Res ult [facility] [address] [place] [address], * (ABNORMAL) Basic metabolic panel (05/04/2025 3:41 PM EDT) Sodium 137 133 - 145 mmol/L LAB CHEMISTRY METHOD 05/04/2025 4:43 PM [facility] Potassium 4.9 3.5 - 5.5 mmol/L LAB CHEMISTRY METHOD 05/04/2025 4:43 PM [facility] Comment:Hemolysis present Chloride 107 96 - 110 mmol/L LAB CHEMISTRY METHOD 05/04/2025 4:43 PM [facility] CO2 28 21 - 32 mmol/L LAB CHEMISTRY METHOD 05/04/2025 4:43 PM [facility] Anion Gap 2(L) 3 - 11 LAB CHEMISTRY METHOD 05/04/2025 4:43 PM [facility] Glucose 107(H) 70 - 100 mg/dL LAB CHEMISTRY METHOD 05/04/2025 4:43 PM [facility] BUN 12 5 - 25 mg/dL LAB CHEMISTRY METHOD 05/04/2025 4:43 PM [facility] Creatinine 0.90 0.50 - 1.10 mg/dL LAB CHEMISTRY METHOD 05/04/2025 4:43 PM [facility] eGFR 82 >=60 mL/min/1. 73m2 LAB CHEMISTRY METHOD 05/04/2025 4:43 PM [facility] Comment:Calculation based on the Chronic Kidney Disease Epidemiology Collaboration (CKD-EPI) equation refit without adjustment for race. BUN/Creatinine Ratio 13.3 LAB CHEMISTRY METHOD 05/04/2025 4:43 PM [facility] Calcium 8.6 8.5 - 10.5 mg/dL LAB CHEMISTRY METHOD 05/04/2025 4:43 PM [facility] Blood Venous blood specimen / Unknown Venipuncture / Unknown 05/04/2025 3:41 PM EDT 05/04/2025 3:52 PM EDT us Yamilka Rdz MD LAB BLOOD ORDERABLES Final Res ult [facility] [address] [place] [address], [place] [phone] from Last 3 Months Insurance [facility] [employer] Care Teams Safety Specialist Relationship Specialty Start Date End Date Favian Tobin MD [address] [place] [address] Dr [address] [facility] [place] [address] PCP - General Internal Medicine 12/01/16
== END 2025-06-01 13:22 | disposition home or self-care (01) ==
LOC: HO.HUSH 12:47
PROVIDERS: Visit Provider Nurse Practitioner Family
DX: N20.0 Calculus of kidney (principal); N13.2 Hydronephrosis with renal and ureteral calculous obstruction; Z13.9 Encounter for screening, unspecified
CPT/HCPCS: 99204

== ENCOUNTER → 2025-06-01 12:47 | Outpatient (BNVA) | payer MEDICAID, SELFPAY | PROVIDERS: Visit Provider Nurse Practitioner Family | DX: N13.2 Hydronephrosis with renal and ureteral calculous obstruction (principal) | CPT/HCPCS: 51798; 81003; 99212 ==

== ENCOUNTER 2025-07-30 09:08 | Observation (INO) | payer MEDICAID, SELFPAY ==
[2025-07-30] VITALS (9 sets, daily range): BP systolic 91–148; BP diastolic 55–80; PULSE 80–118; RESP 16–22; TEMP 36.1–37; O2SAT 86–100; BMI 40.6
--- NOTE | ~2025-07-30 | CT_ITS ---
CLINICAL HISTORY: hypoxia tachycardia hx of substance use flank pain CTA chest with 3-D postprocessing Comparison: None available Findings: Study quality is adequate for the diagnosis of pulmonary embolism. No pulmonary embolism. Dilation of the main pulmonary artery , measuring up to 3.4 cm, which can be seen in the setting of pulmonary arterial hypertension Heart size within normal limits. RV/LV ratio is normal. No calcified coronary artery disease. No aortic dissection or aneurysm. No calcified atherosclerotic disease. No lymphadenopathy. There is a mild amount of subsegmental atelectasis versus linear scarring. Calcified granuloma. No pneumothorax or pleural effusion. No acute osseous or soft tissue abnormality. No acute pathology in the imaged portion of the upper abdomen. Impression: No pulmonary embolism or other acute pathology. This document has been electronically signed by: Sherri Hernández MD on 07/30/2025 13:24:42
--- NOTE | 2025-07-30 09:33 | PC.NURSE ---
Ambulatory to Bed 19 w/o diff. reports back pain and hx of kidney stones. Pt is on methadone 55mg. Last dose was 07/18. Used cocaine and heroin yesterday. Is hoping for help with detox and housing. axox3. calm and cooperative
--- NOTE | 2025-07-30 10:03 | ED.GENADULT ---
HPI - General Adult General Chief complaint: Back Pain/Injury Stated complaint: Back Pain Time Seen by Provider: 07/30/25 09:18 Source: patient Mode of arrival: ambulatory Limitations: no limitations History of Present Illness ED Provider: MORRIS Jesus HPI narrative: Chief Complaint: ?Pain in my back on the lower side.? History of Present Illness: The patient is a 45-year-old female who presents with lower back/ flank pain that began a couple of days ago. The pain is located on the lower side of the back. She reports increased discomfort with bending/forward flexion and when walking up stairs, noting that she ?tilts? more to the affected side. She recently voided and noticed a strong odor to her urine, raising concern for a possible urinary tract infection. She has a history of kidney stones but states the current pain is ?not that bad? compared to prior stone episodes. She denies nausea or vomiting. No known drug allergies. Denies fevers, chills, cp, sob, n/v, abd pantoja, flank pain Related Data Home Medications ?Medication ?Instructions ?Recorded ?Confirmed buspirone 10 mg tablet 10 mg PO BID 09/12/22 06/01/25 ferrous sulfate 325 mg (65 mg 325 mg PO DAILY 09/12/22 06/01/25 iron) tablet fluoxetine 40 mg capsule 40 mg PO DAILY 09/12/22 06/01/25 gabapentin 600 mg tablet 600 mg PO BID 09/12/22 06/01/25 hydroxyzine HCl 25 mg tablet 25 - 50 mg PO Q6H PRN Anxiety 09/12/22 06/01/25 ibuprofen 600 mg tablet 600 mg PO TID PRN Pain 09/12/22 06/01/25 methadone 10 mg/mL oral 85 mg PO DAILY 09/12/22 06/01/25 concentrate (Methadose) nicotine (polacrilex) 4 mg buccal 4 mg buccal Q2-4H PRN Nicotine 09/12/22 06/01/25 lozenge Cravings nicotine 21 mg/24 hr daily 1 patch transdermal DAILY PRN 09/12/22 06/01/25 transdermal patch Nicotine Cravings trazodone 100 mg tablet 100 mg PO BEDTIME 09/12/22 06/01/25 Previous Rx's ?Medication ?Instructions ?Recorded tamsulosin 0.4 mg capsule (Flomax) 0.4 mg PO DAILY #7 caps 04/04/25 pyridoxine (vitamin B6) 100 mg 100 mg PO DAILY 90 days #90 tabs 06/01/25 tablet Allergies Allergy/AdvReac Type Severity Reaction Status Date / Time Fish Containing Products Allergy Severe ANAPHYLAXIS Verified 07/30/25 09:15 Review of Systems Review of Systems: ? Musculoskeletal: Positive for lower back/flank pain, worsened with flexion and stair climbing. ? Genitourinary: Reports malodorous urine; denies classic kidney-stone type pain currently. ? Gastrointestinal: Denies nausea or vomiting. (All other systems not discussed.) Yes all other systems are reviewed and are negative [facility] Past Medical History Attestation statement: The following information was validated with the patient. Source: old records reviewed and nursing notes reviewed Medical History Substance abuse Bacterial vaginosis Abscess Screening for cervical cancer Screening for hypercholesterolemia Screening for diabetes mellitus (DM) Surgical History History of section Family History Family History Father No problems noted. Mother HTN (hypertension) Social History Social History Household Members: Family Household Members Other:: 1 Housing: Apartment Do you presently have visiting nurse or other home services: No Alcohol intake: former Patient Tobacco Use Status: Never used Tobacco Tobacco use type: Cigarette Cigarettes Per Day: 5 Smoked in Last 30 Days: Yes Use of substances other than those prescribed or required for medical reasons: Yes Substance Use Type: Crack/Cocaine and Heroin Advance Directives: No Advance Directives Information Provided: Yes Patient : No service: No Current occupational status: unemployed Physical Exam ED Exam Exam: ? Back: Pain elicited with lumbar flexion; limited range of motion due to discomfort.Lumbosacral ttp worse on the left. No saddle anesthesias ? Gait: Patient notes increased tilt to affected side. However steady gait w/ normal coordination CV/Resp: no cardiopulmonary distress however expiratory wheezing b/l. Abdominal pain: no tenderness to palpation on exam Vital Signs: Vital Signs - 24 hr 07/30/25 09:10 07/30/25 10:08 07/30/25 10:26 Temperature 98.6 F 98.4 F Pulse Rate 118 H 105 H 102 H Respiratory Rate 18 16 22 H Blood Pressure 148/80 H 112/70 Pulse Oximetry 93 86 L Oxygen Delivery Method Room Air Room Air 07/30/25 12:03 Temperature 98.3 F Pulse Rate 93 Respiratory Rate 16 Blood Pressure 106/63 Pulse Oximetry 96 Oxygen Delivery Method Room Air BMI result Body Mass Index 40.6 Course Reevaluation(s) Reevaluation #1: Patient is noted to be 86% on room air it appears as though she is dozing off it is possible that patient used prior to arrival to the emergency department she has a history of substance abuse. Time: 10:14 Reevaluation #2: Laboratory studies with leukopenia and low hemoglobin and hematocrit however it appears to be around baseline. No acute findings. Chemistry with no acute findings needing intervention. Troponin negative EKG nonischemic and nondiagnostic for chief complaint. Patient's urine with 4+ bacteria and negative nitrites or leukocyte esterases still some suspicion for UTI will also add gonorrhea and chlamydia testing. Which she would like testing however not interested in treatment at this time until results are back. CT abdomen pelvis pending. Time: 11:17 Reevaluation #3: I was informed by nursing that patient desatted to 83% she is placed on 2 L nasal cannula. She was not nodding off while this occurred. Time: 12:52 Additional Reevaluation(s): 1335 CTA chest negative. Plan admission ? athma for source of hypoxia. Viral panel negative. NG/CT pending will hold on UTI atbx until those result Plan hospital admission Medications Administered Discontinued Medications Generic Name Dose Route Start Last Admin Trade Name Freq PRN Reason Stop Dose Admin Albuterol/Ipratropium 3 ml 07/30/25 10:22 07/30/25 10:26 Albuterol/Iprat 2.5/0.5mg 3 Ml Ampul.Neb INHALE 07/30/25 10:23 3 ml ONCE ONE Administration Iohexol 100 ml 07/30/25 12:09 07/30/25 12:09 Iohexol 350 Mg/Ml 100 Ml Infus..Btl IV 07/30/25 12:10 65 ml ONCE ONE Administration Medical Decision Making Medical Decision Making MDM Narrative: 45-year-old female with recent-onset lower back/flank pain and malodorous urine; evaluating for urinary tract infection versus musculoskeletal etiology. Expiratory wheezing b/l. Problem #1: Lower back / flank pain ? possible UTI Assessment: Acute lower back pain with urinary symptoms. Differential includes urinary tract infection and musculoskeletal strain; history of kidney stones noted but current pain less severe. Plan: Obtain urinalysis (and urine culture if indicated) today. Await lab results to guide further management. Follow-up: Provider will return once UA results are available and discuss next steps. Differential Diagnosis Differential Diagnoses: The differential diagnosis associated with the presentation includes Urinary tract infection (UTI): Malodorous urine and lower back/flank pain are classic features; history and symptoms raise suspicion. Pyelonephritis: UTI ascending to the kidney can present with flank pain; absence of fever or systemic symptoms makes this less likely but still possible. Nephrolithiasis (kidney stones): History of kidney stones; current pain is less severe and lacks classic colicky features, but recurrence is possible. Musculoskeletal strain or injury: Pain worsened by flexion and stair climbing, with limited range of motion, suggests a musculoskeletal component. Lumbar radiculopathy: Lower back pain with movement could indicate nerve root irritation, though no neurological deficits reported. Referred pain from pelvic pathology (e.g., ovarian cyst): Pelvic pathology can present as lower back/flank pain; no gynecologic symptoms reported, but should be considered. Less likely: appendicitis: Location and lack of gastrointestinal symptoms make this less probable, but atypical presentations can occur. Other genitourinary infection: Other infections (e.g., urethritis, cervicitis) may present with urinary symptoms and pain. Admission/Observation Consideration of admission/observation: Escalation of care including admission/observation considered Lab Data 07/30/25 10:40 07/30/25 10:40 Labs: Lab Results 07/30/25 07/30/25 07/30/25 Range/Units 10:02 10:40 11:32 WBC 4.3 L (4.8-10.8) X10*3/uL RBC 3.95 L (4.20-5.50) X10*6/uL Hgb 11.7 L (12.0-16.0) g/dl Hct 34.3 L (37.0-47.0) % MCV 86.8 (80.0-98.0) fL MCH 29.6 (27.0-33.0) pg MCHC 34.1 (31.0-35.0) g/dl RDW 11.7 (11.0-16.0) % Plt Count 221 (160-400) X10*3/uL MPV 10.3 (9.4-12.3) fL Immature Gran % (Auto) 0.2 (0.0-0.4) % Neut % (Auto) 50.6 (45-73) % Lymph % (Auto) 38.0 (20-40) % [place] % (Auto) 9.6 (2-11) % Eos % (Auto) 1.4 (0-4) % Baso % (Auto) 0.2 (0-2) % Lymph # (Auto) 1.6 (1.2-4.9) X10*3/uL [place] # (Auto) 0.4 (0.1-1.2) X10*3/uL Eos # (Auto) 0.1 (0.0-0.4) X10*3/uL Baso # (Auto) 0.0 (0.0-0.2) X10*3/uL Abs Immat Gran (auto) 0.01 (0.00-0.03) X10*3/uL Absolute Neuts (auto) 2.2 (2.0-8.3) x10*3/uL Absolute Nucleated RBC 0.000 (0.0-0.012) X10*3/uL Nucleated RBC % (auto) 0.0 (0.0-0.2) /100WBC Sodium 143 (135-145) mmol/L Potassium 4.1 (3.3-5.1) mmol/L Chloride 106 (96-108) mmol/L Carbon Dioxide 28 (22-29) mmol/L Anion Gap 13 (12-20) BUN 9 (9-16) mg/dL Creatinine 0.75 (0.5-1.4) mg/dL Estim Creat Clear Calc 119.9 Estimated GFR > 60 Random Glucose 136 H (60-115) mg/dL Calcium 8.8 (8.4-10.2) mg/dL Magnesium 2.2 (1.6-2.6) mg/dL Total Bilirubin 0.4 (0.0-1.0) mg/dL AST 42 H (5-31) U/L ALT 53 H (0-31) U/L Alkaline Phosphatase 104 (39-117) U/L Troponin I High Sens < 2.7 (<3.5-17.0) ng/L Total Protein 7.4 (6.5-8.0) g/dL Albumin 3.9 (3.5-5.0) g/dL Urine Color Dark Yellow Urine Appearance Cloudy Urine pH 6.0 (5.0-9.0) Ur Specific [place] >= 1.030 H (1.005-1.025) Urine Protein 30 (1+) H (Neg-Trace) mg/dL Urine Glucose (UA) Negative (Negative) mg/dL Urine Ketones 40 (Negative) mg/dL Urine Blood Negative (Negative) Urine Nitrite Negative (Negative) Ur Leukocyte Esterase Negative (Negative) Urine RBC 0-2 (0-2) /HPF Urine WBC 0-5 (0-5) /HPF Ur Squamous Epith Cells 11-20 (0-2) /HPF Urine Bacteria 4+ (None Seen) Hyaline Casts 3-5 (0-2) /LPF Ur N gonorrhoeae DNA (PCR) NOT DETECTED (Not Detect.) Ur Chlamydia DNA (PCR) NOT DETECTED (Not Detect.) Critical Care Time Critical Care Time Critical Care Time: Yes Total Critical Care Time: 35 Attestation: I attest to this time spent taking care of the patient, obtaining history, physical, reviewing labs, imaging, treatment of patients condition +/- specialist/hospitalist consult +/- procedure Discharge Plan Discharge Clinical Impression: Substance abuse, UTI (urinary tract infection), Left flank pain, Hypoxia Patient Disposition: Admitted As Inpatient Print Language: [place] Citizen
[2025-07-30 10:08] LABS: Appearance Urine Cloudy; Glucose Urine UA Negative (Negative); PH 6.0 (5.0-9.0); Specific Gravity - Urine >= 1.030 (1.005-1.025); UMIC TRIGGER UACC YES
--- OUTSIDE RECORDS SUMMARY | 2025-07-30 10:08 | XMS_ITS | Clinical Summary ---
Author Organization [facility] Address [address] [place] [address] Phone Care Team Providers Care Fieldwork Coordinator Name Role Phone Favian Tobin MD Primary Care Provider [phone] Allergies Active Allergy Reactions Criticality Noted Date Comments Fish Containing Products 05/04/2025 Encounters Date Type Department Care Team Description 05/04/2025 3:16 PM EDT - 05/04/2025 10:13 PM EDT Emergency [facility] Emergency [address] [place] [address] Yamilka Rdz MD Corrado, Adam [...] 2001 Cervical Cancer Screening: Pap Smear 2003 HPV Vaccines (1 - 3-dose SCDM series) 2009 Depression Screening 09/03/2024 COVID-19 Vaccine ( season) 2025 08/25/2022, 08/30/2021, 01/19/2021, Additional history exists HIV Screening 05/04/2025 Hepatitis C Screening 05/04/2025 Influenza Vaccine (#1) 2025 Social Influencers of Health Screening 05/04/2025 DTaP,Tdap,and Td Vaccines (4 - Td or Tdap) 02/10/2029 02/10/2019, 09/08/2014, 02/03/2014 RSV Immunization Adult Patients (1 - 1-dose 75+ series) 2057 MMR Vaccines Aged Out 04/22/2019 No longer [...] urine manually resulted (05/04/2025 3:58 PM EDT) HCG, Ur POC Negative Negative POC hCG Int QC Pass? Yes Yes Urine Urine specimen obtained by clean catch procedure / Unknown 05/04/2025 3:58 PM EDT us Yamilka Rdz MD POINT OF CARE TEST ENTER/EDIT ORDERABLES Final Result * (ABNORMAL) Urinalysis with reflex microscopic and culture (05/04/2025 3:50 PM EDT) [facility] Specific [place] Urine 1.019 1.003 - 1.030 LAB URINALYSIS - AUTOMATED METHOD 05/04/2025 4:16 PM [facility] pH, Urine 6.5 5.0 - 8.0 pH LAB URINALYSIS - AUTOMATED METHOD 05/04/2025 4:16 PM [facility] Leukocytes, Urine Trace(A) Negative LAB URINALYSIS - AUTOMATED METHOD 05/04/2025 4:16 PM [facility] Nitrite, Urine Negative Negative LAB URINALYSIS - AUTOMATED METHOD 05/04/2025 4:16 PM [facility] Protein, Urine Negative <=Trace mg/dL LAB URINALYSIS - AUTOMATED METHOD 05/04/2025 4:16 PM [facility] Glucose, Urine Negative Negative mg/dL LAB URINALYSIS - AUTOMATED METHOD 05/04/2025 4:16 PM EDT [facility] Ketones, Urine Negative Negative mg/dL LAB URINALYSIS - AUTOMATED METHOD 05/04/2025 4:16 PM [facility] Urobilinogen, Urine 1.0 0.2 - 1.0 mg/dL LAB URINALYSIS - AUTOMATED METHOD 05/04/2025 4:16 PM [facility] Bilirubin, Urine Negative Negative LAB URINALYSIS - AUTOMATED METHOD 05/04/2025 4:16 PM T [facility] Blood, Urine Negative Negative LAB URINALYSIS - AUTOMATED METHOD 05/04/2025 4:16 PM [facility] RBC, Urine 2.2 0 - 4 /HPF LAB URINALYSIS - AUTOMATED METHOD 05/04/2025 4:16 PM [facility] WBC, Urine 1.3 0 - 4 /HPF LAB URINALYSIS - AUTOMATED METHOD 05/04/2025 4:16 PM [facility] Squamous Epithelial, Urine 49 0 - 60 /LPF LAB URINALYSIS - AUTOMATED METHOD 05/04/2025 4:16 PM [facility] Bacteria, Urine Negative Negative /HPF LAB URINALYSIS - AUTOMATED METHOD 05/04/2025 4:16 PM [facility] Hyaline Casts, Urine 0.0 0 - 3 /LPF LAB URINALYSIS - AUTOMATED METHOD 05/04/2025 4:16 PM [facility] Urine Urine specimen obtained by clean catch procedure / Unknown Non-blood Collection / Unknown 05/04/2025 3:50 PM EDT 05/04/2025 4:06 PM EDT us Yamilka Rdz MD LAB URINE ORDERABLES Final Res ult [facility] [address] [place] [address], * Ramirez urine culture tube (05/04/2025 3:50 PM EDT) Pathologist [facility] Extra Tube Hold for add-ons. 05/04/2025 6:01 PM EDT [facility] Comment:Auto resulted. Urine Urine specimen obtained by clean catch procedure / Unknown Non-blood Collection / Unknown 05/04/2025 3:50 PM EDT 05/04/2025 4:06 PM EDT us Yamilka Rdz MD LAB URINE ORDERABLES Final Res ult Performing Organization Address City/[facility]/ZIP Co de Phone Number [facility] [address] [place] [address], [place] [phone] * Culture urine (05/04/2025 3:50 PM EDT) [facility] Culture, Urine <10,000 CFU/mL gram positive cocci, insignificant count, no further workup 05/05/2025 11:03 AM EDT [facility] Urine Urine specimen obtained by clean catch procedure / Unknown Non-blood Collection / Unknown 05/04/2025 3:50 PM EDT 05/04/2025 4:16 PM EDT us Yamilka Rdz MD LAB MICROBIOLOGY - GENERAL ORD ERABLES Final Result Performing Organization Address City/[facility]/ZIP Co de Phone Number [facility] [address] [place] [address], [place] [phone] * (ABNORMAL) CBC auto differential (05/04/2025 3:41 PM EDT) Pathologist [facility] WBC 4.7(L) 4.8 - 10.8 K/[facility] LAB HEMETOLOGY METHOD 05/04/2025 4:01 PM EDT [facility] RBC 4.20 3.80 - 4.80 M/[facility] LAB HEMETOLOGY METHOD 05/04/2025 4:01 PM EDT [facility] Hemoglobin 12.3 11.5 - 16.0 g/dL LAB HEMETOLOGY METHOD 05/04/2025 4:01 PM [facility] Hematocrit 36.3 35.0 - 47.0 % LAB HEMETOLOGY METHOD 05/04/2025 4:01 PM [facility] MCV 85.8 79.0 - 98.0 FL LAB HEMETOLOGY METHOD 05/04/2025 4:01 PM [facility] MCH 29.1 27.0 - 32.0 pcg LAB HEMETOLOGY METHOD 05/04/2025 4:01 PM [facility] MCHC 33.9 32.0 - 37.0 g/dL LAB HEMETOLOGY METHOD 05/04/2025 4:01 PM [facility] RDW 11.9 11.0 - 15.0 % LAB HEMETOLOGY METHOD 05/04/2025 4:01 PM [facility] Platelets 196 130 - 400 K/mcL LAB HEMETOLOGY METHOD 05/04/2025 4:01 PM [facility] MPV 10.7 7.0 - 11.0 FL LAB HEMETOLOGY METHOD 05/04/2025 4:01 PM [facility] NRBC 0.0 <1.0 % LAB HEMETOLOGY METHOD 05/04/2025 4:01 PM [facility] NRBC Absolute 0.00 <0.10 K/mcL LAB HEMETOLOGY METHOD 05/04/2025 4:01 PM [facility] Neutrophils Relative 36.6 % LAB HEMETOLOGY METHOD 05/04/2025 4:01 PM [facility] Lymphocytes Relative 55.4 % LAB HEMETOLOGY METHOD 05/04/2025 4:01 PM [facility] Monocytes Relative 5.3 % LAB HEMETOLOGY METHOD 05/04/2025 4:01 PM EDT [facility] Eosinophils Relative 2.3 % LAB HEMETOLOGY METHOD 05/04/2025 4:01 PM EDT [facility] Basophils Relative 0.2 % LAB HEMETOLOGY METHOD [facility]/04[facility]25 [facility] Immature Granulocytes Relative 0.2 % LAB HEMETOLOGY METHOD 05/04/2025 4:01 PM EDT [facility] Neutrophils Absolute 1.72 1.50 - 7.00 K/mcL LAB HEMETOLOGY METHOD 05/04/2025 4:01 PM [facility] Lymphocytes Absolute 2.61 1.00 - 5.00 K/mcL LAB HEMETOLOGY METHOD 05/04/2025 4:01 [facility] Monocytes Absolute 0.25 0.20 - 1.00 K/mcL LAB HEMETOLOGY METHOD 05/04/2025 4:01 PM EDT [facility] Eosinophils Absolute 0.11 0.00 - 0.50 K/mcL LAB HEMETOLOGY METHOD 05/04/2025 4:01 PM EDT [facility] Basophils Absolute 0.01 0.00 - 0.20 K/mcL LAB HEMETOLOGY METHOD 05/04/2025 4:01 PM [facility] Immature Granulocytes Absolute 0.01 0.00 - 0.03 K/mcL LAB HEMETOLOGY METHOD 05/04/2025 4:01 PM EDT [facility] Blood Venous blood specimen / Unknown Venipuncture / Unknown 05/04/2025 3:41 PM EDT 05/04/2025 3:52 PM EDT us Yamilka Rdz MD LAB BLOOD ORDERABLES Final Res ult [facility] [address], [place] [address] [phone] * (ABNORMAL) Basic metabolic panel (05/04/2025 3:41 PM EDT) Sodium 137 133 - 145 mmol/L LAB CHEMISTRY METHOD 05/04/2025 4:43 PM [facility] Potassium 4.9 3.5 - 5.5 mmol/L LAB CHEMISTRY METHOD 05/04/2025 4:43 PM [facility] Comment:Hemolysis present Chloride 107 96 - 110 mmol/L LAB CHEMISTRY METHOD 05/04/2025 4:43 PM [facility] CO2 28 21 - 32 mmol/L LAB CHEMISTRY METHOD 05/04/2025 4:43 PM [facility] Anion Gap 2(L) 3 - 11 LAB CHEMISTRY METHOD 05/04/2025 4:43 PM [facility] Glucose 107(H) 70 - 100 mg/dL LAB CHEMISTRY METHOD 05/04/2025 4:43 PM [facility] BUN 12 5 - 25 mg/dL LAB CHEMISTRY METHOD 05/04/2025 4:43 PM [facility] Creatinine 0.90 0.50 - 1.10 mg/dL LAB CHEMISTRY METHOD 05/04/2025 4:43 PM [facility] eGFR 82 >=60 mL/min/1. 73m2 LAB CHEMISTRY METHOD 05/04/2025 4:43 PM [facility] Comment:Calculation based on the Chronic Kidney Disease Epidemiology Collaboration (CKD-EPI) equation refit without adjustment for race. BUN/Creatinine Ratio 13.3 LAB CHEMISTRY METHOD 05/04/2025 4:43 PM [facility] Calcium 8.6 8.5 - 10.5 mg/dL LAB CHEMISTRY METHOD 05/04/2025 4:43 PM [facility] Blood Venous blood specimen / Unknown Venipuncture / Unknown 05/04/2025 3:41 PM EDT 05/04/2025 3:52 PM EDT us Yamilka Rdz MD LAB BLOOD ORDERABLES Final Res ult [facility] [address] [place] [address], [place] [phone] from Last 3 Months Insurance [facility] Care Teams Fieldwork Coordinator Relationship Specialty Start Date End Date Favian Tobin MD [address] [place] [address] [address] [facility] [place] [address] PCP - General Internal Medicine 12/01/16
--- OUTSIDE RECORDS SUMMARY | 2025-07-30 10:08 | XMS_ITS | Encounter Summary ---
Author Organization [facility] Address [address] [place] [address] Care Team Providers Care Cotton Breeder Name Role Phone Na Lee JOIE Primary Care Provider [phone] Encounter Details Date Type Department Care Team (Late st Contact Info) Description 10/07/2021 [facility] [address] [place] [id number] Guera Rodrigues Social History Tobacco Use Types Packs/Day Years Used Date Smoking Tobacco: Never Assessed Comments Unknown Sex and Gender Information Value Date Recorded Sex Assigned at Female 12/27/2022 1:25 PM EDT Legal Sex Female 4:15 PM EST Gender Identity Choose not to disclose 1:25 PM EDT Sexual Orientation Choose not to disclose 2022 1:25 PM EDT documented as of this encounter Plan of Treatment Not on file documented as of this encounter Procedures Procedure Name Priority Date/Time Associated Diagnosis Comments MAMMOGRAPHY Routine 04/03/2023 HIV 1/2 ANTIGEN AND ANTIBODY Routine 11/23/2022 HPV ONLY Routine 10/07/2021 PAP/HPV Routine 10/07/2021 HEPATITIS C ANTIBODY Routine 01/10/2019 documented in this encounter Results * Mammography (04/03/2023) [facility] Mammogram NORMAL Comment:BI RADS 1 Anatomical Region Laterality Modality Other Historical Provider HEALTH MAINTENANCE Final Result * HIV 1/2 Antigen and Antibody (11/23/2022) HIV Ag/Ab Nonreactive [facility] Provider HEALTH MAINTENANCE Final Result * HPV (10/07/2021) Pathologist [facility] HPV Undetected Undetected, Indeterminate , Quantitative, Not Detected Result [facility] Provider HEALTH MAINTENANCE Final Result * Pap Smear (10/07/2021) Pathologist [facility] Pap Negative for intraephithelial lesion or malignancy Negative for intraephithelial lesion or malignancy, Other HPV Undetected Undetected, Indeterminate, Quantitative, Not Detected Result [facility] Provider HEALTH MAINTENANCE Final Result * Hepatitis C Antibody (01/10/2019) Pathologist [facility] Hepatitis C Antibody Reactive Blood Result [facility] Provider HEALTH MAINTENANCE Final Result documented in this encounter Visit Diagnoses Not on filedocumented in this encounter Care Teams Cotton Breeder Relationship Specialty Start Date End Date Na Lee FNP [address] [place] [id number] PCP - General Family Medicine 01/01/23 documented as of this encounter
--- OUTSIDE RECORDS SUMMARY | 2025-07-30 10:08 | XMS_ITS | Clinical Summary ---
Author Organization [employer] Address [address] [place] [address] Care Team Providers Care [employer] Offbearer Name Role Phone Na Lee JOIE Primary Care Provider [phone] Allergies Active Allergy Reactions Criticality Noted Date Comments Shellfish Allergy Hives High 12/11/2018 Medications naloxone (Narcan) 4 mg/0.1 mL nasal spray SPRAY INTO NOSTRIL FOR OPIOID OVERDOSE. CALL 911 IF USED. FOR NO RESPONSE, GIVE AGAIN IN 2 MINS. 2 Active methadone (Dolophine) 10 MG tablet Take 40 mg by mouth. 1 Active GaviLAX 17 GM/SCOOP powder TAKE 17 GRAM DISSOLVED IN WATER ONCE A DAY NEEDED FOR CONSTIPATION. 2 Active pramipexole (Mirapex) 0.25 MG tablet Take 1 tablet by mouth if needed at bedtime for other. 2 Active traZODone (Desyrel) 50 MG tablet Take 2 tablets by mouth if needed at bedtime for sleep. 2 Active Senna-Time 8.6 MG tablet 3 Active nicotine polacrilex (Commit) 4 MG lozenge 3 Active nicotine (Nicoderm, Step 1) 21 MG/24HR patch 3 Active lidocaine (Xylocaine) 2 % solution 5 ML TOPICALLY 4 TIMES A DAY NEEDED FOR MOUTH SORE PAIN,APPLY TO PAINFUL AREA, SWISH AND SPIT 3 Active ibuprofen 600 MG tablet PLEASE SEE ATTACHED FOR DETAILED DIRECTIONS 3 Active hydrOXYzine HCl (Atarax) 25 MG tablet 3 Active Mavyret 100-40 MG tablet 3 Active gabapentin (Neurontin) 600 MG tablet 3 Active gabapentin (Neurontin) 300 MG capsule 3 Active FLUoxetine (PROzac) 40 MG capsule 3 Active FeroSul 325 (65 Fe) MG tablet 3 Active doxycycline (Vibramycin) 100 MG capsule Take 100 mg by mouth 2 times daily. 3 Active clindamycin (Cleocin) 150 MG capsule TAKE 3 CAPSULES BY MOUTH EVERY 8 HOURS FOR 7 DAYS 3 Active busPIRone (Buspar) 10 MG tablet 3 Active amoxicillin-cla vulanate (Augmentin) 875-125 MG tablet 3 Active Antacid/Antigas 400-400-40 MG/10ML oral suspension 3 Active Active Problems Problem Noted Date Diagnosed Date Scar of skin 12/31/2022 Polysubstance abuse 12/31/2022 Hyperglycemia 12/31/2022 Hepatitis C virus infection 12/31/2022 Overview (12/31/2022): Eradicated: 12wk mavyret completed 01/02/20, SVR12 confirmed 03/25/20 H/O intravenous drug use in remission 12/31/2022 Constipation 12/31/2022 Class 1 obesity 12/31/2022 Cigarette smoker 12/31/2022 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 Overview (12/31/2022): Sightly elevated alk phos but normal GGT- should have alk phos checked annually Immunizations Immunization Administration Dates Next Due MMR 04/22/2019 Moderna Covid-19 Vaccine 12+ 01/19/2021,12/23/19 21 Pfizer Covid-19 Vaccine 12+ Bivalent 08/25/2022 Td (adult), unspecified 09/08/2014 Tdap 02/10/2019,02/03/2014 Social History Tobacco Use Types Packs/Day Years Used Date Smoking Tobacco: Never Assessed Comments Unknown Sex and Gender Information Value Date Recorded Sex Assigned at Female 12/27/2022 1:25 PM EDT Legal Sex Female 4:15 PM EST Gender Identity Choose not to disclose 1:25 PM EDT Sexual Orientation Choose not to disclose 2022 1:25 PM EDT Plan of Treatment Health Maintenance Due Date Last Done Comments Depression Screening 1982 SDOH Screening 1982 Disability Screening 1982 Alcohol/Substance Use Screening 1994 Tobacco Screening 1994 Family Planning (PISQ) 1997 HPV Vaccines (1 - 3-dose series) 1997 Hepatitis A Vaccines (1 of 2 - Risk 2-dose series) 2001 Hepatitis B Vaccines (1 of 3 - 19+ 3-dose series) 2001 Pap Smear 10/07/2024 10/07/2021 Mammogram 04/03/2025 04/03/2023 COVID-19 Vaccine (4 - 2024-2 6 season) 2025 08/25/2022, 01/19/2021, 12/22/2020 Influenza Vaccine (#1) 2025 Cervical Cancer Screening 10/07/2026 HPV/Cotest 10/07/2026 10/07/2021, 10/07/2021 DTaP/Tdap/Td Vaccines (4 - T d or Tdap) 02/10/2029 02/10/2019, 09/08/2014, 02/03/2014 Zoster Vaccines (1 of 2) 2032 RSV Patients and Patients Aged 60 years or older (1 - 1-dose 75+ series) 2057 HIV Screening Completed 11/23/2022 HIB Vaccines Aged Out No longer eligi ble based on patient's age to complete this topic IPV Vaccines Aged Out No longer eligi ble based on patient's age to complete this topic Meningococcal B Vaccine Aged Out No l onger eligible based on patient's age to complete this topic Meningococcal Vaccine Aged Out No doug judy eligible based on patient's age to complete this topic Pneumococcal Vaccine: Pediatrics (0 to 5 Years) and At-Risk Patients (6 to 49) Years Aged Out No longer eligible b ased on patient's age to complete this topic RSV under 20 months Aged Out No longe r eligible based on patient's age to complete this topic Rotavirus Vaccines Aged Out No longer eligible based on patient's age to complete this topic Procedures Procedure Name Priority Date/Time Associated Diagnosis Comments MAMMOGRAPHY Routine 04/03/2023 HIV 1/2 ANTIGEN AND ANTIBODY Routine 11/23/2022 PAP/HPV Routine 10/07/2021 from Last 3 Months or Most Recently Relevant to Health Maintenance Results * Mammography (04/03/2023) Mammogram NORMAL Comment:BI RADS 1 Anatomical Region Laterality Modality Other [facility] Provider MD HEALTH MAINTENANCE Final Result * HIV 1/2 Antigen and Antibody (11/23/2022) HIV Ag/Ab Nonreactive [facility] Provider MD HEALTH MAINTENANCE Final Result * Pap Smear (10/07/2021) Pap Negative for intraephithelial lesion or malignancy Negative for intraephithelial lesion or malignancy, Other HPV Undetected Undetected, Indeterminate, Quantitative, Not Detected [facility] Provider MD HEALTH MAINTENANCE Final Result from Last 3 Months or Most Recently Relevant to Health Maintenance Insurance [facility] Care Teams [employer] Offbearer Relationship Specialty Start Date End Date Na Lee FNP [address] [place] [id number] PCP - General Family Medicine 01/01/23
--- NOTE | 2025-07-30 10:12 | PC.NURSE ---
Sao2 HAS BEEN low while patient is resting, awake in bed. Lowest was 86%. Pupils are 3-4mm. Pt states last opiate use was 5am. Is not drowsy. LS Coarse in bases. Provider made aware. Skin PWD. No Resp depression.
--- NOTE | 2025-07-30 10:13 | ECG_ITS ---
Test Reason : TACHYCARDIA Blood Pressure : */* mmHG Vent. Rate : 102 BPM Atrial Rate : 102 BPM P-R Int : 184 ms QRS Dur : 70 ms QT Int : 348 ms P-R-T Axes : * 144 -15 degrees QTcB Int : 453 ms Sinus tachycardia Left posterior fascicular block Possible Inferior infarct , age undetermined Cannot rule out Anterior infarct , age undetermined Abnormal ECG When compared with ECG of 04-Apr-2025 11:17, Vent. rate has increased by 45 bpm QRS axis Shifted right Nonspecific T wave abnormality now evident in Inferior leads Inverted T waves have replaced nonspecific T wave abnormality in Anterior leads Referred By: Jyoti Jesus Electronically Signed By: Dharmesh Puentes
--- NOTE | 2025-07-30 10:23 | ECG_ITS ---
Test Reason : TACHYCARDIA Blood Pressure : */* mmHG Vent. Rate : 98 BPM Atrial Rate : 98 BPM P-R Int : 170 ms QRS Dur : 76 ms QT Int : 370 ms P-R-T Axes : 49 60 28 degrees QTcB Int : 472 ms Normal sinus rhythm Nonspecific T wave abnormality Prolonged QT Abnormal ECG When compared with ECG of 30-Jul-2025 10:21, Left posterior fascicular block is no longer Present Nonspecific T wave abnormality, improved in Inferior leads Referred By: Magnolia Hodges Electronically Signed By: Dharmesh Puentes
--- NOTE | 2025-07-30 10:23 | PC.RT ---
RT assessed pt per bronch protocol. Pt walking back from bathroom, RR 22, SAT 92% on RA. L/s clear bilateral. Tx ordered.
[2025-07-30] MEDS: Albuterol/Iprat 2.5/0.5MG 3 ML AMPUL.NEB INHALE (10:26)
[2025-07-30 10:45] LABS: MANUAL DIFF FLAG NO
[2025-07-30 10:46] LABS: Hematocrit 34.3 % (37.0-47.0); Hemoglobin 11.7 g/dl (12.0-16.0); Imm Gran Abs Auto 0.01 X10*3/uL (0.00-0.03); Imm Gran Pct Auto 0.2 % (0.0-0.4); Lymphocytes Absolute Auto 1.6 X10*3/uL (1.2-4.9); Mean Corpuscular HGB Conc 34.1 g/dl (31.0-35.0); Mean Corpuscular Hemoglobin 29.6 pg (27.0-33.0); Mean Corpuscular Volume 86.8 fL (80.0-98.0); NRBC Abs Auto 0.000 X10*3/uL (0.0-0.012); NRBC Pct Auto 0.0 /100WBC (0.0-0.2); Platelet Count 221 X10*3/uL (160-400); Red Blood Count 3.95 X10*6/uL (4.20-5.50); White Blood Count 4.3 X10*3/uL (4.8-10.8)
[2025-07-30 11:03] LABS: Alanine Aminotransferase 53 U/L (0-31); Albumin Level 3.9 g/dL (3.5-5.0); Alkaline Phosphatase 104 U/L (39-117); Anion Gap 13 (12-20); Aspartate Amino Transferase 42 U/L (5-31); Blood Urea Nitrogen 9 mg/dL (9-16); Calcium 8.8 mg/dL (8.4-10.2); Carbon Dioxide 28 mmol/L (22-29); Chloride 106 mmol/L (96-108); Creatinine Clr Calc Pharmacy 119.9; Estimated Glomerular Filt Rate > 60; Magnesium 2.2 mg/dL (1.6-2.6); Potassium 4.1 mmol/L (3.3-5.1); Sodium 143 mmol/L (135-145); Total Protein 7.4 g/dL (6.5-8.0)
[2025-07-30 11:12] LABS: Troponin-I High Sensitivity < 2.7 ng/L (<3.5-17.0)
[2025-07-30] MEDS: iohexoL 350 MG/ML 100 ML INFUS..BTL IV (12:09)
[2025-07-30 13:15] LABS: CT PCR Urine NOT DETECTED (Not Detect.); NG PCR Urine NOT DETECTED (Not Detect.)
[2025-07-30 13:47] LABS: Resp Syncy Virus RNA Qual PCR NEGATIVE (Negative); SARS COV2 PCR INHOUSE NEGATIVE (Negative)
[2025-07-30 14:02] LABS: Cannabinoid Screen Urine POSITIVE (Not Detect)
[2025-07-30] MEDS: Magnesium Sulfate/H2O 2 GM/50 ML PIGGYBACK IV (14:23)
--- NOTE | 2025-07-30 14:53 | PHA.MEDREC ---
Pharmacy Consult ? Medication Reconciliation Pharmacy has completed the medication reconciliation. MED REC COMPLETE, SPOKE TO PATIENT AND COMPARED WITH PHARMACY CLAIMS HISTORY. METHADONE DOSE OF 55 MG IS STATED BY PATIENT, WILL NEED TO VERIFY WITH CLINIC
--- NOTE | 2025-07-30 15:23 | PC.NURSE ---
Pt back from BR with steady gait. Skin pwd. still seems more tired than expected but denies substance use since 5am.
--- NOTE | 2025-07-30 15:28 | P.HPHOSP_ITS ---
History of Present Illness Date of Service: 07/30/25 Attending physician on admission: Magnolia Hodges Chief Complaint: hypoxia This is a 45 year old female with history of polysubstance use who presents to the ED with complaints of back pain. Patient reports she has left-sided back pain for the past few days. It is worse with movements and feels like a pulling sensation. She denies any trauma or falls. She has a history of kidney stones and state that it does not feel similar to her previous kidney stones. She has no associated nausea, vomiting or dysuria. She denies any associated fever or chills. In the emergency department her urinalysis was a poor sample but showing 4+ bacteria. While in the emergency department she was noted to be hypoxic, reportedly with her oxygen saturation dropping to 83% on room air. She was subsequently placed on 2 L nasal cannula. CTA was obtained which was negative for PE. Lab work relatively unremarkable, mild transaminitis. Tox screen positive for opiates, methadone, fentanyl, benzodiazepines, cocaine, marijuana. Patient reports snorting cocaine and heroin. She smokes 3 or 4 cigarettes daily but also vapes nicotine all the time. She was previously sober for 14 months, but has been using for the past 2-3 weeks. She reports 2 months of intermittent PRIETO. No leg edema. Recently she began having a cough productive of green phlegm. She also reports gaining 100 lb over the past 14 months. She denies any history of asthma or underlying lung disease. Review of Systems 2 Review of Systems: Yes all other systems are reviewed and are negative Constitutional: Constitutional: Denies chills and Denies fever(s) ENT: Denies dizziness Cardiovascular: Cardiovascular: Denies chest pain, Denies palpitations and Reports dyspnea on exertion Respiratory: Respiratory: Reports cough and Reports dyspnea on exertion Gastrointestinal: Gastrointestinal: Denies abdominal pain, Denies nausea and Denies vomiting Genitourinary: Genitourinary: Denies dysuria Neurologic: Denies dizziness Endocrine: Endocrine: Denies palpitations [facility] Medical History Substance abuse Bacterial vaginosis Abscess Screening for cervical cancer Screening for hypercholesterolemia Screening for diabetes mellitus (DM) Family History Father No problems noted. Mother HTN (hypertension) Surgical History History of section Social History Household Members: Family Household Members Other:: 1 Housing: Apartment Do you presently have visiting nurse or other home services: No Alcohol intake: former Patient Tobacco Use Status: Current everyday Tobacco user Tobacco use type: Cigarette Cigarettes Per Day: 4 Smoked in Last 30 Days: Yes e-Cigarette/Vaping Use: Currently Using Patient Interested in Nicotine Replacement: Yes Use of substances other than those prescribed or required for medical reasons: Yes Substance Use Type: Crack/Cocaine and Heroin Currently Displaying Signs/Symptoms of Drug Intoxication Withdrawal: No Advance Directives: No Advance Directives Information Provided: Yes Patient : No service: No Current occupational status: unemployed Meds Allergies Allergy/AdvReac Type Severity Reaction Status Date / Time Fish Containing Products Allergy Severe ANAPHYLAXIS Verified 07/30/25 09:15 Active Medications: Current Medications Acetaminophen (Acetaminophen 325 Mg Tablet) 650 mg PO Q6H PRN PRN Reason: Pain, Mild 1-3,fever,headache Albuterol Sulfate (Albuterol Sulfate (0.083%) 2.5 Mg/3 Ml Vial.Neb) 2.5 mg INHALE Q6H PRN PRN Reason: Shortness of Breath/Wheezing Calcium Carbonate (Calcium Carbonate 750 Mg Tab.Chew) 750 mg PO Q4H PRN PRN Reason: Heartburn Enoxaparin Sodium (Enoxaparin Sodium 40 Mg/0.4 Ml Syringe) 40 mg SUBCUT Q24H ABIMAEL Magnesium Sulfate (Magnesium Sulfate/H2o) 2 gm in 50 mls @ 25 mls/hr IV ONCE ONE Stop: 07/30/25 16:08 Last Admin: 07/30/25 14:23 Dose: 25 mls/hr Magnesium Hydroxide (Milk Of Magnesia 30 Ml Oral.Susp) 30 ml PO DAILY PRN PRN Reason: Constipation Melatonin (Melatonin 3 Mg Tablet) 6 mg PO BEDTIME PRN PRN Reason: Insomnia Sodium Chloride (0.9 % Sodium Chloride Flush 3 Ml Syringe) 3 ml IVFLUSH QSHIFT [facility] Home Medications ?Medication ?Instructions ?Recorded ?Confirmed ?Last Taken ?Type buspirone 10 mg tablet 10 mg PO BID 0107/29/25 History gabapentin 600 mg tablet 600 mg PO TID 09/12/2207/3007/29/25 History hydroxyzine HCl 25 mg tablet 25 mg PO Q6H PRN Anxiety 09/12/22 07/30/25 09/11/22 History ibuprofen 600 mg tablet 600 mg PO TID PRN Pain 09/1207/30/25 09/11/22 History methadone 10 mg/mL oral 55 mg PO DAILY 09/12/2207/0507/28/25 History concentrate (Methadose) nicotine (polacrilex) 4 mg buccal 4 mg buccal Q2-4H MN N Nicotine 09/12/22 07/30/25 09/11/22 History lozenge Cravings nicotine 21 mg/24 hr daily 1 patch transdermal DAILY P RN 09/12/22 07/30/25 09/11/22 History transdermal patch Nicotine Cravings fluoxetine 20 mg tablet 20 mg PO DAILY 07/30/2507/05 Unknown History fluticasone propionate 50 1 spray intranasal BID PRN 1 09/29/24 07/30/25 Unknown History mcg/actuation nasal ALLERGIES spray,suspension topiramate 50 mg tablet 50 mg PO BEDTIME 07/30/2507/29/25 History trazodone 50 mg tablet 50 mg PO BEDTIME 07/30/25 Unknown History Physical Exam 2 Vital Signs and Narrative: Vital Signs: Last Vital Signs Temp 97.8 F 07/30/25 14:02 Pulse 90 07/30/25 14:02 Resp 16 07/30/25 14:02 BP 91/55 L 07/30/25 14:02 Pulse Ox 96 07/30/25 14:54 O2 Del Method Room Air 07/30/25 14:54 O2 Flow Rate 2 07/30/25 14:02 BMI result Body Mass Index 40.6 Const: General: cooperative, alert and awake Nutritional Appearance: obese Orientation/consciousness: patient oriented x3 Resp: Other: decrease air entry b/l no overt wheeze; no rales Effort & Inspection: normal respiratory effort and able to speak in complete sentences Cardio: Rate: regular rate GI: Inspection: No distended Palpation (GI): Soft to palpation : Other: no CVAT Back/Spine/Pelvis: Other: no midline spinal tenderness; left lumbar paraspinal muscle tenderness to palpation Neuro: General: patient oriented x3, moves all extremities and CN's II-XI intact bilaterally Extrem: General: No pedal edema Results Labs 07/30/25 10:40 07/30/25 10:40 Labs: Laboratory Results - last 24 hr 07/30/25 07/30/25 07/30/25 10:02 10:40 11:32 MCV 86.8 MCH 29.6 MCHC 34.1 RDW 11.7 Plt Count 221 MPV 10.3 Immature Gran % (Auto) 0.2 Neut % (Auto) 50.6 Lymph % (Auto) 38.0 [place] % (Auto) 9.6 Eos % (Auto) 1.4 Baso % (Auto) 0.2 Lymph # (Auto) 1.6 [place] # (Auto) 0.4 Eos # (Auto) 0.1 Baso # (Auto) 0.0 Abs Immat Gran (auto) 0.01 Absolute Neuts (auto) 2.2 Absolute Nucleated RBC 0.000 Nucleated RBC % (auto) 0.0 Anion Gap 13 Estim Creat Clear Calc 119.9 Estimated GFR > 60 Random Glucose 136 H Calcium 8.8 Magnesium 2.2 Total Bilirubin 0.4 AST 42 H ALT 53 H Alkaline Phosphatase 104 Troponin I High Sens < 2.7 Total Protein 7.4 Albumin 3.9 Urine Color Dark Yellow Urine Appearance Cloudy Urine pH 6.0 Ur Specific [place] >= 1.030 H Urine Protein 30 (1+) H Urine Glucose (UA) Negative Urine Ketones 40 Urine Blood Negative Urine Nitrite Negative Ur Leukocyte Esterase Negative Urine RBC 0-2 Urine WBC 0-5 Ur Squamous Epith Cells 11-20 Urine Bacteria 4+ Hyaline Casts 3-5 Ur N gonorrhoeae DNA (PCR) NOT DETECTED Urine Opiates Screen POSITIVE H Ur Buprenorphine Scrn Not Detected Ur Oxycodone Screen Not Detected Urine Methadone Screen Positive H Urine Fentanyl Screen POSITIVE H Ur Barbiturates Screen Not Detected Ur Phencyclidine Scrn Not Detected Ur Amphetamines Screen Not Detected U Benzodiazepines Scrn POSITIVE H Urine Cocaine Screen POSITIVE H U Marijuana (THC) Screen POSITIVE H Ur Chlamydia DNA (PCR) NOT DETECTED Influenza Type A (PCR) Influenza Type B (PCR) RSV RNA Qual (PCR) SARS-CoV-2 RNA (RT-PCR) 07/30/25 13:07 MCV MCH MCHC RDW Plt Count MPV Immature Gran % (Auto) Neut % (Auto) Lymph % (Auto) [place] % (Auto) Eos % (Auto) Baso % (Auto) Lymph # (Auto) [place] # (Auto) Eos # (Auto) Baso # (Auto) Abs Immat Gran (auto) Absolute Neuts (auto) Absolute Nucleated RBC Nucleated RBC % (auto) Anion Gap Estim Creat Clear Calc Estimated GFR Random Glucose Calcium Magnesium Total Bilirubin AST ALT Alkaline Phosphatase Troponin I High Sens Total Protein Albumin Urine Color Urine Appearance Urine pH Ur Specific [place] Urine Protein Urine Glucose (UA) Urine Ketones Urine Blood Urine Nitrite Ur Leukocyte Esterase Urine RBC Urine WBC Ur Squamous Epith Cells Urine Bacteria Hyaline Casts Ur N gonorrhoeae DNA (PCR) Urine Opiates Screen Ur Buprenorphine Scrn Ur Oxycodone Screen Urine Methadone Screen Urine Fentanyl Screen Ur Barbiturates Screen Ur Phencyclidine Scrn Ur Amphetamines Screen U Benzodiazepines Scrn Urine Cocaine Screen U Marijuana (THC) Screen Ur Chlamydia DNA (PCR) Influenza Type A (PCR) NEGATIVE Influenza Type B (PCR) NEGATIVE RSV RNA Qual (PCR) NEGATIVE SARS-CoV-2 RNA (RT-PCR) NEGATIVE Assessment and Plan (1) Hypoxia: Status: Acute Plan This is a 45-year-old female with a history of polysubstance use who presents to the emergency department with back pain found to be hypoxic acute hypoxia CTA negative for PE no h/o lung dz possible viral illness, chest RPP, treat symptomatically does not appear overtly fluid overloaded but given PRIETO will check pro-BNP significant weight gain over the past year, probable OHS/ possible FELTON contributing monitor oxygen needs overnight, may need outpatient sleep study back pain seems musculoskeletal in nature prn toradol, hot packs polysubstance use relapsed 2-3 weeks ago, looking for detox addiction medicine consult resume home dose of methadone when dose confirmed mood continue baseline meds dvt ppx - lovenox code status - full code Quality Stroke Does the patient have a stroke diagnosis?: No VTE Prior VTE?: No VTE Risk Level:: Medical - moderate - high VTE Device Contraindication: N/A - Device Ordered VTE Drug Contraindication: N/A - Med Ordered
--- NOTE | 2025-07-30 15:47 | HO.NURTONUR ---
Initially came with back pain. Pt came to ED having missed methadone x 2 DAYS. stated she had last used heroine yesterday then changed that to say it was this am 5. was cooperative with Security checking Belongings. No drugs found but had paraphanalia. Pt has been sleeping mostly but quickly arousable and pupils 3-4mm. Steady on feet. no Resp depression. SaO2 dropped as low as 86% and needed 2L NC. Has been improving in the last hour. Now is 92% while asleep. Housing insecurity. Methadone was held d/t drowsiness this am.
[2025-07-30 15:59] LABS: NT Pro B Type Natriuretic Pept 93.1 pg/mL (<300)
[2025-07-30] MEDS: Nicotine 21 MG PATCH.TD24 TRANSDERMA (16:24)
[2025-07-30] MEDS: 0.9 % Sodium Chloride Flush 3 ML SYRINGE IVFLUSH (20:28)
[2025-07-31] VITALS (7 sets, daily range): BP systolic 97–130; BP diastolic 52–80; PULSE 75–92; RESP 16–20; TEMP 36.1–36.9; O2SAT 92–97
[2025-07-31 07:54] LABS: Chlamydia pneumoniae PCR Not Detected (Not Detect.); Coronavirus 229E PCR Not Detected (Not Detect.); Coronavirus HKU1 PCR Not Detected (Not Detect.); Coronavirus NL63 PCR Not Detected (Not Detect.); Coronavirus OC43 PCR Not Detected (Not Detect.); RSV PCR Not Detected (Not Detect.); Rhino/Enterovirus PCR Not Detected (Not Detect.)
[2025-07-31 08:07] LABS: SARS-CoV-2 PCR Not Detected (Not Detect.)
[2025-07-31 08:08] LABS: Influenza A H1 PCR Not Detected (Not Detect.); Influenza A H1-2009 PCR Not Detected (Not Detect.); Influenza A H3 PCR Not Detected (Not Detect.)
--- NOTE | 2025-07-31 08:29 | MHC.RECOVRN ---
TW called to verify methadone. Siddhartha Lee, RN @ [facility] [address], Pt last dosed 55mg methadone on 07/28/25 @ 10:45am with no takes homes. Information relayed to pharmacy and Addiction Provider
--- NOTE | 2025-07-31 08:37 | HE.PHANOTE ---
METHADONE CONFIRMATION SHEET PATIENT TAKES 55MG FROM [facility]. LAST DOSE 55MG 07/28/25 [id number]
[2025-07-31] MEDS: Nicotine 21 MG PATCH.TD24 TRANSDERMA (09:57)
[2025-07-31] MEDS: 0.9 % Sodium Chloride Flush 3 ML SYRINGE IVFLUSH ×2 (09:59→15:45)
--- NOTE | 2025-07-31 11:44 | HO.PM.IMPN ---
Subjective Subjective Date of Service: 07/31/25 Interval History: Admission note reviewed Patient reports some discomfort with sleeping last night. Eating well - drinking well Patient reports some difficulty with breathing and wheezing No fevers, chills or rigors. She endorses that she smokes cocaine since relapsing Review of Systems Review of Systems: Yes all other systems are reviewed and are negative Physical Exam Exam: Exam: General: A&O x3, oriented to time place person and situation, comfortable, no pain - MO habitus Cardiac: S1, S2 auscultated with no S3/4, no MRG. Well perfused. Respiratory: Normal breath sounds auscultated throughout all lung zones, biapical wheezing auscultated with inspiration and expiration; no O2, no peripheral or central cyanosis GI/ : No abdominal pain on palpation, no masses or distentions. MSK: Normal ambulation without pain at bony prominences or musculature Neurological: Normal neurological examination on overview, without obvious CN II-XII abnormalities. Vital Signs: Vital Signs: Last Vital Signs Temp 97.0 F 07/31/25 07:35 Pulse 75 07/31/25 07:35 Resp 18 07/31/25 07:35 BP 110/55 L 07/31/25 07:35 Pulse Ox 92 07/31/25 07:35 O2 Del Method Room Air 07/31/25 07:35 O2 Flow Rate 2 07/30/25 14:02 BMI result Body Mass Index 40.6 Objective Data Active Medications Acetaminophen (Acetaminophen 325 Mg Tablet) 650 mg PO Q6H PRN PRN Reason: Pain, Mild 1-3,fever,headache Last Admin: 07/30/25 17:07 Dose: 650 mg Documented By: TMEI Albuterol Sulfate (Albuterol Sulfate (0.083%) 2.5 Mg/3 Ml Vial.Neb) 2.5 mg INHALE Q6H PRN PRN Reason: Shortness of Breath/Wheezing Calcium Carbonate (Calcium Carbonate 750 Mg Tab.Chew) 750 mg PO Q4H PRN PRN Reason: Heartburn Enoxaparin Sodium (Enoxaparin Sodium 40 Mg/0.4 Ml Syringe) 40 mg SUBCUT Q24H [facility] Last Admin: 07/30/25 16:25 Dose: 40 mg Documented By: GLENNA Fluoxetine HCl (Fluoxetine Hcl 20 Mg Capsule) 20 mg PO DAILY [facility] Last Admin: 07/31/25 09:53 Dose: 20 mg Documented By: GIOVANA Fluticasone Propionate (Fluticasone Propionate Nasal 16 Gm [place]) 1 spray NOSTRIL-B BID PRN PRN Reason: ALLERGIES Gabapentin (Gabapentin 600 Mg Tablet) 600 mg PO TID [facility] Last Admin: 07/31/25 09:53 Dose: 600 mg Documented By: GIOVANA Guaifenesin/Dextromethorphan (Guaifenesin Dm 100/10/5 Ml 5 Ml Syrup) 5 ml PO Q6H PRN PRN Reason: Cough Hydroxyzine HCl (Hydroxyzine Hcl 25 Mg Tablet) 25 mg PO Q6H PRN PRN Reason: Anxiety Last Admin: 07/31/25 09:53 Dose: 25 mg Documented By: GIOVANA Ketorolac Tromethamine (Ketorolac Tromethamine 15 Mg/Ml Vial) 15 mg IVPUSH Q6H PRN PRN Reason: Pain, Moderate(Pain Scale 4-6) Last Admin: 07/31/25 09:54 Dose: 15 mg Documented By: GIOVANA Magnesium Hydroxide (Milk Of Magnesia 30 Ml Oral.Susp) 30 ml PO DAILY PRN PRN Reason: Constipation Melatonin (Melatonin 3 Mg Tablet) 6 mg PO BEDTIME PRN PRN Reason: Insomnia Methadone HCl (Methadone Hcl 20 Mg/2 Ml Oral.Conc) 55 mg PO DAILY@0800 [facility] Nicotine (Nicotine 21 Mg Patch.Td24) 21 mg TRANSDERMA DAILY [facility] Last Admin: 07/31/25 09:57 Dose: 21 mg Documented By: GIOVANA Nicotine Polacrilex (Nicotine Polacrilex Lozenge 4 Mg Lozenge) 4 mg BUCCAL Q2H PRN PRN Reason: Nicotine Cravings Sodium Chloride (0.9 % Sodium Chloride Flush 3 Ml Syringe) 3 ml IVFLUSH QSHIFT [facility] Last Admin: 07/31/25 09:59 Dose: 3 ml Documented By: GIOVANA Topiramate (Topiramate 25 Mg Tablet) 50 mg PO BEDTIME [facility] Last Admin: 07/30/25 20:24 Dose: 50 mg Documented By: AMARILYS Trazodone HCl (Trazodone Hcl 50 Mg Tablet) 50 mg PO BEDTIME [facility] Last Admin: 07/30/25 20:24 Dose: 50 mg Documented By: AMARILYS Labs 07/30/25 10:40 07/30/25 10:40 Labs: Laboratory Results - last 24 hr 07/30/25 07/30/25 07/30/25 10:02 10:40 11:32 Estimat Average Glucose 103 Hemoglobin A1c % 5.2 NT-Pro-B Natriuret Pep 93.1 Ur N gonorrhoeae DNA (PCR) NOT DETECTED Urine Opiates Screen POSITIVE H Ur Buprenorphine Scrn Not Detected Ur Oxycodone Screen Not Detected Urine Methadone Screen Positive H Urine Fentanyl Screen POSITIVE H Ur Barbiturates Screen Not Detected Ur Phencyclidine Scrn Not Detected Ur Amphetamines Screen Not Detected U Benzodiazepines Scrn POSITIVE H Urine Cocaine Screen POSITIVE H U Marijuana (THC) Screen POSITIVE H Respiratory Panel Bernrado Adenovirus (Rapid PCR) B.pert (TEM-PCR) B.parapertussis DNA PCR C. pneumoniae DNA (PCR) Ur Chlamydia DNA (PCR) NOT DETECTED Coronavirus OC43 (PCR) Coronavirus HKU1 (PCR) Coronavirus 229E (PCR) Coronavirus NL63 (PCR) Human Metapneumovir PCR Influenza A (RT-PCR) Influenza A (H1) PCR Influ A (H1/09) PCR Influenza A (H3) PCR Influenza Type A (PCR) Influenza B (RT-PCR) Influenza Type B (PCR) M. pneumoniae (PCR) Parainfluenza 1 (PCR) Parainfluenza 2 (PCR) Parainfluenza 3 (PCR) Parainfluenza 4 (PCR) RSV (PCR) RSV RNA Qual (PCR) Entero/Rhino (PCR) SARS-CoV-2 RNA (RT-PCR) 07/30/25 07/30/25 13:07 16:20 Estimat Average Glucose Hemoglobin A1c % NT-Pro-B Natriuret Pep Ur N gonorrhoeae DNA (PCR) Urine Opiates Screen Ur Buprenorphine Scrn Ur Oxycodone Screen Urine Methadone Screen Urine Fentanyl Screen Ur Barbiturates Screen Ur Phencyclidine Scrn Ur Amphetamines Screen U Benzodiazepines Scrn Urine Cocaine Screen U Marijuana (THC) Screen Respiratory Panel Bernardo See Note Adenovirus (Rapid PCR) Not Detected B.pert (TEM-PCR) Not Detected B.parapertussis DNA PCR Not Detected C. pneumoniae DNA (PCR) Not Detected Ur Chlamydia DNA (PCR) Coronavirus OC43 (PCR) Not Detected Coronavirus HKU1 (PCR) Not Detected Coronavirus 229E (PCR) Not Detected Coronavirus NL63 (PCR) Not Detected Human Metapneumovir PCR Not Detected Influenza A (RT-PCR) Not Detected Influenza A (H1) PCR Not Detected Influ A (H1/09) PCR Not Detected Influenza A (H3) PCR Not Detected Influenza Type A (PCR) NEGATIVE Influenza B (RT-PCR) Not Detected Influenza Type B (PCR) NEGATIVE M. pneumoniae (PCR) Not Detected Parainfluenza 1 (PCR) Not Detected Parainfluenza 2 (PCR) Not Detected Parainfluenza 3 (PCR) Not Detected Parainfluenza 4 (PCR) Not Detected RSV (PCR) Not Detected RSV RNA Qual (PCR) NEGATIVE Entero/Rhino (PCR) Not Detected SARS-CoV-2 RNA (RT-PCR) NEGATIVE Not Detected Assessment and Plan (1) Substance abuse: Status: Acute (2) Obese: Status: Acute (3) Left flank pain: Status: Acute (4) Nephrolithiasis: Status: Acute (5) Herpes: Status: Acute (6) Hypoxia: Status: Acute Plan 45-year-old female with a history of polysubstance use who presents to the emergency department with back pain found to be hypoxic Acute hypoxia Acute non infective exacerbation of mild intermittent asthma Crack Cocaine use CTA negative for PE possible viral illness, chest RPP, treat symptomatically No evidence of volume overload / CHF Significant weight gain over the past year, probable OHS/ possible FELTON contributing Monitor oxygen needs overnight, may need outpatient sleep study No antibiotics added Monitor for withdrawal - COWS Back pain seems musculoskeletal in nature prn toradol, hot packs Polysubstance abuse - Cocaine - Benzos - Fentanyl - Opoids On methadone relapsed 2-3 weeks ago, looking for detox addiction medicine consult Resume methadone 55mg OD PO Mood continue baseline meds [facility] [employer] - VTE: Enoxaparin - CODE STATUS: Full code - DIET: Regular Total time managing care of this patient today: 35 minutes. Quality Stroke Does the patient have a stroke diagnosis?: No VTE Prior VTE?: No VTE Risk Level:: Medical - moderate - high VTE Device Contraindication: N/A - Device Ordered VTE Drug Contraindication: N/A - Med Ordered
[2025-07-31] MEDS: methADONE HCl 20 MG/2 ML ORAL.CONC 55 MG PO (11:54)
--- NOTE | 2025-07-31 12:20 | MHC.RECOVRN ---
Consult received by Addiction Medicine for pt with polysubstance use. Recovery/BH assessment complete. Please see for additional details Pt was continued on methadone 55mg QD Pt was recently discharged from a sober living facility in [place] and expressed interest in CSS placement upon hospital discharge. Referrals are in the process of being sent. Pt is agreeable to any placement regardless of location. Pt reports she is currently connected to a production recovery operator and therapist and was encouraged to reach out to these supports.?? ACS to continue to follow and available as needed for ongoing support?
--- NOTE | 2025-07-31 16:38 | MHC.CM.PN ---
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
[2025-07-31 17:29] LABS: MANUAL DIFF FLAG NO
[2025-07-31 17:51] LABS: Hematocrit 33.7 % (37.0-47.0); Hemoglobin 11.1 g/dl (12.0-16.0); Imm Gran Abs Auto 0.03 X10*3/uL (0.00-0.03); Imm Gran Pct Auto 0.5 % (0.0-0.4); Lymphocytes Absolute Auto 1.8 X10*3/uL (1.2-4.9); Mean Corpuscular HGB Conc 32.9 g/dl (31.0-35.0); Mean Corpuscular Hemoglobin 29.7 pg (27.0-33.0); Mean Corpuscular Volume 90.1 fL (80.0-98.0); NRBC Abs Auto 0.000 X10*3/uL (0.0-0.012); NRBC Pct Auto 0.0 /100WBC (0.0-0.2); Platelet Count 222 X10*3/uL (160-400); Red Blood Count 3.74 X10*6/uL (4.20-5.50); White Blood Count 6.6 X10*3/uL (4.8-10.8)
[2025-07-31 18:09] LABS: Alanine Aminotransferase 45 U/L (0-31); Albumin Level 3.6 g/dL (3.5-5.0); Alkaline Phosphatase 94 U/L (39-117); Anion Gap 13 (12-20); Aspartate Amino Transferase 28 U/L (5-31); Blood Urea Nitrogen 13 mg/dL (9-16); Calcium 8.9 mg/dL (8.4-10.2); Carbon Dioxide 22 mmol/L (22-29); Chloride 112 mmol/L (96-108); Creatinine Clr Calc Pharmacy 128.4; Estimated Glomerular Filt Rate > 60; Potassium 3.8 mmol/L (3.3-5.1); Sodium 143 mmol/L (135-145); Total Protein 6.9 g/dL (6.5-8.0)
--- NOTE | 2025-07-31 19:29 | PC.NURSE ---
per pt Request of toradol (4-6) for 7/10 pain.
[2025-07-31] MEDS: guaiFENesin DM 100/10/5 ML 5 ML SYRUP PO (19:35)
[2025-08-01] VITALS (7 sets, daily range): BP systolic 92–134; BP diastolic 55–87; PULSE 65–90; RESP 16–20; TEMP 36.1–36.7; O2SAT 94–97
[2025-08-01] MEDS: guaiFENesin DM 100/10/5 ML 5 ML SYRUP PO ×2 (04:33→20:20)
[2025-08-01] MEDS: methADONE HCl 20 MG/2 ML ORAL.CONC 55 MG PO (08:19)
[2025-08-01] MEDS: 0.9 % Sodium Chloride Flush 3 ML SYRINGE IVFLUSH ×3 (08:21→20:20)
[2025-08-01] MEDS: Nicotine 21 MG PATCH.TD24 TRANSDERMA (09:25)
--- NOTE | 2025-08-01 10:35 | MHC.RECOVRN ---
Addendum entered by Opal Mahajan RN 08/01/25 12:41: Addendum: Pt called [facility] and did intake. They requested and I sent current med list. Pt also requested referral be sent to [facility] in [place]. JULIOCESAR obtained and referral sent. ACS available PRN. Original Note: T/W F/U on CSS referrals sent yesterday. 1. [facility]-no one in until Sunday 2. [facility]-pt need to call herself. 3. [facility]-review takes 1-2 weeks 4. [facility] and [facility] (same intake dpt.)-pt is on wait list. If we dont hear back today should call tomorrow at 7:30AM. Above information given to pt. and she is currently on phone with #2 for intake and was informed about calling #4 at 7:30AM tomorrow. Case Nancy [place] updated.
--- NOTE | 2025-08-01 13:07 | P.PNIM_ITS ---
Subjective Subjective Date of Service: 08/01/25 Interval History: Feels well overall, however endorses persistent cough No hemoptysis. Productive. Endorses some wheezing ongoing Review of Systems Review of Systems: Yes all other systems are reviewed and are negative Physical Exam 2 Exam: Exam: General: A&O x3, oriented to time place person and situation, comfortable, no pain - MO habitus Cardiac: S1, S2 auscultated with no S3/4, no MRG. Well perfused. Respiratory: Normal breath sounds auscultated throughout all lung zones, biapical wheezing auscultated with inspiration and expiration; no O2, no peripheral or central cyanosis GI/ : No abdominal pain on palpation, no masses or distentions. MSK: Normal ambulation without pain at bony prominences or musculature Neurological: Normal neurological examination on overview, without obvious CN II-XII abnormalities. Vital Signs: Vital Signs: Last Vital Signs Temp 97.2 F 08/01/25 12:00 Pulse 83 08/01/25 12:00 Resp 16 08/01/25 12:00 BP 124/66 08/01/25 12:00 Pulse Ox 96 08/01/25 12:00 O2 Del Method Room Air 08/01/25 12:00 O2 Flow Rate 2 07/30/25 14:02 BMI result Body Mass Index 40.6 Objective Data Active Medications Acetaminophen (Acetaminophen 325 Mg Tablet) 650 mg PO Q6H PRN PRN Reason: Pain, Mild 1-3,fever,headache Last Admin: 07/30/25 17:07 Dose: 650 mg Documented By: TEMI Albuterol Sulfate (Albuterol Sulfate (0.083%) 2.5 Mg/3 Ml Vial.Neb) 2.5 mg INHALE Q6H PRN PRN Reason: Shortness of Breath/Wheezing Calcium Carbonate (Calcium Carbonate 750 Mg Tab.Chew) 750 mg PO Q4H PRN PRN Reason: Heartburn Enoxaparin Sodium (Enoxaparin Sodium 40 Mg/0.4 Ml Syringe) 40 mg SUBCUT Q24H [facility] Last Admin: 07/31/25 15:44 Dose: 40 mg Documented By: GIOVANA Fluoxetine HCl (Fluoxetine Hcl 20 Mg Capsule) 20 mg PO DAILY [facility] Last Admin: 08/01/25 08:20 Dose: 20 mg Documented By: GIOVANA Fluticasone Propionate (Fluticasone Propionate Nasal 16 Gm [place]) 1 spray NOSTRIL-B BID PRN PRN Reason: ALLERGIES Gabapentin (Gabapentin 600 Mg Tablet) 600 mg PO TID [facility] Last Admin: 08/01/25 09:26 Dose: 600 mg Documented By: GIOVANA Guaifenesin/Dextromethorphan (Guaifenesin Dm 100/10/5 Ml 5 Ml Syrup) 5 ml PO Q6H PRN PRN Reason: Cough Last Admin: 08/01/25 04:33 Dose: 5 ml Documented By: AMARILYS Hydroxyzine HCl (Hydroxyzine Hcl 25 Mg Tablet) 25 mg PO Q6H PRN PRN Reason: Anxiety Last Admin: 08/01/25 08:20 Dose: 25 mg Documented By: GIOVANA Ketorolac Tromethamine (Ketorolac Tromethamine 15 Mg/Ml Vial) 15 mg IVPUSH Q6H PRN PRN Reason: Pain, Moderate(Pain Scale 4-6) Last Admin: 07/31/25 19:29 Dose: 15 mg Documented By: AMARILYS Magnesium Hydroxide (Milk Of Magnesia 30 Ml Oral.Susp) 30 ml PO DAILY PRN PRN Reason: Constipation Melatonin (Melatonin 3 Mg Tablet) 6 mg PO BEDTIME PRN PRN Reason: Insomnia Methadone HCl (Methadone Hcl 20 Mg/2 Ml Oral.Conc) 55 mg PO DAILY@0800 [facility] Last Admin: 08/01/25 08:19 Dose: 55 mg Documented By: GIOVANA Co-signed By: SHAINA Nicotine (Nicotine 21 Mg Patch.Td24) 21 mg TRANSDERMA DAILY [facility] Last Admin: 08/01/25 09:25 Dose: 21 mg Documented By: GIOVANA Nicotine Polacrilex (Nicotine Polacrilex Lozenge 4 Mg Lozenge) 4 mg BUCCAL Q2H PRN PRN Reason: Nicotine Cravings Prednisone (Prednisone 20 Mg Tablet) 60 mg PO DAILY [facility] Last Admin: 08/01/25 11:04 Dose: 60 mg Documented By: GIOVANA Sodium Chloride (0.9 % Sodium Chloride Flush 3 Ml Syringe) 3 ml IVFLUSH QSHIFT [facility] Last Admin: 08/01/25 08:21 Dose: 3 ml Documented By: GIOVANA Topiramate (Topiramate 25 Mg Tablet) 50 mg PO BEDTIME [facility] Last Admin: 07/31/25 20:26 Dose: 50 mg Documented By: AMARILYS Trazodone HCl (Trazodone Hcl 50 Mg Tablet) 50 mg PO BEDTIME [facility] Last Admin: 07/31/25 20:26 Dose: 50 mg Documented By: AMARILYS Labs 07/31/25 17:22 07/31/25 17:22 Labs: Laboratory Results - last 24 hr 07/31/25 17:22 MCV 90.1 MCH 29.7 MCHC 32.9 RDW 11.8 Plt Count 222 MPV 10.4 Immature Gran % (Auto) 0.5 H Neut % (Auto) 64.6 Lymph % (Auto) 28.0 [place] % (Auto) 6.2 Eos % (Auto) 0.5 Baso % (Auto) 0.2 Lymph # (Auto) 1.8 [place] # (Auto) 0.4 Eos # (Auto) 0.0 Baso # (Auto) 0.0 Abs Immat Gran (auto) 0.03 Absolute Neuts (auto) 4.3 Absolute Nucleated RBC 0.000 Nucleated RBC % (auto) 0.0 Anion Gap 13 Estim Creat Clear Calc 128.4 Estimated GFR > 60 Random Glucose 118 H Calcium 8.9 Total Bilirubin 0.1 AST 28 ALT 45 H Alkaline Phosphatase 94 Total Protein 6.9 Albumin 3.6 Microbiology Microbiology Results: Microbiology 07/30/25 10:02 Urine Culture - Final Urine clean catch - Clean Catch Midstream Assessment and Plan (1) Substance abuse: Status: Acute (2) Obese: Status: Acute (3) Left flank pain: Status: Acute (4) Nephrolithiasis: Status: Acute (5) Hydronephrosis concurrent with and due to calculi of kidney and ureter: Status: Acute (6) Hypoxia: Status: Acute Plan 45-year-old female with a history of polysubstance use who presents to the emergency department with back pain found to be hypoxic Acute hypoxia Acute non infective exacerbation of mild intermittent asthma Crack Cocaine use CTA negative for PE possible viral illness, chest RPP, treat symptomatically No evidence of volume overload / CHF Significant weight gain over the past year, probable OHS/ possible FELTON contributing Monitor oxygen needs overnight, may need outpatient sleep study No antibiotics added Monitor for withdrawal - COWS Prednisone 60mg OD PO started Back pain seems musculoskeletal in nature prn toradol, hot packs Polysubstance abuse - Cocaine - Benzos - Fentanyl - Opoids On methadone relapsed 2-3 weeks ago, looking for detox addiction medicine consult Resume methadone 55mg OD PO Mood continue baseline meds [employer] - VTE: Enoxaparin - CODE STATUS: Full code - DIET: Regular Total time managing care of this patient today: 35 minutes. Quality Stroke Does the patient have a stroke diagnosis?: No VTE Prior VTE?: No VTE Risk Level:: Medical - moderate - high VTE Device Contraindication: N/A - Device Ordered VTE Drug Contraindication: N/A - Med Ordered
[2025-08-02 03:18] VITALS: BP 101/58; PULSE 67; RESP 18; TEMP 37; O2SAT 98
[2025-08-02 07:38] VITALS: BP 100/56; PULSE 72; RESP 16; TEMP 36.2; O2SAT 97
[2025-08-02] MEDS: methADONE HCl 20 MG/2 ML ORAL.CONC 55 MG PO (08:28)
[2025-08-02] MEDS: Nicotine 21 MG PATCH.TD24 TRANSDERMA (08:29)
[2025-08-02] MEDS: guaiFENesin DM 100/10/5 ML 5 ML SYRUP PO (08:29)
[2025-08-02] MEDS: 0.9 % Sodium Chloride Flush 3 ML SYRINGE IVFLUSH ×3 (08:33→20:44)
--- NOTE | 2025-08-02 09:45 | MHC.RECOVRN ---
Met with pt. in 360 to F/U and offer support on CSS bed search. Pt F/U with [facility] this AM as advised and there is still a wait list. T/W encouraged pt. to call all facilities on the list daily to increase her chance of available beds. Pt agreed. ACS available PRN CM Caity updated.
[2025-08-02 11:38] VITALS: BP 99/63; PULSE 82; RESP 16; TEMP 36.1; O2SAT 96
--- NOTE | 2025-08-02 14:21 | HO.PM.IMPN ---
Subjective Subjective Date of Service: 08/02/25 Interval History: No new complaints or issues. The patient reports that her breathing has improved significantly, and her wheezing has resolved Review of Systems Review of Systems: Yes all other systems are reviewed and are negative Physical Exam Exam: Exam: General: A&O x3, oriented to time place person and situation, comfortable, no pain - MO habitus Cardiac: S1, S2 auscultated with no S3/4, no MRG. Well perfused. Respiratory: Normal breath sounds auscultated throughout all lung zones, biapical wheezing auscultated with inspiration and expiration; no O2, no peripheral or central cyanosis GI/ : No abdominal pain on palpation, no masses or distentions. MSK: Normal ambulation without pain at bony prominences or musculature Neurological: Normal neurological examination on overview, without obvious CN II-XII abnormalities. Vital Signs: Vital Signs: Last Vital Signs Temp 97.0 F 08/02/25 11:38 Pulse 82 08/02/25 11:38 Resp 16 08/02/25 11:38 BP 99/63 08/02/25 11:38 Pulse Ox 96 08/02/25 11:38 O2 Del Method Room Air 08/02/25 11:38 O2 Flow Rate 2 07/30/25 14:02 BMI result Body Mass Index 40.6 Objective Data Active Medications Acetaminophen (Acetaminophen 325 Mg Tablet) 650 mg PO Q6H PRN PRN Reason: Pain, Mild 1-3,fever,headache Last Admin: 07/30/25 17:07 Dose: 650 mg Documented By: TEMI Albuterol Sulfate (Albuterol Sulfate (0.083%) 2.5 Mg/3 Ml Vial.Neb) 2.5 mg INHALE Q6H PRN PRN Reason: Shortness of Breath/Wheezing Calcium Carbonate (Calcium Carbonate 750 Mg Tab.Chew) 750 mg PO Q4H PRN PRN Reason: Heartburn Enoxaparin Sodium (Enoxaparin Sodium 40 Mg/0.4 Ml Syringe) 40 mg SUBCUT Q24H [facility] Last Admin: 08/01/25 16:10 Dose: 40 mg Documented By: GIOVANA Fluoxetine HCl (Fluoxetine Hcl 20 Mg Capsule) 20 mg PO DAILY [facility] Last Admin: 08/02/25 08:28 Dose: 20 mg Documented By: GIOVANA Fluticasone Propionate (Fluticasone Propionate Nasal 16 Gm [place]) 1 spray NOSTRIL-B BID PRN PRN Reason: ALLERGIES Gabapentin (Gabapentin 600 Mg Tablet) 600 mg PO TID [facility] Last Admin: 08/02/25 08:28 Dose: 600 mg Documented By: GIOVANA Guaifenesin/Dextromethorphan (Guaifenesin Dm 100/10/5 Ml 5 Ml Syrup) 5 ml PO Q6H PRN PRN Reason: Cough Last Admin: 08/02/25 08:29 Dose: 5 ml Documented By: GIOVANA Hydroxyzine HCl (Hydroxyzine Hcl 25 Mg Tablet) 25 mg PO Q6H PRN PRN Reason: Anxiety Last Admin: 08/01/25 08:20 Dose: 25 mg Documented By: GIOVANA Ketorolac Tromethamine (Ketorolac Tromethamine 15 Mg/Ml Vial) 15 mg IVPUSH Q6H PRN PRN Reason: Pain, Moderate(Pain Scale 4-6) Last Admin: 08/01/25 20:20 Dose: 15 mg Documented By: MUSA Magnesium Hydroxide (Milk Of Magnesia 30 Ml Oral.Susp) 30 ml PO DAILY PRN PRN Reason: Constipation Melatonin (Melatonin 3 Mg Tablet) 6 mg PO BEDTIME PRN PRN Reason: Insomnia Methadone HCl (Methadone Hcl 20 Mg/2 Ml Oral.Conc) 55 mg PO DAILY@0800 [facility] Last Admin: 08/02/25 08:28 Dose: 55 mg Documented By: GIOVANA Co-signed By: SHAINA Nicotine (Nicotine 21 Mg Patch.Td24) 21 mg TRANSDERMA DAILY [facility] Last Admin: 08/02/25 08:29 Dose: 21 mg Documented By: GIOVANA Nicotine Polacrilex (Nicotine Polacrilex Lozenge 4 Mg Lozenge) 4 mg BUCCAL Q2H PRN PRN Reason: Nicotine Cravings Prednisone (Prednisone 20 Mg Tablet) 60 mg PO DAILY [facility] Last Admin: 08/02/25 08:28 Dose: 60 mg Documented By: GIOVANA Sodium Chloride (0.9 % Sodium Chloride Flush 3 Ml Syringe) 3 ml IVFLUSH QSHIFT [facility] Last Admin: 08/02/25 08:33 Dose: 3 ml Documented By: GIOVANA Topiramate (Topiramate 25 Mg Tablet) 50 mg PO BEDTIME [facility] Last Admin: 08/01/25 20:19 Dose: 50 mg Documented By: MUSA Trazodone HCl (Trazodone Hcl 50 Mg Tablet) 50 mg PO BEDTIME [facility] Last Admin: 08/01/25 20:20 Dose: 50 mg Documented By: MUSA Labs 07/31/25 17:22 07/31/25 17:22 Assessment and Plan (1) Substance abuse: Status: Acute (2) Obese: Status: Acute (3) Left flank pain: Status: Acute (4) Nephrolithiasis: Status: Acute (5) Cellulitis: Status: Acute (6) Hypoxia: Status: Acute Plan 45-year-old female with a history of polysubstance use who presents to the emergency department with back pain found to be hypoxic Acute hypoxia Acute non infective exacerbation of mild intermittent asthma Crack Cocaine use CTA negative for PE possible viral illness, chest RPP, treat symptomatically No evidence of volume overload / CHF Significant weight gain over the past year, probable OHS/ possible FEL[place] contributing Monitor oxygen needs overnight, may need outpatient sleep study No antibiotics added Monitor for withdrawal - COWS Prednisone 60mg OD PO Back pain Musculoskeletal in nature prn toradol, hot packs Polysubstance abuse - Cocaine - Benzos - Fentanyl - Opoids On methadone relapsed 2-3 weeks ago, looking for detox addiction medicine consult Monitoring COWS/ CIWA Resume methadone 55mg OD PO Mood continue baseline meds [employer] - VTE: Enoxaparin - CODE STATUS: Full code - DIET: Regular Total time managing care of this patient today: 35 minutes. Quality Stroke Does the patient have a stroke diagnosis?: No VTE Prior VTE?: No VTE Risk Level:: Medical - moderate - high VTE Device Contraindication: N/A - Device Ordered VTE Drug Contraindication: N/A - Med Ordered
[2025-08-02] MEDS: Milk of Magnesia 30 ML ORAL.SUSP PO (14:45)
[2025-08-02 15:23] VITALS: BP 121/72; PULSE 76; RESP 17; TEMP 36.6; O2SAT 93
[2025-08-02 19:50] VITALS: BP 115/59; PULSE 71; RESP 18; TEMP 36; O2SAT 95
[2025-08-02 23:40] VITALS: BP 137/83; PULSE 68; RESP 18; TEMP 36.4; O2SAT 99
[2025-08-03] VITALS: PULSE 68
[2025-08-03 03:53] VITALS: BP 118/68; PULSE 72; RESP 18; TEMP 36.7; O2SAT 98
[2025-08-03 08:00] VITALS: BP 127/80; PULSE 69; RESP 14; TEMP 36.1; O2SAT 97
[2025-08-03] MEDS: methADONE HCl 20 MG/2 ML ORAL.CONC 55 MG PO (08:10)
[2025-08-03] MEDS: 0.9 % Sodium Chloride Flush 3 ML SYRINGE IVFLUSH (08:13)
[2025-08-03] MEDS: guaiFENesin DM 100/10/5 ML 5 ML SYRUP PO (08:42)
[2025-08-03] MEDS: Nicotine 21 MG PATCH.TD24 TRANSDERMA (08:49)
--- NOTE | 2025-08-03 10:58 | MHC.RECOVRN ---
Pt completed intake with [facility] and referral re sent as they stated they did not receive yesterday. If she does not get accepted she will persue [facility] who needs guest dosing set up prior to accepting. Declan also called back ([facility]) and also needs guest dosing set up. Pt scheduled for D/C today. ACS available PRN
[2025-08-03 12:00] VITALS: BP 110/68; PULSE 79; RESP 16; TEMP 36.1; O2SAT 93
--- NOTE | 2025-08-03 12:39 | MHC.RECOVRN ---
Pt was accepted to [facility] ([facility]). All D/C scripts need to be sent to [facility] [place] [address], [place], [place]. Covering has been notified. Pt needs to arrive to [facility] on 08/04 no later than 12PM. She will take last dose letter and get AM methadone on 08/04 at [facility]. She will then be transferred to [facility] in [place] for guest dosing. [facility] needs to send over guest dosing information. Pt given [facility] contact info to give to [facility]. I also called [facility] and they confirmed this. JULIOCESAR for [facility] signed and valid for 1 year if we need to send over any additional information.
--- NOTE | 2025-08-03 13:41 | PM.DS ---
DS: Providers Provider Date of Service: 08/03/25 Date of admission: 07/30/25 15:24 Date of discharge: 08/03/25 Primary care physician: Prieto Partida Consults: 07/30/25 15:28 Addiction Medicine Provider Routine Consulting Provider: [facility] Reason for consultation: polysubstance use Has provider been notified: No DS: Diagnosis Discharge Diagnosis (1) Substance abuse: Status: Acute (2) Obese: Status: Acute (3) Left flank pain: Status: Acute (4) Nephrolithiasis: Status: Acute (5) Cellulitis: Status: Acute (6) Hypoxia: Status: Acute DS: Summary Hospital Course Hospital Course: From admission HPI: Date of Service: 07/30/25 Attending physician on admission: Magnolia Hodges Chief Complaint: hypoxia This is a 45 year old female with history of polysubstance use who presents to the ED with complaints of back pain. Patient reports she has left-sided back pain for the past few days. It is worse with movements and feels like a pulling sensation. She denies any trauma or falls. She has a history of kidney stones and state that it does not feel similar to her previous kidney stones. She has no associated nausea, vomiting or dysuria. She denies any associated fever or chills. In the emergency department her urinalysis was a poor sample but showing 4+ bacteria. While in the emergency department she was noted to be hypoxic, reportedly with her oxygen saturation dropping to 83% on room air. She was subsequently placed on 2 L nasal cannula. CTA was obtained which was negative for PE. Lab work relatively unremarkable, mild transaminitis. Tox screen positive for opiates, methadone, fentanyl, benzodiazepines, cocaine, marijuana. Patient reports snorting cocaine and heroin. She smokes 3 or 4 cigarettes daily but also vapes nicotine all the time. She was previously sober for 14 months, but has been using for the past 2-3 weeks. She reports 2 months of intermittent PRITEO. No leg edema. Recently she began having a cough productive of green phlegm. She also reports gaining 100 lb over the past 14 months. She denies any history of asthma or underlying lung disease. Hospital course Pt was admitted to the hospital for acute hypoxic respiratory failure of unclear etiology, concerning for possible viral illness complicated by polysubstance use after recent relapse with probable ohs/possible FELTON contributing. Pt initially presented to the hospital complaining of left lower back pain concerning for possible UTI/pyelonephritis/obstructive uropathy as pt had a hx of kidney stones, though reported by those symptoms felt different than her current presentation and workup negative for acute UTI. Back pain appears musculoskeletal in nature and was treated symptomatically with Toradol and hot packs. Pt was eventually weaned off of supplemental oxygen and breathing returned back to baseline. For polysubstance use disorder, pt was seen and evaluated by addiction medicine and was arranged to enter into an outpatient detox facility beginning tomorrow. Pt should continue her methadone, as well as all of her other home medications. Time Attestation Discharge Coordination Time (in mins): 37 Quality: Safe Use of Opioids Does Pt have an Active Cancer Diagnosis on the Problem List?: No Quality: Stroke Does the patient have a stroke diagnosis?: No Physical Exam Exam: Exam: General: AOx3, no acute distress Resp: CTA bilaterally CVS: S1, S2, RRR GI: +BS, NT, no distention Skin: Warm, dry Neuro: Cranial nerves II-XII grossly intact bilaterally. Motor grossly intact bilaterally Extremities: No edema Psych: Appropriate affect Vital Signs: Vital Signs: Last Vital Signs Temp 96.9 F 08/03/25 12:00 Pulse 79 08/03/25 12:00 Resp 16 08/03/25 12:00 BP 110/68 08/03/25 12:00 Pulse Ox 93 08/03/25 12:00 O2 Del Method Room Air 08/03/25 12:00 O2 Flow Rate 2 07/30/25 14:02 BMI result Body Mass Index 40.6 DS: Data Data Completed and Pending Completed studies during hospitalization [Text1]: Procedures Excision of Left Hand Subcutaneous Tissue and Fascia, Open Approach (09/12/22) Discharge Plan Discharge Anticipated Discharge Date/Time: 08/03/25 13:26 Patient Disposition: Home, Self-Care Referrals: [facility] [Other] - 1 Day Referral Note: Please arrive on 08/04 by 12:00PM. No more than 2 bags. Your medications have been sent to [facility] per request of [facility]. Go to [facility] 12/2 AM for methadone and bring last dose letter. Give them [facility] information and the will send over guest dosing information. [facility] [Primary Care Provider, Primary Care] - 1 Week Discharge Medications: New trazodone 50 mg tablet 50 mg PO BEDTIME PRN (Reason: insomnia) Qty: 30 1RF topiramate 50 mg capsule,extended release 24hr 50 mg PO BEDTIME Qty: 90 1RF nicotine 21 mg/24 hr patch 24 hour 1 patch transdermal DAILY Qty: 28 0RF nicotine (polacrilex) 4 mg gum 4 mg buccal Q2-4H PRN (Reason: nicotine cravings) Qty: 100 0RF ibuprofen 600 mg tablet 600 mg PO TID PRN (Reason: fever or pain) Qty: 60 0RF hydroxyzine HCl 25 mg tablet 25 mg PO QID PRN (Reason: Anxiety or itching) Qty: 60 0RF gabapentin 600 mg tablet 600 mg PO TID Qty: 90 0RF fluticasone propionate 44 mcg/actuation HFA aerosol inhaler 1 puff inhalation BID PRN (Reason: allergy symptoms) Qty: 10.6 0RF buspirone 10 mg tablet 10 mg PO BID Qty: 180 0RF fluoxetine 20 mg capsule 20 mg PO DAILY Qty: 90 0RF Continued gabapentin 600 mg Tablet 600 mg PO TID buspirone 10 mg Tablet 10 mg PO BID nicotine 21 mg/24 hr Patch 24 Hour 1 patch TRANSDERMAL DAILY PRN (Reason: Nicotine Cravings) hydroxyzine HCl 25 mg Tablet 25 mg PO Q6H PRN (Reason: Anxiety) ibuprofen 600 mg Tablet 600 mg PO TID PRN (Reason: Pain) nicotine (polacrilex) 4 mg Lozenge 4 mg BUCCAL Q2-4H PRN (Reason: Nicotine Cravings) methadone [Methadose] 10 mg/mL Concentrate 55 mg PO DAILY fluoxetine 20 mg Tablet 20 mg PO DAILY trazodone 50 mg Tablet 50 mg PO BEDTIME topiramate 50 mg Tablet 50 mg PO BEDTIME fluticasone propionate 50 mcg/actuation Sherrill,Suspension 1 spray INTRANASAL BID PRN (Reason: ALLERGIES) Rx Instructions: administer into each nostril Discharge Orders: Discharge Order (Routine); Ordered 08/03/25 Ordered By: Isidoro Uriostegui Activity on Discharge: As tolerated Stand Alone Forms: Patient Portal Discharge page Print Language: Georgian Care Plan Goals: See below Health Concerns: Intractable back pain Hypoxia Difficulty breathing Plan of Treatment: You initially presented to the hospital complaining of left lower back pain for the past few days, but were noted to be hypoxic and were admitted to the hospital for concerns for acute hypoxic respiratory failure possibly secondary to viral illness. Your back pain resolved and your urine culture was ultimately negative for acute UTI. Your tox screen was positive for cocaine, benzodiazepines, fentanyl, and opioids, and you admitted that you had recently relapsed a few weeks ago, and this was likely also contributory to your hypoxia. At time of discharge you were now breathing much better and has been successfully weaned off of supplemental oxygen. You do not need either oral steroids or antibiotics. You were seen and evaluated by addiction medicine and plan on entering an outpatient detox to help in maintaining your sobriety. You should continue all of your other home medications. Assessment: See discharge summary Discharge Date/Time: 08/03/25 14:28
--- NOTE | 2025-08-03 13:55 | MHC.CM.PN ---
pt dcd hiome self care
== END 2025-08-03 14:28 | disposition home or self-care (01) ==
LOC: HO.ED 13:37 → HO.EDOVER 15:28 → HO.S3 15:39
PROVIDERS: Hospitalist; Physician Assistant; Admitting Provider Physician Assistant Medical; Emergency Provider Emergency Medicine; Visit Provider Student in an Organized Health Care Education/Training Program
DX: R09.02 Hypoxemia (principal); F19.10 Other psychoactive substance abuse, uncomplicated; E66.09 Other obesity due to excess calories; Z68.35 Body mass index [BMI] 35.0-35.9, adult; R10.A2 Flank pain, left side; B00.9 Herpesviral infection, unspecified; N13.2 Hydronephrosis with renal and ureteral calculous obstruction; L03.90 Cellulitis, unspecified; R00.0 Tachycardia, unspecified; Z20.2 Contact with and (suspected) exposure to infections with a predominantly sexual mode of transmission; Z79.899 Other long term (current) drug therapy
CPT/HCPCS: 36415; 71275; 80053; 80307; 81001; 83036; 83735; 83880; 84484; 85025; 87086; 87491; 87591; 87633; 87637; 93005; 94640; 96365; 96366; 96372; 96375; 96376; 99221; 99285; J1650; J1885; J2919; J3475; Q9967; S9485

== ENCOUNTER → 2025-07-30 10:13 | Outpatient (BNV) | payer MEDICAID, SELFPAY | PROVIDERS: Admitting Provider Physician Assistant Medical; Emergency Provider Emergency Medicine; Visit Provider Internal Medicine Cardiovascular Disease | DX: I44.5 Left posterior fascicular block (principal); R94.31 Abnormal electrocardiogram [ECG] [EKG]; R00.0 Tachycardia, unspecified | CPT/HCPCS: 93010 ==

== ENCOUNTER → 2025-07-30 10:13 | Outpatient (BNV) | payer MEDICAID, SELFPAY | PROVIDERS: Emergency Provider Emergency Medicine; Visit Provider Radiology Diagnostic Radiology | DX: R00.0 Tachycardia, unspecified (principal); R09.02 Hypoxemia | CPT/HCPCS: 71275 ==

== ENCOUNTER → 2025-07-30 15:24 | Outpatient (BNV) | payer MEDICAID, SELFPAY | PROVIDERS: Admitting Provider Physician Assistant Medical; Emergency Provider Emergency Medicine; Visit Provider Physician Assistant Medical | DX: F19.10 Other psychoactive substance abuse, uncomplicated (principal); E66.09 Other obesity due to excess calories; Z68.35 Body mass index [BMI] 35.0-35.9, adult; R10.A2 Flank pain, left side; N20.0 Calculus of kidney; B00.9 Herpesviral infection, unspecified; R09.02 Hypoxemia | CPT/HCPCS: 99223; 99232 ==